=== PATIENT | female | born 1960 | race Caucasian/White ===

== ENCOUNTER → 2017-10-03 13:52 | Outpatient (CLI) | payer OTHER, SELFPAY ==
[2017-10-03 15:10] LABS: Alanine Aminotransferase 16 U/L (12-78); Albumin Level 3.7 gm/dL (3.4-5.0); Alkaline Phosphatase 149 U/L (46-116); Aspartate Amino Transferase 11 U/L (15-37); Bilirubin,Direct 0.1 mg/dL (0.0-0.2); Chol/HDL Ratio 4.1 (1-3.5); Cholesterol 194 mg/dL (140-200); HDL Cholesterol 47 mg/dL (29-89); LDL Cholesterol 121 mg/dL (0-130); Total Protein,Serum 7.1 gm/dL (6.4-8.2); Triglycerides 130 mg/dL (30-200); VLDL Cholesterol 26 mg/dL (0-40)
[2017-10-03 15:24] LABS: Bilirubin,Total 0.5 mg/dL (0.2-1.0)
== END ==
PROVIDERS: PCP Internal Medicine Cardiovascular Disease; Visit Provider Internal Medicine Cardiovascular Disease
DX: I25.10 Atherosclerotic heart disease of native coronary artery without angina pectoris (principal); I10 Essential (primary) hypertension; E78.5 Hyperlipidemia, unspecified; R06.00 Dyspnea, unspecified; E66.9 Obesity, unspecified; G47.10 Hypersomnia, unspecified; Z72.0 Tobacco use; I21.3 ST elevation (STEMI) myocardial infarction of unspecified site; R94.31 Abnormal electrocardiogram [ECG] [EKG]
CPT/HCPCS: 36415; 80061; 80076

== ENCOUNTER 2017-10-05 13:45 | Outpatient (RCR) | payer OTHER, SELFPAY | END 2017-10-05 23:59 | LOC: PT 13:45 | PROVIDERS: Visit Provider Internal Medicine | DX: Z95.5 Presence of coronary angioplasty implant and graft (principal) ==

== ENCOUNTER → 2018-03-13 11:06 | Outpatient (CLI) | payer OTHER, SELFPAY ==
[2018-03-13 12:06] LABS: Alanine Aminotransferase 19 U/L (12-78); Albumin Level 3.4 gm/dL (3.4-5.0); Alkaline Phosphatase 124 U/L (46-116); Aspartate Amino Transferase 13 U/L (15-37); Bilirubin,Direct 0.1 mg/dL (0.0-0.2); Bilirubin,Indirect 0.1 mg/dL (0.0-0.9); Bilirubin,Total 0.2 mg/dL (0.2-1.0); Cholesterol 221 mg/dL (140-200); HDL Cholesterol 44 mg/dL (29-89); LDL Cholesterol 155 mg/dL (0-130); Total Protein,Serum 6.6 gm/dL (6.4-8.2); Triglycerides 112 mg/dL (30-200); VLDL Cholesterol 22 mg/dL (0-40)
== END ==
PROVIDERS: PCP Internal Medicine Cardiovascular Disease; Visit Provider Internal Medicine Cardiovascular Disease
DX: E78.4 Other hyperlipidemia; I25.10 Atherosclerotic heart disease of native coronary artery without angina pectoris
CPT/HCPCS: 36415; 80061; 80076

== ENCOUNTER → 2019-03-14 10:55 | Outpatient (CLI) | payer OTHER, SELFPAY ==
[2019-03-14 15:01] LABS: Alanine Aminotransferase 23 U/L (12-78); Albumin Level 3.5 gm/dL (3.4-5.0); Alkaline Phosphatase 120 U/L (46-116); Aspartate Amino Transferase 16 U/L (15-37); Bilirubin,Direct 0.1 mg/dL (0.0-0.2); Bilirubin,Indirect 0.2 mg/dL (0.0-0.9); Bilirubin,Total 0.3 mg/dL (0.2-1.0); Chol/HDL Ratio 4.9 (1-3.5); Cholesterol 197 mg/dL (140-200); HDL Cholesterol 40 mg/dL (29-89); LDL Cholesterol 129 mg/dL (0-130); Total Protein,Serum 6.8 gm/dL (6.4-8.2); Triglycerides 140 mg/dL (30-200); VLDL Cholesterol 28 mg/dL (0-40)
== END ==
PROVIDERS: Visit Provider Internal Medicine Cardiovascular Disease
DX: I25.10 Atherosclerotic heart disease of native coronary artery without angina pectoris (principal); E78.5 Hyperlipidemia, unspecified; I10 Essential (primary) hypertension; K21.9 Gastro-esophageal reflux disease without esophagitis; R06.00 Dyspnea, unspecified; R94.31 Abnormal electrocardiogram [ECG] [EKG]; Z72.0 Tobacco use; E78.49 Other hyperlipidemia
CPT/HCPCS: 36415; 80061; 80076; 83880

== ENCOUNTER → 2019-04-09 06:14 | Outpatient (CLI) | payer OTHER, SELFPAY ==
--- NOTE | 2019-04-09 06:22 | CA_ITS ---
PROCEDURE: 2-D M-mode and color Doppler study INDICATIONS FOR THE TEST: Chest pain COPD Heart Murmur Tobacco Smoking+ Palpitations Fatigue Syncope Edema Hypertension+Diabetes Mellitus Rheumatic Fever SOB+AGUIRRE Obesity Hyperlipidemia+ Family History HD Additional History HEADACHES, STENTS, GERD PATIENT INFORMATION HEIGHT:64 WEIGHT:222 GENDER: Female B/P:113/69 2-D/M-MODE INTERPRETATION: 2-D MEASUREMENTS OBSERVED VALUES IN CMS Right Ventricular Dimension (RVDd) 1.7 Interventricular Septum (Thickness)(IVsd) 1.1 Left Ventricular Internal Dimensions(LVIDd) 4.4 Left Ventricular Posterior Wall (Thickness)(LVPWd) 0.7 Aortic Root 3.0 Aortic Cusp Separation 1.9 Left Atrial Dimensions (LAD) 4.3 2D 1. Left atrium is mildly enlarged, left ventricle is normal size, there is mild concentric left ventricular hypertrophy present, visually estimated ejection fraction 55% with no regional wall motion abnormality. 2. The right atrium and right ventricle are normal size and contractility. 3. The aortic valve is minimally thickened and fibrosed. 4. The mitral valve leaflets are minimally thickened, there is mild degenerative changes present in both anterior and posterior mitral leaflet. 5. The tricuspid valve is grossly normal. 6. The pulmonic valve is poorly present. 7. No significant pericardial effusion noted. DOPPLER INTERROGATION: Doppler interrogation of the aortic, mitral and tricuspid valve reveals presence of mitral regurgitation, which is difficult to quantify, if clinically indicated transesophageal echocardiogram is recommended. There is mild tricuspid regurgitation noted, tricuspid regurgitation jet velocity is inadequate for acquisition of the right ventricular systolic pressure, grade 1 diastolic dysfunction seen with tissue Doppler evidence of raised left atrial pressure. CONCLUSION: 1. Mildly enlarged left atrium, normal left ventricular size, mild concentric left ventricular hypertrophy, visually estimated ejection fraction 55% with no regional wall motion abnormality, grade 1 diastolic dysfunction seen with tissue Doppler evidence of raised left atrial pressure. 2. Mitral regurgitation, which is difficult to quantify, if clinically indicated transesophageal echocardiogram is recommended. 3. Mild tricuspid regurgitation 4. No significant pericardial effusion noted.
--- NOTE | 2019-04-09 06:23 | NM_ITS ---
CARDIOLITE SPECT MYOCARDIAL PERFUSION LEXISCAN, REST AND STRESS: History: Coronary artery disease previous IA, hyperlipidemia tobacco use family history chest pain shortness of breath and fatigue Procedure: Patient received a 0.4 mg of intravenous Lexiscan, resting heart rate was 69 bpm resting blood pressure 116/73, with Lexiscan maximum heart rate achieved was 86 bpm which is less than 85% of the maximum predicted heart rate and a blood pressure was 110/74. With Lexiscan patient, shortness of breath and nausea. . Electrocardiogram: Resting echocardiogram showed sinus rhythm with Lexiscan less than 1.[address] segment depression noted from the baseline EKG. The EKG portion of the Lexiscan Myoview is nondiagnostic Cardiac stress and resting SPECT images: BX stress and resting SPECT images were obtained using technetium 99 Myoview on32. 4 mCi stress and 10.1 mCi at rest. Gated SPECT further analysis of segmental wall motion and calculation of the ejection fraction also done. Cardiac stress and the suspect images show a fixed defect involving the wall with mild reduced contractility is likely secondary to prior nontransmural myocardial scarring in the inferior wall, in addition there is reversible ischemia involving the anterolateral wall. Computer derived ejection fraction is 61% with mild inferior wall hypokinesis, right ventricle is normal size and contractility. Conclusion: 1. The EKG portion of the Lexiscan Myoview is nondiagnostic. 2. Scintigraphic evidence of nontransmural myocardial scarring involving the inferior wall, in addition there is reversible ischemia involving the anterolateral wall. Computer derived ejection fraction is 61% segmental wall motion abnormality described above, right ventricle is normal size and contractility. 3. Abnormal Lexiscan Myoview study.
--- NOTE | 2019-04-09 07:14 | HMH.ITSHM ---
Current Home Medications as stated by this patient Ruthy Huntley or safety representative. []PLAVIX ASA LOSARTAN LEXAPRO [employer]STOR
== END ==
PROVIDERS: PCP Nurse Practitioner Family; Visit Provider Internal Medicine
DX: E78.49 Other hyperlipidemia (principal); I10 Essential (primary) hypertension; I25.10 Atherosclerotic heart disease of native coronary artery without angina pectoris; R06.00 Dyspnea, unspecified; Z71.6 Tobacco abuse counseling
CPT/HCPCS: 78452; 93017; 93306; A9502; J2785

== ENCOUNTER → 2019-04-11 13:01 | Outpatient (CLI) | payer OTHER, SELFPAY | PROVIDERS: PCP Nurse Practitioner Family; Visit Provider Internal Medicine Cardiovascular Disease | DX: R06.83 Snoring (principal); R40.0 Somnolence; R53.83 Other fatigue | CPT/HCPCS: 95806 ==

== ENCOUNTER → 2019-06-06 10:31 | Outpatient (CLI) | payer OTHER, SELFPAY ==
[2019-06-06 13:37] LABS: Alanine Aminotransferase 24 U/L (12-78); Albumin Level 3.5 gm/dL (3.4-5.0); Alkaline Phosphatase 121 U/L (46-116); Aspartate Amino Transferase 16 U/L (15-37); Bilirubin,Direct 0.1 mg/dL (0.0-0.2); Bilirubin,Indirect 0.2 mg/dL (0.0-0.9); Bilirubin,Total 0.3 mg/dL (0.2-1.0); Chol/HDL Ratio 3.6 (1-3.5); Cholesterol 171 mg/dL (140-200); HDL Cholesterol 47 mg/dL (29-89); LDL Cholesterol 106 mg/dL (0-130); Total Protein,Serum 6.6 gm/dL (6.4-8.2); Triglycerides 91 mg/dL (30-200); VLDL Cholesterol 18 mg/dL (0-40)
== END ==
PROVIDERS: Visit Provider Internal Medicine Cardiovascular Disease
DX: I25.10 Atherosclerotic heart disease of native coronary artery without angina pectoris (principal); I10 Essential (primary) hypertension; T82.855A Stenosis of coronary artery stent, initial encounter; E78.49 Other hyperlipidemia
CPT/HCPCS: 36415; 80061; 80076; 83880

== ENCOUNTER → 2019-06-20 12:45 | Outpatient (CLI) | payer OTHER, SELFPAY ==
--- NOTE | 2019-06-20 14:03 | CT_ITS ---
PROCEDURE: CT LUNG SCREENING CLINICAL INDICATION: H/O NICOTINE DEPENDENCE Sixty pack-year smoking history, asymptomatic for lung cancer COMPARISON: No exams were available for comparison TECHNIQUE: The exam was performed on a GE Light Speed [address] scanner using 2.90 mGy CTDI. A low dose helical CT CHEST was performed on a multi-detector scanner. All CT scans at the facility use one or more dose reduction, viz: automated exposure control, ma/kV adjustment per patient size (including targeted exams where dose is matched to indication, i.e. head), or iterative reconstruction technique. The LDCT was performed in a facility that meets the criteria for the screening program. Data regarding this exam was submitted to ACR which is an approved registry. The order for this exam indicates that it came as a result of a lung cancer screening counseling shard decision-making visit that included all the elements required of such a visit including smoking cessation. The radiologist interpreting this exam meets the CMS criteria for the LDCT lung cancer screening program. The exam is reported using the Lung-RADS classification scale and reported to the ACR registry. NOTE: This study was performed for the specific purposes of lung cancer screening and is not an alternative to diagnostic chest CT. RADIATION DOSE: CTDI vol(CT dose Index-volume) = 2.90mG DLP (Dose Length Product) = 102.38 mGcm FINDINGS: Centrilobular emphysema/COPD Old granulomatous disease. Atelectatic or fibrotic changes are present in the lingula OTHER FINDINGS: Coronary artery calcification IMPRESSION: Lung rads category 2 benign findings COPD/emphysema with old granulomatous disease. Coronary artery disease. Recommend 12 month LDCT screening exam Dictated by: Kevin Ortiz MD 06/21/2019 09:09 Electronically signed by Kevin Ortiz MD in [place] 06/29/2019 10:49
== END ==
PROVIDERS: PCP Nurse Practitioner Family; Visit Provider Nurse Practitioner Family
DX: Z12.2 Encounter for screening for malignant neoplasm of respiratory organs (principal); Z87.891 Personal history of nicotine dependence; R06.00 Dyspnea, unspecified
CPT/HCPCS: 94060; 94640; 94726; 94729

== ENCOUNTER → 2019-06-25 10:40 | Outpatient (CLI) | payer OTHER, SELFPAY ==
[2019-06-25 13:23] LABS: Anion Gap 10.8 mEq/L (5-15); Blood Urea Nitrogen 10 mg/dL (7-18); Calcium 8.8 mg/dL (8.5-10.1); Carbon Dioxide 30 mmol/L (21.0-32.0); Chloride 102 mmol/L (98-107); Creatinine,Serum 0.76 mg/dL (0.55-1.02); Estimated Glomerular Filt Rate 79 ml/min (>60); Ferritin 39 ng/mL (8-388); GFR (African American) 95 ML/MIN (>60); Glucose 83 mg/dL (74-106); Magnesium 1.9 mg/dL (1.4-2.2); Potassium 4.8 mmoL/L (3.5-5.1); Sodium 138 mmol/L (136-145)
== END ==
PROVIDERS: Visit Provider Nurse Practitioner Family
DX: G25.81 Restless legs syndrome (principal); R25.2 Cramp and spasm; E83.10 Disorder of iron metabolism, unspecified
CPT/HCPCS: 36415; 80048; 82728; 83735

== ENCOUNTER 2019-09-01 14:59 | Inpatient (IN) ==
--- NOTE | 2019-09-01 15:01 | Emergency Department Note ---
ED Disposition Clinical Impression: Acute exacerbation of chronic obstructive airways disease Sepsis Qualifiers: Sepsis type: sepsis due to unspecified organism Sepsis acute organ dysfunction status: without acute organ dysfunction Qualified Code(s): A41.9 - Sepsis, unspecified organism Community acquired pneumonia Qualifiers: Laterality: right Lung location: unspecified part of lung Qualified Code(s): J18.9 - Pneumonia, unspecified organism Disposition: Admitted As Inpatient Condition on Discharge: Undetermined Referrals: Provider,Referral, MD [Primary Care Provider] - - Critical Care Critical Care Time: Yes Attestation: On , the high probability of a clinically significant, sudden or life threatening deterioration of the following system(s) required my full and direct attention, intervention and personal management. The time I documented below is in addition to time spent performing reported procedures but includes the following listed in this critical care notation. Total Critical Care Time: 35 Vital system(s) involved:: Respiratory Failure My critical care processes included: Assessment & monitoring of V/S, Initial and Re-exams, Data Review/Interpretation, Coordinating Care, Medication Orders and management, Documentation Medical Decision Making - Medical Records Medical records reviewed: Yes: I reviewed the patient's medical records. - Rainer Inquiry Pt receiving controlled substance: No Vital Signs: 09/01/19 14:59 09/01/19 16:12 Temperature 100.6 F H 98.2 F Temperature Source Oral Oral Pulse Rate [Right Brachial] 90 84 Respiratory Rate 21 Blood Pressure [Right Arm] 108/77 L 103/58 L Blood Pressure Mean [Right Arm] 87 73 Blood Pressure Source [Right Arm] Automatic Cuff Blood Pressure Position [Right Arm] Left Lateral 02 Sat by Pulse Oximetry 80 L 95 Oxygen Delivery Method Room Air Nasal Cannula Oxygen Flow Rate (LPM) 2 - Lab Data Lab Results 09/01/19 03:10: Specimen Source Right radial, ABG pH 7.44, ABG pCO2 39.3, ABG pO2 57.8 L, ABG HCO3 25.9, ABG Total CO2 27.1 H, ABG O2 Saturation 91, ABG Base Excess 1.7, Kevin Test Acceptable 09/01/19 15:10: WBC 14.3 H, RBC 5.25, Hgb 15.2, Hct 46.8, MCV 89.2, MCH 29.0, MCHC 32.5, RDW 13.8, Plt Count 371, MPV 8.1, Neut % (Auto) 86.9 H, Lymph % (Auto) 8.7 L, [place] % (Auto) 3.8, Eos % (Auto) 0.2, Baso % (Auto) 0.4, Neut # (Auto) 12.5 H, Lymph # (Auto) 1.3, [place] # (Auto) 0.6, Eos # (Auto) 0.0, Baso # (Auto) 0.1, Total Counted 100, Neutrophils % (Manual) 79 H, Lymphocytes % (Manual) 17, Monocytes % (Manual) 4, Platelet Estimate Normal, RBC Morphology Normal 09/01/19 15:10: Lactate 2.0 09/01/19 15:10: B-Natriuretic Peptide 391 H 09/01/19 15:10: D-Dimer 2940 H* 09/01/19 15:10: Influenza Type A Ag Negative, Influenza Type B Ag Negative Result diagrams: 09/01/19 15:10 Orders (Tests/Meds): ED MEDICATIONS Generic Name Dose Route Start Last Admin Trade Name Freq PRN Reason Stop Dose Admin Sodium Chloride 1,000 mls @ 999 mls/hr 09/01/19 15:30 09/01/19 15:59 Sod Chlor 0.9% 1000ml Bag IV 09/01/19 16:30 999 mls/hr .Q1H1M STEFANIA Administration Vancomycin HCl 2,000 mg/ 250 mls @ 125 mls/hr 09/01/19 15:45 Sodium Chloride IV 09/01/19 17:44 ONCE ONE Discontinued Medications Generic Name Dose Route Start Last Admin Trade Name Freq PRN Reason Stop Dose Admin Acetaminophen 1,000 mg 09/01/19 15:17 09/01/19 15:59 Tylenol 500mg Tablet PO 09/01/19 15:18 1,000 mg ONCE ONE Administration Albuterol/Ipratropium 3 ml 09/01/19 15:00 09/01/19 15:30 Duoneb 3ml Neb IH 09/01/19 15:01 3 ml ONCE ONE Administration Piperacillin Sod/Tazobactam 100 mls @ 200 mls/hr 09/01/19 15:19 09/01/19 15:53 Sod 4.5 gm/ Sodium Chloride IV 09/01/19 15:48 200 mls/hr ONCE ONE Administration Protocol Methylprednisolone Sodium Succinate 125 mg 09/01/19 15:00 09/01/19 15:30 Solu-Medrol 125mg/2ml Vial IV 09/01/19 15:01 125 mg ONCE ONE Administration Miscellaneous 1 each 09/01/19 15:30 Vancomycin Consult Request * 10/01/19 15:29 CONSULT PHARMACY STEFANIA ORDERS Category Date Time Status XR chest 2V Stat Exams 09/01/19 15:00 Taken BMP [Basic Metabolic Panel] Stat Lab 09/01/19 15:10 Received Troponin I Q3H Lab 09/01/19 18:15 Ordered Troponin I Q3H Lab 09/01/19 21:15 Ordered Troponin I Stat Lab 09/01/19 15:10 Received Blood Culture Stat Micro 09/01/19 15:30 Ordered Arterial Blood Gas Stat RT 09/01/19 15:31 Ordered ECG Request by /Yumi Stat Y 09/01/19 15:00 Ordered - Radiology Data #1 Image(s): Chest Image Reviewed: Yes I reviewed the patient's radiology image Pneumonia right Medical Decision Narrative: Patient arrives with an oxygen saturation of 80%. She is given a DuoNeb, is now saturating well on 2 L. She does not use oxygen normally at home. She has a large right-sided pneumonia. She is given vancomycin and Zosyn empirically given her failure with doxycycline. Flu swabs are negative. She does have a temperature and I suspect sepsis at this time. She is given a liter of fluids. Lactic acid is 2. Discussed this case with Dr. Corbett who will admit for further management. D-dimer slightly elevated, likely secondary to her pneumonia, but I did order a CTA chest. Resp/SOB HPI - General Chief Complaint: Shortness of Breath/Dyspnea Stated Complaint: shortness of breath Time Seen by Provider: 09/01/19 15:01 Source of Information: Patient Limitations: No Limitations - History of Present Illness This is a 58-year-old female with a past medical history significant for hypertension, hyperlipidemia, coronary artery disease, COPD, not oxygen dependent, who presents to the emergency department for evaluation of shortness of breath and generalized malaise for the last 4 days. She did receive a flu shot about 1 week ago, but began to feel badly about 2 days after that. She was seen by her primary care doctor 3 days ago, stated that she was developing pn eumonia, placed on doxycycline and given a steroid shot in the office. She is continued to decline over the weekend and presents here for further evaluation. She has been using her medications at home without improvement of symptoms. She has a heaviness on her chest that is worse with coughing. No radiation of pain. No history of DVT or PE. She has been taking her doxycycline without difficu lty. No vomiting or diarrhea. Any exertion makes her dyspnea worse. She is a smoker. - Related Data Home Medications Medication Instructions Recorded Confirmed aspirin 81 mg tablet,delayed 81 mg PO DAILY 10/04/17 09/01/19 release buspirone 7.5 mg tablet 7.5 mg PO BID 03/14/19 09/01/19 albuterol sulfate 90 mcg/actuation 1 inh INHALATION Q4-6H PRN 06/25/19 09/01/19 breath activated powder inhaler aripiprazole 2 mg tablet 2 mg PO DAILY 06/25/19 09/01/19 fluoxetine 40 mg capsule 40 mg PO DAILY cap 06/25/19 09/01/19 Clopidogrel Bisulfate [Plavix 75mg 75 mg PO DAILY 09/01/19 09/01/19 Tab] Doxycycline Hyclate [Doxycycline 100 mg PO Q12 09/01/19 09/01/19 100mg Capsule] Isosorbide Mononitrate [Imdur 30mg 30 mg PO DAILY 09/01/19 09/01/19 ER tablet] Losartan Potassium [Cozaar 50mg 50 mg PO DAILY 09/01/19 09/01/19 Tablets] Metoprolol Succinate 25 mg PO DAILY 09/01/19 09/01/19 Omeprazole [Omeprazole 40mg 40 mg PO DAILY 09/01/19 09/01/19 Capsule] Pramipexole Di-HCl [Pramipexole 0.125 mg PO DAILY 09/01/19 09/01/19 Dihydrochloride] Rosuvastatin Calcium 10 mg PO DAILY 09/01/19 09/01/19 hydroCHLOROthiazide 12.5 mg PO DAILY 09/01/19 09/01/19 [Hydrochlorothiazide 12.5mg Tab] Previous Rx's Medication Instructions Recorded nitroglycerin 0.4 mg sublingual 0.4 mg SUBLINGUAL Q5M PRN #25 tab 06/06/19 tablet ferrous sulfate ER 142 mg (45 mg 142 mg PO DAILY #30 tab 07/01/19 iron) tablet,extended release Allergies Allergy/AdvReac Type Severity Reaction Status Date / Time diphenhydramine AdvReac Mild Verified 09/01/19 15:06 [From Benadryl] [facility] History - Hepatitis A Screen Attestation statement:: This patient has been screened for Hepatitis A risk factors. I have reviewed the patient's past medical history: Yes Medical History: Reports:: Anxiety, Coronary Artery Disease, Gastroesophageal Reflux Disease(GERD), Hyperlipidemia, Hypertension Laterality Cases: Other Surgeries: Yes: No Previous Surgery, Appendectomy, Cardiac Catheterization , Colonoscopy, Coronary Stent, Hysterectomy-Total, Other - Social History Smoking Status: Current every day smoker # Packs/Day (cigarettes): 1 #Yrs smoked (if former smoker): 40 Alcohol Intake: never Alcohol Intake Frequency:: holidays/special occasions only Substance Use Type: denies use Occupational Status: employed ([employer]) Housing: house Household Members: none - Psychiatric History Pschychiatric History:: Reports:: Anxiety Family Hx:: Coronary Artery Disease ROS Obtained: Yes All systems reviewed & no additional complaints Physical Exam - General General appearance: alert, in distress - Eye Eye exam: Present: normal appearance, PERRL, EOMI. Absent: scleral icterus - ENT ENT exam: Present: mucous membranes dry - Neck Neck exam: Present: normal inspection, trachea midline. Absent: lymphadenopathy - Chest Chest inspection: Present: normal inspection, symmetric chest wall rise. Absent: tenderness - Respiratory Respiratory exam: Present: wheezes. Absent: respiratory distress - Cardiovascular Cardiovascular exam: Present: regular rate, normal rhythm. Absent: JVD - Abdominal Exam Abdominal exam: Present: soft, normal bowel sounds. Absent: distention, tenderness, guarding - Neurological Exam Neurological exam: Present: alert, oriented X3 - Psychiatric Psychiatric exam: Present: normal affect, normal mood - Skin Skin exam: Present: warm, dry, intact, normal color
[2019-09-01 15:20] LABS: ABG Base Excess 1.7 mmol/L (-2.4-2.3); ABG HCO3 25.9 mmhg (22.0-26.0); ABG Oxygen Saturation 91 % (90-100); ABG PCO2 39.3 mmhg (35.0-45.0); ABG PH 7.44 mmol/L (7.35-7.45); ABG PO2 57.8 mmhg (80-100); ABG TCO2 27.1 mmhg (23-27)
[2019-09-01 15:23] LABS: Allen's Test ACCEPTABLE
[2019-09-01 15:36] LABS: Basophils # 0.1 K/mm3 (0-0.2); Basophils % 0.4 % (0.1-2.0); Eosinophils % 0.2 % (0.1-12.0); Hematocrit 46.8 % (37.0-47.0); Hemoglobin 15.2 g/dL (12.2-16.2); Lymphocytes # 1.3 K/mm3 (0.7-4.5); Lymphocytes % 8.7 % (10-50); Mean Corpuscular HGB Conc 32.5 g/dL (31.8-35.4); Mean Corpuscular Volume 89.2 fl (81-99); Mean Platelet Volume 8.1 fl (7.4-10.4); Monocytes # 0.6 K/mm3 (0.1-1.0); Monocytes % 3.8 % (1.7-9.3); Neutrophils # 12.5 K/mm3 (1.8-7.8); Neutrophils % 86.9 % (37.0-80.0); Platelet Count 371 K/mm3 (142-424); Red Blood Count 5.25 M/mm3 (4.20-5.40); Red Cell Distribution Width 13.8 % (11.5-17.5); White Blood Count 14.3 K/mm3 (4.8-10.8)
[2019-09-01 16:11] LABS: Lymphocytes % 17 % (10-50); Monocytes % 4 % (2-9); Neutrophils % 79 % (42-76); RBC Morphology Normal; Total Cells Counted 100
[2019-09-01 16:30] LABS: Anion Gap 15.1 mEq/L (5-15); Calcium 8.5 mg/dL (8.5-10.1)
--- NOTE | 2019-09-01 18:56 | Cardiology Report ---
APPROVED REPORT EXAM: Comprehensive 2D, Doppler, and color-flow Echocardiogram Operations Forester: Kim Bob RT(R) Ht: 5 ft 3 in Wt: 225lbs BSA: 2.03 BP: 124/75 mmHg Indications: sepsis, pneumonia, cp, COPD, smoker, hx of [place] (2017), CAD, SOB, obesity, family history of HD. 2D Dimensions Aortic Root 2.80 cm F: 2.7 - 3.3 Left Atrium 4.10 cm F: 2.7 - 3.8 LVOT 1.69 cm (M/F) 1.5-2.5 M-Mode Dimensions RVDd 2.33 cm (0.9-2.6)LVDd 5.11 cm (3.5-5.7) LVDs 3.89 cm (3.5-5.7)IVSd 0.95 cm (0.6-1.1) PWd 0.84 cm (0.6-1.1)EF (Teich) 47.30% FS 23.90% EDV (Teich) 124.40 mL ESV (Teich) 65.50 mL LV Diastology E/A Ratio 0.87 Mitral Valve MV A Velocity 102.00 (40-130 cm/s) Left Ventricle Left atrium is mildly enlarged, left ventricle is normal size, mild concentric left ventricular hypertrophy, visually estimated ejection fraction 40 to 45%, there is marked hypokinesis involving the inferior, inferior basal, posterior basal and posterolateral wall. Grade 1 diastolic dysfunction seen without tissue Doppler evidence of raise left atrial pressure. Right Ventricle Right atrium and right ventricular normal size and contractility. Aortic Valve Aortic valve is thickened and calcified leaflet continue to display good mobility, there is no aortic stenosis or aortic insufficiency. Mitral Valve Mitral valve is grossly normal, there is mild mitral regurgitation. Tricuspid Valve Tricuspid valve is grossly normal, there is mild tricuspid regurgitation. Pulmonic Valve Pulmonic valve is poorly visualized. Great Vessels Aortic root is normal size. Pericardium No significant pericardial effusion noted. Conclusion 1. Mildly enlarged left atrium, normal left ventricular size, mild concentric left ventricular hypertrophy, visually estimated ejection fraction 40 to 45% with multiple segmental wall motion abnormality described above, grade 1 diastolic dysfunction seen without tissue Doppler evidence of raise left atrial pressure. 2. Mild mitral and tricuspid regurgitation. 3. No significant pericardial effusion noted. Electronically signed by : Hollis Orr, 09/01/2019 18:56:29
--- NOTE | 2019-09-01 19:56 | History & Physical Report ---
*Admission Date: 09/01/19 *Chief complaint: sob *History of present illness: this wf presented to the ed -is is a 58-year-old female with a past medical history significant for hypertension, hyperlipidemia, coronary artery disease, COPD, not oxygen dependent, who presents to the emergency department for evalu ation of shortness of breath and generalized malaise for the last 4 days. She did receive a flu shot about 1 week ago, but began to feel badly about 2 days after that. She was seen by her primary care doctor 3 days ago, stated that she was developing pneumonia, placed on doxycycline and given a steroid shot in the office. She is continued to decline over the weekend and presents here for further evaluation. She has been using her medications at home without improvement of symptoms. She has a heaviness on her chest that is worse with coughing. No radiation of pain. No history of DVT or PE. She has been taking her doxycycline without difficulty. No vomiting or diarrhea. Any exertion makes her dyspnea worse. She is a smoker. Patient arrives with an oxygen saturation of 80%. She is given a DuoNeb, is now saturating well on 2 L. She does not use oxygen normally at home. She has a large right-sided pneumonia. She is given vancomycin and Zosyn empirically given her failure with doxycycline. Flu swabs are negative. She does have a temperature and I suspect sepsis at this time. She is given a liter of fluids. Lactic acid is 2. Discussed this case with Dr. Corbett who will admit for further management. D-dimer slightly elevated, likely secondary to her pneumonia, but I did order a CTA chest.G at 1619 shows some elevation in leads II, 3, aVF with Q waves, indicating older OK. There are no reciprocal changes or acute STEMI. I have confirmed this with Dr. Cisneros by sharing the EKG image. In addition her troponin and D-dimer is elevated, so likely when she began having malaise, weakness, shortness of breath 4 days ago, she likely had an OK and now also has a pneumonia and sepsis. He recommended Lovenox, but no acute intervention at this time. He did ask for an echo which has been ordered. Dr. Cisneros also recommended being cautious with fluid resuscitation and no additional steroids. I have relayed all this to Dr. Corbett as well. pt was admitted for eval and treatment [facility] History I have reviewed the patient's past medical history: Yes Medical History: Reports:: Anxiety, Coronary Artery Disease, Gastroesophageal Reflux Disease(GERD), Hyperlipidemia, Hypertension Denies:: Home Oxygen *Have you ever received a pneumonia vaccine?: No *Have you received a flu vaccine this season?: Yes Laterality Cases: Bilateral: Carpal Tunnel Release Other Surgeries: Yes: No Previous Surgery, Appendectomy, Cardiac Catheterization, Colonoscopy, Coronary Stent, Hysterectomy-Total, Other - *Social History Smoking Status: Current every day smoker Tobacco Type: cigarettes # Packs/Day (cigarettes): 1 #Yrs smoked (if former smoker): 40 Alcohol Intake: never Alcohol Intake Frequency:: holidays/special occasions only Substance Use Type: denies use *Occupational Status:: employed Housing: house Household Members: none *Travel in the last 8 weeks: None - Psychiatric History Pschychiatric History:: Reports:: Anxiety Family Hx:: Coronary Artery Disease Review of Systems - Review of Systems Review of systems:: pertinent systems reviewed and negative unless documented below - Constitutional Denies headache(s) - Eyes Denies change in vision - ENT Denies sore throat - *Cardiovascular Reports chest pain at rest, Reports chest pain with activity, Reports shortness of breath - *Respiratory Reports cough, Reports shortness of breath - *Gastrointestinal Denies coffee ground vomit - *Genitourinary Denies blood in urine - *Musculoskeletal Denies joint pain - Integumentary/Breasts Denies rash - *Neurologic Denies seizure-like activity - Psychiatric Reports anxiety Meds Home Medications Medication Instructions Recorded Confirmed Type aspirin 81 mg tablet,delayed 81 mg PO DAILY 10/04/17 09/01/19 History release buspirone 7.5 mg tablet 7.5 mg PO BID 03/14/19 09/01/19 History nitroglycerin 0.4 mg sublingual 0.4 mg SUBLINGUAL Q5M PRN #25 tab 06/06/19 09/01/19 Rx tablet albuterol sulfate 90 mcg/actuation 1 inh INHALATION Q4HP PRN 06/25/19 09/01/19 History breath activated powder inhaler aripiprazole 2 mg tablet 2 mg PO DAILY 06/25/19 09/01/19 History fluoxetine 40 mg capsule 40 mg PO DAILY cap 06/25/19 09/01/19 History ferrous sulfate ER 142 mg (45 mg 142 mg PO DAILY #30 tab 07/01/19 09/01/19 Rx iron) tablet,extended release Clopidogrel Bisulfate [Plavix 75mg 75 mg PO DAILY 09/01/19 09/01/19 History Tab] Doxycycline Hyclate [Doxycycline 100 mg PO Q12 09/01/19 09/01/19 History 100mg Capsule] Losartan Potassium [Cozaar 50mg 25 mg PO DAILY 09/01/19 09/01/19 History Tablets] Metoprolol Succinate 25 mg PO DAILY 09/01/19 09/01/19 History Omeprazole [Omeprazole 40mg 40 mg PO DAILY 09/01/19 09/01/19 History Capsule] Rosuvastatin Calcium 10 mg PO HS 09/01/19 09/01/19 History hydroCHLOROthiazide 12.5 mg PO DAILY 09/01/19 09/01/19 History [Hydrochlorothiazide 12.5mg Tab] Allergies Allergy/AdvReac Type Severity Reaction Status Date / Time diphenhydramine AdvReac Mild Confusion Verified 09/01/19 18:42 [From Benadl] Exam Vital signs and Labs for Last 24 Hours: Temp Pulse Resp BP Pulse Ox 98.1 F 90 18 119/61 97 09/01/19 18:24 09/01/19 18:24 09/01/19 18:24 09/01/19 18:24 09/01/19 18:09 Laboratory Results - last 24 hr 09/01/19 03:10: Specimen Source Right radial, ABG pH 7.44, ABG pCO2 39.3, ABG pO2 57.8 L, ABG HCO3 25.9, ABG Total CO2 27.1 H, ABG O2 Saturation 91, ABG Base Excess 1.7, Kevin Test Acceptable 09/01/19 15:10: WBC 14.3 H, RBC 5.25, Hgb 15.2, Hct 46.8, MCV 89.2, MCH 29.0, MCHC 32.5, RDW 13.8, Plt Count 371, MPV 8.1, Neut % (Auto) 86.9 H, Lymph % (Auto) 8.7 L, [place] % (Auto) 3.8, Eos % (Auto) 0.2, Baso % (Auto) 0.4, Neut # (Auto) 12.5 H, Lymph # (Auto) 1.3, [place] # (Auto) 0.6, Eos # (Auto) 0.0, Baso # (Auto) 0.1, Total Counted 100, Neutrophils % (Manual) 79 H, Lymphocytes % (Manual) 17, Monocytes % (Manual) 4, Platelet Estimate Normal, RBC Morphology Normal 09/01/19 15:10: Sodium 135 L, Potassium 3.1 L, Chloride 95 L, Carbon Dioxide 28, Anion Gap 15.1 H, BUN 13, Creatinine 0.79, Estimated Creat Clear 128, Estimated GFR 75, Est GFR ( Amer) 91, Glucose 149 H, Calcium 8.5, Troponin I 24.73 H 09/01/19 15:10: Lactate 2.0 09/01/19 15:10: B-Natriuretic Peptide 391 H 09/01/19 15:10: D-Dimer 2940 H* 09/01/19 15:10: Influenza Type A Ag Negative, Influenza Type B Ag Negative 09/01/19 18:16: Troponin I 25.25 H I & O for Last 24 hours: Intake & Output 08/30/19 08/31/19 09/01/19 09/02/19 11:59 11:59 11:59 11:59 Intake Total 1000 / 1000 Balance 1000 / 1000 Weight 226 lb 1 oz - Constitutional no acute distress, obese - *Routine HEENT Exam Head: Present: normocephalic Eye: Present: EOMI, PERRL ENT: Present: mucous membranes dry - *Routine Neck Exam Present: supple. Absent: JVD - *Routine Respiratory Exam Present: decreased breath sounds - *Routine Cardiovascular Exam Present: RRR, murmur, S4 - *Routine Abdominal Exam Present: soft - *Routine Extremities Exam Present: edema. Absent: calf tenderness - *Routine Skin Exam Present: intact - *Routine Neurological Exam Present: alert, oriented X3, CN II-XII intact - Routine Psychiatric Exam Present: normal affect Assessment and Plan (1) Obesity (BMI 30-39.9) Current visit: Yes Status: Acute Category: Medical Code(s): E66.9 - Obesity, unspecified (2) Acute exacerbation of chronic obstructive airways disease Current visit: Yes Status: Acute Category: Medical Code(s): J44.1 - Chronic obstructive pulmonary disease with (acute) exacerbation (3) Community acquired pneumonia Current visit: Yes Status: Acute Qualifiers: Laterality: right Lung location: unspecified part of lung Qualified Code(s): J18.9 - Pneumonia, unspecified organism Category: Medical Code(s): J18.9 - Pneumonia, unspecified organism (4) CAD (coronary artery disease) Current visit: No Status: Chronic Qualifiers: Coronary Disease-Associated Artery/Lesion type: [place] artery [place] vs. transplanted heart: [place] heart Associated angina: without angina Qualified Code(s): I25.10 - Atherosclerotic heart disease of [place] coronary artery without angina pectoris Category: Medical Code(s): I25.10 - Atherosclerotic heart disease of [place] coronary artery without angina pectoris (5) GERD (gastroesophageal reflux disease) Current visit: No Status: Chronic Qualifiers: Esophagitis presence: without esophagitis Qualified Code(s): K21.9 - Gastro-esophageal reflux disease without esophagitis Category: Medical Code(s): K21.9 - Gastro-esophageal reflux disease without esophagitis (6) HTN (hypertension) Current visit: No Status: Chronic Qualifiers: Hypertension type: essential hypertension Qualified Code(s): I10 - Essential (primary) hypertension Category: Medical Code(s): I10 - Essential (primary) hypertension (7) Tobacco abuse Current visit: No Status: Chronic Category: Medical Code(s): Z72.0 - Tobacco use (8) Elevated d-dimer Current visit: Yes Status: Acute Category: Medical Code(s): R79.89 - Other specified abnormal findings of blood chemistry (9) Elevated troponin Current visit: Yes Status: Acute Category: Medical Code(s): R79.89 - Other specified abnormal findings of blood chemistry
--- NOTE | 2019-09-02 06:36 | Consult Report ---
History of Present Illness Consult date: 09/02/19 Requesting physician: Miko Corbett Consult reason: chest pain Chief complaint: chest pain Additional Medical History:: 1. CAD A. STEMI, 08/2017, [place]ORIA to posterolateral LV branch B. STEMI, 08/2019 C. Echo, 2016 and 08/2019, 1. Mildly enlarged left atrium, normal left ventricular size, mild concentric left ventricular hypertrophy, visually estimated ejection fraction 40 to 45% with multiple segmental wall motion abnormalities including inferior, inferior basal, posterior basal and posterolateral wall, grade 1 diastolic dysfunction seen without tissue Doppler evidence of raise left atrial pressure. 2. Mild mitral and tricuspid regurgitation. 3. No significant pericardial effusion noted. 2. Long-term tobacco use, continued 3. Elevated d-dimer A. CTA pending, 08/2019 4. Hypertension 5. Hyperlipidemia 6. GERD History of present illness: 58-year-old white female with known coronary artery disease and previous coron anne artery stenting in 2016 presented to the hospital for several days history of chest pain and shortness of breath. Patient received a flu shot the week prior to with development of chest discomfort and shortness of breath approximately 2 to 3 days later. Symptoms persisted through and prompted ER visit when they continued. Patient noted to have elevated troponins and abnormal EKG. She recently had cardiac catheterization in June of this year showing in-stent stenosis of the posterior lateral LV branch best manage medically. She denies missing any of her medications although most recent addition of isosorbide caused a headache so she quit taking that. She does continue to smoke about 4 cigarettes/day. Patient's echocardiogram this visit shows continued ischemic cardiomyopathy with areas of wall motion abnormalities unchanged since 2017. Patient's discomfort has nearly resolved and she is feeling and breathing much better. She has been diagnosed with pneumonia and is being treated for that as well at this time. D-dimer is elevated with CTA of the chest results pending. [facility] History Medical History: Reports:: Anxiety, Coronary Artery Disease, Gastroesophageal Reflux Disease(GERD), Hyperlipidemia, Hypertension Denies:: Home Oxygen *Have you ever received a pneumonia vaccine?: No *Have you received a flu vaccine this season?: Yes Laterality Cases: Bilateral: Carpal Tunnel Release Other Surgeries: Yes: No Previous Surgery, Appendectomy, Cardiac Catheterization, Colonoscopy, Coronary Stent, Hysterectomy-Total, Other - *Social History Smoking Status: Current every day smoker Tobacco Type: cigarettes # Packs/Day (cigarettes): 1 #Yrs smoked (if former smoker): 40 Alcohol Intake: never Alcohol Intake Frequency:: holidays/special occasions only Substance Use Type: denies use *Occupational Status:: employed Housing: house Household Members: none *Travel in the last 8 weeks: None - Psychiatric History Pschychiatric History:: Reports:: Anxiety Family Hx:: Coronary Artery Disease Meds Home Medications Medication Instructions Recorded Confirmed Type aspirin 81 mg tablet,delayed 81 mg PO DAILY 10/04/17 09/01/19 History release buspirone 7.5 mg tablet 7.5 mg PO BID 03/14/19 09/01/19 History nitroglycerin 0.4 mg sublingual 0.4 mg SUBLINGUAL Q5M PRN #25 tab 06/06/19 09/01/19 Rx tablet albuterol sulfate 90 mcg/actuation 1 inh INHALATION Q4HP PRN 06/25/19 09/01/19 History breath activated powder inhaler aripiprazole 2 mg tablet 2 mg PO DAILY 06/25/19 09/01/19 History fluoxetine 40 mg capsule 40 mg PO DAILY cap 06/25/19 09/01/19 History ferrous sulfate ER 142 mg (45 mg 142 mg PO DAILY #30 tab 07/01/19 09/01/19 Rx iron) tablet,extended release Clopidogrel Bisulfate [Plavix 75mg 75 mg PO DAILY 09/01/19 09/01/19 History Tab] Doxycycline Hyclate [Doxycycline 100 mg PO Q12 09/01/19 09/01/19 History 100mg Capsule] Losartan Potassium [Cozaar 50mg 25 mg PO DAILY 09/01/19 09/01/19 History Tablets] Metoprolol Succinate 25 mg PO DAILY 09/01/19 09/01/19 History Omeprazole [Omeprazole 40mg 40 mg PO DAILY 09/01/19 09/01/19 History Capsule] Rosuvastatin Calcium 10 mg PO HS 09/01/19 09/01/19 History hydroCHLOROthiazide 12.5 mg PO DAILY 09/01/19 09/01/19 History [Hydrochlorothiazide 12.5mg Tab] Allergies Allergy/AdvReac Type Severity Reaction Status Date / Time diphenhydramine AdvReac Mild Confusion Verified 09/01/19 18:42 [From Nara] Review of Systems - Review of Systems Review of systems:: pertinent systems reviewed and negative unless documented below - *Cardiovascular Reports chest pain, Reports shortness of breath - *Respiratory Reports shortness of breath - *Gastrointestinal Denies nausea, Denies vomiting - *Genitourinary Denies blood in urine - *Musculoskeletal Denies joint pain, Denies back pain - *Neurologic Denies headache(s), Denies seizure-like activity Exam Vital signs and Labs for Last 24 Hours: Temp Pulse Resp BP Pulse Ox 98.4 F 85 18 138/59 L 91 L 09/02/19 04:00 09/02/19 04:00 09/02/19 04:00 09/02/19 04:00 09/02/19 04:00 Laboratory Results - last 24 hr 09/01/19 03:10: Specimen Source Right radial, ABG pH 7.44, ABG pCO2 39.3, ABG pO2 57.8 L, ABG HCO3 25.9, ABG Total CO2 27.1 H, ABG O2 Saturation 91, ABG Base Excess 1.7, Kevin Test Acceptable 09/01/19 15:10: WBC 14.3 H, RBC 5.25, Hgb 15.2, Hct 46.8, MCV 89.2, MCH 29.0, MCHC 32.5, RDW 13.8, Plt Count 371, MPV 8.1, Neut % (Auto) 86.9 H, Lymph % (Auto) 8.7 L, [place] % (Auto) 3.8, Eos % (Auto) 0.2, Baso % (Auto) 0.4, Neut # (Auto) 12.5 H, Lymph # (Auto) 1.3, [place] # (Auto) 0.6, Eos # (Auto) 0.0, Baso # (Auto) 0.1, Total Counted 100, Neutrophils % (Manual) 79 H, Lymphocytes % (Manual) 17, Monocytes % (Manual) 4, Platelet Estimate Normal, RBC Morphology Normal 09/01/19 15:10: Sodium 135 L, Potassium 3.1 L, Chloride 95 L, Carbon Dioxide 28, Anion Gap 15.1 H, BUN 13, Creatinine 0.79, Estimated Creat Clear 128, Estimated GFR 75, Est GFR ( Amer) 91, Glucose 149 H, Calcium 8.5, Troponin I 24.73 H 09/01/19 15:10: Lactate 2.0 09/01/19 15:10: B-Natriuretic Peptide 391 H 09/01/19 15:10: D-Dimer 2940 H* 09/01/19 15:10: Influenza Type A Ag Negative, Influenza Type B Ag Negative 09/01/19 18:16: Troponin I 25.25 H I & O for Last 24 hours: Intake & Output 08/30/19 08/31/19 09/01/19 09/02/19 11:59 11:59 11:59 11:59 Intake Total 1250 / 1250 Balance 1250 / 1250 Weight 226 lb 1 oz - *Routine HEENT Exam Head: Present: normocephalic Eye: Present: EOMI, PERRL ENT: Present: mucous membranes moist - *Routine Neck Exam Present: supple. Absent: JVD, carotid bruit - *Routine Respiratory Exam Present: decreased breath sounds, rales. Absent: accessory muscle use, rhonchi, wheezes - *Routine Cardiovascular Exam Present: RRR. Absent: murmur, gallop, rubs - *Routine Abdominal Exam Present: soft. Absent: tenderness, distended, guarding - *Routine Extremities Exam Absent: edema, calf tenderness - *Routine Neurological Exam Present: alert, oriented X3, moving all extremities Assessment and Plan (1) Obesity (BMI 30-39.9) Current visit: Yes Status: Acute Category: Medical Code(s): E66.9 - Obesity, unspecified (2) Acute exacerbation of chronic obstructive airways disease Current visit: Yes Status: Acute Category: Medical Code(s): J44.1 - Chronic obstructive pulmonary disease with (acute) exacerbation (3) Community acquired pneumonia Current visit: Yes Status: Acute Qualifiers: Laterality: right Lung location: unspecified part of lung Qualified Code(s): J18.9 - Pneumonia, unspecified organism Category: Medical Code(s): J18.9 - Pneumonia, unspecified organism (4) CAD (coronary artery disease) Current visit: No Status: Chronic Qualifiers: Coronary Disease-Associated Artery/Lesion type: [place] artery [place] vs. transplanted heart: [place] heart Associated angina: without angina Qualified Code(s): I25.10 - Atherosclerotic heart disease of [place] coronary artery without angina pectoris Category: Medical Code(s): I25.10 - Atherosclerotic heart disease of [place] coronary artery without angina pectoris (5) GERD (gastroesophageal reflux disease) Current visit: No Status: Chronic Qualifiers: Esophagitis presence: without esophagitis Qualified Code(s): K21.9 - Gastro-esophageal reflux disease without esophagitis Category: Medical Code(s): K21.9 - Gastro-esophageal reflux disease without esophagitis (6) HTN (hypertension) Current visit: No Status: Chronic Qualifiers: Hypertension type: essential hypertension Qualified Code(s): I10 - Essential (primary) hypertension Category: Medical Code(s): I10 - Essential (primary) hypertension (7) Tobacco abuse Current visit: No Status: Chronic Category: Medical Code(s): Z72.0 - Tobacco use (8) Elevated d-dimer Current visit: Yes Status: Acute Category: Medical Code(s): R79.89 - Other specified abnormal findings of blood chemistry (9) Elevated troponin Current visit: Yes Status: Acute Category: Medical Code(s): R79.89 - Other specified abnormal findings of blood chemistry (10) Myocardial infarction Current visit: Yes Status: Acute Category: Medical Code(s): I21.9 - Acute myocardial infarction, unspecified - Assessment and plan all Dx Assessment and Plan for all problems:: 1. Myocardial infarction of late presentation (greater than 48 hours). Recommendation to continue medical therapy at this time with no plans to perform cardiac catheterization at this time. Continue aspirin and Plavix along with metoprolol, losartan, Crestor and isosorbide. Repeat troponins to follow trend and consider discharge home when troponins trending down if patient remains stable. 2. Ischemic cardiomyopathy, on metoprolol and losartan therapy. 3. Tobacco use, cessation recommended 4. Pneumonia, continue antibiotics per PCP 5. Elevated d-dimer, CTA results pending
[2019-09-02 07:53] LABS: Anion Gap 11.6 mEq/L (5-15)
--- NOTE | 2019-09-02 08:55 | Progress Note ---
Internal Medicine - PN: Subj *Date: 09/02/19 *Time: 08:52 Interval history: 58-year-old female patient sitting up in bed. She reports she is feeling better today with less shortness of air. Oxygen on at 2 L per nasal cannula Exam Vital signs and Labs for Last 24 Hours: Temp Pulse Resp BP Pulse Ox 98.1 F 88 17 115/72 91 L 09/02/19 08:00 09/02/19 08:00 09/02/19 08:00 09/02/19 08:00 09/02/19 08:00 Laboratory Results - last 24 hr 09/01/19 03:10: Specimen Source Right radial, ABG pH 7.44, ABG pCO2 39.3, ABG pO2 57.8 L, ABG HCO3 25.9, ABG Total CO2 27.1 H, ABG O2 Saturation 91, ABG Base Excess 1.7, Kevin Test Acceptable 09/01/19 15:10: WBC 14.3 H, RBC 5.25, Hgb 15.2, Hct 46.8, MCV 89.2, MCH 29.0, MCHC 32.5, RDW 13.8, Plt Count 371, MPV 8.1, Neut % (Auto) 86.9 H, Lymph % (Auto) 8.7 L, [place] % (Auto) 3.8, Eos % (Auto) 0.2, Baso % (Auto) 0.4, Neut # (Auto) 12.5 H, Lymph # (Auto) 1.3, [place] # (Auto) 0.6, Eos # (Auto) 0.0, Baso # (Auto) 0.1, Total Counted 100, Neutrophils % (Manual) 79 H, Lymphocytes % (Manual) 17, Monocytes % (Manual) 4, Platelet Estimate Normal, RBC Morphology Normal 09/01/19 15:10: Sodium 135 L, Potassium 3.1 L, Chloride 95 L, Carbon Dioxide 28, Anion Gap 15.1 H, BUN 13, Creatinine 0.79, Estimated Creat Clear 128, Estimated GFR 75, Est GFR ( Amer) 91, Glucose 149 H, Calcium 8.5, Troponin I 24.73 H 09/01/19 15:10: Lactate 2.0 09/01/19 15:10: B-Natriuretic Peptide 391 H 09/01/19 15:10: D-Dimer 2940 H* 09/01/19 15:10: Influenza Type A Ag Negative, Influenza Type B Ag Negative 09/01/19 18:16: Troponin I 25.25 H 09/02/19 07:05: Sodium 136, Potassium 3.6, Chloride 99, Carbon Dioxide 29, Anion Gap 11.6, BUN 10, Creatinine 0.75, Estimated Creat Clear 136, Estimated GFR 80, Est GFR ( Amer) 97, Glucose 179 H D, Calcium 8.0 L, Troponin I 22.18 H I & O for Last 24 hours: Intake & Output 08/30/19 08/31/19 09/01/19 09/02/19 23:59 23:59 23:59 23:59 Intake Total 1000 / 1250 490 / 490 Balance 1000 / 1250 490 / 490 Weight 226 lb 1 oz 226 lb 1 oz - Constitutional no acute distress - *Routine HEENT Exam Head: Present: normocephalic, atraumatic. Absent: tenderness of temporal artery Eye: Present: EOMI, PERRL, normal accommodation. Absent: periorbital tenderness ENT: Present: mucous membranes moist. Absent: septal deviation - *Routine Neck Exam Present: full ROM, trachea midline. Absent: JVD, tracheal deviation - *Routine Respiratory Exam Present: decreased breath sounds, rales. Absent: accessory muscle use - *Routine Cardiovascular Exam Present: RRR, murmur - *Routine Abdominal Exam Present: soft, normoactive bowel sounds. Absent: tenderness, firm - *Routine Extremities Exam Present: edema, full ROM. Absent: calf tenderness - Routine Back/Spine/Pelvis Exam Back/Spine: Present: full ROM. Absent: CVA tenderness - *Routine Skin Exam Present: intact. Absent: cyanosis, jaundice - *Routine Neurological Exam Present: alert, oriented X3, CN II-XII intact. Absent: altered mental status - Routine Psychiatric Exam Present: normal affect, normal thought process. Absent: suicidal ideation, homicidal ideation Assessment and Plan (1) Obesity (BMI 30-39.9) Current visit: Yes Status: Acute Category: Medical Code(s): E66.9 - O besity, unspecified (2) Acute exacerbation of chronic obstructive airways disease Current visit: Yes Status: Acute Category: Medical Code(s): J44.1 - Chronic obstructive pulmonary disease with (acute) exacerbation (3) Community acquired pneumonia Current visit: Yes Status: Acute Qualifiers: Laterality: right Lung location: unspecified part of lung Qualified Code(s): J18.9 - Pneumonia, unspecified organism Category: Medical Code(s): J18.9 - Pneumonia, unspecified organism (4) CAD (coronary artery disease) Current visit: No Status: Chronic Qualifiers: Coronary Disease-Associated Artery/Lesion type: [place] artery [place] vs. transplanted heart: [place] heart Associated angina: without angina Qualified Code(s): I25.10 - Atherosclerotic heart disease of [place] coronary artery without angina pectoris Category: Medical Code(s): I25.10 - Atherosclerotic heart disease of [place] coronary artery without angina pectoris (5) GERD (gastroesophageal reflux disease) Current visit: No Status: Chronic Qualifiers: Esophagitis presence: without esophagitis Qualified Code(s): K21.9 - Gastro-esophageal reflux disease without esophagitis Category: Medical Code(s): K21.9 - Gastro-esophageal reflux disease without esophagitis (6) HTN (hypertension) Current visit: No Status: Chronic Qualifiers: Hypertension type: essential hypertension Qualified Code(s): I10 - Essential (primary) hypertension Category: Medical Code(s): I10 - Essential (primary) hypertension (7) Tobacco abuse Current visit: No Status: Chronic Category: Medical Code(s): Z72.0 - Tobacco use (8) Elevated d-dimer Current visit: Yes Status: Acute Category: Medical Code(s): R79.89 - Other specified abnormal findings of blood chemistry (9) Elevated troponin Current visit: Yes Status: Acute Category: Medical Code(s): R79.89 - Other specified abnormal findings of blood chemistry (10) Myocardial infarction Current visit: Yes Status: Acute Category: Medical Code(s): I21.9 - Acute myocardial infarction, unspecified - Assessment and plan all Dx Assessment and Plan for all problems:: Rounded with Dr. Corbett, all orders per Dr. Corbett Cardiology is seen and recommends: 1. Myocardial infarction of late presentation (greater than 48 hours). Recommendation to continue medical therapy at this time with no plans to perform cardiac catheterization at this time. Continue aspirin and Plavix along with metoprolol, losartan, Crestor and isosorbide. Repeat troponins to follow trend and consider discharge home when troponins trending down if patient remains stable. 2. Ischemic cardiomyopathy, on metoprolol and losartan therapy. 3. Tobacco use, cessation recommended 4. Pneumonia, continue antibiotics per PCP 5. Elevated d-dimer, CTA results pending 09/[address]: IMPRESSION: 1. No evidence of pulmonary embolus. 2. Extensive consolidation in the right lower lobe consistent with pneumonia with also consolidation in the right upper lobe and interstitial thickening in the right upper lobe. There is associated right hilar adenopathy and subcarinal. Suggest follow-up to confirm resolution. Dictated by: Dr. Ortiz,
--- NOTE | 2019-09-02 10:42 | Pharmacy Consult Notes ---
- Pharmacy Consult Date: 09/02/19 Time: 10:42 Referring provider: DR. IQBAL Reason for Consult:: VANCOMYCIN DOSING Allergies and ADEs:: Allergies Allergy/AdvReac Type Severity Reaction Status Date / Time diphenhydramine AdvReac Mild Confusion Verified 09/01/19 18:42 [From [facility] Home Medications:: Home Medications Medication Instructions Recorded Confirmed Type aspirin 81 mg tablet,delayed 81 mg PO DAILY 10/04/17 09/01/19 History release buspirone 7.5 mg tablet 7.5 mg PO BID 03/14/19 09/01/19 History nitroglycerin 0.4 mg sublingual 0.4 mg SUBLINGUAL Q5M PRN #25 tab 06/06/19 09/01/19 Rx tablet albuterol sulfate 90 mcg/actuation 1 inh INHALATION Q4HP PRN 06/25/19 09/01/19 History breath activated powder inhaler aripiprazole 2 mg tablet 2 mg PO DAILY 06/25/19 09/01/19 History fluoxetine 40 mg capsule 40 mg PO DAILY cap 06/25/19 09/01/19 History ferrous sulfate ER 142 mg (45 mg 142 mg PO DAILY #30 tab 07/01/19 09/01/19 Rx iron) tablet,extended release Clopidogrel Bisulfate [Plavix 75mg 75 mg PO DAILY 09/01/19 09/01/19 History Tab] Doxycycline Hyclate [Doxycycline 100 mg PO Q12 09/01/19 09/01/19 History 100mg Capsule] Losartan Potassium [Cozaar 50mg 25 mg PO DAILY 09/01/19 09/01/19 History Tablets] Metoprolol Succinate 25 mg PO DAILY 09/01/19 09/01/19 History Omeprazole [Omeprazole 40mg 40 mg PO DAILY 09/01/19 09/01/19 History Capsule] Rosuvastatin Calcium 10 mg PO HS 09/01/19 09/01/19 History hydroCHLOROthiazide 12.5 mg PO DAILY 09/01/19 09/01/19 History [Hydrochlorothiazide 12.5mg Tab] Height: 1.63 m Weight: 102.54 kg Laboratory Results:: Laboratory Results - last 24 hr 09/01/19 03:10: Specimen Source Right radial, ABG pH 7.44, ABG pCO2 39.3, ABG pO2 57.8 L, ABG HCO3 25.9, ABG Total CO2 27.1 H, ABG O2 Saturation 91, ABG Base Excess 1.7, Kevin Test Acceptable 09/01/19 15:10: WBC 14.3 H, RBC 5.25, Hgb 15.2, Hct 46.8, MCV 89.2, MCH 29.0, MCHC 32.5, RDW 13.8, Plt Count 371, MPV 8.1, Neut % (Auto) 86.9 H, Lymph % (Auto) 8.7 L, [place] % (Auto) 3.8, Eos % (Auto) 0.2, Baso % (Auto) 0.4, Neut # (Auto) 12.5 H, Lymph # (Auto) 1.3, [place] # (Auto) 0.6, Eos # (Auto) 0.0, Baso # (Auto) 0.1, Total Counted 100, Neutrophils % (Manual) 79 H, Lymphocytes % (Manual) 17, Monocytes % (Manual) 4, Platelet Estimate Normal, RBC Morphology Normal 09/01/19 15:10: Sodium 135 L, Potassium 3.1 L, Chloride 95 L, Carbon Dioxide 28, Anion Gap 15.1 H, BUN 13, Creatinine 0.79, Estimated Creat Clear 128, Estimated GFR 75, Est GFR ( Amer) 91, Glucose 149 H, Calcium 8.5, Troponin I 24.73 H 09/01/19 15:10: Lactate 2.0 09/01/19 15:10: B-Natriuretic Peptide 391 H 09/01/19 15:10: D-Dimer 2940 H* 09/01/19 15:10: Influenza Type A Ag Negative, Influenza Type B Ag Negative 09/01/19 18:16: Troponin I 25.25 H 09/02/19 07:05: Sodium 136, Potassium 3.6, Chloride 99, Carbon Dioxide 29, Anion Gap 11.6, BUN 10, Creatinine 0.75, Estimated Creat Clear 136, Estimated GFR 80, Est GFR ( Amer) 97, Glucose 179 H D, Calcium 8.0 L, Troponin I 22.18 H Medical History: Reports:: Anxiety, Coronary Artery Disease, Gastroesophageal Reflux Disease(GERD), Hyperlipidemia, Hypertension Denies:: Home Oxygen Assessment and Plan (1) Obesity (BMI 30-39.9) Current visit: Yes Status: Acute Category: Medical Code(s): E66.9 - Obesity, unspecified (2) Acute exacerbation of chronic obstructive airways disease Current visit: Yes Status: Acute Category: Medical Code(s): J44.1 - Chronic obstructive pulmonary disease with (acute) exacerbation (3) Community acquired pneumonia Current visit: Yes Status: Acute Qualifiers: Laterality: right Lung location: unspecified part of lung Qualified Code(s): J18.9 - Pneumonia, unspecified organism Category: Medical Code(s): J18.9 - Pneumonia, unspecified organism (4) CAD (coronary artery disease) Current visit: No Status: Chronic Qualifiers: Coronary Disease-Associated Artery/Lesion type: [place] artery [place] vs. transplanted heart: [place] heart Associated angina: without angina Qualified Code(s): I25.10 - Atherosclerotic heart disease of [place] coronary artery without angina pectoris Category: Medical Code(s): I25.10 - Atherosclerotic heart disease of [place] coronary artery without angina pectoris (5) GERD (gastroesophageal reflux disease) Current visit: No Status: Chronic Qualifiers: Esophagitis presence: without esophagitis Qualified Code(s): K21.9 - Gastro-esophageal reflux disease without esophagitis Category: Medical Code(s): K21.9 - Gastro-esophageal reflux disease without esophagitis (6) HTN (hypertension) Current visit: No Status: Chronic Qualifiers: Hypertension type: essential hypertension Qualified Code(s): I10 - Essential (primary) hypertension Category: Medical Code(s): I10 - Essential (primary) hypertension (7) Tobacco abuse Current visit: No Status: Chronic Category: Medical Code(s): Z72.0 - Tobacco use (8) Elevated d-dimer Current visit: Yes Status: Acute Category: Medical Code(s): R79.89 - Other specified abnormal findings of blood chemistry (9) Elevated troponin Current visit: Yes Status: Acute Category: Medical Code(s): R79.89 - Other specified abnormal findings of blood chemistry (10) Myocardial infarction Current visit: Yes Status: Acute Category: Medical Code(s): I21.9 - Acute myocardial infarction, unspecified - Assessment and plan all Dx Assessment and Plan for all problems:: RECOMMEND PATIENT CONTINUE WITH VANCOMYCIN 2 GM Q18H AT THIS TIME.
--- NOTE | 2019-09-03 09:21 | Progress Note ---
Subjective Date: 09/03/19 Time: 09:00 Principal diagnosis: elevated troponin Interval history: This is a 58-year-old white female who was admitted to the hospital with chest pain and shortness of breath. The patient was found to have an elevated troponin, however, her myocardial infarction was a late presentation, greater than 48 hours. Medical management has been recommended. This morning she denies any chest pain or pressure. She states her shortness of breath has significantly improved. She denies any edema. She denies any fever, chills, nausea, vomiting, diarrhea, PND or orthopnea. She states that she is feeling much better today. Exam Vital signs and Labs for Last 24 Hours: Temp Pulse Resp BP Pulse Ox 98.6 F 82 17 63/46 L 89 L 09/03/19 08:00 09/03/19 08:00 09/03/19 08:00 09/03/19 08:00 09/03/19 08:00 I & O for Last 24 hours: Intake & Output 08/31/19 09/01/19 09/02/19 09/03/19 23:59 23:59 23:59 23:59 Intake Total 1000 / 1250 1210 / 1210 240 / 240 Output Total 700 / 700 Balance 1000 / 1250 1210 / 1210 -460 / -460 Weight 226 lb 1 oz 226 lb 1 oz 224 lb 1 oz Narrative: Her telemetry strip is sinus rhythm with a rate of 81 bpm. - Constitutional no acute distress, obese - *Routine HEENT Exam Head: Present: normocephalic, atraumatic Eye: Present: EOMI, PERRL ENT: Present: mucous membranes moist - *Routine Neck Exam Present: supple, full ROM, normal carotid upstroke. Absent: JVD, carotid bruit, lymphadenopathy - *Routine Respiratory Exam Present: rhonchi (Right lower lobe), wheezes (Expiratory wheezing throughout) - *Routine Cardiovascular Exam Present: RRR, Normal S1, Normal S2. Absent: murmur, gallop - *Routine Abdominal Exam Present: soft, normoactive bowel sounds. Absent: tenderness, distended - *Routine Extremities Exam Present: full ROM, pulses intact, normal capillary refill. Absent: cyanosis, clubbing, edema - *Routine Skin Exam Present: intact, warm. Absent: erythema, rash - *Routine Neurological Exam Present: alert, oriented X3, CN II-XII intact. Absent: sensory deficit, motor d eficit - Detailed Eye Exam Eyelids: Left normal inspection Progress Note: A&P (1) Myocardial infarction Status: Acute Current Visit: Yes (2) Elevated troponin Status: Acute Current Visit: Yes (3) Community acquired pneumonia Status: Acute Current Visit: Yes (4) Obesity (BMI 30-39.9) Status: Acute Current Visit: Yes (5) Acute exacerbation of chronic obstructive airways disease Status: Acute Current Visit: Yes (6) CAD (coronary artery disease) Status: Chronic Current Visit: No (7) GERD (gastroesophageal reflux disease) Status: Chronic Current Visit: No (8) HTN (hypertension) Status: Chronic Current Visit: No (9) Tobacco abuse Status: Chronic Current Visit: No (10) Elevated d-dimer Status: Acute Current Visit: Yes Assessment and Plan for All Diagnoses:: Plan: 1. The patient was admitted to the hospital with chest pain and shortness of breath. She had a late presentation of her myocardial infarction, greater than 48 hours, so medical management was recommended. The patient will continue aspirin, Plavix, metoprolol, losartan, Crestor and isosorbide. 2. We will repeat a troponin today to make sure her troponins are trending down prior to discharge. 3. The patient does have ischemic cardiomyopathy, she is on metoprolol and losartan. Continue these medicines upon discharge. 4. Coronary artery disease is present. No plans for invasive cardiac testing at this time. 5. Her blood pressure is low today. We will decrease her losartan to 25 mg p.o. daily. 6. Tobacco cessation is highly advised and counseled. 7. The patient does have pneumonia. She is getting antibiotics per her primary care provider. Will defer. 8. No further recommendations at this time from a cardiac standpoint. She is stable for discharge home from a cardiac standpoint whenever cleared for discharge by her primary care provider. She will need to follow-up in the cardiology clinic in 1 to 2 weeks. Thank you for the opportunity to help participate in the care of this patient.
--- NOTE | 2019-09-03 11:50 | Pharmacy Consult Notes ---
[facility] Pharmacy VTE Monitoring - Patient Demographics Admission date: 09/01/19 Report Date: 09/03/19 Time: 11:50 Allergies/Adverse Reactions: Patient Allergies diphenhydramine [From Benadryl] Adverse Reaction (Mild, Verified 09/01/19 18:42) Confusion Height: 1.63 m Weight: 101.633 kg Patient Problems: Current Active Problems Sepsis (Acute) Community acquired pneumonia (Acute) Acute exacerbation of chronic obstructive airways disease (Acute) Obesity (BMI 30-39.9) (Acute) Elevated d-dimer (Acute) Elevated troponin (Acute) Myocardial infarction (Acute) - VTE Risk Labs: VTE Related Lab Results Hgb 15.2 g/dL (12.2-16.2) 09/01/19 15:10 Hct 46.8 % (37.0-47.0) 09/01/19 15:10 Plt Count 371 K/mm3 (142-424) 09/01/19 15:10 BUN 10 mg/dL (7-18) 09/02/19 07:05 Creatinine 0.75 mg/dL (0.55-1.02) 09/02/19 07:05 Estimated Creat Clear 136 mL/min (50-200) 09/02/19 07:05 VTE Score: 3 VTE Risk Level: Low Risk - Prophylaxis VTE Prophylaxis Ordered?: Yes Types of VTE Prophylaxis: TEDS Knee High Location of Applied Device: Bilateral Lower Extremeties - VTE Diagnosis Confirmed Treatment or plan recommended: Continue Current Treatment
--- NOTE | 2019-09-03 14:05 | Progress Note ---
Internal Medicine - PN: Subj *Date: 09/04/19 *Time: 07:40 Interval history: doing better but stil weak p no intervention per card - blood culture still pending Exam Vital signs and Labs for Last 24 Hours: Temp Pulse Resp BP Pulse Ox 98.6 F 86 17 82/51 L 89 L 09/03/19 08:00 09/03/19 12:00 09/03/19 08:00 09/03/19 11:59 09/03/19 08:00 Laboratory Results - last 24 hr 09/03/19 09:55: Troponin I 15.53 H I & O for Last 24 hours: Intake & Output 09/01/19 09/02/19 09/03/19 09/04/19 11:59 11:59 11:59 11:59 Intake Total 1490 / 1490 1080 / 1080 Output Total 700 / 700 Balance 1490 / 1490 380 / 380 Weight 226 lb 1 oz 224 lb 1 oz - Constitutional no acute distress - *Routine HEENT Exam Head: Present: normocephalic Eye: Present: EOMI, PERRL ENT: Present: mucous membranes dry - *Routine Neck Exam Present: supple - *Routine Respiratory Exam Present: CTA bilaterally - *Routine Cardiovascular Exam Present: RRR, murmur. Absent: rubs - *Routine Abdominal Exam Present: soft - *Routine Extremities Exam Absent: calf tenderness - *Routine Skin Exam Present: intact - *Routine Neurological Exam Present: alert, CN II-XII intact - Routine Psychiatric Exam Present: normal affect Assessment and Plan (1) Myocardial infarction Current visit: Yes Status: Acute Category: Medical Code(s): I21.9 - Acute myocardial infarction, unspecified (2) Elevated troponin Current visit: Yes Status: Acute Category: Medical Code(s): R79.89 - Other specified abnormal findings of blood chemistry (3) Community acquired pneumonia Current visit: Yes Status: Acute Qualifiers: Laterality: right Lung location: unspecified part of lung Qualified Code(s): J18.9 - Pneumonia, unspecified organism Category: Medical Code(s): J18.9 - Pneumonia, unspecified organism (4) Obesity (BMI 30-39.9) Current visit: Yes Status: Acute Category: Medical Code(s): E66.9 - Obesity, unspecified (5) Acute exacerbation of chronic obstructive airways disease Current visit: Yes Status: Acute Category: Medical Code(s): J44.1 - Chronic obstructive pulmonary disease with (acute) exacerbation (6) CAD (coronary artery disease) Current visit: No Status: Chronic Qualifiers: Coronary Disease-Associated Artery/Lesion type: [place] artery [place] vs. transplanted heart: [place] heart Associated angina: without angina Qualified Code(s): I25.10 - Atherosclerotic heart disease of [place] coronary artery without angina pectoris Category: Medical Code(s): I25.10 - Atherosclerotic heart disease of [place] coronary artery without angina pectoris (7) GERD (gastroesophageal reflux disease) Current visit: No Status: Chronic Qualifiers: Esophagitis presence: without esophagitis Qualified Code(s): K21.9 - Gastro-esophageal reflux disease without esophagitis Category: Medical Code(s): K21.9 - Gastro-esophageal reflux disease without esophagitis (8) HTN (hypertension) Current visit: No Status: Chronic Qualifiers: Hypertension type: essential hypertension Qualified Code(s): I10 - Essential (primary) hypertension Category: Medical Code(s): I10 - Essential (primary) hypertension (9) Tobacco abuse Current visit: No Status: Chronic Category: Medical Code(s): Z72.0 - Tobacco use (10) Elevated d-dimer Current visit: Yes Status: Acute Category: Medical Code(s): R79.89 - Other specified abnormal findings of blood chemistry
[2019-09-03 20:45] LABS: Anion Gap 10.1 mEq/L (5-15); Calcium 7.7 mg/dL (8.5-10.1)
--- NOTE | 2019-09-04 09:13 | Discharge Summary ---
General - General Admission date:: 09/01/19 Discharge date: 09/04/19 HPI HPI: this wf presented to the ed -is is a 58-year-old female with a past medical history significant for hypertension, hyperlipidemia, coronary artery disease, COPD, not oxygen dependent, who presents to the emergency department for evaluation of shortness of breath and generalized malaise for the last 4 days. She did receive a flu shot about 1 week ago, but began to feel badly about 2 days after that. She was seen by her primary care doctor 3 days ago, stated that she was developing pneumonia, placed on doxycycline and given a steroid shot in the office. She is continued to decline over the weekend and presents here for further evaluation. She has been using her medications at home without improvement of symptoms. She has a heaviness on her chest that is worse with coughing. No radiation of pain. No history of DVT or PE. She has been taking her doxycycline without difficulty. No vomiting or diarrhea. Any exertion makes her dyspnea worse. She is a smoker. Patient arrives with an oxygen saturation of 80%. She is given a DuoNeb, is now saturating well on 2 L. She does not use oxygen normally at home. She has a large right-sided pneumonia. She is given vancomycin and Zosyn empirically given her failure with doxycycline. Flu swabs are negative. She does have a temperature and I suspect sepsis at this time. She is given a liter of fluids. Lactic acid is 2. Discussed this case with Dr. Corbett who will admit for further management. D-dimer slightly elevated, likely secondary to her pneumonia, but I did order a CTA chest.G at 1619 shows some elevation in leads II, 3, aVF with Q waves, indicating older [place]. There are no reciprocal changes or acute STEMI. I have confirmed this with Dr. Cisneros by sharing the EKG image. In addition her troponin and D-dimer is elevated, so likely when she began having malaise, weakness, shortness of breath 4 days ago, she likely had an [place] and now also has a pneumonia and sepsis. He recommended Lovenox, but no acute intervention at this time. He did ask for an echo which has been ordered. Dr. Cisneros also recommended being cautious with fluid resuscitation and no additional steroids. I have relayed all this to Dr. Corbett as well. pt was admitted for eval and treatment Hospital Course Hospital Course: 58-year-old female patient sitting up in bed resting quietly, respirations easy even. She denies any chest pain or shortness of breath during the night. Discussed discharge today she is agreeable to this follow-up appointments will be Sunday 09/09 this wf presented to the ed -is is a 58-year-old female with a past medical history significant for hypertension, hyperlipidemia, coronary artery disease, COPD, not oxygen dependent, who presents to the emergency department for evaluation of shortness of breath and generalized malaise for the last 4 days. She did receive a flu shot about 1 week ago, but began to feel badly about 2 days after that. She was seen by her primary care doctor 3 days ago, stated that she was developing pneumonia, placed on doxycycline and given a steroid shot in the office. She is continued to decline over the weekend and presents here for further evaluation. She has been using her medications at home without improvement of symptoms. She has a heaviness on her chest that is worse with coughing. No radiation of pain. No history of DVT or PE. She has been taking her doxycycline without difficulty. No vomiting or diarrhea. Any exertion makes her dyspnea worse. She is a smoker. Patient arrives with an oxygen saturation of 80%. She is given a DuoNeb, is now saturating well on 2 L. She does not use oxygen normally at home. She has a large right-sided pneumonia. She is given vancomycin and Zosyn empirically given her failure with doxycycline. Flu swabs are negative. She does have a temperature and I suspect sepsis at this time. She is given a liter of fluids. Lactic acid is 2. Discussed this case with Dr. Corbett who will admit for further management. D-dimer slightly elevated, likely secondary to her pneumonia, but I did order a CTA chest.G at 1619 shows some elevation in leads II, 3, aVF with Q waves, indicating older [place]. There are no reciprocal changes or acute STEMI. I have confirmed this with Dr. Cisneros by sharing the EKG image. In addition her troponin and D-dimer is elevated, so likely when she began having malaise, weakness, shortness of breath 4 days ago, she likely had an [place] and now also has a pneumonia and sepsis. He recommended Lovenox, but no acute intervention at this time. He did ask for an echo which has been ordered. Dr. Cisneros also recommended being cautious with fluid resuscitation and no additional steroids. I have relayed all this to Dr. Corbett as well. pt was admitted for eval and treatment (Per Dr. Corbett). Cards seen and rec: Plan: 1. The patient was admitted to the hospital with chest pain and shortness of breath. She had a late presentation of her myocardial infarction, greater than 48 hours, so medical management was recommended. The patient will continue aspirin, Plavix, metoprolol, losartan, Crestor and isosorbide. 2. We will repeat a troponin today to make sure her troponins are trending down prior to discharge. 3. The patient does have ischemic cardiomyopathy, she is on metoprolol and losartan. Continue these medicines upon discharge. 4. Coronary artery disease is present. No plans for invasive cardiac testing at this time. 5. Her blood pressure is low today. We will decrease her losartan to 25 mg p.o. daily. 6. Tobacco cessation is highly advised and counseled. 7. The patient does have pneumonia. She is getting antibiotics per her primary care provider. Will defer. 8. No further recommendations at this time from a cardiac standpoint. She is stable for discharge home from a cardiac standpoint whenever cleared for discharge by her primary care provider. She will need to follow-up in the cardiology clinic in 1 to 2 weeks. 09/01 CXR: IMPRESSION: Right upper and right lower lobe pneumonia Dictated by: Dr. Ortiz, 09/01 CAT: IMPRESSION: 1. No evidence of pulmonary embolus. 2. Extensive consolidation in the right lower lobe consistent with pneumonia with also consolidation in the right upper lobe and interstitial thickening in the right upper lobe. There is associated right hilar adenopathy and subcarinal. Suggest follow-up to confirm resolution. Dictated by: Dr. Ortiz, During her stay she hss received Zosyn and vancomycin IV. She will be discharged home on Augmentin with follow-up appointments 09/09 in cardiology and PCP Objective Vital signs: Temp Pulse Resp BP Pulse Ox 98.1 F 79 18 98/72 L 92 L 09/04/19 04:00 09/04/19 04:00 09/04/19 04:00 09/04/19 04:00 09/04/19 04:00 no acute distress - *Routine HEENT Exam Head: Present: normocephalic, atraumatic. Absent: tenderness of temporal artery, facial swelling Eye: Present: EOMI, PERRL, normal accommodation. Absent: periorbital tenderness ENT: Present: mucous membranes moist. Absent: sinus tenderness - *Routine Neck Exam Present: full ROM. Absent: JVD - *Routine Respiratory Exam Present: CTA bilaterally. Absent: accessory muscle use - *Routine Cardiovascular Exam Present: RRR, murmur - *Routine Abdominal Exam Present: soft, normoactive bowel sounds. Absent: tenderness, firm - *Routine Extremities Exam Present: full ROM. Absent: calf tenderness, Jennie's sign - Routine Back/Spine/Pelvis Exam Back/Spine: Present: full ROM. Absent: CVA tenderness - *Routine Skin Exam Present: intact, warm. Absent: erythema, jaundice - *Routine Neurological Exam Present: alert, oriented X3, CN II-XII intact. Absent: altered mental status, nystagmus - Routine Psychiatric Exam Present: normal affect, normal thought process. Absent: suicidal ideation, homicidal ideation Results Labs on day of discharge: Labs from last 24 hours 09/03/19 09/03/19 09/03/19 20:25 20:25 09:55 Sodium 138 Potassium 3.1 L Chloride 98 Carbon Dioxide 33 H Anion Gap 10.1 BUN 16 D Creatinine 1.01 D Estimated Creat Clear 100 Estimated GFR 57 L Est GFR ( Amer) 69 D Glucose 128 H Calcium 7.7 L Troponin I 15.53 H Vancomycin Trough 10.0 Preliminary micro results at discharge 09/01/19 15:10 Blood Culture - Preliminary Blood NO GROWTH AFTER 48 HOURS 09/01/19 15:10 Blood Culture - Preliminary Blood NO GROWTH AFTER 48 HOURS - Additional Comments Rounded with Dr. Corbett, all orders per Dr. Cobrett 1. We will discharge home today 2. Azithromycin, Augmentin per instruction 3. Cardiology appointment Sunday 09/09 and then PCP after DS: Diagnosis - Discharge Diagnosis (1) Myocardial infarction Status: Acute (2) Elevated troponin Status: Acute (3) Community acquired pneumonia Status: Acute (4) Obesity (BMI 30-39.9) Status: Acute (5) Acute exacerbation of chronic obstructive airways disease Status: Acute (6) CAD (coronary artery disease) Status: Chronic (7) GERD (gastroesophageal reflux disease) Status: Chronic (8) HTN (hypertension) Status: Chronic (9) Tobacco abuse Status: Chronic (10) Elevated d-dimer Status: Acute Discharge Plan - Patient Discharge Instructions ACTIVITY: Continue current activity DIET: continue same diet Patient Instructions: Pneumonia-Adult - Follow up Plan Follow up with: Yonas Cisneros MD [Staff Physician] - 09/09/19 Miko Corbett MD [Staff Physician] - 09/09/19 (After Card appt.) Disposition: Home, Self-Halfway Medications: Home Medications Medication Instructions Recorded Confirmed Type aspirin 81 mg tablet,delayed 81 mg PO DAILY 10/04/17 09/01/19 History release buspirone 7.5 mg tablet 7.5 mg PO BIDP PRN 03/14/19 09/02/19 History nitroglycerin 0.4 mg sublingual 0.4 mg SUBLINGUAL Q5M PRN #25 tab 06/06/19 09/01/19 Rx tablet albuterol sulfate 90 mcg/actuation 1 inh INHALATION Q4HP PRN 06/25/19 09/01/19 History breath activated powder inhaler fluoxetine 40 mg capsule 40 mg PO DAILY cap 06/25/19 09/01/19 History ferrous sulfate ER 142 mg (45 mg 142 mg PO DAILY #30 tab 07/01/19 09/01/19 Rx iron) tablet,extended release Clopidogrel Bisulfate [Plavix 75mg 75 mg PO DAILY 09/01/19 09/01/19 History Tab] Doxycycline Hyclate [Doxycycline 100 mg PO Q12 09/01/19 09/01/19 History 100mg Capsule] Losartan Potassium [Cozaar 50mg 25 mg PO DAILY 09/01/19 09/01/19 History Tablets] Metoprolol Succinate 25 mg PO DAILY 09/01/19 09/01/19 History Omeprazole [Omeprazole 40mg 40 mg PO DAILY 09/01/19 09/01/19 History Capsule] Rosuvastatin Calcium 10 mg PO HS 09/01/19 09/01/19 History hydroCHLOROthiazide 12.5 mg PO DAILY 09/01/19 09/01/19 History [Hydrochlorothiazide 12.5mg Tab] ARIPiprazole [Aripiprazole] 5 mg PO HS 09/02/19 09/02/19 History Isosorbide Mononitrate [Imdur 30mg 30 mg PO DAILY 09/02/19 09/02/19 History ER tablet] Ropinirole HCl 1 mg PO HS 09/02/19 09/02/19 History Amoxicillin/Potassium Clav 1 tab PO Q12H 10 Days #10 tab 09/04/19 Rx [Augmentin 875-125 Tablet] Potassium Chloride [Pot Chlor 10 20 meq PO DAILY 3 Days #6 tab 09/04/19 Rx mEq Tab] Prescriptions/Medication Reconciliation: New Amoxicillin/Potassium Clav [Augmentin 875-125 Tablet] 1 tab PO Q12H 10 Days #10 tab Potassium Chloride [Pot Chlor 10 mEq Tab] 20 meq PO DAILY 3 Days #6 tab Continued nitroglycerin 0.4 mg sublingual tablet 0.4 mg SUBLINGUAL Q5M PRN #25 tab PRN Reason: chest pain fluoxetine 40 mg capsule 40 mg PO DAILY cap albuterol sulfate 90 mcg/actuation breath activated powder inhaler 1 inh INHALATION Q4HP PRN PRN Reason: copd ferrous sulfate ER 142 mg (45 mg iron) tablet,extended release 142 mg PO DAILY #30 tab aspirin 81 mg tablet,delayed release 81 mg PO DAILY buspirone 7.5 mg tablet 7.5 mg PO BIDP PRN PRN Reason: Anxiety Losartan Potassium [Cozaar 50mg Tablets] 25 mg PO DAILY hydroCHLOROthiazide [Hydrochlorothiazide 12.5mg Tab] 12.5 mg PO DAILY Clopidogrel Bisulfate [Plavix 75mg Tab] 75 mg PO DAILY Rosuvastatin Calcium 10 mg PO HS Omeprazole [Omeprazole 40mg Capsule] 40 mg PO DAILY Metoprolol Succinate 25 mg PO DAILY ARIPiprazole [Aripiprazole] 5 mg PO HS Ropinirole HCl 1 mg PO HS Doxycycline Hyclate [Doxycycline 100mg Capsule] 100 mg PO Q12 Isosorbide Mononitrate [Imdur 30mg ER tablet] 30 mg PO DAILY - Problem Reconciliation Problems Reviewed?: Yes
--- NOTE | 2019-09-04 10:16 | Progress Note ---
Subjective Date: 09/04/19 Time: 10:15 Principal diagnosis: elevated troponin Interval history: This is a 58-year-old white female who was admitted to the hospital with chest pain and shortness of breath. Her troponin was elevated but she had a late presentation of her myocardial infarction, which was greater than 48 hours. Medical management was recommended. Her troponins are currently trending down. She denies any chest pain or pressure. Her shortness of breath has essentially resolved. She denies any edema. She denies any fever, chills, nausea, vomiting, diarrhea, PND or orthopnea. She is ready to go home today. Exam Vital signs and Labs for Last 24 Hours: Temp Pulse Resp BP Pulse Ox 98.8 F 78 18 95/53 L 93 L 09/04/19 08:00 09/04/19 08:00 09/04/19 08:00 09/04/19 08:00 09/04/19 08:00 Laboratory Results - last 24 hr 09/03/19 09:55: Troponin I 15.53 H 09/03/19 20:25: Vancomycin Trough 10.0 09/03/19 20:25: Sodium 138, Potassium 3.1 L, Chloride 98, Carbon Dioxide 33 H, Anion Gap 10.1, BUN 16 D, Creatinine 1.01 D, Estimated Creat Clear 100, Estimated GFR 57 L, Est GFR ( Amer) 69 D, Glucose 128 H, Calcium 7.7 L I & O for Last 24 hours: Intake & Output 09/01/19 09/02/19 09/03/19 09/04/19 23:59 23:59 23:59 23:59 Intake Total 1000 / 1250 1210 / 1210 720 / 720 480 / 480 Output Total 1050 / 1950 1999 / 1999 Balance 1000 / 1250 1210 / 1210 -330 / -1230 -1520 / -1520 Weight 226 lb 1 oz 226 lb 1 oz 224 lb 1 oz 225 lb 8 oz Microbiology Reports for the Last 24 Hours: Microbiology 09/01/19 15:10 Blood Blood Culture - Preliminary NO GROWTH AFTER 48 HOURS 09/01/19 15:10 Blood Blood Culture - Preliminary NO GROWTH AFTER 48 HOURS - *Routine HEENT Exam Head: Present: normocephalic, atraumatic Eye: Present: EOMI, PERRL ENT: Present: mucous membranes moist - *Routine Neck Exam Present: supple, full ROM, normal carotid upstroke. Absent: JVD, carotid bruit, lymphadenopathy - *Routine Respiratory Exam Present: CTA bilaterally - *Routine Cardiovascular Exam Present: RRR, Normal S1, Normal S2. Absent: murmur - *Routine Abdominal Exam Present: soft, normoactive bowel sounds. Absent: tenderness, distended - *Routine Extremities Exam Present: full ROM, pulses intact. Absent: cyanosis, clubbing, edema - *Routine Skin Exam Present: intact, warm. Absent: erythema, rash - *Routine Neurological Exam Present: alert, oriented X3, CN II-XII intact. Absent: sensory deficit, motor deficit - Detailed Eye Exam Eyelids: Left normal inspection Progress Note: A&P (1) Myocardial infarction Status: Acute Current Visit: Yes (2) Elevated troponin Status: Acute Current Visit: Yes (3) Community acquired pneumonia Status: Acute Current Visit: Yes (4) Obesity (BMI 30-39.9) Status: Acute Current Visit: Yes (5) Acute exacerbation of chronic obstructive airways disease Status: Acute Current Visit: Yes (6) CAD (coronary artery disease) Status: Chronic Current Visit: No (7) GERD (gastroesophageal reflux disease) Status: Chronic Current Visit: No (8) HTN (hypertension) Status: Chronic Current Visit: No (9) Tobacco abuse Status: Chronic Current Visit: No (10) Elevated d-dimer Status: Acute Current Visit: Yes Assessment and Plan for All Diagnoses:: Plan: 1. Patient was made to the hospital with chest pain and shortness of breath. She had a late presentation of an [place] occurring greater than 48 hours prior to admission. Medical management recommended. Patient is to continue Plavix, aspirin, metoprolol, losartan, Crestor and isosorbide. Her troponins are trending down at this point and she denies any chest pain or pressure. She is stable for discharge from a cardiac standpoint. 2. May consider an ischemic evaluation on an outpatient basis. 3. She does have ischemic cardiomyopathy. She is on metoprolol and losartan. 4. Coronary artery disease is present. No plans for invasive testing at this time. 5. Her blood pressure is much improved today since decreasing her losartan. 6. Her LDL goal is less than 55. 7. Tobacco cessation is highly advised and counseled 8. The patient did have a pneumonia on admission. This is being deferred to her primary care provider. 9. The patient is to follow-up in 1 to 2 weeks on an outpatient basis. Thank you for the opportunity to help participate in the care of this patient.
--- NOTE | 2019-09-04 11:47 | Pharmacy Consult Notes ---
- Pharmacy Consult Date: 09/04/19 Time: 11:45 Referring provider: DR. IQBAL Reason for Consult:: VANCOMYCIN TROUGH LEVEL Allergies and ADEs:: Allergies Allergy/AdvReac Type Severity Reaction Status Date / Time diphenhydramine AdvReac Mild Confusion Verified 09/01/19 18:42 [facility] Home Medications:: Home Medications Medication Instructions Recorded Confirmed Type aspirin 81 mg tablet,delayed 81 mg PO DAILY 10/04/17 09/01/19 History release buspirone 7.5 mg tablet 7.5 mg PO BIDP PRN 03/14/19 09/02/19 History nitroglycerin 0.4 mg sublingual 0.4 mg SUBLINGUAL Q5M PRN #25 tab 06/06/19 09/01/19 Rx tablet albuterol sulfate 90 mcg/actuation 1 inh INHALATION Q4HP PRN 06/25/19 09/01/19 History breath activated powder inhaler fluoxetine 40 mg capsule 40 mg PO DAILY cap 06/25/19 09/01/19 History ferrous sulfate ER 142 mg (45 mg 142 mg PO DAILY #30 tab 07/01/19 09/01/19 Rx iron) tablet,extended release Clopidogrel Bisulfate [Plavix 75mg 75 mg PO DAILY 09/01/19 09/01/19 History Tab] Losartan Potassium [Cozaar 50mg 25 mg PO DAILY 09/01/19 09/01/19 History Tablets] Metoprolol Succinate 25 mg PO DAILY 09/01/19 09/01/19 History Omeprazole [Omeprazole 40mg 40 mg PO DAILY 09/01/19 09/01/19 History Capsule] Rosuvastatin Calcium 10 mg PO HS 09/01/19 09/01/19 History hydroCHLOROthiazide 12.5 mg PO DAILY 09/01/19 09/01/19 History [Hydrochlorothiazide 12.5mg Tab] ARIPiprazole [Aripiprazole] 5 mg PO HS 09/02/19 09/02/19 History Isosorbide Mononitrate [Imdur 30mg 30 mg PO DAILY 09/02/19 09/02/19 History ER tablet] Ropinirole HCl 1 mg PO HS 09/02/19 09/02/19 History Amoxicillin/Potassium Clav 1 tab PO Q12H 10 Days #10 tab 09/04/19 Rx [Augmentin 875-125 Tablet] Azithromycin [Z-Joe 250mg Tab*] 250 mg PO UD DOSE PK #6 tab 09/04/19 Rx Potassium Chloride [Pot Chlor 10 20 meq PO DAILY 3 Days #6 tab 09/04/19 Rx mEq Tab] Height: 1.63 m Weight: 102.285 kg Laboratory Results:: Laboratory Results - last 24 hr 09/03/19 20:25: Vancomycin Trough 10.0 09/03/19 20:25: Sodium 138, Potassium 3.1 L, Chloride 98, Carbon Dioxide 33 H, Anion Gap 10.1, BUN 16 D, Creatinine 1.01 D, Estimated Creat Clear 100, Estimated GFR 57 L, Est GFR ( Amer) 69 D, Glucose 128 H, Calcium 7.7 L Medical History: Reports:: Anxiety, Coronary Artery Disease, Gastroesophageal Reflux Disease(GERD), Hyperlipidemia, Hypertension Denies:: Home Oxygen Assessment and Plan (1) Myocardial infarction Current visit: Yes Status: Acute Category: Medical Code(s): I21.9 - Acute myocardial infarction, unspecified (2) Elevated troponin Current visit: Yes Status: Acute Category: Medical Code(s): R79.89 - Other specified abnormal findings of blood chemistry (3) Community acquired pneumonia Current visit: Yes Status: Acute Qualifiers: Laterality: right Lung location: unspecified part of lung Qualified Code(s): J18.9 - Pneumonia, unspecified organism Category: Medical Code(s): J18.9 - Pneumonia, unspecified organism (4) Obesity (BMI 30-39.9) Current visit: Yes Status: Acute Category: Medical Code(s): E66.9 - Obesity, unspecified (5) Acute exacerbation of chronic obstructive airways disease Current visit: Yes Status: Acute Category: Medical Code(s): J44.1 - Chronic obstructive pulmonary disease with (acute) exacerbation (6) CAD (coronary artery disease) Current visit: No Status: Chronic Qualifiers: Coronary Disease-Associated Artery/Lesion type: [place] artery [place] vs. transplanted heart: [place] heart Associated angina: without angina Qualified Code(s): I25.10 - Atherosclerotic heart disease of [place] coronary artery without angina pectoris Category: Medical Code(s): I25.10 - Atherosclerotic heart disease of [place] coronary artery without angina pectoris (7) GERD (gastroesophageal reflux disease) Current visit: No Status: Chronic Qualifiers: Esophagitis presence: without esophagitis Qualified Code(s): K21.9 - Gastro-esophageal reflux disease without esophagitis Category: Medical Code(s): K21.9 - Gastro-esophageal reflux disease without esophagitis (8) HTN (hypertension) Current visit: No Status: Chronic Qualifiers: Hypertension type: essential hypertension Qualified Code(s): I10 - [place] l (primary) hypertension Category: Medical Code(s): I10 - Essential (primary) hypertension (9) Tobacco abuse Current visit: No Status: Chronic Category: Medical Code(s): Z72.0 - Tobacco use (10) Elevated d-dimer Current visit: Yes Status: Acute Category: Medical Code(s): R79.89 - Other specified abnormal findings of blood chemistry - Assessment and plan all Dx Assessment and Plan for all problems:: BASED ON PATIENT FACTORS AND VANCOMYCIN TROUGH LEVEL LAST NIGHT, RECOMMEND CONTINUING VANCOMYCIN 2 GM IV Q18H. PATIENT IS BEING DISCHARGED HOME TODAY.
--- OUTSIDE RECORDS SUMMARY | 2019-09-05 10:55 | External Medical Summary | Continuity of Care Document ---
:1960 Author Organization [facility] Address [address] [place] [address] Phone Care Team Providers Name Role Phone Dominga Attending Provider Navjot Primary Care Provider Navjot Attending Provider Rhett Attending Provider Provider Primary Care Provider Unavailable Ara Corbett Attending Provider Allergies, Adverse Reactions, Alerts Allergen Type Severity Reaction Last Verified Status Updated diphenhydramine Adverse Mild Confusion Yes Acti ve Reaction Medications Medication Status Dose Units Route Sig Qty Days Start End Instruct ions Date Date Buspirone Hcl Active 7.5 MG Oral Twice a March day 2018 11:29am Aspirin Active 81 MG Oral Daily October 04, 2017 8:34am Fluoxetine Hcl Active 40 MG Oral Daily June 25, 2019 9:24am Albuterol Active 1 INH Inhalatio Every 4 June Sulfate n hours , as 2019 needed 9:24am Aripiprazole Active 2 MG Oral Daily June 25, 2019 9:25am Nitroglycerin Active 0.4 MG Sublingua Q5M June 11:09am Ferrous Sulfate Active 142 MG Oral Daily 30 July O TC; Start 2018 with 1 tab PO 1:10pm daily and if no GI upset or constipation, increase to 2 tab daily Doxycycline Active 100 MG Oral Every August Hyclate 2018 hours 3:06pm (0900/2 100) Hydrochlorothia Active 12.5 MG Oral Daily August zi2018 3:08pm Losartan Active 25 MG Oral Daily August Potassium 2018 3:08pm Metoprolol Active 25 MG Oral Daily August Succinate 2018 3:08pm Omeprazole Active 40 MG Oral Daily August take one 2018 tablet by 3:08pm mouth once daily Clopidogrel Active 75 MG Oral Daily August take one Bisulfate 2018 tablet by 3:08pm mouth once daily. Rosuvastatin Active 10 MG Oral At August Calcium bedtime 2018 nightly 3:08pm Problems Active Problems Medical Problem Onset Date Status Somnolence, daytime August, Active Acute exacerbation of chronic Active obstructive airways disease Other forms of angina pectoris Active Tobacco abuse counseling Active Restless sleeper Active Abnormal echocardiogram Active Fatigue Active CAD (coronary artery disease) Active Dyspnea Active Hyperlipidemia Active Mitral valve regurgitation Active Community acquired pneumonia Active Myocardial infarction Active Abnormal stress test Active Snoring Active Stenosis of coronary stent Active Elevated troponin Active Tobacco abuse Active Elevated d-dimer Active Typical angina Active Abnormal ECG Active Sepsis Active GERD (gastroesophageal reflux Active disease) HTN (hypertension) Active Obesity (BMI 30-39.9) Active Procedures Procedure Date Performed Status CT lung screening June 20, 2019 completed RT Complete PFT Body Box Besso June 20, 2019 complete d XR chest 2V September 01, 2019 completed ECG initial Besson September 01, [address] angio chest September 01, 2019 completed Blood Culture September 01, 2019 active Relevant Diagnostic Tests and/or Laboratory Data Laboratory Results Test Date/Time Result Interpretation Reference Result Perfo rming Range Comment Site White Blood August 14.3 K/mm3 4.8-10.8 [facility], [facility] 36 E Count 2018 [place] [address] 3:10pm Red Blood Count August 5.25 M/mm3 4.20-5.40 [facility], [facility] [place] [facility] 36 E 2018 [place] [address] 3:10pm Hemoglobin August 15.2 g/dL 12.2-16.2 [facility], [address] [place] [address] 36 E 2018 [place] [address] 3:10pm Hematocrit John 46.8 % 37.0-47.0 [facility], [address] [place] [address] 36 [address] 2018 [place] [address] 3:10pm Mean Corpuscular John 89.2 fl 81-99 [facility], [address] [place] [address] 36 E Volume 2018 [place] 39605 3:10pm Mean Corpuscular John 29.0 pg 27.0-31.2 [facility], [address] [place] [address] 36 E Hemoglobin 2018 [place] [address] 3:10pm Mean Corpuscular John 32.5 g/dL 31.8-35.4 [facility], [address] [place] [address] 36 E Hemoglobin 2018 [place] [address] Concent 3:10pm Red Cell August 13.8 % 11.5-17.5 [facility], [address] [place] [address] E Distribution 2018 Marimar H[place] [address]263 Width 3:10pm Platelet Count August 371 K/mm3 142-424 [facility], [address] [place] [address] 36 E 2018 [place] [address] 3:10pm Mean Platelet August 8.1 fl 7.4-10.4 [facility], [address] [place] [address] E Volume 2018 [place] 85271 3:10pm Neutrophils (%) August 86.9 % 37.0-80.0 [facility], [address] [place] [address] E (Auto) 2018 [place] [address] 3:10pm Lymphocytes (%) August 8.7 % 10-50 [facility], [address] [place] [address] E (Auto) 2018 [place] [address] 3:10pm Monocytes (%) August 3.8 % 1.7-9.3 [facility], [address] [place] [address] E (Auto) 2018 [place] [address] 3:10pm Eosinophils (%) John 0.2 % 0.1-12.0 [facility], [address] [place] [address] E (Auto) 2018 [place] [address] 3:10pm Basophils (%) John 0.4 % 0.1-2.0 [facility], [address] [place] [address] E (Auto) 2018 [place] [address] 3:10pm Neutrophils # John 12.5 K/mm3 1.8-7.8 [facility], [address] [place] [address] E (Auto) 2018 [place] [address] 3:10pm Lymphocytes # John 1.3 K/mm3 0.7-4.5 [facility], [address] [place] [address] E (Auto) 2018 [place] 94003 3:10pm Monocytes # John 0.6 K/mm3 0.1-1.0 [facility], [address] [place] [address] E (Auto) 2018 [place] [address] 3:10pm Eosinophils # John 0.0 K/mm3 0.0-0.4 [facility], [address] [place] [address] E (Auto) 2018 [place] [address] 3:10pm Basophils # John 0.1 K/mm3 0-0.2 [facility], [address] [place] [address] E (Auto) 2018 [place] [address] 3:10pm Differential John 100 [facility], [address] [place] [address] 36 E Total Cells 2018 Taz H[place] [address] Counted 3:10pm Neutrophils % John 79 % 42-76 [facility], [address] [place] [address] E (Manual) 2018 [place] [address] 3:10pm Lymphocytes % John 17 % 10-50 [facility], [address] [place] [address] E (Manual) 2018 [place] [address] 3:10pm Monocytes % John 4 % 2-9 [facility], [address] [place] [address] E (Manual) 2018 [place] [address] 3:10pm Platelet John Normal [facility], [address] [place] [address] 36 E Estimate 2018 [place] [address] 3:10pm Red Blood Cell John Normal [facility], [address] [place] [address] E Morphology 2018 [place] [address] 3:10pm D-Dimer August 2940 ng/mL 0-400 RESULTS [facility], [address] [place] [address] 36 E 2018 CALLED TO Tuan H[place]ES [address] 3:10pm DCOLEMIRE @BY Anahi Perez at 1612 Troponin I John 22.18 ng/ml 0.00-0.06 [facility], [address] [place] [address] 36 E 2018 CRITICAL [place] 22206 7:05am RESULT Results called to:KENNEDY by Ariane Boylecassandra 0754 on 09/02/19>0. 5 is consistent with Myocardial Ischemiaor infarction. Sodium Level June 138 mmol/L 136-145 [facility], [address] [place] [address] 36 E 2018 [place] [address] 10:41am Sodium Level August 136 mmol/L 136-145 [facility], [address] [place] [address] 36 E 2018 [place] [address] 7:05am Potassium Level June 4.8 mmoL/L 3.5-5.1 [facility], [address] [place] [address] 36 E 2018 [place] [address] 10:41am Potassium Level August 3.6 mmoL/L 3.5-5.1 [facility], [address] [place] [address] 36 E 2018 [place] [address] 7:05am Chloride Level June 102 mmol/L 98-107 [facility], [address] [place] [address] 36 E 2018 [place] [address] 10:41am Chloride Level August 99 mmol/L 98-107 [facility], [address] [place] [address] 36 E 2018 [place] [address] 7:05am Carbon Dioxide June 30 mmol/L 21.0-32.0 [facility], [address] [place] [address] 36 E Level 2018 [place] [address]24[address] 10:41am Carbon Dioxide August 29 mmol/L 21.0-32.0 [facility], [address] [place] [address] 36 E Level 2018 [place] [address] 7:05am Anion Gap June 10.8 mEq/L 02-12 [facility], [address] [place] [address] 36 E 2018 [place] [address] 10:41am Anion Gap August 11.6 mEq/L 02-12 [facility], [address] [place] [address] 36 E 2018 [place] [address] 7:05am Blood Urea June 10 mg/dL 04-17 [facility], [address] [place] [address] 36 E Nitrogen 2018 [place] 13853 10:41am Blood Urea August 10 mg/dL 7-18 [facility], [address] [place] [address] 36 E Nitrogen 2018 [place] [address] 7:05am Creatinine June 0.76 mg/dL 0.55-1.02 [facility], [address] [place] [address] 36 E 2018 [place] [address] 10:41am Creatinine August 0.75 mg/dL 0.55-1.02 [facility], [address] [place] [address] 36 E 2018 [place] [address] 7:05am Estimated John 136 mL/min 0-300 [facility], [address] [place] [address] 36 E Creatinine 2018 [place] [address] Clearance 7:05am Estimated GFR June 95 ML/MIN >59 [facility], [address] [place] [address] 36 E ( 2018 [place] [address] [place]) 10:41am Estimated GFR August 97 ML/MIN >59 [facility], [address] [place] [address] 36 E ( 2018 [place] [address] [place]) 7:05am Estimat June 79 ml/min >59 [facility], [address] [place] [address] 36 E Glomerular 2018 Janeyhangallie H[place] [address] Filtration Rate 10:41am Estimat August 80 ml/min >59 [facility], [address] [place] [address] 36 E Glomerular 2018 [place] [address] Filtration Rate 7:05am Glucose Level June 83 mg/dL 74-106 [facility], [address] [place] [address] 36 E 2018 [place] [address] 10:41am Glucose Level August 179 mg/dL 74-106 Delta: 149 [facility], [address] [place] [address] 36 E 2018 on [place] [address] 7:05am 09/01/19- 10 Lactate August 2.0 mmol/L 0.4-2.0 [facility], [address] [place] [address] 36 E 2018 [place] [address] 3:10pm Calcium Level June 8.8 mg/dL 8.5-10.1 [facility], [address] [place] [address] 36 E 2018 [place] [address] 10:41am Calcium Level August 8.0 mg/dL 8.5-10.1 [facility], [address] [place] [address] 36 E 2018 [place] [address] 7:05am Magnesium Level June 1.9 mg/dL 1.4-2.2 [facility], [address] [place] [address] 36 E 2018 [place] [address] 10:41am Ferritin June 39 ng/mL 8-388 [facility], [address] [place] [address] 36 E 2018 [place] [address] 10:41am Total Bilirubin June 0.3 mg/dL 0.2-1.0 [facility], [address] [place] [address] 36 E 2018 [place] [address] 10:34am Direct Bilirubin June 0.1 mg/dL 0.0-0.2 [facility], [address] [place] [address] 36 E 2018 [place] [address] 10:34am Indirect Jazmine 0.2 mg/dL 0.0-0.9 [facility], [address] [place] [address] 36 E Bilirubin 2018 [place] [address] 10:34am Aspartate Amino June 16 U/L 15-37 [facility], [address] [place] [address] 36 E Transf 2018 [place] 55472 (AST/SGOT) 10:34am Alanine June 24 U/L 12-78 [facility], [address] [place] [address] 36 E Aminotransferase 2018 Janey H[place] 01735 (ALT/SGPT) 10:34am B-Type June 21 pg/mL 0-100 [facility], [address] [place] [address] 36 E Natriuretic 2018 [place] [address] Peptide 10:34am B-Type August 391 pg/mL 0-100 [facility], [address] [place] [address] 36 E Natriuretic 2018 [place] 16423 Peptide 3:10pm Total Protein June 6.6 gm/dL 6.4-8.2 [facility], [address] [place] [address] 36 E 2018 [place] [address]457 10:34am Albumin June 3.5 gm/dL 3.4-5.0 [facility], [address] [place] [address] 36 E 2018 [place] 22781 10:34am Triglycerides June 91 mg/dL 30-200 [facility], [address] [place] [address] E Level 2018 [place] 81[address] 10:34am Cholesterol June 171 mg/dL 140-200 [facility], [address] [place] [address] E Level 2018 [place] [address]66 10:34am LDL Cholesterol June 106 mg/dL 0-130 [facility], [address] [place] [address] E 2018 [place] [address] 10:34am VLDL Cholesterol June 18 mg/dL 0-40 [facility], [address] [place] [address] E 2018 [place] [address] 10:34am HDL Cholesterol June 47 mg/dL 29-89 [facility], [address] [place] [address] E 2018 [place] [address]124 10:34am Cholesterol/HDL June 3.6 1-3.5 [facility], [address] [place] [address] E Ratio 2018 [place] Rowe31 10:34am Alkaline June 121 U/L 46-116 [facility], [address] [place] [address] E Phosphatase 2018 [place] Rowe31 10:34am Influenza Type A John Negative Negative [facility], [address] [place] [address] E Antigen 2018 [place] 25073 3:10pm Influenza Type B John Negative Negative [facility], [address] [place] [address] E Antigen 2018 [place] 36861 3:10pm Arterial Blood John 7.44 mmol/L 7.35-7.45 [facility], [address] [place] [address] E pH 2018 [place] 39635 3:10am Arterial Blood John 39.3 mmhg 35.0-45.0 [facility], [address] [place] [address] E Partial Pressure 2018 Janey H[place] 67563 CO2 3:10am Arterial Blood John 57.8 mmhg 80-100 [facility], [address] [place] [address] E Partial Pressure 2018 Janey H[place] 62035 O2 3:10am Arterial Blood John 25.9 mmhg 22.0-26.0 [facility], [address] [place] [address] E HCO3 2018 [place] [address] 3:10am Arterial Blood John 27.1 mmhg 23-27 [facility], [address] [place] [address] E Total CO2 2018 [place] [address]4573 3:10am Arterial Blood August 1.7 mmol/L -2.4-2.3 [facility], [address] [place] [address] Base Excess 2018 [place] [address] 3:10am Arterial Blood August 91 % 90-100 [facility], [address] [place] [address] Oxygen [address] [place] [address] Saturation 3:10am Kevin Test August Acceptable Respirat ory Therapy, [address] [place] [address] 2018 [place] [address] 3:10am Blood Gas August Right Respirator y Therapy, [address] [place] [address] Specimen Source 2018 [place] [address] 3:10am Diagnostic Imaging Reports Report Dictated Date/Time Dictated By Status Radiology Report June 20, 2019 Kevin Ortiz MD completed 2:43pm [place] [address] [facility] [address] [address] [address] Scan Report Sig priya Patient: Ruthy Huntley MR#: [id number] : 1960 Acct:[id number] Age/Sex: 58 / F ADM Date: 9 Loc: RT Attending Dr: Josee Morfin Ordering Physician: Josee Morfin Date of Service: 06/20/19 Procedure(s): CT lung screening Accession Number(s): [id number] cc: Josee Morfin ; Kevin Ortiz MD~ PROCEDURE: CT LUNG SCREENING CLINICAL INDICATION: H/O NICOTINE DEPE NDENCE Sixty pack-year smoking history, asympt omatic for lung cancer COMPARISON: No exams were available fo r comparison TECHNIQUE: The exam was performed on a [employer] Speed [address] scanner using 2.90 mGy CTDI. A low dose helical CT CHEST was performed on a multi-detector scanner. All CT scans at the facility use one or more dose reduction, viz: au tomated exposure control, ma/kV adjustment per patient size (incl uding targeted exams where dose is matched to indication, i.e. hea d), or iterative reconstruction technique. The LDCT was performed in a facility th at meets the criteria for the screening program. Data regarding this exam was submitted to ACR which is an approved registry. The order for this exam indicates that it came as a result of a lung cancer screening counseling angel sage ion-making visit that included all the elements required of such a vis it including smoking cessation. The radiologist interpreting this exam meets the CMS criteria for the LDCT lung cancer screening program. The exam is reported using the Lung-RAD S classification scale and reported to the ACR registry. NOTE: This study was performed for the specific purposes of lung cancer screening and is not an alternat melinda to diagnostic chest CT. RADIATION DOSE: CTDI vol(CT dose Index -volume) = 2.90mG DLP (Dose Length Product) = 102.38 mGcm FINDINGS: Centrilobular emphysema/COPD Old granulomatous disease. 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 Coronary artery disease. Recommend 12 month LDCT screening exam Dictated by: Kevin Ortiz MD 06/21/2019 09:09 Electronically signed by Kevin Ortiz in [place] 06/29/2019 10:49 Radiology Report September 01, 2019 Kevin Ortiz MD completed 3:39pm [facility] [address] [facility] [address] [address] XRay R eport Sig priya Patient: Ruthy Huntley MR#: [id number] : 1960 Acct:[id number] Age/Sex: 58 / F ADM Date: 9 Loc: 2ND 208-[address]: Miko Corbett MD Ordering Physician: Roddy Serrano MD Date of Service: 09/01/19 Procedure(s): XR chest 2V Accession Number(s): [id number] cc: Kevin Ortiz MD; Provider,Referral MD~ PROCEDURE: XR CHEST 2V CLINICAL HISTORY: sob Shortness of breath and cough, weakness , smoker COMPARISON: CXR1 CHEST-PORTABLE from 08/30/2017 FINDINGS: The cardiomediastinal silhouette and pu lmonary vascularity are within normal limits. Right upper and right lower lobe pneumo juliana is noted. There are prominent interstitial markings as well . No pleural effusion. The left lung is clear. No acute bony anom alies. Surgical clips are present in the right axilla No acute bony abnormalities. IMPRESSION: Right upper and right lower lobe pneumo juliana Dictated by: Kevin Ortiz MD 09/01/2019 16:53 Electronically signed by Kevin Ortiz in [place] 09/01/2019 16:53 Radiology Report September 01, 2019 Kevin Ortiz MD completed 5:52pm [facility] [address] [place] [address] [address] [address] Scan Report Sig priya Patient: Ruthy Huntley MR#: [id number] : 1960 Acct:[id number] Age/Sex: 58 / F ADM Date: 9 Loc: Attending Dr: Miko Corbett MD Ordering Physician: Roddy Serrano MD Date of Service: 09/01/19 Procedure(s): CT angio chest Accession Number(s): [id number] cc: Kevin Ortiz MD; Provider,Referral MD~ PROCEDURE: CT ANGIO CHEST CLINCIAL INDICATION: SOA, ELEVATED DIM ER Shortness of air, elevated D-dimer COMPARISON: CT LUNG SCREENING from TECHNIQUE: IV Contrast: 70ML OPTIRAY 350 Axial images obtained with sagittal and coronal reformats. All CT scans at the facility use one or more d ose reduction, viz: automated exposure control, ma/kV adjustment per patient size (including targeted exams where dose is matched to indication, i.e. head), or iterative reconstruction technique. FINDINGS: No evidence of pulmonary embolus. No e vidence of aortic aneurysm or dissection. No mediastinal or hilar ma ss. There is dense consolidation within the right lower lo be consistent with pneumonia. There adenopathy in the right hilar reg ion with nodes measuring up to 3 by 1.7 cm. Mildly prominent nodes ar e present in the subcarinal region as well. Faint infiltrate is al so present in the right upper lobe. There is thickening of the inter stitium in the right upper lobe with appearance of pulmonary fibro tic change. This could be inflammatory or infectious in nature an d follow-up is suggested. IMPRESSION: 1. No evidence of pulmonary embolus. 2. Extensive consolidation in the right lower lobe consistent with pneumonia with also consolidation in th e right upper lobe and interstitial thickening in the right up per lobe. There is associated right hilar adenopathy and subcarinal. Suggest follow-up to confirm resolution. Dictated by: Kevin Ortiz MD 09/02/2019 06:46 Electronically signed by Kevin Ortiz in [place] 09/02/2019 06:46 Advance Directives Advance Directive Response Recorded Date/Time Living Will No September 01, 2019 7 :05pm Chief Complaint and Reason for Visit Chief Complaint LAB WORK f/u f/u current smoker Obstructive sleep apnea LAB WORK Sepsis, Pneumonia Reason for Visit Acute exacerbation of chroni c obstructive airways disease Community acquired pneumonia Elevated d-dimer Elevated troponin Myocardial infarction Obesity (BMI 30-39.9) Sepsis Encounters Encounter Location(s) Arrival/Admit Date Discharge/Depart Date Provider(s) Registered [facility] Physician June 06, Hollis jaime [facility]Laboratory 2018 10:31am MD Departed [facility] Physician June 06, June 06, 2019 Hollis cabrera Physician/[facility]Cardiology 2018 10:42am 11:13am MD [facility] Visit Departed [facility] Physician June 20, June 20, 2019 Hollis Orr Physician/[facility] 2018 11:16am 11:55am MD [facility] Visit Registered [facility] Physician June 20, Josee pablo Clinical Group-Respirator 2019 12:45pm y Therapy Departed [facility] Physician June 25, June 25, 2019 Marko Delaney Physician/[facility]Neurology 2019 8:48am 10:16am , CHILD PROTECTION SPECIALIST [facility] Visit [facility] Registered [facility] Physician June 25, Sara Calzada [facility]-Laboratory 2019 10:40am , CHILD PROTECTION SPECIALIST Admitted [facility] Physician September 01, 2019 Miko Bullock Inpatient Group-Second 6:25pm MD [place] Floor Registered [facility] Physician September 02, 2019 Miko Bullock Inpatient Group- 10:21am MD [place] Recent Diagnosis Onset Date Acute exacerbation of chronic obstructive airways dise ase Community acquired pneumonia Elevated d-dimer Elevated troponin Myocardial infarction Obesity (BMI 30-39.9) Sepsis Assessments Diagnosis Onset Date Resolution Status Acute exacerbation of acute chronic obstructive airways disease Community acquired acute pneumonia Elevated d-dimer acute Elevated troponin acute Myocardial infarction acute Obesity (BMI 30-39.9) acute Sepsis acute Functional Status Observation Response Date Recorded Oral Care Ability Independent September 01, 2019 7 :05pm Bathing Ability Independent September 01, 2019 7 :05pm Eating (Feeding) Ability Independent September 01 019 7:05pm Toileting Ability Independent September 01, 2019 7 :05pm Ambulation Ability Independent September 01, 2019 7 :05pm Functional status ambulatory June 06, 2019 1:10pm Functional status ambulatory June 25, 2019 10:10am Functional status ambulatory June 23, 2019 9:07am Goals Ambulatory Goals Education of disease process/ health beh aviors. Barriers:Knowledge deficit/ disease proc ess/health behaviors. Immunizations Immunization Event Date Not Given Dose Rolling Up Machine Operator Lot Vac cine Reason Number Number Informatio n Statement (VIS) Deta il Quadrivalent August Rabies, January 06, intramuscular 2009 injection Rabies, January 10, intramuscular 2009 injection Rabies, January 17, intramuscular 2009 injection Rabies, January 31, intramuscular 2009 injection Mental Status Observation Response Date Recorded Comprehension Ability No Impairment September 02, 2019 6:40am Able to Read Yes September 01, 2019 7 :05pm Able to Write Yes September 01, 2019 7 :05pm Ability to Follow Directions Excellent August 7:05pm Eye Contact Maintains Eye Contact September 01, 2019 7:05pm Oral Expression Ability No Impairment September 01 7:05pm Medical Equipment Implanted Devices Device Date Implanted YAMILE Number cardiac stent August 01, 2017 cardiac stent August 01, 2017 cardiac stent August 01, 2017 cardiac stent August 01, 2017 Insurance Providers Guarantor Ruthy Huntley Address [address] [place] [address] Contact Info. Home Phone: Payer Policy Id Coverage Id Subscriber's Subscriber Id Effective E xpiration Name Date Date [employer] [id number] 2017 Self Pay Self N/A Plan of Treatment Anticipate increased compliance with treatment of suspected RLS and with warming air to improve tolerance. Pt denies intolerance to nasal mask or pressure setting. Continue autopap 03/16. Consider reducing if pressure needs remain low or c/o difficulty tolerating pressure Overnight oximetry once tolerating CPAP longer to ensure nocturnal hypoxemia resolved Pt instructed to call Kina and report cold air despite using heated humidifier. Follow up in 1 month (only available Sunday afternoons or Sunday mornings) -Educated re: what TREVA is, risks of untreated TREVA, personal TREVA risk factors, TREVA treatment options was provided -Goals for treatment and usage of device were reviewed and reinforced today. Patient is able to verbalize understanding of the importance of wearing the device a minimum of 4 hours every night. -Aware sleep apnea typically improved when sleeping elevated or avoiding supine positioning while sleeping -Patient was advised to notify the office immediately with any new or worsening symptoms. -Risk associated with driving and unresolved drowsiness as a result of untreated sleep apnea were reviewed. Patient agrees to not drive if drowsy -Lifestyle modifications including but not limited to diet, daily exercise, weight reduction were discussed and encouraged Reviewed CBC, CMP in March 2019. Noncontributory. -Obtain ferritin, magnesium and BMP -Start OTC slow FE 2 tabs daily if ferritin < 75 -Start pramipexole 0.25mg tablet taking half a tablet (0.125mg) 2 hours before bedtime for one week. If no side effects and remains symptomatic, increase to one tablet (0.25mg) 2 hours before bedtime. -Avoid things that may worsen symptoms such as otc sleep aids, antihistamines, caffeine -Indications and possible side effects of medication was discussed including but not limited to risk for impulsive behaviors, sleep attacks, drowsiness. Denies hx of ETOH abuse or addiction to drugs, sex of gambling -Advised against driving after taking pramipexole or if drowsiness, sleepiness, fatigue present due to risk of injury to self or others as a result of sleep apnea and/or medication Future Tests Future scheduled test information is unavailable Pending Tests Pending diagnostic test information is unavailable Future Visits Future appointment information is unavailable Referrals to Other Providers Reason for Referral Start Provider Provider Contact Provider Address Referral Date Information Admission to [facility] September [address] [place] [address] Future Procedures Future procedure information is unavailable Future Medications Future medication information is unavailable Patient Instructions High Triglycerides Heart Valve Replacement Heart-Healthy Diet Fat-Restricted Diet Effectiveness of Diets for Weight Loss High Triglycerides Coronary Artery Disease Heart Valve Replacement Essential Hypertension Heart-Healthy Diet Fat-Restricted Diet Effectiveness of Diets for Weight Loss DI for Chest Pain How to Quit Tobacco Products Restless Legs Syndrome DI for Obstructive Sleep Apnea -- Adult Pneumonia-Adult Social History Observation Status Date of Observation Not September 01, 2019 Assigned Sex Female Vital Signs Vital Reading Result Reference Range Collection Date/ Time Height 162.56 cm June 06 10:50am Weight 101.15 kg June 06 10:50am Heart Rate 82 /min 60-90 [address] 6[address], 2 019 10:50am Oxygen saturation by 95 % 95-100 June 062018 Pulse oximetry 10:50am BP Systolic 135 mm[Hg] 110-140 June 06, 2 019 10:50am BP Diastolic 76 mm[Hg] 60-90 June 06, 2 019 10:50am BMI (Body Mass Index) 38.2 kg/m2 June 06, 2019 10:50am Height 162.56 cm June 20, 2019 11:32am Weight 102.96 kg June 20, 2019 11:32am Heart Rate 70 /min June 20, 2019 11:32am Oxygen saturation by 93 % 95-100 June 022018 Pulse oximetry 11:32am BP Systolic 127 mm[Hg] 110-140 June 20, 2019 11:32am BP Diastolic 84 mm[Hg] 60-90 June 20, 2019 11:32am BMI (Body Mass Index) 38.9 kg/m2 June 20, 2019 11:32am Height 162.56 cm June 25, 2019 8:57am Weight 101.60 kg June 25, 2019 8:57am Body Temperature 98.6 [degF] 97.6-99.6 June 25, 2019 8:57am Heart Rate 70 /min June 25, 2019 8:57am Respiratory rate 16 /min 09-23June 25, 2019 8:57am Oxygen saturation by 94 % 95-100 June 022018 Pulse oximetry 8:57am BP Systolic 107 mm[Hg] 110-140 June 25, 2019 8:57am BP Diastolic 74 mm[Hg] 60-90 June 25, 2019 8:57am BMI (Body Mass Index) 38.4 kg/m2 June 25, 2019 8:57am Height 162.56 cm September 02 5:55am Weight 102.54 kg September 02 5:55am Body Temperature 98.1 [degF] 97.6-99.6 September 02, 019 8:00am Heart Rate 88 /min September 02 8:00am Respiratory rate 17 /min 09-23September 02, 019 8:00am Oxygen saturation by 91 % 95-100 August Pulse oximetry 8:00am BP Systolic 115 mm[Hg] 110-140 September 02 8:00am BP Diastolic 72 mm[Hg] 60-September 02 8:00am BMI (Body Mass Index) 38.7 kg/m2 September 022018 5:55am Inhaled oxygen 32 % September 02 concentration 1:05am
--- NOTE | 2019-09-05 16:44 | Electrocardiograph Report ---
APPROVED REPORT Exam: Resting ECG HR:85 bpm ECG Measurements Heart Rate 85 AXES WI 152 P 66 QRSd 104 QRS -48 QT 438 T22 QTc 521 <Conclusion> Age and gender specific ECG analysis Normal sinus rhythm Low voltage QRS Left anterior fascicular block Inferior infarct, possibly acute Anterolateral infarct, age undetermined Prolonged QT ACUTE TN Consider right ventricular involvement in acute inferior infarct Abnormal ECG Electronically signed by : Silas Diez, 09/05/2019 16:43:47
== END 2019-09-04 14:16 | disposition home or self-care (01) | DRG 280 ==
LOC: ER 14:59 → 2ND 16:16
PROVIDERS: ADMIT Emergency Medicine; ATTEND Emergency Medicine
CPT/HCPCS: 36415; 71020; 71046; 71275; 80048; 80202; 82803; 83605; 83880; 84484; 85007; 85025; 85378; 87040; 87275; 87276; 93005; 93306; 94761; 96365; 96367; 96372; 96375; 99285; J2405; J2543; J3370; Q9967

== ENCOUNTER → 2019-09-09 12:32 | Outpatient (CLI) | payer OTHER, SELFPAY ==
--- NOTE | 2019-09-09 12:35 | XR_ITS ---
PROCEDURE: XR CHEST 2V CLINICAL HISTORY: chest pain COMPARISON: CXR1 CHEST-PORTABLE from 08/30/2017 CT ANGIO CHEST from 09/01/2019 XR CHEST 2V from 09/01/2019 FINDINGS: The cardiomediastinal silhouette and pulmonary vascularity are within normal limits. There has been interval improvement in the right-sided pneumonia with some minimal interstitial changes noted on the right. Left lung is clear. There are surgical clips in the right axillary region. No acute bony abnormalities. IMPRESSION: Improving right-sided pneumonia with some minimal residual interstitial changes Dictated by: Kevin Ortiz MD 09/09/2019 17:31 Electronically signed by Kevin Ortiz MD in [place] 09/09/2019 17:31
== END ==
PROVIDERS: PCP Nurse Practitioner Family; Visit Provider Physician Assistant
DX: E78.49 Other hyperlipidemia (principal); I10 Essential (primary) hypertension; I20.8 Other forms of angina pectoris; I34.0 Nonrheumatic mitral (valve) insufficiency; K21.9 Gastro-esophageal reflux disease without esophagitis; R06.09 Other forms of dyspnea; R53.83 Other fatigue; R79.89 Other specified abnormal findings of blood chemistry; R94.31 Abnormal electrocardiogram [ECG] [EKG]; Z72.0 Tobacco use
CPT/HCPCS: 71046

== ENCOUNTER → 2019-09-17 12:43 | Outpatient (CLI) | payer OTHER, SELFPAY ==
--- NOTE | 2019-09-17 12:43 | CA_ITS ---
APPROVED REPORT EXAM: Limited 2D Echocardiogram Seasonal Driver: Annmarie Vega CRT Ht: 5 ft 3 in Wt: 225lbs BSA: 2.03 BP: 124/75 mmHg Indications: COPD, Smoker, HTN, SOB, obesity, hyperlipidemia, family history of HD, CAD, MS 2017 stent, MS 09/01/2019, recheck EF today M-Mode Dimensions RVDd 2.06 cm (0.9-2.6) LVDd 4.46 cm (3.5-5.7) LVDs 3.38 cm (3.5-5.7) IVSd 0.97 cm (0.6-1.1) PWd 0.93 cm (0.6-1.1) EF (Teich) 48.30% FS 24.20% EDV (Teich) 90.50 mL ESV (Teich) 46.80 mL Left Ventricle Left atrium is mildly enlarged, left ventricle is normal size, mild concentric left ventricular hypertrophy, visually estimated ejection fraction 40%, there is marked hypokinesis involving the inferior basal inferolateral and posterolateral wall. Right Ventricle Right atrium and right ventricular normal size and contractility. Aortic Valve Aortic valve is minimally thickened and fibrosed. There is no aortic stenosis. Mitral Valve Mitral valve is grossly normal. Tricuspid Valve Tricuspid valve is grossly normal. Pulmonic Valve Pulmonic valve is poorly visualized. Great Vessels Aortic root is normal size. Pericardium No significant pericardial effusion noted. Conclusion 1. Mildly enlarged left atrium, normal left ventricular size, mild concentric left ventricular hypertrophy, visually estimated ejection fraction 40% with multiple segmental wall motion abnormality described above. 2. No significant pericardial effusion noted. Electronically signed by : Hollis Orr, 09/19/2019 13:18:51
== END ==
PROVIDERS: PCP Emergency Medicine; Visit Provider Internal Medicine
DX: I20.8 Other forms of angina pectoris (principal); E78.49 Other hyperlipidemia; I25.10 Atherosclerotic heart disease of native coronary artery without angina pectoris; I42.9 Cardiomyopathy, unspecified
CPT/HCPCS: 93308

== ENCOUNTER → 2019-09-29 10:20 | Outpatient (CLI) | payer OTHER, SELFPAY ==
[2019-09-29 11:47] LABS: Alanine Aminotransferase 18 U/L (12-78); Albumin Level 3.5 gm/dL (3.4-5.0); Alkaline Phosphatase 128 U/L (46-116); Aspartate Amino Transferase 12 U/L (15-37); Bilirubin,Direct 0.1 mg/dL (0.0-0.2); Bilirubin,Indirect 0.2 mg/dL (0.0-0.9); Bilirubin,Total 0.3 mg/dL (0.2-1.0); Chol/HDL Ratio 3.2 (1-3.5); Cholesterol 203 mg/dL (140-200); HDL Cholesterol 63 mg/dL (29-89); LDL Cholesterol 111 mg/dL (0-130); Total Protein,Serum 7.2 gm/dL (6.4-8.2); Triglycerides 145 mg/dL (30-200); VLDL Cholesterol 29 mg/dL (0-40)
== END ==
PROVIDERS: Visit Provider Urology
DX: R07.89 Other chest pain (principal); R06.09 Other forms of dyspnea; I11.9 Hypertensive heart disease without heart failure; R94.31 Abnormal electrocardiogram [ECG] [EKG]; E78.49 Other hyperlipidemia; I25.10 Atherosclerotic heart disease of native coronary artery without angina pectoris; I34.0 Nonrheumatic mitral (valve) insufficiency; K21.9 Gastro-esophageal reflux disease without esophagitis; R53.83 Other fatigue; Z72.0 Tobacco use
CPT/HCPCS: 36415; 80061; 80076

== ENCOUNTER 2022-07-24 19:31 | Emergency (ER) | payer OTHER, SELFPAY ==
--- NOTE | 2022-07-24 19:36 | HMH.EDGENADL ---
Discharge Plan Disposition Patient Disposition: Home, Self-Care Condition: Fair Prescriptions Prescriptions: New amoxicillin-pot clavulanate 875-125 mg tablet 1 tab PO Q12H Qty: 20 0RF No Action buspirone 7.5 mg tablet 7.5 mg PO BIDP PRN (Reason: Anxiety) aspirin [Adult Low Dose Aspirin] 81 mg tablet,delayed release (DR/EC) 81 mg PO DAILY Qty: 90 3RF clopidogrel 75 mg tablet 75 mg PO DAILY Qty: 90 3RF Rx Instructions: take one tablet by mouth once daily. hydrochlorothiazide 12.5 mg tablet 12.5 mg PO DAILY Qty: 90 3RF losartan 50 mg tablet 25 mg PO DAILY Qty: 90 3RF omeprazole 40 mg capsule,delayed release(DR/EC) 40 mg PO DAILY Qty: 90 3RF Rx Instructions: take one tablet by mouth once daily ranolazine [Ranexa] 500 mg tablet extended release 12 hr 500 mg PO BID Qty: 180 3RF rosuvastatin [Crestor] 20 mg tablet 20 mg PO QHS Qty: 90 3RF nitroglycerin 0.4 mg tablet, sublingual 0.4 mg SUBLINGUAL Q5-15M PRN (Reason: chest pain) Qty: 25 2RF Rx Instructions: do not exceed 3 doses per episode albuterol sulfate 90 mcg/actuation aerosol powdr breath activated 1 inh INHALATION Q4HP PRN (Reason: copd) umeclidinium-vilanterol 62.5-25 mcg/actuation blister with device INHALATION Qty: 0 Slow Fe 142 mg (45 mg iron) tablet extended release 142 mg PO DAILY Qty: 30 0RF Rx Instructions: OTC; Start with 1 tab PO daily and if no GI upset or constipation, increase to 2 tab daily escitalopram oxalate [Lexapro] 10 mg tablet 10 mg PO DAILY Qty: 90 0RF metoprolol succinate 25 mg tablet extended release 24 hr 25 mg PO DAILY Qty: 90 3RF Chantix Continuing Month Box 1 mg tablet 1 mg PO BID Qty: 56 2RF Referrals Follow up/Referrals: Josee Morfin [Primary Care Provider] - See instructions Activity Restrictions/Add. Instructions Additional Instructions/Restrictions: You have been evaluated for cat bites to the middle finger on the right hand. Please take antibiotics as prescribed. Use triple antibiotic ointment. Please monitor your symptoms closely. This wound is at very high risk of worsening infection. Please follow-up with your primary care doctor for wound check in 1 to 2 days. Return to the emergency department at once for any new or worsening symptoms, redness, drainage, difficulty moving your finger, fevers, chills, nausea, vomiting Clinical Impressions Clinical Impression: Cat bite of finger Stand Alone Forms Stand Alone Forms: Work/School Release Instructions Patient Instructions: DI for Cat Bite Discharge ED Provider: Johana Stout Adult HPI General Chief complaint: Wound/Laceration Stated complaint: WC 07/24@11 bit by cat Time Seen by Provider: 07/24/22 19:34 History of Present Illness HPI narrative: 61-year-old female presenting to the emergency department with cat bite to her right hand. Incident happened while she was at work today, around 11 AM. She works at an [employer]. A pet cat bit her on the right middle finger. She sustained a break in the skin on the dorsal aspect, mid and distal portion of the finger. Pain was initially sharp, stabbing. Now it is dull and throbbing. She soaked it in Epsom salts. Over the last few hours it is gotten more swollen and painful. She is up-to-date on tetanus. Cat was up-to-date on its routine shots, including rabies. No allergies to medications. She denies recent antibiotic use. Related Data Home Medications Medication Instructions Recorded Confirmed buspirone 7.5 mg tablet 7.5 mg PO BIDP PRN Anxiety 03/14/19 01/07/20 albuterol sulfate 90 mcg/actuation 1 inh inhalation Q4HP PRN copd 06/25/19 01/07/20 breath activated powder inhaler umeclidinium 62.5 mcg-vilanterol inhalation #0 ea 09/09/19 01/07/20 25 mcg/actuation powdr for inhalation Previous Rx's Medication Instructions Recorded ferrous sulfate 142 mg (45 mg 142 mg PO
[2022-07-24 19:40] VITALS: BP 110/75; PULSE 94; RESP 18; TEMP 37.1; O2SAT 90; BMI 39.8
[2022-07-24 20:43] VITALS: BP 118/66; PULSE 82; RESP 18; TEMP 36.7; O2SAT 90
== END 2022-07-24 20:45 | disposition home or self-care (01) ==
LOC: ER 19:44
PROVIDERS: Emergency Provider Emergency Medicine; PCP Nurse Practitioner Family
DX: S61.252A Open bite of right middle finger without damage to nail, initial encounter (principal); R94.31 Abnormal electrocardiogram [ECG] [EKG]; R94.39 Abnormal result of other cardiovascular function study; R07.89 Other chest pain; I10 Essential (primary) hypertension; I25.119 Atherosclerotic heart disease of native coronary artery with unspecified angina pectoris; I25.2 Old myocardial infarction; I34.0 Nonrheumatic mitral (valve) insufficiency; K21.9 Gastro-esophageal reflux disease without esophagitis; E78.5 Hyperlipidemia, unspecified; J44.9 Chronic obstructive pulmonary disease, unspecified; F41.9 Anxiety disorder, unspecified; F17.210 Nicotine dependence, cigarettes, uncomplicated; Z79.01 Long term (current) use of anticoagulants; Z79.51 Long term (current) use of inhaled steroids; Z79.82 Long term (current) use of aspirin; Z79.899 Other long term (current) drug therapy; Z88.8 Allergy status to other drugs, medicaments and biological substances; Z95.5 Presence of coronary angioplasty implant and graft; W55.01XA Bitten by cat, initial encounter; Y99.0 Civilian activity done for income or pay
CPT/HCPCS: 99283

== ENCOUNTER → 2022-08-02 15:54 | Outpatient (CLI) | payer OTHER, SELFPAY ==
--- NOTE | 2022-08-02 16:02 | XR_ITS ---
FINAL REPORT CLINICAL HISTORY: . Cat bite to right middle finger. Possible cellulitis. FINDINGS: RIGHT FINGER 3 views of the right 3rd digit were obtained. There is no acute fracture or dislocation. The joint spaces are intact. There is no bony erosion. There is soft tissue swelling of the 3rd digit. IMPRESSION: Soft tissue swelling with no acute bony abnormality. Reviewed, Interpreted and Dictated by Bandar Donaldson III, MD Transcribed by Kathryn Welsh Authenticated and [facility]
== END ==
PROVIDERS: PCP Nurse Practitioner Family; Visit Provider Nurse Practitioner Family
DX: L03.011 Cellulitis of right finger (principal)
CPT/HCPCS: 73140

== ENCOUNTER → 2022-08-17 13:59 | Outpatient (CLI) | payer OTHER, SELFPAY ==
[2022-08-17 14:36] LABS: Basophils # 0.1 K/mm3 (0-0.2); Basophils % 0.7 % (0.1-2.0); Eosinophils # 0.1 K/mm3 (0.0-0.4); Eosinophils % 1.1 % (0.1-12.0); Hematocrit 43.5 % (37.0-47.0); Lymphocytes # 2.6 K/mm3 (0.7-4.5); Lymphocytes % 29.8 % (10-50); Mean Corpuscular HGB Conc 29.8 g/dL (31.8-35.4); Mean Corpuscular Hemoglobin 25.9 pg (27.0-31.2); Mean Corpuscular Volume 86.9 fl (81-99); Mean Platelet Volume 7.1 fl (7.4-10.4); Monocytes # 0.5 K/mm3 (0.1-1.0); Monocytes % 5.9 % (1.7-9.3); Neutrophils # 5.4 K/mm3 (1.8-7.8); Neutrophils % 62.6 % (37.0-80.0); Platelet Count 251 K/mm3 (142-424); Red Blood Count 5.01 M/mm3 (4.20-5.40); Red Cell Distribution Width 15.6 % (11.5-17.5); White Blood Count 8.7 K/mm3 (4.8-10.8)
[2022-08-17 15:39] LABS: Erythrocyte Sedimentation Rate 28 mm/hr (0-30)
== END ==
PROVIDERS: PCP Nurse Practitioner Family; Visit Provider Plastic Surgery Surgery of the Hand
DX: M06.041 Rheumatoid arthritis without rheumatoid factor, right hand (principal)
CPT/HCPCS: 36415; 85025; 85651

== ENCOUNTER → 2022-08-31 13:59 | Outpatient (CLI) | payer OTHER, SELFPAY ==
--- NOTE | 2022-08-31 14:04 | MR_ITS ---
PROCEDURE INFORMATION: Exam: MR Right Upper Extremity Other Than Joint Without Contrast; Fingers Exam date and time: 08/31/2022 2:39 PM Age: 61 years old Clinical indication: Pain; Additional info: Pain in right fingers (m79.644)cat bite from jul 24. Reddness and swelling in 3rd digit. Pain shoots up arm. TECHNIQUE: Imaging protocol: Magnetic resonance imaging of the Right upper extremity without contrast. Exam focused on the fingers. COMPARISON: CR XR FINGER RT MIN 2V 08/02/2022 4:05 PM FINDINGS: Bones and cartilage: There is no evidence of osteomyelitis. No fracture or dislocation is present. Mild bone marrow edema is present involving the long finger middle and distal phalanges, but this edema does not significantly alter the marrow fat signal on T1-weighted imaging, having a low likelihood of osteomyelitis and being more typical for reactive osteitis. There are degenerative cysts or small intraosseous geodes involving the metacarpal heads. Degenerative subchondral cysts or intraosseous geodes are favored over inflammatory erosions due to the location adjacent to the collateral ligament attachments, which is a common site for low-grade traction-type injuries subsequently associated with subchondral cystic change. Joint spaces: Unremarkable. No joint effusion. Collateral ligaments of digits: Unremarkable. No evidence of tear. Flexor compartment tendons: Mild tenosynovitis involves the thumb through little finger flexor tendons without asymmetric involvement of the long finger to suggest septic tenosynovitis. Extensor compartment tendons: Unremarkable. No evidence of tear. Muscles: Minimal edema involves the hand musculature without atrophy. Soft tissues: There is a moderate amount of edema involving the soft tissues of the long finger. There is no focal fluid collection or soft tissue gas to suggest an abscess. No foreign body. IMPRESSION: 1. Moderate edema involving the long finger consistent with cellulitis. 2. Probable reactive osteitis of the long finger middle and distal phalanges. Short term interval radiographs to assess for change in bone density may be helpful to exclude early osteomyelitis. 3. No abscess or convincing osteomyelitis.
== END ==
PROVIDERS: PCP Plastic Surgery Surgery of the Hand; Visit Provider Plastic Surgery Surgery of the Hand
DX: M79.644 Pain in right finger(s) (principal)
CPT/HCPCS: 73218

== ENCOUNTER → 2022-12-19 11:40 | Outpatient (CLI) | payer MEDICAID, SELFPAY ==
--- NOTE | 2022-12-19 11:41 | NM_ITS ---
APPROVED REPORT Exam: Nuclear Stress Test Indication: CAD, 2 STENTS, H/O LA, HTN, HYPERLIPIDEMIA, TOB USE, FM HX, C.P., SOB Patient Location: Outpatient Stress Tech: [facility] Tech:Snow Fernando, SUDEEP RT (R)(N)(M) Ht: 5 ft 4 in Wt: 250 lbs Bra Size: DD HR: 71 bpm BP: 122/81 mmHg BSA: 2.15 m2 TID: 1.39 BMI: 42.9 History: CAD, 2 STENTS, H/O LA, HTN, HYPERLIPIDEMIA, TOB USE, FM HX, C.P., SOB Procedure: Patient received 0.4 mg of intravenous Lexiscan, resting heart rate 71 bpm, resting blood pressure 122/81 mmHg, with Lexiscan maximum heart rate achieved was 87 bpm which is Less than 85 % of the maximum predicted heart rate and blood pressure was 131/80 mmHg. With Lexiscan, patient denied any complaint of chest pain. Electrocardiogram Resting electrocardiogram shows sinus rhythm, with Lexiscan there is less than 1.[address] segment depression noted from the baseline EKG. The EKG portion of the Lexiscan is nondiagnostic. Cardiac Stress and Resting SPECT Images: Cardiac Stress and Resting SPECT images were obtained using technetium 99m Myoview 31.2 mCi stress and 10.11 mCi at rest. Gated SPECT analysis of segmental wall motion and calculation of the ejection fraction also done. Prone images were also obtained. Cardiac stress and rest respectively show partially reversible defect involving the inferolateral and lateral wall consistent with mixed ischemia and scar, there is transient ischemic dilatation of the left ventricle seen. Computer derived ejection fraction is 49% with moderate inferolateral and lateral wall hypokinesis. Right ventricle is normal size and contractility. Conclusion: 1. The EKG portion of the Lexiscan is nondiagnostic. 2. Scintigraphic evidence of mixed ischemia and scar involving the inferolateral lateral wall, computer derived ejection fraction is 49% with segmental wall motion abnormality described above, there is transient ischemic dilatation of the left ventricle seen, raising the concerns for presence of multivessel coronary disease, right ventricle is normal size and contractility. 3. Abnormal Lexiscan Myoview study. Electronically signed by : Hollis Orr MD 12/19/2022 17:14:13
--- NOTE | 2022-12-19 13:22 | CA_ITS ---
APPROVED REPORT EXAM: Comprehensive 2D, Doppler, and color-flow Echocardiogram Production Corrugator: Kim Bob RT(R) Ht: 5 ft 4 in Wt: 250lbs BSA: 2.15 BP: 130/65 mmHg Indications: CP, smoker, fatigue, HTN, SOB, hyperlipidemia, CAD, GERD 2D Dimensions Aortic Root 2.05 cm F: 2.7 - 3.3 LVEF (Lynn's) 65.00 % F: 54 - 74 LV Volume 108.60 mL F: 46 - 106 LV Volume Index 50.51 mL/m2 F: 29 - 61 LA Volume 25.50 mL LA Volume Index 11.86 mL/m2 (M/F) 16-34 M-Mode Dimensions RVDd 3.14 cm (0.9-2.6) LA Diam 4.35 cm (1.9-4.0) LVDd 5.47 cm (3.5-5.7) Ao Diam 3.07 cm (2.0-3.7) LVDs 4.20 cm (3.5-5.7) IVSd 1.10 cm (0.6-1.1) PWd 1.10 cm (0.6-1.1) EF (Teich) 46.00% FS 23.20% EDV (Teich) 145.60 mL ESV (Teich) 78.60 mL LV Diastology E Decel Time 107.00 (160-240 msec) E/A Ratio 0.72 MED E' 7.20 (< 7 cm/sec) E'/MED E' Ratio 10.72 (>14) LAT E' 9.60 (<10 cm/sec) E/LAT E' Ratio 8.04 (>14) Mitral Valve MV A Velocity 107.00 (40-130 cm/s) E/A Ratio 0.72 MV Decel. Time 107.00 (160-240 ms) Left Ventricle Left atrium is mildly enlarged, left ventricle is normal size mild concentric left ventricular hypertrophy, estimated ejection fraction 55% with no regional wall motion abnormality, grade 1 diastolic dysfunction seen without tissue Doppler evidence of raise left atrial pressure. Right Ventricle Right atrium right ventricular mildly enlarged with normal contractility. Aortic Valve Aortic valve is minimally thickened and calcified without aortic stenosis aortic insufficiency. Mitral Valve Mitral valve leaflets are minimally thickened, there is no mitral stenosis, there is mild mitral regurgitation. Tricuspid Valve Tricuspid valve grossly normal, there is mild tricuspid regurgitation, tricuspid regurgitation jet velocity is inadequate for calculation of the right ventricular systolic pressure. Pulmonic Valve Pulmonic valve is poorly visualized. Great Vessels Aortic root is normal size. Inferior vena cava normal size with normal inspiratory collapse. Pericardium No significant pericardial effusion noted. Conclusion 1. Mild biatrial enlargement, normal left ventricular size, mild concentric left ventricular hypertrophy, estimated ejection fraction 55% with no regional wall motion abnormality, grade 1 diastolic dysfunction seen without tissue Doppler evidence of late left atrial pressure. 2. Mildly enlarged right ventricle with normal contractility. 3. Mild mitral and tricuspid regurgitation. 4. No significant pericardial effusion noted. 5. Inferior vena cava normal size with normal inspiratory collapse. Electronically signed by : Hollis Orr MD 12/19/2022 19:21:59
--- NOTE | 2022-12-19 13:35 | CA_ITS ---
APPROVED REPORT Exam: Pharmacologic Technologist: Annie Rajan, Ht: 5 ft 3 in Wt: 256 lbs BSA: 2.15 m2 HR: 71 bpm BP: 122/81 mmHg Medical History Medications: Omeprazole,,,,, Aspirin,,,,, Metoprolol,,,,, Lexapro,,,,, Losartan,,,,, Buspirone,,,,, Crestor,,,,, Albuterol,,,,, ProMETHAZINE,,,,, CloPIdogrel,,,,, Diclofenac,,,,, Nitroglycerin,,,,, Stress Test Details Test: LEXISCAN Reason for pharmacologic stress test: physical limitation. HR Resting HR: 71 bpm Max Heart Rate (APMHR): 161.291106 bpm Max HR Achieved: 87 bpm Target HR (85% APMHR): 136.048924 bpm % of APMHR: 54.04 Recovery HR: 82 bpm BP Resting BP: 122/81 mmHg Max BP: 134/75 mmHg Recovery BP: 125.0/78.0 mmHg ECG Resting ECG: NSR, PVC's, RBBB, low voltage QRS, old inferior & anterolateral MIs. Clinical Exercise duration: 04:00 min Highest Stage Achieved: Stress ECG Conclusion Symptoms: SOA, head discomfort, malaise. Very mild chest descomdort. Arrhythmias/Ectopy: Rare PVC. ST-T Changes: No significant changes. Conclusion: Non-diagnostic Lexiscan stress. Myoview images reported separately. Test Summary REST . . . . . . . Resting REST 10:45 . . . . 122/ 81 . . Stage 1 01:00 . . . . . . . Stage 2 01:00 . . . . 132/ 82 . . Stage 3 01:00 . . . . 131/ 80 . . Stage 4 01:00 . . . . 129/ 79 . Stop exercise at 04:00 RECOVERY 01:00 . . . . 134/ 75 . . RECOVERY 02:00 . . . . 134/ 75 . . RECOVERY 03:00 . . . . 125/ 78 . . RECOVERY 03:30 . . . . 125/ 78 . . Electronically signed by : Hollis Orr MD 12/19/2022 17:03:10
== END ==
PROVIDERS: PCP Nurse Practitioner Family; Visit Provider Nurse Practitioner
DX: R06.09 Other forms of dyspnea (principal); R07.89 Other chest pain; I25.10 Atherosclerotic heart disease of native coronary artery without angina pectoris; I10 Essential (primary) hypertension; E78.2 Mixed hyperlipidemia; K21.9 Gastro-esophageal reflux disease without esophagitis; R94.31 Abnormal electrocardiogram [ECG] [EKG]; T82.855D Stenosis of coronary artery stent, subsequent encounter; Z72.0 Tobacco use
CPT/HCPCS: 78452; 93017; 93306; A9502; J2785

== ENCOUNTER 2022-12-27 08:56 | Day surgery (SDC) | payer MEDICAID, SELFPAY ==
[2022-12-27] VITALS (13 sets, daily range): BP systolic 90–105; BP diastolic 53–64; PULSE 63–79; RESP 12–20; TEMP 36.1–36.6; O2SAT 88–100; BMI 45.3
--- NOTE | 2022-12-27 07:06 | IR_ITS ---
APPROVED REPORT Patient Location: Outpatient Die Developer: SUDEEP Matute RT (R) PROCEDURES Left heart catheterization Left ventriculogram Selective coronary angiogram Intravascular ultrasound to the proximal LAD Drug-eluting stent deployment to the proximal LAD INDICATION Known coronary artery disease, Abnormal Myoview, MLA of 3.0 mm??? with a plaque burden of 82.2% in the proximal LAD Informed consent was obtained prior to the procedure. COMPLICATIONS None Estimated Blood Loss: Less than 10 mls TECHNIQUE One percent lidocaine used to anesthetize the right anterior aspect of the wrist. The right radial artery was accessed via the Seldinger technique. A 6 Georgian sheath was placed in the right radial artery. 150 mg magnesium sulfate, 800 mcg of nitroglycerin, 1mg Lidocaine and 5000 U Heparin were given through the arterial sheath. The papa catheter was also used to perform left heart catheterization, left ventriculogram and selective coronary angiogram. At the end the diagnostic angiogram I broke scrub and went out to dictate the procedure. Upon reviewing the angiogram and angiographic ambiguous and possibly severe stenosis was identified in 1 view in 1 frame. Because of patient's classic angina with anterior wall hypokinesis and reduced ejection fraction it was decided to proceed with intravascular ultrasound. I then rescrubbed and reentered the room and placed a JL 3 guide catheter into the left main artery. Therapeutic heparin had already been administered giving a therapeutic ACT. A Choice PT extra-support wire was placed distally in the LAD and intravascular ultrasound probe was advanced which demonstrated severe to critical disease in the proximal LAD with an MLA of 3.0 mm??? representing a plaque burden of 82.2%. Because of this a 3.5 x 30 mm resolute Francesco stent was deployed at 20 alicia reducing the severe to critical disease to 0%. MAHAD-3 flow was present before and after the procedure at the end the procedure the apparatus was removed the sheath was removed good hemostasis was achieved using TR banding patient was transferred to the postop putting in stable condition ANGIOGRAPHIC RESULTS The left main artery Normal The left anterior descending artery Has proximal 40 to 50% stenosis by angiography with 1 view creating a suspected 60 to 70% stenosis which represented a severe stenosis based on plaque burden and MLA. The midportion then has mild luminal irregularities with the distal eccentric 30% stenosis The circumflex artery Nondominant and has a proximal 20 to 30% stenosis The right coronary artery Is a large dominant vessel and has a stent in the proximal to mid segment. The stent has 40% concentric in-stent restenosis with distal 30% stenoses The VASQUEZ ventriculogram reveals Dilated ventricle with reduced ejection fraction and anterior wall hypokinesis. Estimate ejection fraction is 35% The left ventricular end-diastolic pressure 25 mmHg IMPRESSION Severe proximal LAD disease as described above with successful stenting reducing the severe to critical disease to 0% with 1 drug-eluting stent Persistent moderate stenosis in the proximal circumflex artery and mid dominant right coronary artery Left ventricular dilatation with reduced ejection fraction regional wall motion abnormality Elevated LVEDP PLAN 1. Dual antiplatelet therapy 2. Risk factor modification 3. LDL less than 55 to be achieved with high intensity statin 4. Avoidance of tobacco products 5. Cardiac rehabilitation 6. Recommend echocardiogram to better evaluate ejection fraction. It appears patient has significant LV dysfunction based on LV gram which is discordant with the 49% as reporte
[2022-12-27 09:37] LABS: Basophils # 0.1 K/mm3 (0-0.2); Basophils % 0.7 % (0.1-2.0); Eosinophils # 0.1 K/mm3 (0.0-0.4); Eosinophils % 0.9 % (0.1-12.0); Hematocrit 44.7 % (37.0-47.0); Hemoglobin 13.1 g/dL (12.2-16.2); Lymphocytes % 20.4 % (10-50); Mean Corpuscular HGB Conc 29.2 g/dL (31.8-35.4); Mean Corpuscular Hemoglobin 23.6 pg (27.0-31.2); Mean Corpuscular Volume 80.8 fl (81-99); Mean Platelet Volume 6.9 fl (7.4-10.4); Monocytes # 0.6 K/mm3 (0.1-1.0); Monocytes % 6.4 % (1.7-9.3); Neutrophils # 7.2 K/mm3 (1.8-7.8); Neutrophils % 71.5 % (37.0-80.0); Platelet Count 347 K/mm3 (142-424); Red Blood Count 5.53 M/mm3 (4.20-5.40); Red Cell Distribution Width 16.7 % (11.5-17.5)
[2022-12-27 09:46] LABS: Anion Gap 7.8 mEq/L (5-15); Blood Urea Nitrogen 15 mg/dl (7-17); Calcium 8.5 mg/dl (8.4-10.2); Carbon Dioxide 36 mmol/L (22.0-30.0); Chloride 96 mmol/L (98-107); Creatinine Clearance Estimated 62 mL/min (50-200); Estimated Glomerular Filt Rate 73 ml/min (>60); GFR (African American) 89 ML/MIN (>60); Glucose 143 mg/dl (74-100); Potassium 3.8 mmoL/L (3.5-5.1); Sodium 136 mmol/L (136-145)
== END 2022-12-27 14:58 | disposition home or self-care (01) ==
PROVIDERS: PCP Nurse Practitioner Family; Visit Provider Internal Medicine
DX: I25.118 Atherosclerotic heart disease of native coronary artery with other forms of angina pectoris (principal); E78.2 Mixed hyperlipidemia; I10 Essential (primary) hypertension; K21.9 Gastro-esophageal reflux disease without esophagitis; R06.09 Other forms of dyspnea; R94.31 Abnormal electrocardiogram [ECG] [EKG]; Z79.899 Other long term (current) drug therapy; Z79.01 Long term (current) use of anticoagulants; I25.83 Coronary atherosclerosis due to lipid rich plaque; T82.855A Stenosis of coronary artery stent, initial encounter
CPT/HCPCS: 80048; 85025; 92928; 92978; 93458; 99152; 99153; C1725; C1769; C1874; C9600; J1644; Q9967

== ENCOUNTER → 2023-01-17 12:54 | Outpatient (CLI) | payer MEDICAID, SELFPAY | PROVIDERS: PCP Nurse Practitioner Family; Visit Provider Physician Assistant | DX: I25.10 Atherosclerotic heart disease of native coronary artery without angina pectoris (principal); I10 Essential (primary) hypertension; E78.2 Mixed hyperlipidemia; I51.9 Heart disease, unspecified; K21.9 Gastro-esophageal reflux disease without esophagitis; R94.31 Abnormal electrocardiogram [ECG] [EKG] | CPT/HCPCS: 93308 ==

== ENCOUNTER → 2023-01-23 12:19 | Outpatient (CLI) | payer MEDICAID, SELFPAY ==
[2023-01-23 13:47] LABS: Alanine Aminotransferase 15 U/L (12-78); Albumin Level 3.9 g/dl (3.5-5.0); Alkaline Phosphatase 111 U/L (38-126); Aspartate Amino Transferase 22 U/L (14-36); Bilirubin,Indirect 0.4 mg/dL (0.0-0.9); Bilirubin,Total 0.4 mg/dl (0.2-1.3); Bilirubin,Unconjugated 0.4 mg/dL (0.0-1.1); Chol/HDL Ratio 6.2 (1-3.5); Cholesterol 229 mg/dl (140-200); HDL Cholesterol 37 mg/dl (40-60); Total Protein,Serum 6.5 g/dl (6.3-8.2); Triglycerides 186 mg/dl (30-150); VLDL Cholesterol 37 mg/dL (0-40)
[2023-01-23 13:57] LABS: Direct LDL Cholesterol 151.55 mg/dL (100-129)
== END ==
PROVIDERS: PCP Nurse Practitioner Family; Visit Provider Nurse Practitioner
DX: R06.09 Other forms of dyspnea (principal); I20.8 Other forms of angina pectoris; I11.9 Hypertensive heart disease without heart failure; E78.2 Mixed hyperlipidemia; K21.9 Gastro-esophageal reflux disease without esophagitis; T82.855D Stenosis of coronary artery stent, subsequent encounter; R94.31 Abnormal electrocardiogram [ECG] [EKG]; Z72.0 Tobacco use
CPT/HCPCS: 36415; 80061; 80076

== ENCOUNTER → 2023-03-05 14:07 | Outpatient (CLI) | payer MEDICAID, SELFPAY ==
[2023-03-05 15:40] LABS: Chloride 96 mmol/L (98-107); Sodium 140 mmol/L (136-145)
[2023-03-05 15:43] LABS: Blood Urea Nitrogen 9 mg/dl (7-17); Carbon Dioxide 37 mmol/L (22.0-30.0); Estimated Glomerular Filt Rate 73 ml/min (>60); GFR (African American) 89 ML/MIN (>60); Glucose 109 mg/dl (74-100)
== END ==
PROVIDERS: PCP Nurse Practitioner Family; Visit Provider Nurse Practitioner Family
DX: R06.09 Other forms of dyspnea (principal); I20.8 Other forms of angina pectoris; I10 Essential (primary) hypertension; E78.2 Mixed hyperlipidemia; K21.9 Gastro-esophageal reflux disease without esophagitis; R94.31 Abnormal electrocardiogram [ECG] [EKG]; T82.855D Stenosis of coronary artery stent, subsequent encounter; Z72.0 Tobacco use
CPT/HCPCS: 36415; 80048

== ENCOUNTER → 2023-03-13 12:48 | Outpatient (CLI) | payer MEDICAID, SELFPAY ==
[2023-03-13 13:35] VITALS: PULSE 87; PULSE 90
--- NOTE | 2023-03-13 14:49 | CT_ITS ---
FINAL REPORT TECHNIQUE: Axial CT images of the chest were obtained without contrast. Low-dose protocol was utilized. This study was performed with techniques to keep radiation doses as low as reasonably achievable (ALARA). Individualized dose reduction techniques using automated exposure control or adjustment of mA and/or kV according to the patient's size were employed. CLINICAL HISTORY: lung cancer screening, smokes 6 cigarettes per day for 30+ years, hx of COPD COMPARISON: 06/20/2019 FINDINGS: CT CHEST WITHOUT, LOW DOSE SCREENING CT Di Vol: 2.90 mGy DLP: 110.90 mGy*cm There is no axillary, mediastinal, or hilar adenopathy. The heart size is normal. There is no pleural or pericardial effusion. The lung windows show two to 3 mm lateral left lower lobe nodules seen on the images 54 and 55. There is mild emphysema. Mild scarring is noted. There is a calcified granuloma in the right middle lobe. Limited images of the upper abdomen demonstrate no acute finding. IMPRESSION: Two left lower lobe nodules. LR Category 2: 12 month follow-up low-dose chest CT is recommended. Reviewed, Interpreted and Dictated by Bandar Donaldson III, MD Transcribed by Deloris Mae Authenticated and [facility]
== END ==
PROVIDERS: PCP Nurse Practitioner Family; Visit Provider Internal Medicine Pulmonary Disease
DX: Z87.891 Personal history of nicotine dependence (principal); Z12.2 Encounter for screening for malignant neoplasm of respiratory organs; R06.02 Shortness of breath
CPT/HCPCS: 71271; 94060; 94618; 94640; 94727; 94729

== ENCOUNTER → 2023-03-21 16:08 | Outpatient (CLI) | payer MEDICAID, SELFPAY ==
[2023-03-21 17:08] LABS: Anion Gap 16.1 mEq/L (5-15); Blood Urea Nitrogen 19 mg/dl (7-17); Calcium 9.4 mg/dl (8.4-10.2); Carbon Dioxide 33 mmol/L (22.0-30.0); Chloride 96 mmol/L (98-107); Estimated Glomerular Filt Rate 57 ml/min (>60); GFR (African American) 68 ML/MIN (>60); Glucose 113 mg/dl (74-100); Potassium 4.1 mmoL/L (3.5-5.1); Sodium 141 mmol/L (136-145)
== END ==
PROVIDERS: PCP Nurse Practitioner Family; Visit Provider Nurse Practitioner Family
DX: R06.09 Other forms of dyspnea (principal); R94.30 Abnormal result of cardiovascular function study, unspecified
CPT/HCPCS: 36415; 80048

== ENCOUNTER 2023-04-18 11:27 | Day surgery (SDC) | payer MEDICAID, SELFPAY ==
[2023-04-18] VITALS (9 sets, daily range): BP systolic 87–121; BP diastolic 56–76; PULSE 59–67; RESP 15–16; O2SAT 90–99; BMI 51.9
--- NOTE | 2023-04-18 07:09 | IR_ITS ---
APPROVED REPORT Patient Location: Outpatient PROCEDURES Left heart catheterization Left ventriculogram Selective coronary angiogram INDICATION High risk abnormal Myoview, Known coronary artery disease, Worsening angina pectoris Informed consent was obtained prior to the procedure. COMPLICATIONS None Estimated Blood Loss: Less than 10 mls TECHNIQUE One percent lidocaine used to anesthetize the right anterior aspect of the wrist. The right radial artery was accessed via the Seldinger technique. A 6 Gabonese sheath was placed in the right radial artery. 150 mg magnesium sulfate, 800 mcg of nitroglycerin, 1mg Lidocaine and 5000 U Heparin were given through the arterial sheath. The papa catheter was also used to perform left heart catheterization, left ventriculogram and selective coronary angiogram. At the end of the procedure the sheath was removed good hemostasis was achieved using Traclet band, patient was transferred to the postop holding area in stable condition. ANGIOGRAPHIC RESULTS The left main artery Normal The left anterior descending artery Has a stent in the ostial proximal segment which is widely patent free of in-stent restenosis with excellent distal transitioning. The remaining LAD is widely patent The circumflex artery Is nondominant has mild proximal 20 to 30% stenosis The right coronary artery Is large and dominant and has stents in the proximal through mid segment. The midportion has 40% concentric in-stent restenosis with the distal portion has 30 to 40% concentric in-stent restenosis The VASQUEZ ventriculogram reveals Dilated ventricle ejection fraction 30 to 35% The left ventricular end-diastolic pressure 25 mmHg IMPRESSION Coronary disease as described above which is appropriately and adequately revascularized Dilated ventricle with severely reduced ejection fraction Elevated LVEDP PLAN 1. Medical management for coronary disease 2. Standard therapy for systolic heart failure 3. Increase diuresis 4. Consider AICD if a candidate Electronically signed by : Yonas Cisneros MD 04/18/2023 12:46:55
[2023-04-18 11:49] LABS: Basophils # 0.1 K/mm3 (0-0.2); Basophils % 0.5 % (0.1-2.0); Eosinophils # 0.2 K/mm3 (0.0-0.4); Eosinophils % 1.4 % (0.1-12.0); Hematocrit 43.3 % (37.0-47.0); Hemoglobin 13.2 g/dL (12.2-16.2); Lymphocytes # 2.1 K/mm3 (0.7-4.5); Lymphocytes % 19.8 % (10-50); Mean Corpuscular HGB Conc 30.5 g/dL (31.8-35.4); Mean Corpuscular Hemoglobin 22.8 pg (27.0-31.2); Mean Corpuscular Volume 74.6 fl (81-99); Mean Platelet Volume 7.5 fl (7.4-10.4); Monocytes # 0.5 K/mm3 (0.1-1.0); Monocytes % 4.4 % (1.7-9.3); Neutrophils # 7.9 K/mm3 (1.8-7.8); Neutrophils % 73.9 % (37.0-80.0); Platelet Count 362 K/mm3 (142-424); Red Cell Distribution Width 19.9 % (11.5-17.5); White Blood Count 10.7 K/mm3 (4.8-10.8)
[2023-04-18 11:54] LABS: Chloride 95 mmol/L (98-107); Potassium 4.4 mmoL/L (3.5-5.1); Sodium 136 mmol/L (136-145)
[2023-04-18 11:57] LABS: Anion Gap 10.4 mEq/L (5-15); Blood Urea Nitrogen 10 mg/dl (7-17); Carbon Dioxide 35 mmol/L (22.0-30.0); Creatinine Clearance Estimated 55 mL/min (50-200); Estimated Glomerular Filt Rate 64 ml/min (>60); GFR (African American) 77 ML/MIN (>60)
[2023-04-18 11:58] LABS: Calcium 9.2 mg/dl (8.4-10.2); Glucose 120 mg/dl (74-100)
== END 2023-04-18 15:22 | disposition home or self-care (01) ==
PROVIDERS: PCP Nurse Practitioner Family; Visit Provider Internal Medicine
DX: I25.118 Atherosclerotic heart disease of native coronary artery with other forms of angina pectoris (principal); E78.5 Hyperlipidemia, unspecified; I10 Essential (primary) hypertension; K21.9 Gastro-esophageal reflux disease without esophagitis; R94.30 Abnormal result of cardiovascular function study, unspecified; R94.31 Abnormal electrocardiogram [ECG] [EKG]; Z79.4 Long term (current) use of insulin; F17.210 Nicotine dependence, cigarettes, uncomplicated; Z79.01 Long term (current) use of anticoagulants; E11.9 Type 2 diabetes mellitus without complications; T82.855A Stenosis of coronary artery stent, initial encounter
CPT/HCPCS: 80048; 85025; 93458; 99152; C1725; C1769; J1644; Q9967

== ENCOUNTER → 2023-05-11 10:45 | Outpatient (CLI) | payer MEDICAID, SELFPAY ==
[2023-05-11 11:35] LABS: Anion Gap 13.8 mEq/L (5-15); Blood Urea Nitrogen 17 mg/dl (7-17); Calcium 9.4 mg/dl (8.4-10.2); Carbon Dioxide 27 mmol/L (22.0-30.0); Chloride 102 mmol/L (98-107); Estimated Glomerular Filt Rate 64 ml/min (>60); GFR (African American) 77 ML/MIN (>60); Glucose 91 mg/dl (74-100); Potassium 4.8 mmoL/L (3.5-5.1); Sodium 138 mmol/L (136-145)
--- NOTE | 2023-11-16 02:19 | PC.NURSE ---
medical records sent to [facility].
== END ==
PROVIDERS: PCP Nurse Practitioner Family; Visit Provider Nurse Practitioner Family
DX: R06.00 Dyspnea, unspecified (principal); I20.8 Other forms of angina pectoris; I50.20 Unspecified systolic (congestive) heart failure
CPT/HCPCS: 36415; 80048

== ENCOUNTER → 2023-05-17 08:48 | Outpatient (CLI) | payer MEDICAID, SELFPAY ==
--- NOTE | 2023-05-17 08:55 | CA_ITS ---
APPROVED REPORT EXAM: Limited 2D Echocardiogram Coke Drawer: Annmarie Vega CRT Ht: 5 ft 3 in Wt: 238lbs BSA: 2.08 BP: 110/66 mmHg Indications: Chest Pain, Shortness of Breath, Fatigue, CAD, Hyperlipidemia, Hypertension/HDD, EF ON 12/19/22 ECHO 55%, EF ON CATH 04/18/23 30-35% 2D Dimensions LVOT 1.99 cm (M/F) 1.5-2.5 M-Mode Dimensions RVDd 2.48 cm (0.9-2.6) LA Diam 3.31 cm (1.9-4.0) LVDd 4.38 cm (3.5-5.7) Ao Diam 4.16 cm (2.0-3.7) LVDs 3.54 cm (3.5-5.7) IVSd 1.96 cm (0.6-1.1) PWd 1.19 cm (0.6-1.1) EF (Teich) 39.70% FS 19.20% EDV (Teich) 86.80 mL ESV (Teich) 52.30 mL Other Information Study Quality: Technically Difficult Conclusion This is a limited study to evaluate for LV function. Limited windows were obtained. This was a technically difficult studies in the setting of poor acoustic windows. The LV endocardial wall borders are difficult to visualize. Grossly, the LV appears normal in size and function. There is increased LV wall thickness. Wall motion is difficult to characterize, but overall there are no significant wall motion abnormalities. LVEF is 50-55%. The RV is not well visualized, but grossly appears normal in size and function. Compared to prior study from 12/2022, there are no significant changes to the LVEF. Electronically signed by : Olive Ortiz, 05/18/2023 19:08:08
== END ==
PROVIDERS: PCP Nurse Practitioner Family; Visit Provider Nurse Practitioner Family
DX: R06.02 Shortness of breath (principal); I20.8 Other forms of angina pectoris; I50.20 Unspecified systolic (congestive) heart failure
CPT/HCPCS: 93308

== ENCOUNTER 2023-11-16 05:26 | Inpatient (IN) | payer MEDICAID, SELFPAY ==
[2023-11-16] VITALS (25 sets, daily range): BP systolic 90–133; BP diastolic 49–82; PULSE 70–110; RESP 18–22; TEMP 36.4–37.4; O2SAT 90–96; BMI 46.2
--- OUTSIDE RECORDS SUMMARY | 2023-11-16 05:28 | XMS_ITS ---
Author Name Unknown Address [address] [place] [id number] Phone Organization [facility] Address [address] [place] [address] Phone Care Team Providers Care Personnel Training Officer Name Role Phone Bandar Cohen MD Unavailable [ ] Conditions or Problems No information available. Medications Medication Instructions Start Date Stop Date Generic Name NDC Provider LASIX 80 MG TABS by mouth once a day furosemide [id number] Jena Minor SPIRONOLACTONE 50 MG TABS by mouth once a day spironolactone 11062061870 Jena Minor Medications Administered No information available. Allergies, Adverse Reactions, Alerts No information available. Results Date Name Value Unit Range Flag Description Office Visit: Office Visit:r m 6 MEDS REVIEW Done Documenta tion of current medications (procedure) ORALTOBACUSE Never Tobacco smoking status SMOK STATUS Current every da y smoker Tobacco smoking status Plan of Care No information available. Procedures No information available. Vital Signs Date Name Value Unit Description BMI (Body Mass Index) 40.95 kg/m2 Bod y Mass Index (Ratio) Body Temperature 97.4 [degF] temperat ure E&M BP Diastolic 60 mm[Hg] blood pressu re, diastolic BP Systolic 95 mm[Hg] blood pressur e, systolic Heart Rate 77 /min pulse rate Height 64 [in_us] height E&M Respiratory Rate 16 /min respirat ory rate E&M Weight Measured 238.6 [lb_av] weight E& M Immunizations No information available. Advance Directives No information available.
--- OUTSIDE RECORDS SUMMARY | 2023-11-16 05:28 | XMS_ITS | Clinical Summary ---
Author Name Unknown Address [address] [place] [address] Phone Organization [facility] Address [address] [place] [address] Phone Care Team Providers Care Gun Repair Clerk Name Role Phone Vicki VALDEZ, Bandar Cabral [phone] [ ] Conditions or Problems Problem Name Problem Code Onset Date Status Entry Date Provider Comment Standard Description Annotate Dental abscess 379161873 (SNOMED CT) Active Bandar Cohen MD Dental abscess Nicotine dependence 89773284 (SNOMED CT) Active Jena Minor Nicotine dependence Other obesity due to excess calories 899955738 (SNOMED CT) Active Jena Minor Simple obesity Infective (teno)synovit is, right hand/finger (document bacterial agent) M65.141 (ICD-10-CM) Active Blanca L Other infective (teno)synovit is, right hand Cellulitis, hand, right 53002046 (SNOMED CT) Active Blanca L Cellulitis of hand Cellulitis, long finger, right 88215246 (SNOMED CT) Active Blanca L Cellulitis of finger Open bite of right middle finger without damage to nail, initial encounter(s) S61.252A (ICD-10-CM) Active Blanca L Open bite of right middle finger without damage to nail, initial encounter Cat bite, initial encounter(s) W55.01xA (ICD-10-CM) Active Blanca L Bitten by cat, initial encounter Medications Medication Instructions Start Date Stop Date Generic Name NDC Provider LASIX 80 MG TABS by mouth once a day furosemide [id number] Jena Jean SPIRONOLACTONE 50 MG TABS by mouth once a day spironolactone 36270445352 Jena Jean AMOXICILLIN-POT CLAVULANATE 875-125 MG TABS Take 1 tablet by mouth twice a day 12/12 amoxicillin-pot clavulanate 13242362354 Bandar Cohen MD ERTAPENEM SODIUM 1 GM SOLR 1 gm IV Q 2 4hrs/OPAT 10/09 ertapenem 41815705604 Gerda Hernandez RN Cubicin 500 mg recon soln 500mg IV Q 2 4hrs/OPAT 10/09 daptomycin Gerda Hernandez RN DOXYCYCLINE MONOHYDRATE 100 MG TABS twice a day take one capsule oral twice daily for 10 days 10/09 doxycycline monohydrate 34727910564 Bandar Cohen MD DOXYCYCLINE MONOHYDRATE 100 MG CAPS Take 1 capsule by mouth twice a day 10/23 doxycycline monohydrate 83869979107 Bandar Cohen MD DOXYCYCLINE MONOHYDRATE 100 MG TABS twice a day take one capsule oral twice daily for 10 days 10/09 doxycycline monohydrate 26921678289 Jarret Waldrop OMEPRAZOLE 40 MG CPDR take one cap oral daily prn for GERD omeprazole 81377641430 Jarret Waldrop ProAir HFA 90 mcg/actuation HFA aerosol inhaler every four hours as needed inhale 1-2 puffs (90-180 mcg) by inhalation route every 4 hours as needed albuterol sulfate 86041979352 Jarret Waldrop CETIRIZINE HCL 10 MG TABS take 1 tablet by oral route once daily as needed for allergies cetirizine 58987286691 Jarret Waldrop FLUCONAZOLE 150 MG TABS once a day 1 tab oral daily for 3 days fluconazole 88059118249 Jarret Waldrop BUSPIRONE HCL 7.5 MG TABS take one tablet by mouth twice daily buspirone 03267631119 Jarret Waldrop ESCITALOPRAM OXALATE 20 MG TABS 1 tab oral daily escitalopram oxalate 42810824476 Jarret Waldrop LOSARTAN POTASSIUM-HCTZ 50-12.5 MG TABS once a day take one half tablet by mouth every day losartan-hydroch lorothiazide 76361920174 Jarret Waldrop MUPIROCIN 2 % OINT apply a thin layer to the affected area(s) by topical route 2 times per day mupirocin 54944844107 Jarret Waldrop DICLOFENAC SODIUM 1 % GEL four times a day as needed apply 2 grams to the affected area(s) by topical route 4 times per day as need for arthritis pain diclofenac sodium 12915355833 Jarret Waldrop ANORO ELLIPTA 62.5-25 MCG/ACT AEPB inhale 1 puff by inhalation route once daily at the same time each day umeclidinium-mj anterol 51184831644 Jarret Waldrop CLOPIDOGREL BISULFATE 75 MG TABS 1 tab oral daily clopidogrel 31459246490 Jarret Waldrop ROSUVASTATIN CALCIUM 40 MG TABS one tablet oral daily rosuvastatin 17602692888 Jarret Waldrop METOPROLOL SUCCINATE ER 25 MG [id number] take 1 tab by oral route once daily metoprolol succinate 55915704734 Jarret Waldrop Cubicin 500 mg recon soln 500mg IV Q 2 4hrs/OPAT 10/09 daptomycin 24170409020 Maggie Morataya RN ERTAPENEM SODIUM 1 GM SOLR 1 gm IV Q 2 4hrs/OPAT 10/09 ertapenem 94460522321 Maggie Morataya RN DICLOFENAC SODIUM 1 % GEL four times a day as needed 10/30 diclofenac sodium 94509490949 Lucrecia Sohan DOXYCYCLINE MONOHYDRATE 100 MG TABS twice a day 10/30 doxycycline monohydrate 62767181129 Lucrecia Sohan FLUCONAZOLE 150 MG TABS once a day 11/27 fluconazole 39273348670 Lucrecia Sohan LOSARTAN POTASSIUM-HCTZ 50-12.5 MG TABS once a day 10/30 losartan-hydroch lorothiazide 77124924532 Lucrecia Sohan ProAir HFA 90 mcg/actuation HFA aerosol inhaler every four hours as needed 10/30 albuterol sulfate 91596313941 Lucrecia Sohan PROMETHAZINE HCL 12.5 MG TABS every eight hours as needed promethazine 80053826843 Lucrecia Sohan ranolazine 500 mg extend release granules,packet twice a day ranolazine Lucrecia Sohan TRIAMCINOLONE ACETONIDE 0.1 % CREA twice a day triamcinolone acetonide 52529550418 Lucrecia Sohan ANORO ELLIPTA 62.5-25 MCG/ACT AEPB 10/30 umeclidinium-mj anterol 31221024407 Jarret Waldrop BUSPIRONE HCL 7.5 MG TABS 10/30 buspirone 87891254226 Ajrret Waldrop CETIRIZINE HCL 10 MG TABS 10/30 cetirizine 63531549223 Jarret Waldrop CLOPIDOGREL BISULFATE 75 MG TABS 10/30 clopidogrel 66480038769 Jarret Waldrop ESCITALOPRAM OXALATE 20 MG TABS 10/30 escitalopram oxalate 80627023604 Jarret Waldrop HYZAAR 50-12.5 MG TABS losartan-hydroch lorothiazide 28358980214 Jarret Waldrop METOPROLOL SUCCINATE ER 25 MG [id number] 10/30 metoprolol succinate 72704997409 Jarret Waldrop MUPIROCIN 2 % OINT 10/30 mupirocin 54739234345 Jarret Waldrop OMEPRAZOLE 40 MG CPDR 10/30 omeprazole 40614761136 Jarret Waldrop ROSUVASTATIN CALCIUM 40 MG TABS 06/12 rosuvastatin 38428496335 Jraret Waldrop Medications Administered No information available. Allergies, Adverse Reactions, Alerts Allergy Name Reaction Description Start Date Severity Statu s Provider BRADLEY ALLERGY extreme drowziness Moderate Act melinda Jarret Waldrop Results Date Name Value Unit Range Flag Description Lab Report: CBC WITH AUTO DI FFERENTIAL IMMATUREGRAN 0.01 10*3/MM3 0.00-0.05 Immature granulocytes [#/volume] in Blood BASO# 0.06 10*3/mm3 0.00-0.20 Basophils [#/vol ume] in Blood EOS ABSLT 0.48 10*3/uL 0.00-0.40 H Eosinophi ls [#/volume] in Blood MONOSCT AUTO 0.49 10*3/uL 0.10-0.90 Monocy ramona [#/volume] in Blood by Automated count LYMPHCT AUTO 1.90 10*3/mm3 0.70-3.10 Lymph ocytes [#/volume] in Blood by Automated count ABS NEUTROPH 6.23 10*3/uL 1.70-7.00 Neutro phils [#/volume] in Blood IMM GRANU % 0.1 % 0.0-0.5 Immature granulocytes/100 leukocytes in Blood % EOS AUTO 5.2 % 0.3-6.2 Eosinophil s/100 leukocytes in Blood by Automated count MONOCYTE % 5.3 % 5.0-12.0 Monocytes /100 leukocytes in Blood by Automated count LYMPHOCY BF 20.7 % 19.6-45.3 lymphoc ytes as percent of body fluid leukocytes NEUTROP BF 68.0 % 42.7-76.0 Neutroph ils/100 leukocytes in Body fluid Lab Report: CBC (NO DIFF) PLATELETS 319 10*3/mm3 140-450 Platelets [#/volume] in Blood by Automated count [id number]-GE-[id number] 9.7 fL 6.0-12.0 GE use onl y - for [employer] import when terms are not otherwise specified RDW_ 16.6 12.3-15.4 H RDW, no uni ts MCHC 31.3 G/DL 31.5-35.7 L MCHC [Mass/ volume] by Automated count MCH 25.6 pg 26.6-33.0 L MCH [Entiti c mass] by Automated count MCV 81.9 fL 79.0-97.0 MCV [Entiti c volume] by Automated count HCT 46.7 % 34.0-46.6 H Hematocrit [Volume Fraction] of Blood by Automated count HGB 14.6 g/dL 12.0-15.9 Hemoglobin [Mass/volume] in Blood RBC 5.70 10*6/mm3 3.77-5.28 H Erythrocyt es [#/volume] in Blood by Automated count WBC 9.32 10*3/mm3 3.40-10.8 0 Leukocytes [#/volume] in Blood by Automated count Lab Report: CK CPK 57 U/L 20-180 Creatine bouchra se [Enzymatic activity/volume] in Serum or Plasma Lab Report: COMPREHENSIVE ME TABOLIC PANEL ANIONGAP 8.0 mmol/L 5.0-15.0 anion gap, serum BUN/CREAT 7.0 7.0-25.0 Urea nitrogen/Creatinine [Mass Ratio] in Serum or Plasma BILI TOTAL 0.3 mg/dL 0.0-1.2 Bilirubin. total [Mass/volume] in Serum or Plasma ALK PHOS 145 U/L 39-117 H Alkaline shon sphatase [Enzymatic activity/volume] in Blood SGOT (AST) 19 U/L 1-32 Aspartate aminotransferase [Enzymatic activity/volume] in Serum or Plasma SGPT (ALT) 16 U/L 1-33 Alanine aminotransferase [Enzymatic activity/volume] in Serum or Plasma ALBUMIN 3.9 g/dL 3.5-5.2 Albumin [Mass/volume] in Serum or Plasma PROTEIN, TOT 7.8 g/dL 6.0-8.5 Protein [Mass/volume] in Serum or Plasma CALCIUM 9.6 mg/dL 8.6-10.5 Calcium [Moles/volume] in Serum or Plasma CO2 33.0 mmol/L 22.0-29.0 H Carbon diox candido, total [Moles/volume] in Venous blood CHLORIDE 98 mmol/L 98-107 Chloride [Moles/volume] in Serum or Plasma POTASSIUM 4.9 mmol/L 3.5-5.2 Potassium [Moles/volume] in Serum or Plasma SODIUM 139 mmol/L 136-145 Sodium [Moles/volume] in Serum or Plasma CREATININE 0.86 mg/dL 0.57-1.00 Creatini ne [Mass/volume] in Serum or Plasma BUN 6 mg/dL 6-20 Urea nitrogen [Mass/volume] in Serum or Plasma GLUCOSE SER 123 mg/dL 65-99 H Glucose [Mass/volume] in Serum or Plasma Lab Report: SEDIMENTATION RA TE ESR 51 mm/h 0-30 H Erythrocyte sedimentation rate by Westergren method Lab Report: C-REACTIVE PROTE IN CRP 0.31 mg/dL 0.00-0.50 C reactive protein [Mass/volume] in Serum or Plasma Office Visit: Office Visit:r m 6 MEDS REVIEW Done Documenta tion of current medications (procedure) ORALTOBACUSE Never Tobacco smoking status SMOK STATUS Current every day smoker Tobacco smoking status Plan of Care Type Date Detail Pending order C- reactive prot ein Pending order Sedimentation Ra te (ESR) Pending order Continue IV anti biotics Pending order Weekly PICC Line Care Pending order Weekly Labs (Con tinue) Pending order CMP Pending order CBC w/o Differen tial Pending order CPK Pending order Sedimentation Ra te (ESR) Pending order Continue IV anti biotics Pending order Weekly PICC Line Care Pending order Weekly Labs (Con tinue) Pending order CMP Pending order CBC w/o Differen tial Pending order Sedimentation Ra te (ESR) Pending order CPK Pending order Continue IV anti biotics Pending order Weekly PICC Line Care Pending order Weekly Labs (Con tinue) Pending order Continue IV anti biotics Pending order CMP Pending order CBC w/o Differen tial Pending order C- reactive prot ein Pending order CPK Pending order Sedimentation Ra te (ESR) Pending order Continue IV anti biotics Pending order Weekly PICC Line Care Pending order Weekly Labs (Con tinue) Pending order CMP Pending order CBC w/o Differen tial Pending order CPK Pending order Sedimentation Ra te (ESR) Pending order Stat Weekly Labs Pending order Continue IV anti biotics Pending order Weekly PICC Line Care Pending order Weekly Labs (Con tinue) Pending order CPK Pending order CMP Pending order CBC w/o Differen tial Pending order X-Ray, Chest (PI CC Placement only) Pending order New IV antibioti c Pending order PIV/Butterfly Pending order PICC Line Insert ion Pending order CMP Pending order CBC w/o Differen tial Pending order CPK Pending order Sedimentation Ra te (ESR) Pending order Wound Culture an d Sensitivity w/Gram Stain Procedures Code Procedure Name Date Entry Date CPT-28306 C- reactive protein CPT-43781 Sedimentation Rate (ESR) 202 11/29/08 CPT-ca Continue IV antibiotics 2022 CPT-wpc Weekly PICC Line Care 10/03 CPT-cwl Weekly Labs (Continue) 10/03 CPT-30000 CMP CPT-36468 CBC w/o Differential [id number], [id number] CPK CPT-48194 Sedimentation Rate (ESR) 11/29/02 CPT-ca Continue IV antibiotics 2021 CPT-wpc Weekly PICC Line Care 11/27 CPT-cwl Weekly Labs (Continue) 09/26 CPT-30533 CMP CPT-59716 CBC w/o Differential CPT-51834 Sedimentation Rate (ESR) 202 11/12/26 [id number], [id number] CPK CPT-ca Continue IV antibiotics 2021 CPT-wpc Weekly PICC Line Care 11/19 CPT-cwl Weekly Labs (Continue) 09/18 CPT-ca Continue IV antibiotics 2021 CPT-92713 CMP CPT-34810 CBC w/o Differential CPT-49023 C- reactive protein [id number], [id number] CPK CPT-38976 Sedimentation Rate (ESR) 202 11/12/11 CPT-ca Continue IV antibiotics 2021 CPT-wpc Weekly PICC Line Care 11/06 CPT-cwl Weekly Labs (Continue) 09/05 CPT-04726 CMP CPT-04051 CBC w/o Differential [id number], [id number] CPK CPT-83711 Sedimentation Rate (ESR) 202 11/12/05 CPT- stat weekly Stat Weekly Labs CPT-ca Continue IV antibiotics 2021 CPT-wpc Weekly PICC Line Care 10/29 CPT-cwl Weekly Labs (Continue) 08/29 [id number], [id number] CPK CPT-70977 CMP CPT-01603 CBC w/o Differential CPT-52642 X-Ray, Chest (PICC Placement only) 10/28 CPT-juliana New IV antibiotic CPT-19595 PIV/Butterfly CPT-93880 PICC Line Insertion CPT-36878 CMP CPT-91656 CBC w/o Differential [id number], [id number] CPK CPT-48957 Sedimentation Rate (ESR) 202 11/11/24 CPT-91397 Wound Culture and Sensitivity w/Gram Stai n Vital Signs Date Name Value Unit Description [...] M Immunizations No information available. Advance Directives Directive Description Start Date HAS A LIVING WILL
--- OUTSIDE RECORDS SUMMARY | 2023-11-16 05:28 | XMS_ITS ---
Author Name Unknown Address [address] [place] [address] Phone Organization [facility] Address [address] [place] [address] Phone Care Team Providers Care Business Management Analyst Name Role Phone Vicki VALDEZ, Bandar Cabral [phone] [ ] Conditions or Problems Problem Name Problem Code Onset Date Status Entry Date Provider Comment Standard Description Annotate Dental abscess [id number] (SNOMED CT) Active Bandar Cohen MD Dental abscess Medications Medication Instructions Start Date Stop Date Generic Name NDC Provider AMOXICILLIN-POT CLAVULANATE 875-125 MG TABS Take 1 tablet by mouth twice a day 2 amoxicillin-po t clavulanate [id number] Bandar Cohen MD Medications Administered No information available. Allergies, Adverse Reactions, Alerts No information available. Results Date Name Value Unit Range Flag Description Office Visit: 6 ORALTOBACUSE Never Tobacco smoking status SMOK STATUS Current every da y smoker Tobacco smoking status MEDS REVIEW Done Documenta tion of current medications (procedure) Plan of Care No information available. Procedures No information available. Vital Signs Date Name Value Unit Description BMI (Body Mass Index) 44.25 kg/m2 Bod y Mass Index (Ratio) Body Temperature 97.4 [degF] temperat ure E&M BP Diastolic 72 mm[Hg] blood pressu re, diastolic BP Systolic 108 mm[Hg] blood pressur e, systolic Heart Rate 64 /min pulse rate Height 64 [in_us] height E&M Respiratory Rate 16 /min respirat ory rate E&M Weight Measured 257.8 [lb_av] weight E& M Immunizations No information available. Advance Directives No information available.
--- OUTSIDE RECORDS SUMMARY | 2023-11-16 05:29 | XMS_ITS ---
Care Plan - [facility] Created on: November 16, 2023 Ruthy Huntley : 1960 Sex: Female Author Name Unknown Address [address] [place] [address] [place] [address] Phone Organization [facility] Address [address] [place] [address] Phone Care Team Providers Care Electrode Cleaner Name Role Phone Josee Morfin APRN Primary Care Provider [phone] Camila VALDEZ, Alfonso Florian Unavailable [phone]
--- OUTSIDE RECORDS SUMMARY | 2023-11-16 05:29 | XMS_ITS ---
Author Name Unknown Address [address] [place] [address] [place] [address] Phone Organization [facility] Address [address] [place] [address] Phone Care Team Providers Care Security Support Analyst Name Role Phone Josee Morfin APRN Primary Care Provider [phone] Camila VALDEZ, Alfonso Florian Unavailable [phone] Problems Includes: Active, inactive, and resolved Problems All Visits Onset Date Resolved Date Provider Condition S tatus Joint Pain Right Middle Finger 08/16/2022 Alfonso Jensen MD Active Plan of Treatment Pending Tests Order Diagnosis Results Due Ordering P rovider Radiology - MRI MRI Finger 08/30/22 Alfonso Jensen MD Instructions to patient Intervention and counseling on cessation of tobacco use Last Documented On 3 2:52PM ; [facility] Lose weight Last Documented On 3 2:52PM ; [facility] Intervention and counseling on cessation of tobacco use Last Documented On 3 3:20PM ; [facility] Lose weight Last Documented On 3 2:23PM ; [facility] Intervention and counseling on cessation of tobacco use Last Documented On 2 2:26PM ; [facility] Lose weight Last Documented On 2 2:26PM ; [facility] Intervention and counseling on cessation of tobacco use Last Documented On 2 2:30PM ; [facility] Lose weight Last Documented On 2 2:32PM ; [facility] Intervention and counseling on cessation of tobacco use Last Documented On 2 2:10PM ; [facility] Lose weight Last Documented On 2 2:10PM ; [facility] Assessments Includes: Assessments for all patient encounters No Assessments Recorded Instructions Includes: Instructions for all patient encounters Instructions to patient Intervention and counseling on cessation of tobacco use Last Documented On 3 2:52PM ; [facility] Lose weight Last Documented On 3 2:52PM ; [facility] Intervention and counseling on cessation of tobacco use Last Documented On 3 3:20PM ; [facility] Lose weight Last Documented On 3 2:23PM ; [facility] Intervention and counseling on cessation of tobacco use Last Documented On 2 2:26PM ; [facility] Lose weight Last Documented On 2 2:26PM ; [facility] Intervention and counseling on cessation of tobacco use Last Documented On 2 2:30PM ; [facility] Lose weight Last Documented On 2 2:32PM ; [facility] Intervention and counseling on cessation of tobacco use Last Documented On 2 2:10PM ; [facility] Lose weight Last Documented On 2 2:10PM ; [facility] Medical Equipment - Implanted Devices Includes: Current and historical Devices No Medical Equipment Recorded Medications Includes: Current and historical Medications Current Medications (continue as prescribed) Mupirocin 2% External Ointment 07/29/2022 Provider: Josee Morfin APRN Diagnosis: Cetirizine HCl 10 MG Oral Tablet 06/02/2022 Provider : Josee Morfin APRN Diagnosis: Clopidogrel Bisulfate 75 MG Oral Tablet 05/16/2022 Randee moser: Josee Morfin APRN Diagnosis: Escitalopram Oxalate 20 MG Oral Tablet 05/16/2022 Pr ovider: Josee Morfin APRN Diagnosis: Losartan Potassium-HCTZ 50-12.5 MG Oral Tablet 022 Provider: Josee Morfin APRN Diagnosis: Metoprolol Succinate ER 25 M G Oral Tablet Extended Release 24 Hour 05/16/2022 Provider: Josee MALHOTRA RN Diagnosis: Omeprazole 40 MG Oral Capsule Delayed Release 05/16/20 22 Provider: Josee Morfin APRN Diagnosis: Rosuvastatin Calcium 40 MG Oral Tablet 05/16/2022 Pr ovider: Josee Morfin APRN Diagnosis: Anoro Ellipta 62.5-25 MCG/AC T Inhalation Aerosol Powder Breath Activated 05/16/2022 Provider: Josee naranjo APRN Diagnosis: busPIRone HCl 7.5 MG Oral Tablet 05/16/2022 Provider : Josee Morfin APRN Diagnosis: Past Medications on file Fluconazole 150 MG Oral Tablet 08/02/2022 - 08/16/2022 Provider: Josee Morfin APRN Diagnosis: Promethazine HCl 12.5 MG Ora l Tablet 08/02/2022 - 08/16/2022 Provider: Josee Chavarria Diagnosis: Diclofenac Sodium 1% External Gel 06/02/2022 - 022 Provider: Josee Morfin APRN Diagnosis: Medications Administered Includes: Administered Medications in patient's chart No Administered Medications Recorded Vital Signs Includes: Vital Signs from 11/16/2022 through 11/16/2023 Vital Name 11/27/2022 02:53P Height (in) 64 Weight (lb) 258.5 Body Mass Index 44.4 Body Surface Area 2.2 Note: [facility] Last Documented: On 11/27/2022 2:54PM ; [facility] Results Includes: Results from 11/16/2022 through 11/16/2023 No Results Recorded For Specified Dates History of Present Illness History of Present Illness not supported for this document type No History of Present Illness Recorded Social History Description Last Updated Caffeine use 08/16/2022 Procedures and Surgical History Includes: Procedures from 11/16/2022 through 11/16/2023 Procedures Code Diagnosis Performing Provider Service Location Service Date X-RAY EXAM OF FINGER(S) 2-3 VIEWS (RIGHT) 83989 Pnctr w/o fb of r mid finger w/o damage to nail, subs, Bitten by cat, subsequent encounter Alfonso Jensen MD [facility] 11/27/2022 Surgical History Last Updated History of heart surgery 08/16/2022 Medical History Includes: Medical History in patient's chart Description Last Updated History of arthritis 08/16/2022 Family History Includes: Family History in patient's chart Description Last Updated Family history of cancer 08/16/2022 Review of Systems Review of Systems not supported for this document type No Review of Systems Recorded Mental Status Description Anxiety Functional Status No Functional Status Recorded Physical Exam Physical Exam not supported for this document type No Physical Exam Recorded Immunizations Includes: Immunizations in patient's chart Vaccine Dose # Date Site Reaction(s) Status Source Influenza 1 08/16/2022 Complete (Refused - Patient objection) [facility] Allergies Includes: Active, inactive, and resolved Allergies Substance Type Reaction Onset Date Resolved Date Statu s Benadryl Allergy extreme drowsiness 08/16/2022 Active Encounters Includes: Encounters from 11/16/2022 through 11/16/2023 Encounter Provider Location Date Check-In Time Check-Out Time Diagnosis FOLLOW UP/EST Alfonso Jensen MD [facility] 11/27/19 23 2:50PM 3:04PM Insurance Includes: Active Insurance Policies Plan Name Member ID Group # Subscriber Relationship Effect melinda Dates 1 - TRAVELERS [id number] Ruthy Huntley Self 1 - Unknown Clinical Notes Includes: Signed Clinical Notes starting from 09/14/2022 * Progress note Date Encounter Last Documented by 11/27/2022 FOLLOW UP/EST Last documented on 11/27/2022; 4:43 PM, Alfonso Jensen MD; [facility] Active Problems & Conditions - Joint Pain Right Middle Finger Chief Complaint The Chief Complaint is: RLF pain. Referred Here Referred by self. History of Present Illness Ruthy Huntley is a 61 year old female. - Allergy list reviewed - Problem list reviewed - Medication list reviewed Patient is here today for follow up for her cat bite RLF. She is doing well today. She has been seeing infectious disease. Her injury occurred on 07/24/22. Current Medication - Anoro Ellipta 62.5-25 MCG/ACT Inhalation Aerosol Powder Breath Activated 30 days, 0 refills - busPIRone HCl 7.5 MG Oral Tablet 90 days, 0 refills - Cetirizine HCl 10 MG Oral Tablet 30 days, 0 refills - Clopidogrel Bisulfate 75 MG Oral Tablet 90 days, 0 refills - Escitalopram Oxalate 20 MG Oral Tablet 90 days, 0 refills - Losartan Potassium-HCTZ 50-12.5 MG Oral Tablet 90 days, 0 refills - Metoprolol Succinate ER 25 MG Oral Tablet Extended Release 24 Hour 90 days, 0 refills - Mupirocin 2% External Ointment 30 days, 0 refills - Omeprazole 40 MG Oral Capsule Delayed Release 90 days, 0 refills - Rosuvastatin Calcium 40 MG Oral Tablet 90 days, 0 refills Past Medical/Surgical History Reported: Immunization History: No recent immunization for flu. Recent immunization for pneumococcal pneumonia. Diagnoses: Heart disease. Sleep Apnea Heartburn / Acid Reflux History of Heart Attack / Stroke. Arthritis. Depression Surgical: - Heart surgery - Past Surgical History: [facility] - Hysterectomy Social History Yes, current smoker. Current diet: No recent change in diet. Caffeine use: Caffeine use. Tobacco use: Tobacco use. Alcohol: Not using alcohol. Drug Use: Not using drugs. Habits: Not exercising regularly. Allergies - Benadryl Reaction: extreme drowsiness Family History Cancer Heart disease Systemic hypertension Review Of Systems Systemic: Feeling tired. No recent weight loss. Recent weight gain. Head: No headache. Sinus pain. Eyes: No vision problems, no Cataracts, no Glasses/Contacts, and no Glaucoma. Otolaryngeal: No hearing loss and no tinnitus. Cardiovascular: Chest pain or discomfort and palpitations. No Hypertension. High Cholesterol. Pulmonary: No daytime asthma symptoms and no chronic cough. No wheezing. Gastrointestinal: No heartburn and no abdominal pain. No Indigestion, no Acid Reflux, no Peptic Ulcer, no GI Stomach Bleed, and no Ulcers. Endocrine: No hot flashes, no muscle weakness, no Diabetes, no Hypothyroid, and no Hyperthyroid. Hematologic: No easy bleeding. A tendency for easy bruising. No Anemia. Musculoskeletal: No Arthritis and no lower back pain. No soft tissue swelling. Pain localized to one or more joints. Neurological: No dizziness, no convulsions, and no numbness. Psychological: Anxiety. No emotional lability. Depression. No insomnia. Not crying for no reason. Skin: No dry skin. No Ulcers, no Scars, and no rash. Allergic and Immunologic: Complaint of seasonal allergic reaction. The patient is awake alert oriented in time place and person. Has normal mood and affect. Is neatly dressed. Has normal gait and station. Pupils are equal and react to light normally. Eyes move normally. Mucous membranes are moist. The patient has no trouble with speech. Normal sensation. Normal circulation. Full ROM of the fingers. No heat and no erythema. There is still some tenderness to palpation. The swelling has decreased. Reviewed 11/27/22 Physical Findings - Vitals taken 11/27/2022 02:53 pm [facility] Height 64 in 48 - 78 Weight 258 lbs 8 oz 98 - 183 Body Mass Index 44.4 kg/m2 Body Surface Area 2.2 m2 Standard Measurements: - Patient was overweight. Tests Xray 3 views of the RLF shows no sign of osteomyelitis Previous Tests Imaging: X-Ray: An X-ray was performed. Therapy - Intervention and counseling on cessation of tobacco use. Counseling/Education - Lose weight Plan Patient states the finger is feeling much better and swelling has decreased. She is doing well. We will have her return to work full duty from a hand standpoint. She states she is being treated for infections in her teeth and feels she is unable to work due to that. We will release her from a hand standpoint and see her back as needed. Practice Management Use of tobacco assessment performed. Care Team - Josee Morfin APRN Notes This dictation was done with voice recognition software and may contain errors or omissions. transcribed by Bib Reinoso
--- OUTSIDE RECORDS SUMMARY | 2023-11-16 05:29 | XMS_ITS | Clinical Summary ---
Author Name Unknown Address [address] [place] [address] [place] [address] Phone Organization [facility] Address [address] [place] [address] Phone Care Team Providers Care Magnetic Healer Name Role Phone Josee Morfin APRN Primary Care Provider [phone] Camila VALDEZ, Alfonso Florian Unavailable [phone] Reason for Visit and Chief Complaint The Chief Complaint is: RLF pain Problems Includes: Problems addressed during this encounter and other active Problems All Visits Onset Date Resolved Date Provider Condition S tatus Joint Pain Right Middle Finger 08/16/2022 Alfonso Jensen MD Active Plan of Treatment Patient is doing well. We will have her continue treatment with ID. We will continue work restrictions. We will see her back in 3 weeks for recheck. - Last Documented On 09/19/2022 3:43PM ; [facility] Pending Tests Order Diagnosis Results Due Ordering P roder Radiology - MRI MRI Finger 08/30/22 Alfonso Jensen MD Instructions to patient Intervention and counseling on cessation of tobacco use Last Documented On 2 2:26PM ; [facility] Lose weight Last Documented On 2 2:26PM ; [facility] Assessments Includes: Assessments from this encounter No Assessments Recorded Instructions Includes: Instructions from this encounter Instructions to patient Intervention and counseling on cessation of tobacco use Last Documented On 2 2:26PM ; [facility] Lose weight Last Documented On 2 2:26PM ; [facility] Medical Equipment - Implanted Devices Includes: Current Devices No Medical Equipment Recorded Medications Includes: Medications discussed during this encounter and other current Medications Current Medications (continue as prescribed) Mupirocin 2% External Ointment 07/29/2022 Provider: Josee Morfin APRN Diagnosis: Cetirizine HCl 10 MG Oral Tablet 06/02/2022 Provider : Josee Morfin APRN Diagnosis: Clopidogrel Bisulfate 75 MG Oral Tablet 05/16/2022 P robrisader: Josee Morfin APRN Diagnosis: Escitalopram Oxalate 20 MG Oral Tablet 05/16/2022 Pr ovider: Josee Morfin APRN Diagnosis: Losartan Potassium-HCTZ 50-12.5 MG Oral Tablet 022 Provider: Josee Morfin APRN Diagnosis: Metoprolol Succinate ER 25 M G Oral Tablet Extended Release 24 Hour 05/16/2022 Provider: Josee MALHOTRA RN Diagnosis: Omeprazole 40 MG Oral Capsule Delayed Release 05/16/20 Provider: Josee Morfin APRN Diagnosis: Rosuvastatin Calcium 40 MG Oral Tablet 05/16/2022 Pr ovider: Josee Morfin APRN Diagnosis: Anoro Ellipta 62.5-25 MCG/AC T Inhalation Aerosol Powder Breath Activated 05/16/2022 Provider: Josee naranjo APRN Diagnosis: busPIRone HCl 7.5 MG Oral Tablet 05/16/2022 Provider : Josee Morfin APRN Diagnosis: Medications Administered Includes: Administered Medications from this encounter No Administered Medications Recorded Vital Signs Includes: Vital Signs from this encounter Vital Name 09/18/2022 02:26P Blood Pressure Sitting (mmHg) 93/67 Pulse Rate-Sitting (bpm) 79 Height (in) 64 Weight (lb) 259 Body Mass Index 44.5 Body Surface Area (m2) 2.2 Note: dp Last Documented: On 09/18/2022 2:32PM ; [facility] Results Includes: Results discussed during this encounter No Results Recorded For Specified Dates History of Present Illness Includes: History of Present Illness from this encounter HPI Ruthy Huntley is a 61 year old female. - Allergy list reviewed - Problem list reviewed - Medication list reviewed Patient is here today for follow up for her cat bite RLF. She is doing well today. She has been seeing infectious disease. Her injury occurred on 07/24/22. Social History Description Last Updated Caffeine use 08/16/2022 Procedures and Surgical History Includes: Procedures from this encounter Procedures Code Diagnosis Performing Provider Service L ocation Service Date intervention and counseling on cessation of tobacco use 4000F Surgical History Last Updated History of heart surgery 08/16/2022 Medical History Includes: Medical History addressed during this encounter Description Last Updated History of arthritis 08/16/2022 Family History Includes: Family History addressed during this encounter Description Last Updated Family history of cancer 08/16/2022 Review of Systems Includes: Review of Systems from this encounter Systemic: Feeling tired. No recent weight loss. [...] The patient has no trouble with speech. There is mild erythema. No warmth. Not very tender to touch. She can make a decent fist. No tenderness over the flexor sheath. No redness. The digit is still swollen. Reviewed 09/04/22 Reviewed 09/04/22 Mental Status Includes: Mental Status from this encounter Description Anxiety Functional Status Includes: Functional Status from this encounter No Functional Status Recorded Physical Exam Includes: Physical Exam from this encounter Allergies Includes: Active Allergies Substance Type Reaction Onset Date Resolved Date Statu leighton Phelpsl Allergy extreme drowsiness 08/16/2022 Active Encounters Encounter Provider Location Date Check-In Time Check-Out Time Diagnosis FOLLOW UP/EST Alfonso Jensen MD [facility] 09/18/20 2:11PM 3:06PM Insurance Includes: Active Insurance Policies Plan Name Member ID Group # Subscriber Relationship Effect melinda Dates 1 - TRAVELERS [id number] Ruthy Huntley Self 1 - Unknown Clinical Notes Includes: Clinical Notes from this encounter * Progress note Date Encounter Last Documented by 09/18/2022 FOLLOW UP/EST Last documented on 09/19/2022; 3:43 PM, Alfonso Jensen MD; [facility] Active Problems & Conditions - Joint [...] The patient has no trouble with speech. There is mild erythema. No warmth. Not very tender to touch. She can make a decent fist. No tenderness over the flexor sheath. No redness. The digit is still swollen. Reviewed 09/04/22 Reviewed 09/04/22 Physical Findings - Vitals taken 09/18/2022 02:26 pm dp BP-Sitting 93/67 mmHg 100 - 120/56 - 80 Pulse Rate-Sitting 79 bpm 50 - 100 Height 64 in 48 - 78 Weight 259 lbs 98 - 183 Body Mass Index 44.5 kg/m2 Tests Xray 3 views of the RLF shows no sign of osteomyelitis and bone density looks to be okay Previous Tests Imaging: X-Ray: An X-ray was performed. Therapy - Intervention and counseling on cessation of tobacco use. - Follow-up visit in one month. Counseling/Education - Lose weight Plan Patient is doing well. We will have her continue treatment with ID. We will continue work restrictions. We will see her back in 3 weeks for recheck. Practice Management Use of tobacco assessment performed; No influenza immunization patient refused. Care Team - Josee Morfin APRN Notes This dictation was done with voice recognition software and may contain errors or omissions. transcribed by Bib Reinoso
--- OUTSIDE RECORDS SUMMARY | 2023-11-16 05:29 | XMS_ITS | Clinical Summary ---
Author Name Unknown Address [address] [place] [address] [place] [address] Phone Organization [facility] , [facility] Address [address] [place] [address] Phone Care Team Providers Care Knurling Machine Operator Name Role Phone Josee Morfin APRN Primary Care Provider [phone] Camila VALDEZ, Alfonso Florian Unavailable [phone] Reason for Visit and Chief Complaint The Chief Complaint is: RLF pain Problems Includes: Problems addressed during this encounter and other active Problems All Visits Onset Date Resolved Date Provider Condition S tatus Joint Pain Right Middle Finger 08/16/2022 Alfonso Jensen MD Active Plan of Treatment Patient states the finger is feeling much [...] standpoint and see her back as needed. - Last Documented On 11/27/2022 4:43PM ; [facility], [facility] Pending Tests Order Diagnosis Results Due Ordering Randee moser Radiology - MRI MRI Finger 08/30/22 Alfonso Jensen MD Instructions to patient Intervention and counseling on cessation of tobacco use Last Documented On 3 2:52PM ; [facility], [facility] Lose weight Last Documented On 3 2:52PM ; [facility], [facility] Assessments Includes: Assessments from this encounter No Assessments Recorded Instructions Includes: Instructions from this encounter Instructions to patient Intervention and counseling on cessation of tobacco use Last Documented On 3 2:52PM ; [facility] Lose weight Last Documented On 3 2:52PM ; [facility], [facility] Medical Equipment - Implanted Devices Includes: Current Devices No Medical Equipment Recorded Medications Includes: Medications discussed during this encounter and other current Medications Current Medications (continue as prescribed) Mupirocin 2% External Ointment 07/29/2022 Provider: Josee Morfin APRN Diagnosis: Cetirizine HCl 10 MG Oral Tablet 06/02/2022 Provider : Josee Morfin APRN Diagnosis: Clopidogrel Bisulfate 75 MG Oral Tablet 05/16/2022 P rovider: Josee Morfin APRN Diagnosis: Escitalopram Oxalate 20 [...] Vital Signs from this encounter Vital Name 11/27/2022 02:53P Height (in) 64 Weight (lb) 258.5 Body Mass Index 44.4 Body Surface Area 2.2 Note: [facility] Last Documented: On 11/27/2022 2:54PM ; [facility], [facility] Results Includes: Results discussed during this [...] encounter Procedures Code Diagnosis Performing Provider Service Location Service Date X-RAY EXAM OF FINGER(S) 2-3 VIEWS (RIGHT) 82760 Pnctr w/o fb of r mid finger w/o damage to nail, subs, Bitten by cat, subsequent encounter Alfonso Jensen MD [facility] 11/27/2022 Surgical History Last Updated History [...] palpation. The swelling has decreased. Reviewed 11/27/22 Mental Status Includes: Mental Status from this encounter Description Anxiety Functional Status Includes: Functional Status from this encounter No Functional Status Recorded Physical Exam Includes: Physical Exam from this encounter Allergies Includes: Active Allergies Substance Type Reaction Onset Date Resolved Date Katieu leighton Phelpsl Allergy extreme drowsiness 08/16/2022 Active Encounters Encounter Provider Location Date Check-In Time Check-Out Time Diagnosis FOLLOW UP/EST Alfonso Jensen MD [facility] 11/27/19 23 2:50PM 3:04PM Insurance Includes: Active Insurance Policies Plan Name Member ID Group # Subscriber Relationship Effect melinda Dates 1 - TRAVELERS [id number] Ruthy Huntley Self 1 - Unknown Clinical Notes Includes: Clinical Notes from this encounter * Progress note Date Encounter Last Documented by 11/27/2022 FOLLOW UP/EST Last documented on 11/27/2022; 4:43 PM, Alfonso Jensen MD; [facility], [facility] Active Problems & Conditions - Joint [...] Findings - Vitals taken 11/27/2022 02:53 pm [facility] Height 64 in 48 - 78 Weight [...]
--- OUTSIDE RECORDS SUMMARY | 2023-11-16 05:29 | XMS_ITS | Clinical Summary ---
Author Name Unknown Address [address] [place] [address] [place] [address] Phone Organization [facility] , [facility] Address [address] [place] [address] Phone Care Team Providers Care Quality Rep Name Role Phone Josee Morfin APRN Primary Care Provider [phone] Camila VALDEZ, Alfonso Florian Unavailable [phone] Reason for Visit and Chief Complaint The Chief Complaint is: RLF pain Problems Includes: Problems addressed during this encounter and other active Problems Current Visit Onset Date Resolved Date Provider Cristal jane Status Joint Pain Right Middle Finger 08/16/2022 Alfonso Jensen MD Active Plan of Treatment I explained to the patient that I would like to refer her to infectious disease to evaluate the most likely infected right long finger. I would like to also obtain an MRI of the right long finger to rule out osteomyelitis stat. We will also order CBC and sed rate labs for her to complete. We will see her back after the study. - Last Documented On 08/21/2022 3:50PM ; [facility], [facility] Pending Tests Order Diagnosis Results Due Ordering Randee moser Radiology - MRI MRI Finger 08/30/22 Alfonso Jensen MD Instructions to patient Intervention and counseling on cessation of tobacco use Last Documented On 2 2:10PM ; [facility], [facility] Lose weight Last Documented On 2 2:10PM ; [facility] Assessments Includes: Assessments from this encounter Findings Infected cat bite right long finger - Last Documented On 08/21/2022 3:50PM ; [facility] Instructions Includes: Instructions from this encounter Instructions to patient Intervention and counseling on cessation of tobacco use Last Documented On 2 2:10PM ; [facility] Lose weight Last Documented On 2 2:10PM ; [facility] Medical Equipment - Implanted Devices Includes: Current Devices No Medical Equipment Recorded Medications Includes: Medications discussed during this encounter and other current Medications Discontinued / Stopped on this date Josee Morfin APRN on 08/02/2022 Fluconazole 150 MG Oral Tablet Provider: Josee Morfin APRN Diagnosis: Promethazine HCl 12.5 MG Oral Tablet Prov ider: Josee Morfin APRN Diagnosis: Diclofenac Sodium 1% External Gel Provide r: Josee Morfin APRN Diagnosis: Current Medications (continue as prescribed) Mupirocin 2% [...] Vital Signs from this encounter Vital Name 08/16/2022 02:06P Blood Pressure Sitting (mmHg) 86/63 Pulse Rate-Sitting (bpm) 75 Height (in) 64 Weight (lb) 230 Body Mass Index (kg/m2) 39.5 Body Surface Area (m2) 2.1 Note: [facility] Last Documented: On 08/16/2022 2:09PM ; [facility] Results Includes: Results discussed during this encounter No Results Recorded For Specified Dates History of Present Illness Includes: History of Present Illness from this encounter HPI Ruthy Huntley is a 61 year old female. - Allergy list reviewed - Problem list reviewed - Medication list reviewed - Previous history of new onset pain Work Injury 07/24/22 cat bite - Patient pain level from 1-10: 3 - Yes, previous treatment. pcp - History of Home Exercise Patient is a 61-year-old female that is here today with complaints of pain of the right long finger. She states she has noticed pain since July 24, 2022. She sustained a cat bite on 07/24/2022 at work. She is placed on Augmentin with Dr. Josee Morfin. The wound was cleaned by Tuan GEORGES but was not opened. She states the finger is no better. Social History Description Last Updated Caffeine use [...] The patient has no trouble with speech. The fingers and palm. There is mild erythema. The fingers are swollen. She is unable to actively extend the DIP joint of the right long finger. The finger is tender to touch. There is no drainage. She does have some PIP motion but extensor tendon of the DIP joint is not functioning. She has 2 tooth martin on the dorsal aspect of the right long finger. Mental Status Includes: Mental Status from this encounter Description Anxiety Functional Status Includes: Functional Status from this encounter No Functional Status Recorded Physical Exam Includes: Physical Exam from this encounter Immunizations Includes: Immunizations addressed during this encounter Vaccine Dose # Date Site Reaction(s) Status Source Influenza 1 08/16/2022 Complete (Refused - Patient objection) [facility] Allergies Includes: Active Allergies Substance Type Reaction Onset Date Resolved Date Statu s Benadryl Allergy extreme drowsiness 08/16/2022 Active Encounters Encounter Provider Location Date Check-In Time Check-Out Time Diagnosis WC NEW PATIENT lAfonso Jensen MD [facility] 08/16/20 22 1:30PM 2:53PM Insurance Includes: Active Insurance Policies Plan Name Member ID Group # Subscriber Relationship Effect melinda Dates 1 - TRAVELERS [id number] Ruthy Huntley Self 1 - Unknown Clinical Notes Includes: Clinical Notes from this encounter No Clinical Notes Recorded
--- OUTSIDE RECORDS SUMMARY | 2023-11-16 05:29 | XMS_ITS | Clinical Summary ---
Author Name Unknown Address [address] [place] [address] [place] [address] Phone Organization [facility] , [facility] Address [address] [place] [address] Phone Care Team Providers Care Skilled Helper Name Role Phone Josee Morfin APRN Primary Care Provider [phone] Camila VALDEZ, Alfonso Florian Unavailable [phone] Reason for Visit and Chief Complaint The Chief Complaint is: RLF pain Problems Includes: Problems addressed during this encounter and other active Problems All Visits Onset Date Resolved Date Provider Condition S tatus Joint Pain Right Middle Finger 08/16/2022 Alfonso Jensen MD Active Plan of Treatment We will have the patient continue WR. We will see her back in 3 weeks for xray and recheck. - Last Documented On 10/31/2022 2:34PM ; [facility], [facility] Pending Tests Order Diagnosis Results Due Ordering Randee moser Radiology - MRI MRI Finger 08/30/22 Alfonso Jensen MD Instructions to patient Intervention and counseling on cessation of tobacco use Last Documented On 3 3:20PM ; [facility], [facility] Lose weight Last Documented On 3 2:23PM ; [facility], [facility] Assessments Includes: Assessments from this encounter No Assessments Recorded Instructions Includes: Instructions from this encounter Instructions to patient Intervention and counseling on cessation of tobacco use Last Documented On 3 3:20PM ; [facility], [facility] Lose weight Last Documented On 3 2:23PM ; [facility], [facility] Medical Equipment - Implanted Devices Includes: [...] Vital Signs from this encounter Vital Name 10/25/2022 02:44P Blood Pressure Sitting (mmHg) 90/64 Pulse Rate-Sitting (bpm) 84 Height (in) 64 Weight (lb) 256 Body Mass Index 43.9 Body Surface Area 2.2 Note: REP Last Documented: On 10/25/2022 2:45PM ; [facility], [facility] Results Includes: Results discussed during this encounter No Results Recorded For Specified Dates History of Present Illness Includes: History of Present Illness from this encounter CAREY Huntley is a 61 year old female. - Allergy list reviewed - Problem list reviewed - Medication list reviewed Patient is here today for follow up for her cat bite RLF. She is doing well today. She has been seeing infectious disease. Her injury occurred on 07/24/22. She states the finger feels cold all the time, and she does not feel much improvement. She has been placed on doxycycline now that her PICC line has been removed. She notices occasional drainage. Social History Description Last Updated Caffeine use [...] tenderness over the flexor sheath. No redness. There is a little wound that is not draining today dorsally just distal to the DIPJ. Reviewed 10/25/22 Mental Status Includes: Mental Status from this [...] Time Diagnosis FOLLOW UP/EST Alfonso Jensen MD [facility] 10/25/19 23 1:57PM 3:18PM Insurance Includes: Active Insurance Policies Plan Name Member ID Group # Subscriber Relationship Effect melinda Dates 1 - TRAVELERS [id number] Ruthy Huntley Self 1 - Unknown Clinical Notes Includes: Clinical Notes from this encounter * Progress note Date Encounter Last Documented by 10/25/2022 FOLLOW UP/EST Last documented on 10/31/2022; 2:34 PM, Alfonso Jensen MD; [facility], [facility] Active Problems & Conditions - Joint [...] infectious disease. Her injury occurred on 07/24/22. She states the finger feels cold all the time, and she does not feel much improvement. She has been placed on doxycycline now that her PICC line has been removed. She notices occasional drainage. Current Medication - Anoro Ellipta 62.5-25 MCG/ACT [...] tenderness over the flexor sheath. No redness. There is a little wound that is not draining today dorsally just distal to the DIPJ. Reviewed 10/25/22 Physical Findings - Vitals taken 10/25/2022 02:44 pm REP BP-Sitting 90/64 mmHg 100 - 120/56 - 80 Pulse Rate-Sitting 84 bpm 50 - 100 Height 64 in 48 - 78 Weight 256 lbs 98 - 183 Body Mass Index 43.9 kg/m2 Body Surface Area 2.2 m2 Standard Measurements: - Patient was overweight. Tests Xray 3 views of the RLF shows no sign of osteomyelitis and bone density looks to be okay Previous Tests Imaging: X-Ray: An X-ray was performed. Therapy - Intervention and counseling on cessation of tobacco use. Counseling/Education - Lose weight Plan We will have the patient continue WR. We will see her back in 3 weeks for xray and recheck. Practice Management Use of tobacco assessment performed. Care Team - Josee Morfin APRN Notes This dictation was done with voice recognition software and may contain errors or omissions. transcribed by Bib Reinoso
--- OUTSIDE RECORDS SUMMARY | 2023-11-16 05:29 | XMS_ITS | Clinical Summary ---
Author Name Unknown Address [address] [place] [address] [place] [address] Phone Organization [facility] , [facility] Address [address] [place] [address] Phone Care Team Providers Care Undercover Agent Name Role Phone Josee Morfin APRN Primary Care Provider [phone] Camila VALDEZ, Alfonso Florian Unavailable [phone] Reason for Visit and Chief Complaint The Chief Complaint is: RLF pain Problems Includes: Problems addressed during this encounter and other active Problems All Visits Onset Date Resolved Date Provider Condition S tatus Joint Pain Right Middle Finger 08/16/2022 Alfonso Jensen MD Active Plan of Treatment We will continue her seeing infectious disease and following the antibiotic regimen. We will continue her work restrictions and see her back in 2 weeks for recheck. - Last Documented On 09/08/2022 1:59PM ; [facility], [facility] Pending Tests Order Diagnosis Results Due Ordering P robrisader Radiology - MRI MRI Finger 08/30/22 Alfonso Jensen MD Instructions to patient Intervention and counseling on cessation of tobacco use Last Documented On 2 2:30PM ; [facility], [facility] Lose weight Last Documented On 2 2:32PM ; [facility], [facility] Assessments Includes: Assessments from this encounter No Assessments Recorded Instructions Includes: Instructions from this encounter Instructions to patient Intervention and counseling on cessation of tobacco use Last Documented On 2 2:30PM ; [facility], [facility] Lose weight Last Documented On 2 2:32PM ; [facility], [facility] Medical Equipment - Implanted Devices Includes: [...] Vital Signs from this encounter Vital Name 09/04/2022 02:31P Blood Pressure Sitting (mmHg) 91/70 Pulse Rate-Sitting (bpm) 85 Height (in) 64 Weight (lb) 259 Body Mass Index (kg/m2) 44.5 Body Surface Area (m2) 2.2 Note: REP Last Documented: On 09/04/2022 2:32PM ; [facility] Results Includes: Results discussed during this encounter No Results Recorded For Specified Dates History of Present Illness Includes: History of Present Illness from this encounter HPI Ruthy Huntley is a 61 year old female. - Allergy list reviewed - Problem list reviewed - Medication list reviewed Patient is here today for follow up for her cat bite RLF. She is doing well today and states her hand feels much better and is less painful. She has been seeing infectious disease. Her [...] trouble with speech. There is mild erythema. The fingers are less swollen. No sign of progressive errythema. No warmth. Not very tender to touch. She can make a decent fist. No tenderness over the flexor sheath. Reviewed 09/04/22 Reviewed 09/04/22 Mental Status Includes: [...] Date Check-In Time Check-Out Time Diagnosis WC FOLLOW UP/EST Alfonso Jensen MD [facility] 09/04/20 22 2:01PM 2:47PM Insurance Includes: Active Insurance Policies Plan Name Member ID Group # Subscriber Relationship Effect melinda Dates 1 - TRAVELERS [id number] Ruthy Huntley Self 1 - Unknown Clinical Notes Includes: Clinical Notes from this encounter No Clinical Notes Recorded
--- NOTE | 2023-11-16 05:30 | PC.NURSE ---
PT ARRIVED TO FLOOR AT THIS TIME
--- NOTE | 2023-11-16 05:59 | EXP.HP ---
History of Present Illness *Admission Date: 11/16/23 *Reason for visit:: CP *History of present illness: This is a 62-year-old female history of obesity, CHF, CAD with angina status post stent, COPD, hypertension and GERD, hyperlipidemia, former smoker who presented to ED [facility] complaining of chest pain patient states that this started at night while she was home watching TV. Patient took 2 baby aspirin, and 2 nitroglycerin. Decided to go to the ER after not relieved. On arrival first EKG was concerning about some ischemic changes. Patient was hypertensive. Troponin was negative, was placing on heparin drip and nitro drip. Of note, patient being follow-up by cardiology at [facility] as well. Cardiology was contacted for transfer. Patient admitted for further management and treatment [facility] Disclaimer: The information contained in this section may have been updated after the patient was seen, as this information can be updated by other users. Medical History (Updated 11/16/23 @ 11:18 by Juli Mcgowan APRN) Abnormal echocardiogram Abnormal stress test Angina pectoris Atypical angina Atypical chest pain CAD (coronary artery disease) CHF (congestive heart failure) COPD mixed type Dyspnea on exertion Elevated left ventricular end-diastolic pressure (LVEDP) Encounter for screening for malignant neoplasm of lung GERD (gastroesophageal reflux disease) HTN (hypertension) Hyperlipidemia Hypertension affecting , delivered, current hospitalization Hypotension LV dysfunction Mitral valve regurgitation Recent myocardial infarction RLS (restless legs syndrome) Sleep apnea Smoking greater than 30 pack years Tobacco abuse Tobacco abuse counseling Typical angina Surgical History History of carpal tunnel surgery History of heart artery stent History of hysterectomy Family History Other Emphysema of lung Social History (Updated 11/16/23 @ 05:57 by Su Sutton RN) Smoking Status: Former smoker smoking status stop date: 05/01/23 alcohol intake: never substance use type: denies use current occupational status: employed Travel in the last 8 weeks: None household members: none housing: house Review of Systems Review of Systems Review of systems:: pertinent systems reviewed and negative unless documented below Meds Home Medications and Allergies Home Medications Medication Instructions Recorded Confirmed Type buspirone 7.5 mg tablet 7.5 mg PO BIDP PRN Anxiety 03/14/19 11/16/23 History aspirin 81 mg tablet,delayed 81 mg PO DAILY Heart disease #90 01/07/20 11/16/23 Rx release (Adult Low Dose Aspirin) tabs clopidogrel 75 mg tablet 75 mg PO DAILY thinner #90 tabs 01/07/20 11/16/23 Rx omeprazole 40 mg capsule,delayed 40 mg PO DAILY GERD #90 caps 01/07/20 11/16/23 Rx release cetirizine 10 mg tablet 10 mg PO DAILY PRN allergies 11/24/22 11/16/23 History diclofenac sodium 1 % topical gel 2 g topical QID 11/24/22 11/16/23 History (Arthritis Pain (diclofenac)) escitalopram oxalate 10 mg tablet 20 mg PO DAILY 11/24/22 11/16/23 History (Lexapro) nitroglycerin 0.4 mg sublingual 0.4 mg sublingual Q5-15M PRN chest 01/04/23 11/16/23 Rx tablet pain #25 tabs ipratropium 0.5 mg-albuterol 3 mg 3 ml inhalation QID PRN shortness 01/24/23 11/16/23 Rx (2.5 mg base)/3 mL nebulization of breath or wheezing 90 days #270 soln mL evolocumab 140 mg/mL subcutaneous 140 mg SQ Q2W #2 mL 02/15/23 11/16/23 Rx pen injector (Lisseth Morgan) albuterol sulfate 90 mcg/actuation 2 inh inhalation Q6H PRN shortness 03/21/23 11/16/23 Rx aerosol inhaler of breath or wheezing 90 days #8.5 grams azelastine 137 mcg (0.1 %) nasal 2 spray intranasal HS 90 days #30 03/21/23 11/16/23 Rx spray aerosol mL fluticasone propionate 50 2 spray intranasal DAILY 90 days 03/21/23 11/16/23 Rx mcg/actuation nasal #16 grams spray,suspension (Flonase Allergy Relief) metformin 500 mg tablet 1,000 mg PO DAILY 04/11/23 11/16/23 History ranolazine 1,000 mg 1,000 mg PO BID #60 tabs 04/11/23 11/16/23 Rx tablet,extended release,12 hr sacubitril 24 mg-valsartan 26 mg 1 tab PO BID #30 tabs 04/18/23 11/16/23 Rx tablet (Entresto) empagliflozin 10 mg tablet 10 mg PO DAILY #30 tabs 05/02/23 11/16/23 Rx (Jardiance) amlodipine 2.5 mg tablet 2.5 mg PO DAILY 07/19/23 11/16/23 History ropinirole 1 mg tablet 2 mg PO HS #180 tabs 09/18/23 11/16/23 Rx semaglutide 2 mg/dose (8 mg/3 mL) 0.25 mg SQ WEEKLY 11/12/23 11/16/23 History subcutaneous pen injector (Ozempic) bumetanide 1 mg tablet 1 mg PO DAILY 11/16/23 11/16/23 History fluticasone fur. 100 mcg-umeclid 1 inh inhalation DAILY 11/16/23 11/16/23 History 62.5 mcg-vilant 25 mcg inhalat.powder (Trelegy Ellipta) metoprolol succinate 25 mg 12.5 mg PO DAILY 11/16/23 11/16/23 History tablet,extended release 24 hr spironolactone 100 mg tablet 25 mg PO DAILY 11/16/23 11/16/23 History (Aldactone) New Prescriptions to Start Prescriptions: Allergies Allergy/AdvReac Type Severity Reaction Status Date / Time morphine AdvReac Intermediate Vomiting Verified 11/16/23 15:26 diphenhydramine AdvReac Mild Confusion Verified 07/19/23 14:13 [From Benadryl] Exam Constitutional Constitutional: mild distress, morbidly obese and cooperative *Routine HEENT Exam Head: Present normocephalic and atraumatic Eye: Present EOMI, PERRL and normal accommodation ENT: Present mucous membranes moist *Routine Neck Exam Neck: Present supple, full ROM and trachea midline *Routine Respiratory Exam Respiratory: Present CTA bilaterally, normal respiratory effort and symmetric chest movement; Absent respiratory distress *Routine Cardiovascular Exam Cardiovascular: Present RRR, Normal S1 and Normal S2 *Routine Abdominal Exam Abdominal: Present soft, normoactive bowel sounds and obese; Absent organomegaly *Routine Rectal Exam Rectal:: deferred *Routine Genitalia Exam Genitalia:: deferred *Routine Extremities Exam Extremities: Present full ROM and pulses intact; Absent cyanosis, clubbing or edema *Routine Skin Exam Skin: Present intact, dry and warm *Routine Neurological Exam Neurological: Present alert, oriented X3, normal reflexes, moving all extremities and normal speech Routine Psychiatric Exam Psychiatric: Present cooperative, good insight and good judgment H&P: Result Imaging and Cardiology EKG: Status: image reviewed by me and Preliminary report Assessment and Plan *Assessment and plan (1) Crescendo angina: Status: Acute Category: Medical Code(s): I20.0 - Unstable angina (2) Abnormal ECG: Status: Chronic Category: Medical Code(s): R94.31 - Abnormal electrocardiogram [ECG] [EKG] (3) HTN (hypertension): Status: Chronic Qualifiers: Hypertension type: essential hypertension Qualified Code(s): I10 - Essential (primary) hypertension Category: Medical Code(s): I10 - Essential (primary) hypertension (4) Hyperlipidemia: Status: Chronic Qualifiers: Hyperlipidemia type: mixed hyperlipidemia Qualified Code(s): E78.2 - Mixed hyperlipidemia Category: Medical Code(s): E78.5 - Hyperlipidemia, unspecified (5) CAD (coronary artery disease): Status: Chronic Qualifiers: Associated angina: with other forms of angina Coronary Disease-Associated Artery/Lesion type: [place] artery [place] vs. transplanted heart: [place] heart Qualified Code(s): I25.118 - Atherosclerotic heart disease of [place] coronary artery with other forms of angina pectoris Category: Medical Code(s): I25.10 - Atherosclerotic heart disease of [place] coronary artery without angina pectoris (6) CHF (congestive heart failure): Status: Acute Qualifiers: Heart failure chronicity: acute on chronic Heart failure type: unspecified Qualified Code(s): I50.9 - Heart failure, unspecified Category: Medical Code(s): I50.9 - Heart failure, unspecified (7) Former smoker: Status: Chronic Category: Social Hx Code(s): Z87.891 - Personal history of nicotine dependence Plan 62-year-old female history of obesity, CHF, CAD with angina status post stent, COPD, hypertension and GERD, hyperlipidemia, former smoker who presented to ED [facility] complaining of chest pain. On arrival here patient chest pain-free, still have some pain on her left arm. Blood pressures are normalized. Nitroglycerin drip started. New set of lab ordered. EKG negative for ST changes. Cardiology consult. Plan as follows: -Unstable angina Abnormal EKG admit patient for continued cardiac telemetry. Cardiology consult. Keep n.p.o. for possible cardiac intervention. Last cath March. Conclusive for medical management not intervention pursued Continue heparin drip Stop nitro. Switch to sublingual as needed Monitor for chest pain and cardiac rhythm Vital signs per unit per Obtain labs -History of hypertension hyperlipidemia CAD and CHF: Condition reviewed. Nursing to reconcile home medication -Patient former smoker. Quit 5 months ago Heparin drip for DVT prophylax. Protonix for GI bleed protection Full code s/p cardiac cath, tolerated well, s/p stenting, started on integrillin and Heparin gtt.
--- NOTE | 2023-11-16 06:31 | ECG_ITS ---
APPROVED REPORT Exam: Resting ECG HR:77 bpm ECG Measurements Heart Rate 77 AXES ID 166 P 20 QRSd 121 QRS -30 QT 423 T -5 QTc 455 Conclusion SINUS RHYTHM ANTEROLATERAL MYOCARDIAL INFARCTION , OF INDETERMINATE AGE [40+ ms Q WAVE IN I/aVL/V3-V6] ABNORMAL ECG UNCONFIRMED REPORT Electronically signed by : Silas Diez MD 11/17/2023 08:19:48
[2023-11-16 07:35] LABS: Chloride 101 mmol/L (98-107)
[2023-11-16 07:36] LABS: Potassium 4.2 mmoL/L (3.5-5.1); Sodium 136 mmol/L (136-145)
[2023-11-16 07:38] LABS: Alanine Aminotransferase 22 U/L (12-78); Alkaline Phosphatase 104 U/L (38-126); Anion Gap 7.2 mEq/L (5-15); Aspartate Amino Transferase 30 U/L (14-36); Bilirubin,Total 0.2 mg/dl (0.2-1.3); Blood Urea Nitrogen 14 mg/dl (7-17); Carbon Dioxide 32 mmol/L (22.0-30.0); Creatinine Clearance Estimated 52 mL/min (50-200); Estimated Glomerular Filt Rate 57 ml/min (>60); GFR (African American) 68 ML/MIN (>60)
[2023-11-16 07:39] LABS: Albumin/Globulin Ratio 1.4 (1.1-1.8); Calcium 8.7 mg/dl (8.4-10.2); Globulin 2.9 g/dL (1.3-3.2); Glucose 119 mg/dl (74-100); Magnesium 2.1 mg/dl (1.6-2.3); Total Protein,Serum 6.9 g/dl (6.3-8.2)
[2023-11-16 07:42] LABS: Basophils % 0.3 % (0.1-2.0); Eosinophils # 0.1 K/mm3 (0.0-0.4); Eosinophils % 0.4 % (0.1-12.0); Hematocrit 31.4 % (37.0-47.0); Lymphocytes # 1.6 K/mm3 (0.7-4.5); Lymphocytes % 11.3 % (10-50); Mean Corpuscular HGB Conc 31.9 g/dL (31.8-35.4); Mean Corpuscular Volume 72.2 fl (81-99); Mean Platelet Volume 7.2 fl (7.4-10.4); Monocytes # 0.8 K/mm3 (0.1-1.0); Monocytes % 5.7 % (1.7-9.3); Neutrophils # 11.3 K/mm3 (1.8-7.8); Neutrophils % 82.3 % (37.0-80.0); Platelet Count 482 K/mm3 (142-424); Red Blood Count 4.34 M/mm3 (4.20-5.40); Red Cell Distribution Width 16.9 % (11.5-17.5); White Blood Count 13.8 K/mm3 (4.8-10.8)
[2023-11-16 07:43] LABS: PTT Heparin (inpatient only) 24.3 Seconds (23.6-34.0)
[2023-11-16 07:53] LABS: INR 0.97 (0.9-1.1); Prothrombin Time 10.5 seconds (10.1-12.5)
--- NOTE | 2023-11-16 07:53 | HMH.PHAINT1 ---
Pharmacy Intervention Comments: Verified patient medications using external fill history and discussion with patient at bedside.
[2023-11-16] MEDS: HEPARIN SODIUM 5,000 UNIT/ML VIAL 4000 UNIT IV (08:28)
[2023-11-16] MEDS: D5W IV (08:28)
[2023-11-16] MEDS: NITROGLYCERIN IV (08:28)
[2023-11-16] MEDS: HEPARIN 25,000 UNITS/D5W 500 ML 20 UNIT IV (08:28)
--- NOTE | 2023-11-16 08:54 | CA_ITS ---
APPROVED REPORT EXAM: Comprehensive 2D, Doppler, and color-flow Echocardiogram Invasive Manager: ARUN Mcfarland, RVS Ht: 5 ft 3 in Wt: 269lbs BSA: 2.19 BP: 119/61 mmHg Indications: Angina, Left arm pain radiatingto jaw, CAD previous stent, CHF, Abn EKG, HTN, HLD 2D Dimensions IVSd 1.53 cm LVEF (Visual) 61.60 % PWd 1.56 cm LA Volume 70.60 mL LVDd 4.55 cm LA Volume Index 32.233953 mL/m2 (M/F) 16-34 LVDs 3.05 cm EF AP2 45.8 % Left Atrium 3.83 cm GL Strain -18.2 % M-Mode Dimensions LA Diam 4.17 cm (1.9-4.0) EPSs 1.08 cm TAPSE 2.11 (<1.7) LV Diastology E Decel Time 150 (160-240 msec) E/A Ratio 0.82 MED A' 9.40 cm/s LAT A' 18.40 cm/s Aortic Valve LUOLOU Index 0.76 cm2/m2 AoV Peak Billy. 171.0 (50-130 cm/s) AO Peak GR. 11.70 mmHg AO Mean GR. 5.80 (<5 mmHg) AO VTI 36.6 (18-25 cm) LOULOU (VTI) 1.70 (2.5-4.5 cm2) Mitral Valve MV A Velocity 138.0 (40-130 cm/s) E/A Ratio 0.82 MV Mean Gr. 3.10 (<2mmHg) Left Ventricle The left ventricle is normal size. There is mild reduction in LV systolic function. There is increased LV wall thickness (IVSd 1.4 cm). There is moderate hypokinesis of the basal inferoseptal and anterolateral LV johnson. Diastolic function is indeterminate. LVEF is 40-45%. Right Ventricle The right ventricle is normal size. Right ventricle is mildly hypokinetic. Atria The left atrium size is normal. The right atrium size is normal. The interatrial septum is not well-visualized. Aortic Valve The aortic valve is mildly thickened. There is no aortic valvular stenosis. No aortic regurgitation is present. Mitral Valve The mitral valve leaflets are mildly thickened. No evidence of mitral valve stenosis. Trace mitral regurgitation. Tricuspid Valve The tricuspid valve leaflets are thin and pliable. Trace tricuspid regurgitation. There is insufficient TR jet to estimate RVSP. Pulmonic Valve The pulmonary valve is normal in structure. Trace pulmonic regurgitation. Great Vessels The aortic root is normal in size. The ascending aorta is normal in size. The IVC is not well-visualized. Pericardium There is no pericardial effusion. Other Information Study Quality: Fair Conclusion Mild reduction in LV systolic function (LVEF 40-45%). Moderate hypokinesis of the basal inferoseptal and anterolateral LV johnson. Marked increase in LV wall thickness (IVSd 1.4 cm). Normal RV size with mild reduction in RV function. No significant valvular stenosis or regurgitation. In the setting of mildly reduced LVEF and wall motion abnormalities further evaluation for ischemia is recommended. Also, in the setting of increased LV wall thickness, outpatient evaluation for infiltrative diseases (namely amyloidosis) is also recommended with cardiac MRI (amyloidosis protocol), lab testing, and PYP nuclear scan. Electronically signed by : Olive Ortiz MD 11/17/2023 21:51:06
--- NOTE | 2023-11-16 10:40 | IR_ITS ---
APPROVED REPORT Patient Location: Inpatient Blank Driller: SUDEEP Boss RT (R) PROCEDURES Left heart catheterization Left ventriculogram Selective coronary angiogram Drug-eluting stent deployment to the occluded mid dominant right coronary INDICATION Acute non-ST elevation myocardial infarction, Coronary artery disease Informed consent was obtained prior to the procedure. COMPLICATIONS None Estimated Blood Loss: Less than 10 mls TECHNIQUE One percent lidocaine used to anesthetize the right anterior aspect of the wrist. The right radial artery was accessed via the Seldinger technique. A 6 [place] sheath was placed in the right radial artery. 2.5 mg of Verapamil, 800 mcg of nitroglycerin, 1mg Lidocaine and 5000 U Heparin were given through the arterial sheath. The papa catheter was also used to perform left heart catheterization, left ventriculogram and selective coronary angiogram. At the end the diagnostic angiogram therapeutic heparin was administered giving a therapeutic ACT and the guide catheter was placed in the right coronary followed by Choice PT extra-support wire placed distally. A 3 mm x 20 mm balloon was deployed at 20 alicia to reduce the occlusion. Following this a 3.5 x 38 mm [place] frontier stent was deployed at 20 alicia reducing the 100% occlusion to 0%. MAHAD 0 flow was present at the beginning of the procedure with MAHAD-3 flow at the end the procedure. A moderate to large thrombus was identified distally which likely embolized from the acute occlusion. Although this was in the posterior lateral ventricular branch MAHAD-3 flow persisted. At this point it was decided to inject intracoronary Integrilin and then start patient on an Integrilin drip ANGIOGRAPHIC RESULTS The left main artery Normal The left anterior descending artery Is proximally normal followed by a stent which is widely patent with minimal in-stent restenosis and excellent proximal distal transitioning The circumflex artery Is nondominant gives rise to a moderate size ramus intermedius which is widely patent. The circumflex artery has a proximal 30 to 40% concentric stenosis The right coronary artery Is a dominant vessel and initially occluded at mid segment immediately distal to an RV marginal branch. Following revascularization the right coronary artery was widely patent with inline flow to a large posterior descending artery and posterior lateral ventricular branch. The moderate to large thrombus was identified in the first marginal branch off the posterior lateral ventricular branch The VASQUEZ ventriculogram reveals Dilated ventricle reduced ejection fraction estimated between 30 and 40% The left ventricular end-diastolic pressure 25 mmHg IMPRESSION Acute non-ST elevation myocardial infarction accompanied by a thrombosed right coronary artery of unknown duration accompanied by moderate to severe LV dysfunction Successful stenting of the right coronary 100% occlusion reduced to 0% with 1 drug-eluting stent followed by embolization of a moderate to large thrombus into the first marginal branch off the posterior lateral ventricular branch Left ventricular dysfunction estimated between 30 and 40% PLAN 1. Integrilin bolus will be administered into the coronary artery 2. Continue Integrilin drip for the next 18 hours 3. Recommend 24 hours of Lovenox 4. Continue dual antiplatelet therapy 5. Official echocardiogram to better determine ejection fraction. If ejection fraction is confirmed by echocardiography to be 35% or less I recommend LifeVest prior to discharge home 6. Avoidance of tobacco products 7. LDL less than 55 to be achieved by high intensity statin 8. Standard medical therapy for systolic heart failure Electronically signed by : Yonas Cisneros MD 11/16/2023 13:11:52
--- NOTE | 2023-11-16 11:10 | P.CONCA_ITS ---
History of Present Illness History of Present Illness Consult date: 11/16/23 Requesting physician: Kush Stephenson Consult reason: chest pain Chief complaint: Chest pain History of present illness: This is a 62-year-old white female with past medical history coronary artery disease status post stenting to LAD in November 2022 and medical management heart cath March 2023, diabetes mellitus and former tobacco use who presented to [facility] as a transfer from [facility] for unstable angina. Patient reports that she was at home last night watching TV when developed midsternal chest pressure radiating into left arm associated with shortness of breath. Patient reports she gave it 30 minutes with symptoms did not resolve so she took nitro and aspirin and drove herself to hospital. Troponin was negative at [facility] but given patient's symptoms and history she was started on a heparin drip and nitro drip and was transferred to [facility] for cardiology evaluation. Upon presentation to hospital patient is complaining of mild chest pressure but greatly improved from initial presentation. Labs are as follow: WBC 13.8, hemoglobin 10 sodium 136, potassium 4.2, creatinine 1, troponin 0.1. EKG is normal sinus rhythm at a rate of [address] changes present. Given patient's ongoing chest pain and elevation in troponin we will proceed with left heart catheterization today for further evaluation of coronary artery disease. [facility] Disclaimer: The information contained in this section may have been updated after the patient was seen, as this information can be updated by other users. Medical History (Updated 11/16/23 @ 11:18 by Juli Mcgowan APRN) Abnormal echocardiogram Abnormal stress test Angina pectoris Atypical angina Atypical chest pain CAD (coronary artery disease) CHF (congestive heart failure) COPD mixed type Dyspnea on exertion Elevated left ventricular end-diastolic pressure (LVEDP) Encounter for screening for malignant neoplasm of lung GERD (gastroesophageal reflux disease) HTN (hypertension) Hyperlipidemia Hypertension affecting , delivered, current hospitalization Hypotension LV dysfunction Mitral valve regurgitation Recent myocardial infarction RLS (restless legs syndrome) Sleep apnea Smoking greater than 30 pack years Tobacco abuse Tobacco abuse counseling Typical angina Surgical History History of carpal tunnel surgery History of heart artery stent History of hysterectomy Family History Other Emphysema of lung Social History (Updated 11/16/23 @ 05:57 by Su Sutton RN) Smoking Status: Former smoker smoking status stop date: 05/01/23 alcohol intake: never substance use type: denies use current occupational status: employed Travel in the last 8 weeks: None household members: none housing: house Review of Systems Review of Systems Review of systems:: pertinent systems reviewed and negative unless documented below Exam Data for Last 24 hours Vital signs and Labs for Last 24 Hours: Temp Pulse Resp BP Pulse Ox O2 Del Method O2 Flow Rate 97.5 F L 72 22 92/51 L 93 L Nasal Cannula 2 11/16/23 08:00 11/16/23 11:00 11/16/23 11:00 11/16/23 11:00 11/16/23 11:00 11/16/23 11:00 11/16/23 11:00 Laboratory Results - last 24 hr 11/16/23 06:27: WBC 13.8 H, RBC 4.34, Hgb 10.0 L, Hct 31.4 L, MCV 72.2 L, MCH 23.0 L, MCHC 31.9, RDW 16.9, Plt Count 482 H, MPV 7.2 L, Neut % (Auto) 82.3 H, Lymph % (Auto) 11.3, [place] % (Auto) 5.7, Eos % (Auto) 0.4, Baso % (Auto) 0.3, Neut # (Auto) 11.3 H, Lymph # (Auto) 1.6, [place] # (Auto) 0.8, Eos # (Auto) 0.1, Baso # (Auto) 0.0, PT 10.5, INR 0.97, APTT 24.3, Sodium 136, Potassium 4.2, Chloride 101, Carbon Dioxide 32 H, Anion Gap 7.2, BUN 14, Creatinine 1.00, Estimated Creat Clear 52, Estimated GFR 57 L, Est GFR ( Amer) 68, Glucose 119 H, Calcium 8.7, Magnesium 2.1, Total Bilirubin 0.2, AST 30, ALT 22, Alkaline Phosphatase 104, Troponin I 0.10 H, Total Protein 6.9, Albumin 4.0, Globulin 2.9, Albumin/Globulin Ratio 1.4 I & O for Last 24 hours: Intake & Output 11/13/23 11/14/23 11/15/23 02/16/24 23:59 23:59 23:59 23:59 Intake Total 0 / 0 Output Total 0 / 0 Balance 0 / 0 Weight 269 lb 4 oz Constitutional Constitutional: no acute distress *Routine Respiratory Exam Respiratory: Present CTA bilaterally and symmetric chest movement *Routine Cardiovascular Exam Cardiovascular: Present RRR, Normal S1 and Normal S2 *Routine Abdominal Exam Abdominal: Present soft and normoactive bowel sounds; Absent tenderness *Routine Extremities Exam Extremities: Present full ROM and normal capillary refill; Absent edema *Routine Skin Exam Skin: Present intact, dry and warm Detailed Neck Exam: Thyroids Thyroid: Absent bruit Meds Home Medications and Allergies Home Medications Medication Instructions Recorded Confirmed Type buspirone 7.5 mg tablet 7.5 mg PO BIDP PRN Anxiety 03/14/19 11/16/23 History aspirin 81 mg tablet,delayed 81 mg PO DAILY Heart disease #90 01/07/20 11/16/23 Rx release (Adult Low Dose Aspirin) tabs clopidogrel 75 mg tablet 75 mg PO DAILY thinner #90 tabs 01/07/20 11/16/23 Rx omeprazole 40 mg capsule,delayed 40 mg PO DAILY GERD #90 caps 01/07/20 11/16/23 Rx release cetirizine 10 mg tablet 10 mg PO DAILY PRN allergies 11/24/22 11/16/23 History diclofenac sodium 1 % topical gel 2 g topical QID 11/24/22 11/16/23 History (Arthritis Pain (diclofenac)) escitalopram oxalate 10 mg tablet 20 mg PO DAILY 11/24/22 11/16/23 History (Lexapro) nitroglycerin 0.4 mg sublingual 0.4 mg sublingual Q5-15M PRN chest 01/04/23 11/16/23 Rx tablet pain #25 tabs ipratropium 0.5 mg-albuterol 3 mg 3 ml inhalation QID PRN shortness 01/24/23 11/16/23 Rx (2.5 mg base)/3 mL nebulization of breath or wheezing 90 days #270 soln mL evolocumab 140 mg/mL subcutaneous 140 mg SQ Q2W #2 mL 02/15/23 11/16/23 Rx pen injector (Lisseth Morgan) albuterol sulfate 90 mcg/actuation 2 inh inhalation Q6H PRN shortness 03/21/23 11/16/23 Rx aerosol inhaler of breath or wheezing 90 days #8.5 grams azelastine 137 mcg (0.1 %) nasal 2 spray intranasal HS 90 days #30 03/21/23 11/16/23 Rx spray aerosol mL fluticasone propionate 50 2 spray intranasal DAILY 90 days 03/21/23 11/16/23 Rx mcg/actuation nasal #16 grams spray,suspension (Flonase Allergy Relief) metformin 500 mg tablet 1,000 mg PO DAILY 04/11/23 11/16/23 History ranolazine 1,000 mg 1,000 mg PO BID #60 tabs 04/11/23 11/16/23 Rx tablet,extended release,12 hr sacubitril 24 mg-valsartan 26 mg 1 tab PO BID #30 tabs 04/18/23 11/16/23 Rx tablet (Entresto) empagliflozin 10 mg tablet 10 mg PO DAILY #30 tabs 05/02/23 11/16/23 Rx (Jardiance) amlodipine 2.5 mg tablet 2.5 mg PO DAILY 07/19/23 11/16/23 History ropinirole 1 mg tablet 2 mg PO HS #180 tabs 09/18/23 11/16/23 Rx semaglutide 2 mg/dose (8 mg/3 mL) 0.25 mg SQ WEEKLY 11/12/23 11/16/23 History subcutaneous pen injector (Ozempic) bumetanide 1 mg tablet 1 mg PO DAILY 11/16/23 11/16/23 History fluticasone fur. 100 mcg-umeclid 1 inh inhalation DAILY 11/16/23 11/16/23 Hi story 62.5 mcg-vilant 25 mcg inhalat.powder (Trelegy Ellipta) metoprolol succinate 25 mg 12.5 mg PO DAILY 11/16/23 11/16/23 History tablet,extended release 24 hr spironolactone 100 mg tablet 25 mg PO DAILY 11/16/23 11/16/23 History (Aldactone) New Prescriptions to Start Prescriptions: Allergies Allergy/AdvReac Type Severity Reaction Status Date / Time diphenhydramine AdvReac Mild Confusion Verified 07/19/23 14:13 [From Benadryl] Assessment and Plan *Assessment and plan (1) CAD (coronary artery disease): Status: Chronic Qualifiers: Associated angina: with other forms of angina Coronary Disease- Associated Artery/Lesion type: [place] artery [place] vs. transplanted heart: [place] heart Qualified Code(s): I25.118 - Atherosclerotic heart disease of [place] coronary artery with other forms of angina pectoris Category: Medical Code(s): I25.10 - Atherosclerotic heart disease of [place] coronary artery without angina pectoris (2) NSTEMI (non-ST elevated myocardial infarction): Status: Acute Category: Medical Code(s): I21.4 - Non-ST elevation (NSTEMI) myocardial infarction (3) Hypertension affecting , delivered, current hospitalization: Status: Acute Category: Medical Code(s): O16.4 - Unspecified maternal hypertension, complicating childbirth (4) HTN (hypertension): Status: Chronic Qualifiers: Hypertension type: essential hypertension Qualified Code(s): I10 - Essential (primary) hypertension Category: Medical Code(s): I10 - Essential (primary) hypertension (5) Hyperlipidemia: Status: Chronic Qualifiers: Hyperlipidemia type: mixed hyperlipidemia Qualified Code(s): E78.2 - Mixed hyperlipidemia Category: Medical Code(s): E78.5 - Hyperlipidemia, unspecified Plan History of coronary artery disease NSTEMI -EKG shows nonspecific ST changes no acute STEMI noted -Initial troponin at [facility] is elevated at 0.1 -Continue nitro and heparin drip -Will proceed with left heart catheterization today for further evaluation of coronary artery disease. Discussed risk versus benefits with patient she is agreeable -Continue aspirin 81 mg daily, Plavix 75 mg daily, beta-steven and Repatha -Preliminary echo report shows a reduced ejection fraction of 45% with wall motion abnormalities noted, official read is pending Acute HFrEF -Preliminary echo report shows a reduced ejection fraction of 45 down from 55% November 2022 -Continue Entresto at higher dose 49/51 mg p.o. twice daily and beta-steven. Add Jardiance 10 mg daily and Aldactone 25 mg daily. Hypertension -Was elevated on presentation but is currently low - Entresto 49/51 mg p.o. twice daily mg p.o. twice daily and metoprolol succinate 12.5 mg p.o. daily Hyperlipidemia -LDL goal is less than 55 continue Repatha CV summary 11/16/2023: Proceed with left heart catheterization to further evaluate for coronary artery disease.
[2023-11-16] MEDS: PANTOPRAZOLE 40MG TABLET 40 MG PO (11:20)
--- NOTE | 2023-11-16 12:21 | PC.NURSE ---
1220pt in care of bottle label inspector staff at this time.
--- NOTE | 2023-11-16 12:22 | PC.NURSE ---
notified supervisor laboratory staff that pt has reported allergy to diphenhydramine, reports that med makes her sleep alot for days and days . 1212
[2023-11-16] MEDS: VERAPAMIL 2.5MG/ML 2ML VIAL 2.5 MG IV (12:32)
[2023-11-16 12:33] LABS: PTT Heparin (inpatient only) 31.1 Seconds (23.6-34.0)
[2023-11-16] MEDS: HEPARIN 1,000 UNITS/500ML NS (CATH LAB) 3000 UNIT IV (12:33)
[2023-11-16] MEDS: NITROGLYCERIN 800MCG/8ML SYR (CATH LAB) 800 MCG IA (12:33)
[2023-11-16] MEDS: LIDOCAINE 1% 10ML MDV 20 ML IJ (12:33)
[2023-11-16] MEDS: HEPARIN 1,000 UNITS/ML 10ML VIAL (CATH LAB) 10000 UNIT IV (12:33)
[2023-11-16] MEDS: MIDAZOLAM HCL 1MG/1ML 5ML VIAL 1 MG IV (12:33)
[2023-11-16] MEDS: 0.9 % SODIUM CHLORIDE 500 ML 25 ML IV (12:33)
[2023-11-16] MEDS: FENTANYL 100MCG/2ML VIAL 50 MCG IV (12:34)
[2023-11-16 12:53] LABS: Troponin I 1.23 ng/ml (0.00-0.034)
[2023-11-16] MEDS: EPTIFIBATIDE 75 MG/100 ML VIAL 19.5410000000000004 MG IV ×3 (13:17→20:09)
[2023-11-16] MEDS: EPTIFIBATIDE 75MG/100ML BOTTLE 22.6000000000000014 MG IV (13:18)
[2023-11-16] MEDS: CLOPIDOGREL 75MG TAB 75 MG PO (13:26)
[2023-11-16] MEDS: ASPIRIN EC 81MG TABLET 81 MG PO (13:27)
[2023-11-16] MEDS: ONDANSETRON 4MG/2ML VIAL 4 MG IV (13:40)
[2023-11-16] MEDS: IOPAMIDOL-370 (76%);100ML BOTTLE 130 ML IV (14:07)
[2023-11-16 14:08] LABS: CATHL Activated Clotting Time 277 SEC (74-125)
[2023-11-16] MEDS: METOPROLOL SUCCINATE XL 25MG TABLET 12.5 MG PO (15:16)
[2023-11-16] MEDS: EMPAGLIFLOZIN 10MG TABLET 10 MG PO (15:16)
[2023-11-16] MEDS: SPIRONOLACTONE 25MG TABLET 25 MG PO (15:17)
--- NOTE | 2023-11-16 15:34 | PC.NURSE ---
Addendum entered by Nickie Cardona RN 11/16/23 19:17: 1910 traclet removed, site cleansed with chlorhexadine swab and covered with t/t. no hematoma or bleeding noted. Addendum entered by Nickie Cardona RN 11/16/23 18:50: 1840 2 ml of air removed from band, band to be removed at 1900. Addendum entered by Nickie Cardona RN 11/16/23 18:14: 1813 2 ml of air removed from traclet, no hematoma or bleeding noted from site. Addendum entered by Nickie Cardona RN 11/16/23 17:55: 1750 2 ml of air removed from traclet, no bleeding or hematoma noted from site. Addendum entered by Nickie Cardona RN 11/16/23 17:34: 1710 2 ml of air removed from traclet. no bleeding noted from site 1735 2 ml of air removed from traclet, no bleeding noted from site, no hematoma noted. Original Note: 1510 2 ml of air removed from traclet. pt site noted to begin bleeding. 2 ml of air placed back in band. bleeding still noted. 3 ml of air again added to band. site stabilized and no further bleeding noted.
[2023-11-16] MEDS: ACETAMINOPHEN 325MG TAB 650 MG PO (19:43)
[2023-11-16] MEDS: ENOXAPARIN 30MG/0.3ML SYRINGE 70 MG SQ (20:08)
[2023-11-16] MEDS: SACUBITRIL/VALSARTAN 24-26MG TABLET 2 EACH PO (20:09)
[2023-11-17] VITALS (18 sets, daily range): BP systolic 59–121; BP diastolic 43–79; PULSE 79–99; RESP 16–22; TEMP 36.7–37; O2SAT 18–100; BMI 457503.5
[2023-11-17] MEDS: EPTIFIBATIDE 75 MG/100 ML VIAL 19.5410000000000004 MG IV (01:13)
[2023-11-17] MEDS: PANTOPRAZOLE 40MG TABLET 40 MG PO ×2 (08:21→23:41)
[2023-11-17] MEDS: ASPIRIN EC 81MG TABLET 81 MG PO (08:22)
[2023-11-17] MEDS: SPIRONOLACTONE 25MG TABLET 25 MG PO (08:22)
[2023-11-17] MEDS: EMPAGLIFLOZIN 10MG TABLET 10 MG PO (08:22)
[2023-11-17] MEDS: CLOPIDOGREL 75MG TAB 75 MG PO (08:27)
[2023-11-17] MEDS: DOCUSATE SODIUM 100 MG CAPSULE PO (08:33)
[2023-11-17] MEDS: ENOXAPARIN 120MG/0.8ML SYRINGE 120 MG SQ ×2 (08:38→20:21)
[2023-11-17] MEDS: METOPROLOL SUCCINATE XL 25MG TABLET 12.5 MG PO (09:56)
[2023-11-17] MEDS: SACUBITRIL/VALSARTAN 24-26MG TABLET 2 EACH PO ×2 (09:56→20:21)
[2023-11-17] MEDS: ACETAMINOPHEN 325MG TAB 650 MG PO ×2 (09:58→22:27)
[2023-11-17] MEDS: ONDANSETRON 4MG/2ML VIAL 4 MG IV (09:59)
--- NOTE | 2023-11-17 13:29 | CT_ITS ---
PROCEDURE INFORMATION: Exam: CT Head Without Contrast Exam date and time: 11/17/2023 1:49 PM Age: 62 years old Clinical indication: Other: Headache; Additional info: Headache & dizziness TECHNIQUE: Imaging protocol: Computed tomography of the head without contrast. Radiation optimization: All CT scans at this facility use at least one of these dose optimization techniques: automated exposure control; mA and/or kV adjustment per patient size (includes targeted exams where dose is matched to clinical indication); or iterative reconstruction. COMPARISON: No relevant prior studies available. FINDINGS: Brain: No evidence of acute parenchymal hemorrhage, extra-axial collection or local regional mass effect. Cerebral ventricles: The ventricles, sulci and cisterns are normal in size and configuration. No hydrocephalus or midline structure shift Pituitary gland and sella: Sellar/parasellar structures, orbits and craniocervical junction are unremarkable Paranasal sinuses: Visualized sinuses are unremarkable. No fluid levels. Mastoid air cells: Visualized mastoid air cells are well aerated. Bones/joints: No calvarial fracture Soft tissues: Unremarkable. IMPRESSION: 1. No acute intracranial abnormality. No calvarial fracture. 2. If focal neurological symptoms persist brain MRI can be obtained for better evaluation
[2023-11-17] MEDS: HYDROCODONE/APAP 5/325 MG TABLET 1 TAB PO (13:43)
--- NOTE | 2023-11-17 15:26 | PC.NURSE ---
pt has been resting in bed throughout majority of shift. pt has been going to bathroom x2 assistance with o2 extension. pt had period of dizziness first time walking to bathroom. pt provided with fan, cool wash cloth, and water. pt had no further c/o dizziness there after. pt had c/o of headache earlier in shift. reema notified and hydrocodone and head CT ordered. Ct showed no evidence of bleeding. pt's HR has been consistently in the 80s/90s throughout shift. pt has had slightly low BPs around 90/50s, but pt stated that is her baseline. no other c/o from pt noted.
--- NOTE | 2023-11-17 17:25 | P.PN_ITS ---
Subjective *Date: 11/17/23 *Time: 17:25 Interval history: Patient was seen and evaluated at the bedside. No reported acute events overnight, denies chest pain, shortness of breath, nausea, vomiting, abdominal pain. Exam Data for Last 24 hours Vital signs and Labs for Last 24 Hours: Temp Pulse Resp BP Pulse Ox O2 Del Method O2 Flow Rate 98.0 F 80 20 93/68 L 95 Nasal Cannula 2 11/17/23 15:50 11/17/23 16:00 11/17/23 15:50 11/17/23 15:50 11/17/23 15:50 11/17/23 17:00 11/17/23 17:00 I & O for Last 24 hours: Intake & Output 11/14/23 11/15/23 11/16/23 11/17/23 23:59 23:59 23:59 23:59 Intake Total 112 / 112 359 / 359 Output Total 0 / 0 0 / 0 Balance 112 / 112 359 / 359 Weight 122.13 kg 120.911 kg Constitutional Constitutional: no acute distress *Routine HEENT Exam Head: Present normocephalic Eye: Present EOMI and PERRL ENT: Present mucous membranes moist *Routine Neck Exam Neck: Present supple; Absent lymphadenopathy *Routine Respiratory Exam Respiratory: Present CTA bilaterally *Routine Cardiovascular Exam Cardiovascular: Present RRR *Routine Abdominal Exam Abdominal: Present soft and normoactive bowel sounds; Absent tenderness *Routine Extremities Exam Extremities: Absent cyanosis, clubbing or edema *Routine Skin Exam Skin: Present warm; Absent rash *Routine Neurological Exam Neurological: Present alert and oriented X3 Assessment and Plan *Assessment and plan (1) [place]cendo angina: Status: Acute Category: Medical Code(s): I20.0 - Unstable angina (2) Abnormal ECG: Status: Chronic Category: Medical Code(s): R94.31 - Abnormal electrocardiogram [ECG] [EKG] (3) HTN (hypertension): Status: Chronic Qualifiers: Hypertension type: essential hypertension Qualified Code(s): I10 - E ssential (primary) hypertension Category: Medical Code(s): I10 - Essential (primary) hypertension (4) Hyperlipidemia: Status: Chronic Qualifiers: Hyperlipidemia type: mixed hyperlipidemia Qualified Code(s): E78.2 - Mixed hyperlipidemia Category: Medical Code(s): E78.5 - Hyperlipidemia, unspecified (5) CAD (coronary artery disease): Status: Chronic Qualifiers: Coronary Disease-Associated Artery/Lesion type: [place] artery [place] vs. transplanted heart: [place] heart Associated angina: with other forms of angina Qualified Code(s): I25.118 - Atherosclerotic heart disease of [place] coronary artery with other forms of angina pectoris Category: Medical Code(s): I25.10 - Atherosclerotic heart disease of [place] coronary artery without angina pectoris (6) CHF (congestive heart failure): Status: Acute Qualifiers: Heart failure type: unspecified Heart failure chronicity: acute on chronic Qualified Code(s): I50.9 - Heart failure, unspecified Category: Medical Code(s): I50.9 - Heart failure, unspecified (7) Former smoker: Status: Chronic Category: Social Hx Code(s): Z87.891 - Personal history of nicotine dependence Plan 62-year-old female history of obesity, CHF, CAD with angina status post stent, COPD, hypertension and GERD, hyperlipidemia, former smoker who presented to ED [facility] complaining of chest pain. On arrival here patient chest pain-free, still have some pain on her left arm. Blood pressures are normalized. Nitroglycerin drip started. New set of lab ordered. EKG negative for ST changes. Cardiology consult. Plan as follows: -Unstable angina s/p cardiac cath, had stent placed, started on integrillin gtt, ASA, Plavix -History of hypertension hyperlipidemia CAD and CHF: Condition reviewed. Nursing to reconcile home medication Heparin drip for DVT prophylax. Protonix for GI bleed protection Full code s/p cardiac cath, tolerated well, s/p stenting, started on integrillin and H eparin gtt. likely dc tomorrow
--- NOTE | 2023-11-17 22:36 | ECG_ITS ---
APPROVED REPORT Exam: Resting ECG HR:86 bpm ECG Measurements Heart Rate 86 AXES FL 153 P 17 QRSd 114 QRS -38 QT 384 T -52 QTc 427 Conclusion SINUS RHYTHM WITH OCCASIONAL VENTRICULAR PREMATURE COMPLEXES LOW QRS VOLTAGE IN PRECORDIAL LEADS [QRS DEFLECTION < 1.0 mV IN CHEST LEADS] PROBABLE LATERAL MYOCARDIAL INFARCTION , PROBABLY OLD [35 ms Q WAVE IN I/aVL/V5/V6] ABNORMAL ECG UNCONFIRMED REPORT Electronically signed by : Silas Diez MD 11/29/2023 20:05:30
--- NOTE | 2023-11-17 22:42 | PC.NURSE ---
pt c/o indigestion with a burning type feeling in throat and believes it is from the chicken she ate. She usually takes Prilosec at home and has not had since admission; vital signs stable, hospitalist notified. EKG obtained to ensure not cardiac related.
[2023-11-17 23:53] LABS: Troponin I 4.71 ng/ml (0.00-0.034)
[2023-11-18] VITALS (42 sets, daily range): BP systolic 74–133; BP diastolic 39–73; PULSE 69–94; RESP 16–20; TEMP 36.6–37.2; O2SAT 83–100; BMI 45.5
--- NOTE | 2023-11-18 04:02 | PC.NURSE ---
Pt has rested well tonight with no complaints at this time. She is able to get OOB with standby assistance to use toilet and took bed bath last night with assistance of SRNA. Oxygen sats have been running in the low to mid 90s with 2L/NC but does drop and sustain high 80s when sleeping. BP has been running soft but stable, and no change to HR or rhythm on cafeteria monitor. Pt did c/o headache and indigestion previously in the shift and both were treated with medication per NOV; both have now resolved.
--- NOTE | 2023-11-18 05:26 | ECG_ITS ---
APPROVED REPORT Exam: Resting ECG HR:82 bpm ECG Measurements Heart Rate 82 AXES NH 178 P 52 QRSd 126 QRS -25 QT 399 T 81 QTc 438 Conclusion SINUS RHYTHM New ST elevation in Inf leads ACUTE CO UNCONFIRMED REPORT Electronically signed by : Silas Diez MD 11/29/2023 20:05:20
[2023-11-18] MEDS: HYDROMORPHONE 2MG/ML SYRINGE 1 MG IV (05:40)
--- NOTE | 2023-11-18 05:47 | EXP.EVENT.NO ---
Called by RN. Pt reports CP. Requested EKG. EKG sent to Dr. Cisneros. Pt is not diaphoretic. BP 108/60 and HR in 80. Pt given 1mg IV Dilaudid. Pain 10/10 and now 8/10 with Dilaudid. Pain continues to decrease.
[2023-11-18] MEDS: ONDANSETRON 4MG/2ML VIAL 4 MG IV (05:48)
--- NOTE | 2023-11-18 06:04 | PC.NURSE ---
pt c/o 10/10 midsternal chest pain that radiated to left arm and at that same time ST elevation was noted on security monitor. EKG obtained; hospitalist and cardiology notified. Diluadid ordered for pain and after given, pt rated pain 8/10 and appears much more comfortable. ST elevation on security monitor also improved as pt relaxed. Pt is now resting in bed.
--- NOTE | 2023-11-18 07:01 | XR_ITS ---
PROCEDURE INFORMATION: Exam: XR Chest Exam date and time: 11/18/2023 7:46 AM Age: 62 years old Clinical indication: Pain; Chest pressure; Additional info: Chest pain. Copd. Former smoker of 45 yrs TECHNIQUE: Imaging protocol: Radiologic exam of the chest. Views: 1 view. COMPARISON: CR CHEST SINGLE VIEW/PORTABLE 11/16/2023 2:06 AM FINDINGS: Lungs: Atelectasis in the left base. No consolidation. Pleural spaces: Unremarkable. No pleural effusion. No pneumothorax. Heart/Mediastinum: Unremarkable. No cardiomegaly. Bones/joints: Unremarkable. IMPRESSION: No acute findings.
[2023-11-18] MEDS: SODIUM CHLORIDE 0.9% 500ML BAG 500 ML IV (07:19)
--- NOTE | 2023-11-18 07:30 | PC.NURSE ---
BP dropped to 70s systolic/ 50s MAP shortly after Diluadid given; hospitalist notified. NS 500 mL bolus ordered.
[2023-11-18] MEDS: ASPIRIN EC 81MG TABLET 81 MG PO (09:13)
[2023-11-18] MEDS: DOCUSATE SODIUM 100 MG CAPSULE PO (09:13)
[2023-11-18] MEDS: CLOPIDOGREL 75MG TAB 75 MG PO (09:13)
[2023-11-18] MEDS: EMPAGLIFLOZIN 10MG TABLET 10 MG PO (09:13)
[2023-11-18] MEDS: ENOXAPARIN 120MG/0.8ML SYRINGE 120 MG SQ (09:14)
[2023-11-18 09:46] LABS: Chloride 102 mmol/L (98-107); Potassium 3.8 mmoL/L (3.5-5.1); Sodium 131 mmol/L (136-145)
[2023-11-18 09:48] LABS: Blood Urea Nitrogen 51 mg/dl (7-17); Creatinine Clearance Estimated 37 mL/min (50-200); Estimated Glomerular Filt Rate 38 ml/min (>60); GFR (African American) 46 ML/MIN (>60)
[2023-11-18 09:49] LABS: Anion Gap 5.8 mEq/L (5-15); Calcium 7.8 mg/dl (8.4-10.2); Carbon Dioxide 27 mmol/L (22.0-30.0); Glucose 139 mg/dl (74-100)
[2023-11-18 09:56] LABS: Basophils % 0.3 % (0.1-2.0); Eosinophils # 0.1 K/mm3 (0.0-0.4); Hematocrit 21.5 % (37.0-47.0); Lymphocytes # 1.6 K/mm3 (0.7-4.5); Lymphocytes % 16.6 % (10-50); Mean Corpuscular Hemoglobin 23.3 pg (27.0-31.2); Mean Corpuscular Volume 72.9 fl (81-99); Mean Platelet Volume 8.2 fl (7.4-10.4); Monocytes # 0.4 K/mm3 (0.1-1.0); Neutrophils # 7.7 K/mm3 (1.8-7.8); Neutrophils % 78.1 % (37.0-80.0); Platelet Count 392 K/mm3 (142-424); Red Blood Count 2.94 M/mm3 (4.20-5.40); Red Cell Distribution Width 17.5 % (11.5-17.5); White Blood Count 9.8 K/mm3 (4.8-10.8)
[2023-11-18 10:32] LABS: Hemoglobin 6.9 g/dL (12.2-16.2)
[2023-11-18 11:04] LABS: Hematocrit 21.4 % (37.0-47.0)
[2023-11-18 11:07] LABS: Hemoglobin 6.8 g/dL (12.2-16.2)
--- NOTE | 2023-11-18 11:09 | CT_ITS ---
PROCEDURE INFORMATION: Exam: CT Abdomen And Pelvis Without Contrast Exam date and time: 11/18/2023 11:32 AM Age: 62 years old Clinical indication: Abnormal findings; Abnormal lab test; Other: Drop in hemoglobin; Prior surgery; Surgery date: 6+ months; Surgery type: Hysterectomy; Additional info: Drop in hemoglobin, any visible abnormality TECHNIQUE: Imaging protocol: Computed tomography of the abdomen and pelvis without contrast. Radiation optimization: All CT scans at this facility use at least one of these dose optimization techniques: automated exposure control; mA and/or kV adjustment per patient size (includes targeted exams where dose is matched to clinical indication); or iterative reconstruction. COMPARISON: CT LUNG SCREENING 03/13/2023 3:21 PM FINDINGS: Lungs: Opacity in the lingula may represent atelectasis or pneumonia Heart: There is calcification of the aortic valve annulus. Coronary arteries: Coronary artery calcifications may indicate coronary artery disease. Liver: Normal. No mass. Gallbladder and bile ducts: The gallbladder is unremarkable Pancreas: Normal. No ductal dilation. Spleen: The spleen demonstrates punctate calcifications, consistent with remote granulomatous organism exposure. Adrenal glands: Left adrenal nodule measures -22 Hounsfield units consistent with adrenal adenoma. Right adrenal nodule measures -40 Hounsfield units consistent with adrenal adenoma Kidneys and ureters: There is no evidence of renal or ureteral calcifications. Stomach and bowel: Findings consistent with constipation. 5.6 x 2 cm collection of air adjacent to the proximal duodenum. Series 1001, image 33. It measures 2.2 x 2.5 cm on series 3, image 38 and adjacent images. This may represent a large duodenal ulcer. This is not the typical location for duodenal diverticulum. The collection of air was present in March 2023 but has increased in size. Recommend endoscopy for further evaluation. Findings consistent with constipation. Appendix: No evidence of appendicitis. Intraperitoneal space: Unremarkable. No free air. No significant fluid collection. Vasculature: Unremarkable. No abdominal aortic aneurysm. Lymph nodes: Unremarkable. No enlarged lymph nodes. Urinary bladder: The bladder is decompressed Reproductive: Unremarkable as visualized. Bones/joints: Unremarkable. No acute fracture. Soft tissues: Umbilical hernia contains fat IMPRESSION: 5.6 x 2 cm collection of air adjacent to the proximal duodenum. Series 1001, image 33. It measures 2.2 x 2.5 cm on series 3, image 38 and adjacent images. This may represent a large duodenal ulcer. This is not the typical location for duodenal diverticulum. The collection of air was present in March 2023 but has increased in size. Recommend endoscopy for further evaluation. Bilateral adrenal adenomas. No follow-up required
[2023-11-18] MEDS: PANTOPRAZOLE 40MG VIAL 40 MG IV ×2 (11:51→20:17)
[2023-11-18] MEDS: METOPROLOL SUCCINATE XL 25MG TABLET 12.5 MG PO (11:53)
[2023-11-18] MEDS: 0.9 % SODIUM CHLORIDE 250 ML 25 ML IV ×2 (14:10→20:24)
[2023-11-18] MEDS: CITALOPRAM 40MG TABLET 40 MG PO (15:35)
--- NOTE | 2023-11-18 16:25 | P.PN_ITS ---
Subjective *Date: 11/18/23 *Time: 16:25 Interval history: Patient was seen and evaluated at the bedside. she had chest pains last night, denied SOB. denies shortness of breath, nausea, vomiting, abdominal pain. Exam Data for Last 24 hours Vital signs and Labs for Last 24 Hours: Temp Pulse Resp BP Pulse Ox O2 Del Method O2 Flow Rate 98.4 F 86 20 107/69 L 96 Nasal Cannula 2 11/18/23 16:15 11/18/23 16:15 11/18/23 16:15 11/18/23 16:15 11/18/23 16:15 11/18/23 15:00 11/18/23 15:00 Laboratory Results - last 24 hr 11/17/23 23:00: Troponin I 4.71 H 11/18/23 08:46: WBC 9.8 D, RBC 2.94 L D, Hgb 6.9 L, Hct 21.5 L, MCV 72.9 L, MCH 23.3 L, MCHC 32.0, RDW 17.5, Plt Count 392, MPV 8.2, Neut % (Auto) 78.1, Lymph % (Auto) 16.6, Josephine % (Auto) 4.0, Eos % (Auto) 1.0, Baso % (Auto) 0.3, Neut # (Auto) 7.7, Lymph # (Auto) 1.6, Josephine # (Auto) 0.4, Eos # (Auto) 0.1, Baso # (Auto) 0.0, Sodium 131 L, Potassium 3.8, Chloride 102, Carbon Dioxide 27, Anion Gap 5.8, BUN 51 H D, Creatinine 1.40 H D, Estimated Creat Clear 37, Estimated GFR 38 L, Est GFR ( Amer) 46 L D, Glucose 139 H, Calcium 7.8 L 11/18/23 10:55: Hgb 6.8 L*, Hct 21.4 L, Blood Type Confirm B Negative 11/18/23 11:20: Blood Type B Negative, Antibody Screen Negative, Crossmatch (G) See Detail I & O for Last 24 hours: Intake & Output 11/15/23 11/16/23 11/17/23 11/18/23 23:59 23:59 23:59 23:59 Intake Total 112 / 112 359 / 359 792 / 792 Output Total 0 / 0 0 / 0 0 / 0 Balance 112 / 112 359 / 359 792 / 792 Weight 122.13 kg 120.911 kg 120.911 kg Constitutional Constitutional: no acute distress *Routine HEENT Exam Head: Present normocephalic Eye: Present EOMI and PERRL ENT: Present mucous membranes moist *Routine Neck Exam Neck: Present supple; Absent lymphadenopathy *Routine Respiratory Exam Respiratory: Present CTA bilaterally *Routine Cardiovascular Exam Cardiovascular: Present RRR *Routine Abdominal Exam Abdominal: Present soft and normoactive bowel sounds; Absent tenderness *Routine Extremities Exam Extremities: Absent cyanosis, clubbing or edema *Routine Skin Exam Skin: Present warm; Absent rash *Routine Neurological Exam Neurological: Present alert and oriented X3 Assessment and Plan *Assessment and plan (1) Crescendo angina: Status: Acute Category: Medical Code(s): I20.0 - Unstable angina (2) Abnormal ECG: Status: Chronic Category: Medical Code(s): R94.31 - Abnormal electrocardiogram [ECG] [EKG] (3) HTN (hypertension): Status: Chronic Qualifiers: Hypertension type: essential hypertension Qualified Code(s): I10 - Essential (primary) hypertension Category: Medical Code(s): I10 - Essential (primary) hypertension (4) Hyperlipidemia: Status: Chronic Qualifiers: Hyperlipidemia type: mixed hyperlipidemia Qualified Code(s): E78.2 - Mixed hyperlipidemia Category: Medical Code(s): E78.5 - Hyperlipidemia, unspecified (5) CAD (coronary artery disease): Status: Chronic Qualifiers: Coronary Disease-Associated Artery/Lesion type: [place] artery [place] vs. transplanted heart: [place] heart Associated angina: with other forms of angina Qualified Code(s): I25.118 - Atherosclerotic heart disease of [place] coronary artery with other forms of angina pectoris Category: Medical Code(s): I25.10 - Atherosclerotic heart disease of [place] coronary artery without angina pectoris (6) CHF (congestive heart failure): Status: Acute Qualifiers: Heart failure type: unspecified Heart failure chronicity: acute on chronic Qualified Code(s): I50.9 - Heart failure, unspecified Category: Medical Code(s): I50.9 - Heart failure, unspecified (7) Former smoker: Status: Chronic Category: Social Hx Code(s): Z87.891 - Personal history of nicotine dependence Plan 62-year-old female history of obesity, CHF, CAD with angina status post stent, COPD, hypertension and GERD, hyperlipidemia, former smoker who presented to ED [facility] complaining of chest pain. On arrival here patient chest pain-free, still have some pain on her left arm. Blood pressures are normalized. Nitroglycerin drip started. New set of lab ordered. EKG negative for ST changes. Cardiology consult. Plan as follows: -Unstable angina s/p cardiac cath, had stent placed, started on ASA, Plavix, finished integrillin gtt Anemia likely anemia of acute blood loss, suspect GI loss CT abd concerning for PUD started on IV PPI hold all AC, AP except plavix, cardiology on board consult GS, NPO after MN for possible EGD ordered 1PRBC, will give 1 more unit Event note. Patient's morning blood work did show a hemoglobin 6.9, significant drop from admission hemoglobin. Patient denies any daily stools, urine, denies coughing up blood hematemesis. CT abdomen pelvis was performed which did show suspected duodenal ulcer, general surgery consulted, H&H ordered, IV Protonix,NPO after MN, hold anticoagulants. Patient recently had stents placed by cardiology. Will order 1 more unit of blood PT hemoglobin greater than 8. Patient otherwise denied any active chest pain shortness of breath nausea vomiting. Discussed with cardiology, ok with holding ASA, requests to continue Plavix, discussed with patient and agrees with the plan -History of hypertension hyperlipidemia CAD and CHF: Condition reviewed. Nursing to reconcile home medication DVT prophylax on hold due to anemia. Protonix for GI bleed protection Full code s/p cardiac cath, tolerated well, s/p stenting, finished integrillin gtt and lovenox.
--- NOTE | 2023-11-18 17:19 | PC.NURSE ---
PT IS RESTING IN BED WITH FAMILY AT BEDSIDE. ALERT AND ORIENTED X4. PT'S BP IMPROVED AFTER 500 ML IVF BOLUS AND 1 UNIT OF PRBC'S. 1715 BP WAS 116/73. NO COMPLAINTS OF DIZZINESS OR CP THIS SHIFT. O2 SATURATION HAS MAINTAINED 90-95% ON 2 L NC. NSR ON TELEMETRY. AMBULATES TO THE BATHROOM WITH 1 ASSIST. NEW IV ACCESS NOTED TO LAC. LUNG SOUNDS DIMINISHED. ABDOMEN LARGE/SOFT/NON TENDER WITH ACTIVE BOWEL SOUNDS. WILL CONTINUE TO MONITOR.
[2023-11-18 17:48] LABS: Hematocrit 22.7 % (37.0-47.0)
[2023-11-18 17:55] LABS: Hemoglobin 7.6 g/dL (12.2-16.2)
[2023-11-18 17:58] LABS: INR 0.98 (0.9-1.1); Prothrombin Time 10.6 seconds (10.1-12.5)
[2023-11-18] MEDS: SODIUM CHLORIDE 0.9% 10ML VIAL 10 ML IV (20:17)
[2023-11-18] MEDS: POLYETHYLENE GLYCOL 3350 17 GM PACKET PO (20:17)
[2023-11-18] MEDS: ROPINIROLE 1MG TABLET 2 MG PO (20:17)
[2023-11-18] MEDS: ACETAMINOPHEN 325MG TAB 650 MG PO (22:09)
[2023-11-19] VITALS (17 sets, daily range): BP systolic 92–132; BP diastolic 30–87; PULSE 74–88; RESP 15–20; TEMP 36.4–37.1; O2SAT 90–98; BMI 45.5
[2023-11-19 01:09] LABS: Hematocrit 25.7 % (37.0-47.0); Hemoglobin 8.3 g/dL (12.2-16.2)
--- NOTE | 2023-11-19 05:12 | PC.NURSE ---
Patient has had a good night. Did get another unit of blood, so a total of 2 units, She tolerated that well. Did have a little nausea at the begining of shift/ That was received with getting up and walking around. She did have a headache that was medicated with Tylenol and patient has not complained of it since. Has been up to the bathroom to void multiple times this shift with no issues. Still has not had a BM to collect the stool sample. Has been NPO since midnight in preparation for general surgery. No other complaints stated by patient through the shift.
--- NOTE | 2023-11-19 06:52 | P.CONS_ITS ---
History of Present Illness *Admission Date: 11/16/23 *Reason for visit:: concern for large duodenal ulcer on CT abdomen *History of present illness: Patient is a 62-year-old female from [place], [place] with history of obesity (BMI 45) congestive heart failure, sleep apnea, coronary artery disease with multiple previous coronary stents, COPD, hypertension, GERD (on omeprazole), hyperlipidemia. Several days ago she had developed chest pain. She had taken 2 baby aspirin and 2 nitroglycerin. She went to the emergency department at [facility] due to lack of relief. Troponins were negative initially. She was placed on a heparin and nitroglycerin drip due to concerns for cardiac ischemia. Patient is normally followed by cardiology at [facility]. Cardiology was contacted at this facility and she was admitted to [facility] for management. Upon admission her hemoglobin was 10 (baseline Hgb 13). BUN and creatinine were 14 and 1.0. Cardiology was consulted. Plan was made to proceed with left heart catheterization. This was performed on 11/16/2023 which revealed occluded right coronary artery of unknown duration accompanied by moderate to severe left ventricular dysfunction. She underwent stenting of the right coronary artery with drug-eluting stent. This was followed by embolization of moderate to large thrombus into the first marginal branch off the posterior lateral ventricular branch. Left ventricular ejection fraction estimated approximately 30 to 40%. Patient was given Integrilin bolus and continued on Integrilin drip. Plan was to continue this along with dual antiplatelet therapy. 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 The following morning routine blood work revealed a hemoglobin of 6.9 (down from 10.0 on admission). She had a BUN of 51 and a creatinine of 1.4 (14 and 1.0 on admission). Patient was ordered transfusion. Cardiology requested continuing Plavix but holding aspirin. Patient was transfused 2 units packed red blood cells for hemoglobin of 6.8 with posttransfusion hemoglobin of of 8.3. She underwent CT scan of the abdomen and pelvis without any contrast which revealed a 5.6 x 2 cm collection of air adjacent to the proximal duodenum which may represent large duodenal ulcer. Surgical consultation was obtained for today. [facility] Disclaimer: The information contained in this section may have been updated after the patient was seen, as this information can be updated by other users. Medical History (Updated 11/19/23 @ 11:06 by Bandar Wilson MD) Abnormal echocardiogram Abnormal stress test Angina pectoris Atypical angina Atypical chest pain CAD (coronary artery disease) CHF (congestive heart failure) COPD mixed type Dyspnea on exertion Elevated left ventricular end-diastolic pressure (LVEDP) Encounter for screening for malignant neoplasm of lung GERD (gastroesophageal reflux disease) HTN (hypertension) Hyperlipidemia Hypertension affecting , delivered, current hospitalization Hypotension LV dysfunction Mitral valve regurgitation Recent myocardial infarction RLS (restless legs syndrome) Sleep apnea Smoking greater than 30 pack years Tobacco abuse Tobacco abuse counseling Typical angina Surgical History History of carpal tunnel surgery History of heart artery stent History of hysterectomy Family History Other Emphysema of lung Social History (Updated 11/16/23 @ 05:57 by Su Sutton RN) Smoking Status: Former smoker smoking status stop date: 05/01/23 alcohol intake: never substance use type: denies use current occupational status: employed Travel in the last 8 weeks: None household members: none housing: house Review of Systems Review of Systems Review of systems:: pertinent systems reviewed and negative unless documented below Meds Home Medications and Allergies Home Medications Medication Instructions Recorded Confirmed Type buspirone 7.5 mg tablet 7.5 mg PO BIDP PRN Anxiety 03/14/19 11/16/23 History aspirin 81 mg tablet,delayed 81 mg PO DAILY Heart disease #90 01/07/20 11/16/23 Rx release (Adult Low Dose Aspirin) tabs clopidogrel 75 mg tablet 75 mg PO DAILY thinner #90 tabs 01/07/20 11/16/23 Rx omeprazole 40 mg capsule,delayed 40 mg PO DAILY GERD #90 caps 01/07/20 11/16/23 Rx release cetirizine 10 mg tablet 10 mg PO DAILY PRN allergies 11/24/22 11/16/23 History diclofenac sodium 1 % topical gel 2 g topical QID 11/24/22 11/16/23 History (Arthritis Pain (diclofenac)) escitalopram oxalate 10 mg tablet 20 mg PO DAILY 11/24/22 11/16/23 History (Lexapro) nitroglycerin 0.4 mg sublingual 0.4 mg sublingual Q5-15M PRN chest 01/04/23 11/16/23 Rx tablet pain #25 tabs ipratropium 0.5 mg-albuterol 3 mg 3 ml inhalation QID PRN shortness 01/24/23 11/16/23 Rx (2.5 mg base)/3 mL nebulization of breath or wheezing 90 days #270 soln mL evolocumab 140 mg/mL subcutaneous 140 mg SQ Q2W #2 mL 02/15/23 11/16/23 Rx pen injector (Repatha SureClick) albuterol sulfate 90 mcg/actuation 2 inh inhalation Q6H PRN shortness 03/21/23 11/16/23 Rx aerosol inhaler of breath or wheezing 90 days #8.5 grams azelastine 137 mcg (0.1 %) nasal 2 spray intranasal HS 90 days #30 03/21/23 11/16/23 Rx spray aerosol mL fluticasone propionate 50 2 spray intranasal DAILY 90 days 03/21/23 11/16/23 Rx mcg/actuation nasal #16 grams spray,suspension (Flonase Allergy Relief) metformin 500 mg tablet 1,000 mg PO DAILY 04/11/23 11/16/23 History ranolazine 1,000 mg 1,000 mg PO BID #60 tabs 04/11/23 11/16/23 Rx tablet,extended release,12 hr sacubitril 24 mg-valsartan 26 mg 1 tab PO BID #30 tabs 04/18/23 11/16/23 Rx tablet (Entresto) empagliflozin 10 mg tablet 10 mg PO DAILY #30 tabs 05/02/23 11/16/23 Rx (Jardiance) amlodipine 2.5 mg tablet 2.5 mg PO DAILY 07/19/23 11/16/23 History ropinirole 1 mg tablet 2 mg PO HS #180 tabs 09/18/23 11/16/23 Rx semaglutide 2 mg/dose (8 mg/3 mL) 0.25 mg SQ WEEKLY 11/12/23 11/16/23 History subcutaneous pen injector (Ozempic) bumetanide 1 mg tablet 1 mg PO DAILY 11/16/23 11/16/23 History fluticasone fur. 100 mcg-umeclid 1 inh inhalation DAILY 11/16/23 11/16/23 History 62.5 mcg-vilant 25 mcg inhalat.powder (Trelegy Ellipta) metoprolol succinate 25 mg 12.5 mg PO DAILY 11/16/23 11/16/23 History tablet,extended release 24 hr spironolactone 100 mg tablet 25 mg PO DAILY 11/16/23 11/16/23 History (Aldactone) New Prescriptions to Start Prescriptions: Allergies Allergy/AdvReac Type Severity Reaction Status Date / Time morphine AdvReac Intermediate Vomiting Verified 11/16/23 15:26 diphenhydramine AdvReac Mild Confusion Verified 07/19/23 14:13 [From Benadryl] Exam (Inpt) Vital signs and Labs for Last 24 Hours: Temp Pulse Resp BP Pulse Ox O2 Del Method O2 Flow Rate 98.3 F 83 17 94/62 L 92 L Nasal Cannula 2 11/19/23 04:00 11/19/23 04:00 11/19/23 04:00 11/19/23 04:00 11/19/23 04:00 11/19/23 05:00 11/19/23 05:00 Laboratory Results - last 24 hr 11/18/23 08:46: WBC 9.8 D, RBC 2.94 L D, Hgb 6.9 L, Hct 21.5 L, MCV 72.9 L, MCH 23.3 L, MCHC 32.0, RDW 17.5, Plt Count 392, MPV 8.2, Neut % (Auto) 78.1, Lymph % (Auto) 16.6, Jay % (Auto) 4.0, Eos % (Auto) 1.0, Baso % (Auto) 0.3, Neut # (Auto) 7.7, Lymph # (Auto) 1.6, Jay # (Auto) 0.4, Eos # (Auto) 0.1, Baso # (Auto) 0.0, Sodium 131 L, Potassium 3.8, Chloride 102, Carbon Dioxide 27, Anion Gap 5.8, BUN 51 H D, Creatinine 1.40 H D, Estimated Creat Clear 37, Estimated GFR 38 L, Est GFR ( Amer) 46 L D, Glucose 139 H, Calcium 7.8 L 11/18/23 10:55: Hgb 6.8 L*, Hct 21.4 L, Blood Type Confirm B Negative 11/18/23 11:20: Blood Type B Negative, Antibody Screen Negative, Crossmatch (G) See Detail 11/18/23 17:23: Hgb 7.6 L D, Hct 22.7 L, PT 10.6, INR 0.98 11/19/23 01:00: Hgb 8.3 L, Hct 25.7 L I & O for Labs for Last 24 Hours: Intake & Output 11/16/23 11/17/23 11/18/23 11/19/23 11:59 11:59 11:59 11:59 Intake Total 0 / 0 231 / 231 240 / 240 1563 / 1563 Output Total 0 / 0 0 / 0 0 / 0 0 / 0 Balance 0 / 0 231 / 231 240 / 240 1563 / 1563 Weight 269 lb 4 oz 266 lb 9 oz 266 lb 9.01 oz 266 lb 9.01 oz Constitutional: no acute distress Head: Present normocephalic Cardiac: Present Reg Rate and Rhythm GI: Present soft Results Labs 11/19/23 06:17 11/19/23 06:17 Labs: Laboratory Results - last 24 hr 11/18/23 08:46: WBC 9.8 D, RBC 2.94 L D, Hgb 6.9 L, Hct 21.5 L, MCV 72.9 L, MCH 23.3 L, MCHC 32.0, RDW 17.5, Plt Count 392, MPV 8.2, Neut % (Auto) 78.1, Lymph % (Auto) 16.6, Jay % (Auto) 4.0, Eos % (Auto) 1.0, Baso % (Auto) 0.3, Neut # (A uto) 7.7, Lymph # (Auto) 1.6, Jay # (Auto) 0.4, Eos # (Auto) 0.1, Baso # (Auto) 0.0, Sodium 131 L, Potassium 3.8, Chloride 102, Carbon Dioxide 27, Anion Gap 5.8, BUN 51 H D, Creatinine 1.40 H D, Estimated Creat Clear 37, Estimated GFR 38 L, Est GFR ( Amer) 46 L D, Glucose 139 H, Calcium 7.8 L 11/18/23 10:55: Hgb 6.8 L*, Hct 21.4 L, Blood Type Confirm B Negative 11/18/23 11:20: Blood Type B Negative, Antibody Screen Negative, Crossmatch ([facility]) See Detail 11/18/23 17:23: Hgb 7.6 L D, Hct 22.7 L, PT 10.6, INR 0.98 11/19/23 01:00: Hgb 8.3 L, Hct 25.7 L Assessment and Plan *Assessment and plan (1) GI (gastrointestinal hemorrhage): Status: Acute Category: Medical Code(s): K92.2 - Gastrointestinal hemorrhage, unspecified Plan Patient has findings clinically consistent with gastrointestinal blood loss likely secondary to duodenal ulcer based on imaging. May plan to proceed with upper endoscopy for diagnostic and potentially therapeutic purposes. Of course given the large size of this ulcer and due to the fact that she is dependent on anticoagulation at this time due to recent stenting patient may very well require transfer to higher level tertiary facility for potential complex foregut surgery and/or interventional radiology for highly selective mesenteric a ngiography and embolization.
[2023-11-19 07:40] LABS: Basophils % 0.3 % (0.1-2.0); Eosinophils # 0.2 K/mm3 (0.0-0.4); Eosinophils % 2.1 % (0.1-12.0); Hematocrit 25.5 % (37.0-47.0); Hemoglobin 8.6 g/dL (12.2-16.2); Lymphocytes # 2.3 K/mm3 (0.7-4.5); Lymphocytes % 26.8 % (10-50); Mean Corpuscular HGB Conc 33.7 g/dL (31.8-35.4); Mean Corpuscular Volume 74.2 fl (81-99); Mean Platelet Volume 8.2 fl (7.4-10.4); Monocytes # 0.5 K/mm3 (0.1-1.0); Monocytes % 5.9 % (1.7-9.3); Neutrophils # 5.5 K/mm3 (1.8-7.8); Neutrophils % 64.9 % (37.0-80.0); Platelet Count 402 K/mm3 (142-424); Red Blood Count 3.44 M/mm3 (4.20-5.40); Red Cell Distribution Width 17.6 % (11.5-17.5); White Blood Count 8.5 K/mm3 (4.8-10.8)
[2023-11-19 07:56] LABS: Chloride 105 mmol/L (98-107); Sodium 135 mmol/L (136-145)
[2023-11-19 07:57] LABS: Potassium 4.2 mmoL/L (3.5-5.1)
[2023-11-19 07:59] LABS: Blood Urea Nitrogen 20 mg/dl (7-17); Creatinine Clearance Estimated 57 mL/min (50-200); Estimated Glomerular Filt Rate 64 ml/min (>60); GFR (African American) 77 ML/MIN (>60)
[2023-11-19 08:00] LABS: Anion Gap 4.2 mEq/L (5-15); Calcium 8.3 mg/dl (8.4-10.2); Carbon Dioxide 30 mmol/L (22.0-30.0); Glucose 127 mg/dl (74-100)
[2023-11-19] MEDS: SODIUM CHLORIDE 0.9% 10ML VIAL 10 ML IV (09:12)
[2023-11-19] MEDS: PANTOPRAZOLE 40MG VIAL 40 MG IV ×2 (09:12→21:58)
[2023-11-19] MEDS: DOCUSATE SODIUM 100 MG CAPSULE PO (09:13)
[2023-11-19] MEDS: EMPAGLIFLOZIN 10MG TABLET 10 MG PO (09:13)
[2023-11-19] MEDS: CITALOPRAM 40MG TABLET 40 MG PO (09:13)
[2023-11-19] MEDS: CLOPIDOGREL 75MG TAB 75 MG PO (09:28)
--- NOTE | 2023-11-19 09:50 | ECG_ITS ---
APPROVED REPORT Exam: Resting ECG HR:76 bpm ECG Measurements Heart Rate 76 AXES MD 169 P 10 QRSd 113 QRS -35 QT 399 T -3 QTc 429 Conclusion SINUS RHYTHM LEFT AXIS DEVIATION [QRS AXIS < -30] LOW QRS VOLTAGE IN PRECORDIAL LEADS [QRS DEFLECTION < 1.0 mV IN CHEST LEADS] MODERATE INTRAVENTRICULAR CONDUCTION DELAY [110+ ms QRS DURATION] ABNORMAL ECG UNCONFIRMED REPORT Electronically signed by : Silas Diez MD 11/20/2023 20:12:30
--- NOTE | 2023-11-19 12:18 | PC.NURSE ---
Pt off floor to surgery for scope.
--- NOTE | 2023-11-19 12:39 | [facility].SCOPE ---
Procedure: Date: 11/19/23 Patient Date of :: 1960 Procedure Performed:: Esophagogastroduodenoscopy Indications:: Patient is a 62-year-old female from [place], [place] with history of obesity (BMI 45) congestive heart failure, sleep apnea, coronary artery disease with multiple previous coronary stents, COPD, hypertension, GERD (on omeprazole), hyperlipidemia. Several days ago she had developed chest pain. She had taken 2 baby aspirin and 2 nitroglycerin. She went to the emergency department at [facility] due to lack of relief. Troponins were negative initially. She was placed on a heparin and nitroglycerin drip due to concerns for cardiac ischemia. Patient is normally followed by cardiology at [facility]. Cardiology was contacted at this facility and she was admitted to [facility] for management. Upon admission her hemoglobin was 10 (baseline Hgb 13). BUN and creatinine were 14 and 1.0. Cardiology was consulted. Plan was made to proceed with left heart catheterization. This was performed on 11/16/2023 which revealed occluded right coronary artery of unknown duration accompanied by moderate to severe left ventricular dysfunction. She underwent stenting of the right coronary artery with drug-eluting stent. This was followed by embolization of moderate to large thrombus into the first marginal branch off the posterior lateral ventricular branch. Left ventricular ejection fraction estimated approximately 30 to 40%. Patient was given Integrilin bolus and continued on Integrilin drip. Plan was to continue this along with dual antiplatelet therapy. 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 The following morning routine blood work revealed a hemoglobin of 6.9 (down from 10.0 on admission). She had a BUN of 51 and a creatinine of 1.4 (14 and 1.0 on admission). Patient was ordered transfusion. Cardiology requested continuing Plavix but holding aspirin. Patient was transfused 2 units packed red blood cells for hemoglobin of 6.8 with posttransfusion hemoglobin of of 8.3. She underwent CT scan of the abdomen and pelvis without any contrast which revealed a 5.6 x 2 cm collection of air adjacent to the proximal duodenum which may represent large duodenal ulcer. Surgical consultation was obtained for today. Plan was made to proceed with upper endoscopy for diagnostic and potentially therapeutic purposes. Patient denies symptoms of hematemesis, hematochezia, or melena. Performing Provider:: Bandar Wilson MD Referring Provider:: Kush Stephenson Sedation:: MAC sedation Procedure:: Patient history was obtained and appropriate physical examination was performed. Patient's medications and allergies were reviewed. Informed consent was obtained after explaining the benefits, alternatives, and risks of the procedure including, but not limited to, bleeding, perforation, missed lesions, and adverse reaction to anesthesia medications. Patient was transported to endoscopy procedure room. Patient was connected to monitoring devices. Throughout the procedure the patient's blood pressure, pulse, and oxygen saturations were monitored continuously. Patient identification and planned procedure were verified by the staff. Patient was positioned in lateral decubitus position. Olympus endoscope was inserted via the oropharynx. There is some minor cricopharyngeal spasm. Esophagus was cannulated and the endoscope was advanced. Gastroesophageal junction was encountered at approximately 38 cm. Stomach was cannulated and insufflated. Retroflexion was performed which revealed no evidence of any appreciable hiatal hernia. There was minor diffuse nonerosive gastropathy. Mild stenosis at the pylorus was noted. Endoscope was advanced through the pylorus. Within the duodenal bulb there was some prominent hypertrophic mucosa of uncertain etiology but no evidence of any active bleeding. Endoscope was advanced to the distal duodenum. There was no evidence of any definite ulcer. There was some hyperperistalsis of the duodenum and some prolapse. Repeated withdrawal of the endoscope into the gastric lumen and reinsertion to the distal duodenum with slow withdrawal and inspection of the second portion of the duodenum revealed no evidence of any definite ulcer. There was no evidence of any stigmata of recent bleeding. Ultimately after thorough inspection of the duodenum repeatedly stomach was desufflated and the endoscope was withdrawn. . Findings:: Gastroesophageal junction at 38 cm Mild diffuse nonerosive gastropathy No evidence of any definite duodenal ulcer No evidence of any recent or active upper GI bleeding proximal to the ligament of Treitz Recommendations:: Recommend continuation of proton pump inhibitors. Continue to monitor hemoglobin and hematocrit. I would recommend sending stool for Hemoccult. May be reasonable to proceed with upper GI with small bowel follow-through for radiographic investigation of GI tract proximal to the colon. Complications:: None immediately apparent Estimated blood obtained (mL): 0 Colonoscopy Component Colonoscopy Component Was a colonoscopy performed during today's procedure?: No
[2023-11-19] MEDS: ACETAMINOPHEN 325MG TAB 650 MG PO (13:05)
[2023-11-19 13:44] LABS: Hematocrit 25.5 % (37.0-47.0); Hemoglobin 8.3 g/dL (12.2-16.2)
--- NOTE | 2023-11-19 13:50 | P.PN_ITS ---
Subjective Subjective Date: 11/19/23 Time: 10:00 Principal diagnosis: NSTEMI Interval history: Patient had episode of chest pain over the weekend. EKG showed nonspecific ST changes inferior leads. Dr. Cisneros was called and managed the situation. Patient had complete resolution of symptoms with 1 mg Dilaudid. She was not a candidate for relook angiogram. Her hemoglobin dropped to 6 and she was found to have 5 cm air bubble near her duodenum, suggestive of ulceration. General surgery has been consulted. Patient received 2 unit blood transfusion. She denies GI upset and has mild epigastric right upper quadrant tenderness. She has not had a bowel movement since admission, denies abdominal distention. She feels very weak and fatigued. Exam Data for Last 24 hours Vital signs and Labs for Last 24 Hours: Temp Pulse Resp BP Pulse Ox O2 Del Method O2 Flow Rate 97.5 F L 76 19 119/69 98 Nasal Cannula 2 11/19/23 08:00 11/19/23 13:30 11/19/23 13:30 11/19/23 13:30 11/19/23 13:30 11/19/23 13:30 11/19/23 13:30 Laboratory Results - last 24 hr 11/18/23 11:20: Blood Type B Negative, Antibody Screen Negative, Crossmatch (AHG) See Detail 11/18/23 17:23: Hgb 7.6 L D, Hct 22.7 L, PT 10.6, INR 0.98 11/19/23 01:00: Hgb 8.3 L, Hct 25.7 L 11/19/23 06:17: WBC 8.5, RBC 3.44 L, Hgb 8.6 L, Hct 25.5 L, MCV 74.2 L, MCH 25.0 L, MCHC 33.7, RDW 17.6 H, Plt Count 402, MPV 8.2, Neut % (Auto) 64.9, Lymph % (Auto) 26.8, [place] % (Auto) 5.9, Eos % (Auto) 2.1, Baso % (Auto) 0.3, Neut # (Auto) 5.5, Lymph # (Auto) 2.3, [place] # (Auto) 0.5, Eos # (Auto) 0.2, Baso # (Auto) 0.0, Sodium 135 L, Potassium 4.2, Chloride 105, Carbon Dioxide 30, Anion Gap 4.2 L, BUN 20 H D, Creatinine 0.90 D, Estimated Creat Clear 57, Estimated GFR 64, Est GFR ( Amer) 77 D, Glucose 127 H, Calcium 8.3 L 11/19/23 13:08: Hgb 8.3 L, Hct 25.5 L I & O for Last 24 hours: Intake & Output 11/16/23 11/17/23 11/18/23 11/19/23 23:59 23:59 23:59 23:59 Intake Total 112 / 112 359 / 359 1563 / 1563 0 / 0 Output Total 0 / 0 0 / 0 0 / 0 0 / 0 Balance 112 / 112 359 / 359 1563 / 1563 0 / 0 Weight 269 lb 4 oz 266 lb 9 oz 266 lb 9.01 oz 266 lb 8.622 oz Constitutional Constitutional: no acute distress and cooperative *Routine HEENT Exam Eye: Present PERRL *Routine Respiratory Exam Respiratory: Present CTA bilaterally; Absent accessory muscle use, wheezes or crackles *Routine Cardiovascular Exam Cardiovascular: Present RRR, Normal S1 and Normal S2; Absent murmur, gallop or r ubs *Routine Abdominal Exam Abdominal: Present soft, tenderness (Mild right upper quadrant and epigastric tenderness) and obese; Absent distended, rebound, guarding or rigid *Routine Extremities Exam Extremities: Present pulses intact; Absent cyanosis or edema *Routine Skin Exam Skin: Present intact; Absent erythema or wounds *Routine Neurological Exam Neurological: Present alert and oriented X3 Routine Psychiatric Exam Psychiatric: Present cooperative Progress Note: A&P Assessment and plan (1) GI (gastrointestinal hemorrhage): Status: Acute (2) NSTEMI (non-ST elevated myocardial infarction): Status: Acute (3) CHF (congestive heart failure): Status: Acute Assessment and Plan Assessment and Plan for All Diagnoses:: MV-CAD s/p NSTEMI with RCA thrombectomy/stenting 11/16 - stenting 12/21, med management 04/22, transferred here Fri from [facility] with angial symptoms and elevated trop - LHC 11/16 - thrombosed RCA, successful thrombectomy and stenting, other arteris mild/non-obstructive. Had Integrillin drip x18h - Pt has ongoing constant CP with no modifying factors which is not angina in description. Suspect GI etiology - ASA on hold due to GI bleed - Cont Plavix - BP too low for BB - Resume Ran[place] - No indication for repeat LHC at this time Ischemic Cardiomyopathy - EF down from 55 12/21 to 40% this admission - Appears euvolemic at this time - BP too low for BB, ARNI, AA - 80s systolic. Cont Jardiance. Resume other meds later when BP allows. Acute Blood Loss Anemia - pt had LHC then Hgb dropped from 10 to 6 - no BM since admission, mild abdominal discomfort - CT Abdomen: IMPRESSION: 5.6 x 2 cm collection of air adjacent to the proximal duodenum. Series 1001, image 33. It measures 2.2 x 2.5 cm on series 3, image 38 and adjacent images. This may represent a large duodenal ulcer. This is not the typical location for diverticulum. The collection of air was present in March 2023 but has increased in size. Recommend endoscopy for further evaluation. - EGD today shows no ulceration, no recent bleeding - Check CT Chest with contrast BMI 45 - she would benefit from aggressive weight loss via diet and exercise - consider OP GLP-1
--- NOTE | 2023-11-19 14:12 | CT_ITS ---
PROCEDURE INFORMATION: Exam: CTA Chest With Contrast Exam date and time: 11/19/2023 2:33 PM Age: 62 years old Clinical indication: Pain; Chest pressure; Additional info: Chest pain post lhc, blood loss anemia TECHNIQUE: Imaging protocol: Computed tomographic angiography of the chest with contrast. Exam focused on the arteries. 3D rendering (Not supervised by radiologist): MIP and/or 3D reconstructed images were created by the technologist. Radiation optimization: All CT scans at this facility use at least one of these dose optimization techniques: automated exposure control; mA and/or kV adjustment per patient size (includes targeted exams where dose is matched to clinical indication); or iterative reconstruction. Contrast material: ISOVUE 370; Contrast volume: 100 ml; Contrast route: INTRAVENOUS (IV); COMPARISON: CT ANGIO CHEST 09/01/2019 5:48 PM FINDINGS: Pulmonary arteries: Pulmonary vasculature is adequately opacified without filling defects or other evidence of acute pulmonary embolism. Aorta: Unremarkable. No aortic aneurysm. No aortic dissection. Lungs: Mild upper lobe emphysematous changes, stable. No infiltrates. 1 cm calcified granuloma right lung base unchanged. Pleural spaces: Unremarkable. No pneumothorax. No pleural effusion. Heart: Heart is not enlarged. Evidence of prior coronary artery stenting. No significant coronary artery calcifications. No significant pericardial effusion. Mediastinal space: Chronic granulomatous calcifications within the mediastinum and right hilum unchanged. No significant lymphadenopathy. Lymph nodes: See Mediastinal space finding. Adrenal glands: Stable thickening involving the mediolateral limbs left adrenal gland consistent with benign etiology. Bones/joints: Moderate degenerative changes lower thoracic spine. No acute bony abnormalities. Soft tissues: Unremarkable. IMPRESSION: Negative CT angiogram of the chest. No evidence of acute pulmonary embolism. COMMENTS: The presence of pulmonary emphysema on CT is an independent risk factor for lung cancer. In the absence of a history or active diagnosis of lung cancer, it is recommended that this patient with emphysema be evaluated for enrollment in a low dose CT lung cancer screening program.
--- NOTE | 2023-11-19 14:22 | EXP.PN ---
Subjective *Date: 11/19/23 *Time: 14:22 Interval history: Patient was seen and evaluated at the bedside, complains of Left sided chest pains, denied associated SOB, nausea or vomiting. Denies nausea, vomiting, abdominal pain. Exam Data for Last 24 hours Vital signs and Labs for Last 24 Hours: Temp Pulse Resp BP Pulse Ox O2 Del Method O2 Flow Rate 97.5 F L 76 19 119/69 98 Nasal Cannula 2 11/19/23 08:00 11/19/23 13:30 11/19/23 13:30 11/19/23 13:30 11/19/23 13:30 11/19/23 13:30 11/19/23 13:30 Laboratory Results - last 24 hr 11/18/23 11:20: Blood Type B Negative, Antibody Screen Negative, Crossmatch (AHG) See Detail 11/18/23 17:23: Hgb 7.6 L D, Hct 22.7 L, PT 10.6, INR 0.98 11/19/23 01:00: Hgb 8.3 L, Hct 25.7 L 11/19/23 06:17: WBC 8.5, RBC 3.44 L, Hgb 8.6 L, Hct 25.5 L, MCV 74.2 L, MCH 25.0 L, MCHC 33.7, RDW 17.6 H, Plt Count 402, MPV 8.2, Neut % (Auto) 64.9, Lymph % (Auto) 26.8, [place] % (Auto) 5.9, Eos % (Auto) 2.1, Baso % (Auto) 0.3, Neut # (Auto) 5.5, Lymph # (Auto) 2.3, [place] # (Auto) 0.5, Eos # (Auto) 0.2, Baso # (Auto) 0.0, Sodium 135 L, Potassium 4.2, Chloride 105, Carbon Dioxide 30, Anion Gap 4.2 L, BUN 20 H D, Creatinine 0.90 D, Estimated Creat Clear 57, Estimated GFR 64, Est GFR ( Amer) 77 D, Glucose 127 H, Calcium 8.3 L 11/19/23 13:08: Hgb 8.3 L, Hct 25.5 L I & O for Last 24 hours: Intake & Output 11/16/23 11/17/23 11/18/2311/19/24 23:59 23:59 23:59 23:59 Intake Total 112 / 112 359 / 359 1563 / 1563 0 / 0 Output Total 0 / 0 0 / 0 0 / 0 0 / 0 Balance 112 / 112 359 / 359 1563 / 1563 0 / 0 Weight 122.13 kg 120.911 kg 120.911 kg 120.9 kg Constitutional Constitutional: no acute distress *Routine HEENT Exam Head: Present normocephalic Eye: Present EOMI and PERRL ENT: Present mucous membranes moist *Routine Neck Exam Neck: Present supple; Absent lymphadenopathy *Routine Respiratory Exam Respiratory: Present CTA bilaterally *Routine Cardiovascular Exam Cardiovascular: Present RRR *Routine Abdominal Exam Abdominal: Present soft and normoactive bowel sounds; Absent tenderness *Routine Extremities Exam Extremities: Absent cyanosis, clubbing or edema *Routine Skin Exam Skin: Present warm; Absent rash *Routine Neurological Exam Neurological: Present alert and oriented X3 Assessment and Plan *Assessment and plan (1) [place]cendo angina: Status: Acute Category: Medical Code(s): I20.0 - Unstable angina (2) Abnormal ECG: Status: Chronic Category: Medical Code(s): R94.31 - Abnormal electrocardiogram [ECG] [EKG] (3) HTN (hypertension): Status: Chronic Qualifiers: Hypertension type: essential hypertension Qualified Code(s): I10 - Essential (primary) hypertension Category: Medical Code(s): I10 - Essential (primary) hypertension (4) Hyperlipidemia: Status: Chronic Qualifiers: Hyperlipidemia type: mixed hyperlipidemia Qualified Code(s): E78.2 - Mixed hyperlipidemia Category: Medical Code(s): E78.5 - Hyperlipidemia, unspecified (5) CAD (coronary artery disease): Status: Chronic Qualifiers: Coronary Disease-Associated Artery/Lesion type: [place] artery [place] vs. transplanted heart: [place] heart Associated angina: with other forms of angina Qualified Code(s): I25.118 - Atherosclerotic heart disease of [place] coronary artery with other forms of angina pectoris Category: Medical Code(s): I25.10 - Atherosclerotic heart disease of [place] coronary artery without angina pectoris (6) CHF (congestive heart failure): Status: Acute Qualifiers: Heart failure type: unspecified Heart failure chronicity: acute on chronic Qualified Code(s): I50.9 - Heart failure, unspecified Category: Medical Code(s): I50.9 - Heart failure, unspecified (7) Former smoker: Status: Chronic Category: Social Hx Code(s): Z87.891 - Personal history of nicotine dependence Plan 62-year-old female history of obesity, CHF, CAD with angina status post stent, COPD, HTN and GERD, hyperlipidemia, former smoker who presented to ED [facility] complaining of chest pain. On arrival here patient chest pain-free, still have some pain on her left arm. Blood pressures are normalized. Nitroglycerin drip started. New set of lab ordered. EKG negative for ST changes. Cardiology consult. Plan as follows: -Unstable angina s/p cardiac cath, had stent placed, was started on ASA, Plavix, finished integrillin gtt Anemia likely anemia of acute blood loss, suspect GI loss CT abd concerning for PUD continue on IV PPI s/p EGD - no visible bleeding seen, no duodenal ulcer seen per report EGD findings Findings: Gastroesophageal junction at 38 cm Mild diffuse nonerosive gastropathy No evidence of any definite duodenal ulcer No evidence of any recent or active upper GI bleeding proximal to the ligament of [place] Recommendations:: Recommend continuation of proton pump inhibitors. Continue to monitor hemoglobin and hematocrit. I would recommend sending stool for Hemoccult. May be reasonable to proceed with upper GI with small bowel follow-through for radiographic investigation of GI tract proximal to the colon. Continue to hold all AC, AP except plavix, cardiology on board total 2 PRBC units received History of hypertension hyperlipidemia CAD and CHF: Condition reviewed. Nursing to reconcile home medication DVT prophylax on hold due to anemia. Protonix for GI bleed protection Full code s/p cardiac cath, tolerated well, s/p stenting, finished integrillin gtt and lovenox. await cardiology recs for today and continue to monitor Hb, DC 1-2days pending Hb stability
[2023-11-19] MEDS: IOPAMIDOL-370 (76%);100ML BOTTLE 100 ML IV (14:40)
[2023-11-19] MEDS: 0.9 % SODIUM CHLORIDE 50 ML VIAL 40 ML IV (14:40)
[2023-11-19] MEDS: SODIUM CHLORIDE 0.9% 10ML SYR (RAD ONLY) 10 ML IV (14:40)
--- NOTE | 2023-11-19 15:14 | PC.NURSE ---
PT WAS OFF FLOOR FOR CTA AT 1430 V/S
--- NOTE | 2023-11-19 18:56 | PC.NURSE ---
Pt A&O x4. Post EGD. No complaints stated. Pt is resting in bed. VSS at this time. Call light within reach.
[2023-11-19] MEDS: MORPHINE 2MG/ML SYRINGE 2 MG IV (20:21)
--- NOTE | 2023-11-19 20:26 | ECG_ITS ---
APPROVED REPORT Exam: Resting ECG HR:82 bpm ECG Measurements Heart Rate 82 AXES NC 173 P 61 QRSd 108 QRS -24 QT 364 T 81 QTc 402 Conclusion SINUS RHYTHM LOW QRS VOLTAGE IN PRECORDIAL LEADS [QRS DEFLECTION < 1.0 mV IN CHEST LEADS] RBBB ABNORMAL ECG UNCONFIRMED REPORT Electronically signed by : Silas Diez MD 11/20/2023 20:08:16
--- NOTE | 2023-11-19 20:33 | EXP.EVENT.NO ---
late entry for 11/18/23 0630-Pt's pain improved. Pt is resting comfortable. Pt c/o no pain.
[2023-11-19] MEDS: ONDANSETRON 4MG/2ML VIAL 4 MG IV (20:40)
[2023-11-19] MEDS: HYDROMORPHONE 2MG/ML SYRINGE 1 MG IV (20:52)
[2023-11-19 21:30] LABS: Hematocrit 25.7 % (37.0-47.0); Hemoglobin 8.4 g/dL (12.2-16.2)
[2023-11-19] MEDS: HYDROMORPHONE 2MG/ML SYRINGE 0.5 MG IV (21:58)
[2023-11-19] MEDS: ROPINIROLE 1MG TABLET 2 MG PO (21:59)
[2023-11-20] VITALS: BP 114/62; BP 141/89; PULSE 74; PULSE 80; PULSE 83; PULSE 84; RESP 22; TEMP 36.7; O2SAT 94; O2SAT 97
[2023-11-20] MEDS: ONDANSETRON 4MG/2ML VIAL 4 MG IV (03:59)
[2023-11-20] MEDS: ACETAMINOPHEN 325MG TAB 650 MG PO (03:59)
[2023-11-20 04:00] VITALS: BP 125/76; PULSE 80; PULSE 82; PULSE 86; PULSE 88; RESP 20; TEMP 36.4; O2SAT 96; O2SAT 98; BMI 46.0
[2023-11-20 07:17] LABS: Basophils % 0.2 % (0.1-2.0); Eosinophils # 0.1 K/mm3 (0.0-0.4); Eosinophils % 1.4 % (0.1-12.0); Hematocrit 26.8 % (37.0-47.0); Hemoglobin 8.6 g/dL (12.2-16.2); Lymphocytes % 9.5 % (10-50); Mean Corpuscular HGB Conc 32.2 g/dL (31.8-35.4); Mean Corpuscular Hemoglobin 24.4 pg (27.0-31.2); Mean Corpuscular Volume 75.7 fl (81-99); Mean Platelet Volume 7.7 fl (7.4-10.4); Monocytes # 0.4 K/mm3 (0.1-1.0); Monocytes % 3.4 % (1.7-9.3); Neutrophils % 85.5 % (37.0-80.0); Platelet Count 406 K/mm3 (142-424); Red Blood Count 3.54 M/mm3 (4.20-5.40); Red Cell Distribution Width 17.7 % (11.5-17.5); White Blood Count 10.6 K/mm3 (4.8-10.8)
[2023-11-20 07:18] LABS: Chloride 103 mmol/L (98-107); Potassium 4.4 mmoL/L (3.5-5.1); Sodium 135 mmol/L (136-145)
[2023-11-20 07:19] LABS: MANUAL DIFFERENTIAL MANUAL DIFFERENTIAL (MANUAL DIFF)
[2023-11-20 07:21] LABS: Anion Gap 2.4 mEq/L (5-15); Blood Urea Nitrogen 11 mg/dl (7-17); Calcium 8.4 mg/dl (8.4-10.2); Carbon Dioxide 34 mmol/L (22.0-30.0); Creatinine Clearance Estimated 65 mL/min (50-200); Estimated Glomerular Filt Rate 73 ml/min (>60); GFR (African American) 89 ML/MIN (>60); Glucose 130 mg/dl (74-100)
[2023-11-20 08:00] VITALS: BP 113/65; PULSE 79; PULSE 80; RESP 16; TEMP 36.5; O2SAT 100; O2SAT 97
--- NOTE | 2023-11-20 08:08 | P.DS_ITS ---
General Admission date:: 11/16/23 Discharge date: 11/20/23 HPI HPI HPI: Patient is a 62-year-old female from [place], [place] with history of obesity (BMI 45) congestive heart failure, sleep apnea, coronary artery disease with multiple previous coronary stents, COPD, hypertension, GERD (on omeprazole), hyperlipidemia. Several days ago she had developed chest pain. She had taken 2 baby aspirin and 2 nitroglycerin. She went to the emergency department at [facility] due to lack of relief. Troponins were negative initially. She was placed on a heparin and nitroglycerin drip due to concerns for cardiac ischemia. Patient is normally followed by cardiology at [facility]. Cardiology was contacted at this facility and she was admitted to [facility] for management. Upon admission her hemoglobin was 10 (baseline Hgb 13). BUN and creatinine were 14 and 1.0. Cardiology was consulted. Plan was made to proceed with left heart catheterization. This was performed on 11/16/2023 which revealed occluded right coronary artery of unknown duration accompanied by moderate to severe left ventricular dysfunction. She underwent stenting of the right coronary artery with drug-eluting stent. This was followed by embolization of moderate to large thrombus into the first marginal branch off the posterior lateral ventricular branch. Left ventricular ejection fraction estimated approximately 30 to 40%. Patient was given Integrilin bolus and continued on Integrilin drip. Plan was to continue this along with dual antiplatelet therapy. 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 The following morning routine blood work revealed a hemoglobin of 6.9 (down from 10.0 on admission). She had a BUN of 51 and a creatinine of 1.4 (14 and 1.0 on admission). Patient was ordered transfusion. Cardiology requested continuing Plavix but holding aspirin. Patient was transfused 2 units packed red blood cells for hemoglobin of 6.8 with posttransfusion hemoglobin of of 8.3. She underwent CT scan of the abdomen and pelvis without any contrast which revealed a 5.6 x 2 cm collection of air adjacent to the proximal duodenum which may represent large duodenal ulcer. Surgical consultation was obtained for today. Hospital Course Hospital Course Hospital Course: 62-year-old female history of obesity, CHF, CAD with angina status post stent, COPD, HTN and GERD, hyperlipidemia, former smoker who presented to ED [facility] complaining of chest pain. On arrival here patient chest pain- free, still have some pain on her left arm. Blood pressures are normalized. Nitroglycerin drip started. Concern for NSTEMI. Cardiology was consulted. Taken to [facility] on 11/16 with stenting of RCA. Patient had postprocedural chest pain but no changes in telemetry or EKG. Overall doing well and stable for discharge home with close follow-up as an outpatient. Problems addressed as follows: MV-CAD s/p NSTEMI with RCA thrombectomy/stenting 11/16 Ischemic cardiomyopathy -62-year-old female with history of CAD. Previous stenting 12/21, med management 04/22, transferred here Fri from [facility] with anginal symptoms and elevated troponin. Left heart cath performed on 11/16. Found to have a thrombosed RCA. Thrombectomy successfully performed with stenting. Other arteries with mild to nonobstructive disease. Was initiated on Integrilin drip for 18 hours. Developed anemia after initiating antiplatelet/anticoagulation treatment. Surgery was consulted, see below. Bleeding stopped and able to resume aspirin and Plavix. Given intermittent chest pain. Ranexa was resumed. Extensive counseling on likely etiology of her pain including arterial spasm and possible clot mobilization to small distal vessel. No indication for repeat left heart cath at this time. [facility] Of note, blood pressure too low for beta-steven at time of discharge. Echo obtained during admission showing EF reduced to 40%, down from 55% in November of last year. Patient appears euvolemic at this time. Unable to start beta- steven or Arni due to low blood pressures. Will continue Jardiance at this time and resume meds when appropriate as an outpatient. Acute Blood Loss Anemia on chronic iron deficiency anemia -After left heart cath, hemoglobin dropped from 10-6. Was transfused 2 units with good response. Hemoglobin remained above 8 for over 48 hours with no overt signs of bleeding. Patient was initiated on proton pump inhibitor twice daily. Will continue proton pump inhibitor orally twice daily at discharge. Surgery was consulted and EGD was performed. No ulceration but did have some minor irritation of her stomach. Suspect she had some bleeding that stopped after anticoagulation was stopped. No BM since admission. Counseled that she may have dark stools when she gets home and this is likely the blood mobilizing from her gut. Treated with single dose IV Venofer 200 mg prior to discharge. Would benefit from completing 4 more doses IV or initiating oral iron as her MCV is low at 75. BMI 45 - she would benefit from aggressive weight loss via diet and exercise. Recommend considering outpatient GLP-1 Findings as follows: Acute non-ST elevation myocardial infarction accompanied by a thrombosed right coronary artery of unknown duration accompanied by moderate to severe LV dysfunction Successful stenting of the right coronary 100% occlusion reduced to 0% with 1 drug-eluting stent followed by embolization of a moderate to large thrombus into the first marginal branch off the posterior lateral ventricular branch Left ventricular dysfunction estimated between 30 and 40% Spent 30 minutes in discharge counseling, documentation, chart review, and direct care with patient. Extensive discussion with cardiology on day of discharge. Exam Data for Last 24 hours Vital signs and Labs for Last 24 Hours: Temp Pulse Resp BP Pulse Ox O2 Del Method O2 Flow Rate 97.5 F L 82 20 125/76 98 Nasal Cannula 3 11/20/23 04:00 11/20/23 04:00 11/20/23 04:00 11/20/23 04:00 11/20/23 04:00 11/20/23 05:00 11/20/23 05:00 Laboratory Results - last 24 hr 11/18/23 11:20: Crossmatch (AHG) See Detail 11/19/23 06:17: Carbon Dioxide 30, Anion Gap 4.2 L, Glucose 127 H, Calcium 8.3 L 11/19/23 13:08: Hgb 8.3 L, Hct 25.5 L 11/19/23 21:20: Hgb 8.4 L, Hct 25.7 L 11/20/23 05:55: WBC 10.6, RBC 3.54 L, Hgb 8.6 L, Hct 26.8 L, MCV 75.7 L, MCH 24.4 L, MCHC 32.2, RDW 17.7 H, Plt Count 406, MPV 7.7, Neut % (Auto) 85.5 H, Lymph % (Auto) 9.5 L, [place] % (Auto) 3.4, Eos % (Auto) 1.4, Baso % (Auto) 0.2, Neut # (Auto) 9.0 H, Lymph # (Auto) 1.0, [place] # (Auto) 0.4, Eos # (Auto) 0.1, Baso # (Auto) 0.0, Sodium 135 L, Potassium 4.4, Chloride 103, Carbon Dioxide 34 H, Anion Gap 2.4 L, BUN 11 D, Creatinine 0.80, Estimated Creat Clear 65, Estimated GFR 73, Est GFR ( Amer) 89, Glucose 130 H, Calcium 8.4 I & O for Last 24 hours: Intake & Output 11/17/23 11/18/23 11/19/23 11/20/23 23:59 23:59 23:59 23:59 Intake Total 359 / 359 1563 / 1563 360 / 360 Output Total 0 / 0 0 / 0 0 / 0 250 / 250 Balance 359 / 359 1563 / 1563 360 / 360 -250 / -250 Weight 120.911 kg 120.911 kg 120.9 kg 122.215 kg Constitutional Constitutional: no acute distress, morbidly obese, chronically ill appearing and cooperative *Routine HEENT Exam Head: Present normocephalic and atraumatic Eye: Present EOMI and PERRL ENT: Present mucous membranes moist *Routine Neck Exam Neck: Present supple *Routine Respiratory Exam Respiratory: Present CTA bilaterally; Absent accessory muscle use, rhonchi, wheezes or crackles *Routine Cardiovascular Exam Cardiovascular: Present RRR, Normal S1 and Normal S2; Absent murmur, gallop or rubs *Routine Abdominal Exam Abdominal: Present soft and normoactive bowel sounds; Absent tenderness *Routine Rectal Exam Patient deferred: visual exam *Routine Exam Patient deferred: external exam *Routine Extremities Exam Extremities: Present pulses intact; Absent cyanosis or edema *Routine Skin Exam Skin: Present intact; Absent erythema or wounds *Routine Neurological Exam Neurological: Present alert, oriented X3 and moving all extremities; Absent altered mental status Routine Psychiatric Exam Psychiatric: Present normal affect and cooperative Results Data Completed and Pending Labs on day of discharge: Labs from last 24 hours 11/20/23 11/19/23 11/19/23 05:55 21:20 13:08 WBC 10.6 RBC 3.54 L Hgb 8.6 L 8.4 L 8.3 L Hct 26.8 L 25.7 L 25.5 L MCV 75.7 L MCH 24.4 L MCHC 32.2 RDW 17.7 H Plt Count 406 MPV 7.7 Neut % (Auto) 85.5 H Lymph % (Auto) 9.5 L [place] % (Auto) 3.4 Eos % (Auto) 1.4 Baso % (Auto) 0.2 Neut # (Auto) 9.0 H Lymph # (Auto) 1.0 [place] # (Auto) 0.4 Eos # (Auto) 0.1 Baso # (Auto) 0.0 Sodium 135 L Potassium 4.4 Chloride 103 Carbon Dioxide 34 H Anion Gap 2.4 L BUN 11 D Creatinine 0.80 Estimated Creat Clear 65 Estimated GFR 73 Est GFR ( Amer) 89 Glucose 130 H Calcium 8.4 Crossmatch (AHG) 11/19/23 11/18/23 06:17 11:20 WBC RBC Hgb Hct MCV MCH MCHC RDW Plt Count MPV Neut % (Auto) Lymph % (Auto) [place] % (Auto) Eos % (Auto) Baso % (Auto) Neut # (Auto) Lymph # (Auto) [place] # (Auto) Eos # (Auto) Baso # (Auto) Sodium Potassium Chloride Carbon Dioxide 30 Anion Gap 4.2 L BUN Creatinine Estimated Creat Clear Estimated GFR Est GFR ( Amer) Glucose 127 H Calcium 8.3 L Crossmatch (AHG) See Detail DS: Diagnosis Discharge Diagnosis (1) Crescendo angina: Status: Acute Code(s): I20.0 - Unstable angina (2) Abnormal ECG: Status: Chronic Code(s): R94.31 - Abnormal electrocardiogram [ECG] [EKG] (3) HTN (hypertension): Status: Chronic Code(s): I10 - Essential (primary) hypertension Qualifiers: Hypertension type: essential hypertension Qualified Code(s): I10 - Essential (primary) hypertension (4) Hyperlipidemia: Status: Chronic Code(s): E78.5 - Hyperlipidemia, unspecified Qualifiers: Hyperlipidemia type: mixed hyperlipidemia Qualified Code(s): E78.2 - Mixed hyperlipidemia (5) CAD (coronary artery disease): Status: Chronic Code(s): I25.10 - Atherosclerotic heart disease of [place] coronary artery without angina pectoris Qualifiers: Associated angina: with other forms of angina Coronary Disease- Associated Artery/Lesion type: [place] artery [place] vs. transplanted heart: [place] heart Qualified Code(s): I25.118 - Atherosclerotic heart disease of [place] coronary artery with other forms of angina pectoris (6) CHF (congestive heart failure): Status: Acute Code(s): I50.9 - Heart failure, unspecified Qualifiers: Heart failure chronicity: acute on chronic Heart failure type: unspecified Qualified Code(s): I50.9 - Heart failure, unspecified (7) Former smoker: Status: Chronic Code(s): Z87.891 - Personal history of nicotine dependence Meds Home Medications and Allergies Home Medications Medication Instructions Recorded Confirmed Type buspirone 7.5 mg tablet 7.5 mg PO BIDP PRN Anxiety 03/14/19 11/16/23 History aspirin 81 mg tablet,delayed 81 mg PO DAILY Heart disease #90 01/07/20 11/16/23 Rx release (Adult Low Dose Aspirin) tabs clopidogrel 75 mg tablet 75 mg PO DAILY thinner #90 tabs 01/07/20 11/16/23 Rx cetirizine 10 mg tablet 10 mg PO DAILY PRN allergies 11/24/22 11/16/23 History diclofenac sodium 1 % topical gel 2 g topical QID 11/24/22 11/16/23 History (Arthritis Pain (diclofenac)) escitalopram oxalate 10 mg tablet 20 mg PO DAILY 11/24/22 11/16/23 History (Lexapro) ipratropium 0.5 mg-albuterol 3 mg 3 ml inhalation QID PRN shortness 01/24/23 11/16/23 Rx (2.5 mg base)/3 mL nebulization of breath or wheezing 90 days #270 soln mL evolocumab 140 mg/mL subcutaneous 140 mg SQ Q2W #2 mL 02/15/23 11/16/23 Rx pen injector (Repatha Ashishick) albuterol sulfate 90 mcg/actuation 2 inh inhalation Q6H PRN shortness 03/21/23 11/16/23 Rx aerosol inhaler of breath or wheezing 90 days #8.5 grams azelastine 137 mcg (0.1 %) nasal 2 spray intranasal HS 90 days #30 03/21/23 11/16/23 Rx spray aerosol mL fluticasone propionate 50 2 spray intranasal DAILY 90 days 03/21/23 11/16/23 Rx mcg/actuation nasal #16 grams spray,suspension (Flonase Allergy Relief) metformin 500 mg tablet 1,000 mg PO DAILY 04/11/23 11/16/23 History ranolazine 1,000 mg 1,000 mg PO BID #60 tabs 04/11/23 11/16/23 Rx tablet,extended release,12 hr sacubitril 24 mg-valsartan 26 mg 1 tab PO BID #30 tabs 04/18/23 11/16/23 Rx tablet (Entresto) empagliflozin 10 mg tablet 10 mg PO DAILY #30 tabs 05/02/23 11/16/23 Rx (Jardiance) amlodipine 2.5 mg tablet 2.5 mg PO DAILY 07/19/23 11/16/23 History ropinirole 1 mg tablet 2 mg PO HS #180 tabs 09/18/23 11/16/23 Rx semaglutide 2 mg/dose (8 mg/3 mL) 0.25 mg SQ WEEKLY 11/12/23 11/16/23 History subcutaneous pen injector (Ozempic) bumetanide 1 mg tablet 1 mg PO DAILY 11/16/23 11/16/23 History fluticasone fur. 100 mcg-umeclid 1 inh inhalation DAILY 11/16/23 11/16/23 History 62.5 mcg-vilant 25 mcg inhalat.powder (Trelegy Ellipta) metoprolol succinate 25 mg 12.5 mg PO DAILY 11/16/23 11/16/23 History tablet,extended release 24 hr spironolactone 100 mg tablet 25 mg PO DAILY 11/16/23 11/16/23 History (Aldactone) hydrocodone 5 mg-acetaminophen 325 1 tab PO TID PRN pain (scale score 11/20/23 Rx mg tablet 7-10) #9 tabs hydrocodone 5 mg-acetaminophen 325 1 tab PO TID PRN pain (scale score 11/20/23 Rx mg tablet 7-10) 3 days #9 tabs nitroglycerin 0.4 mg sublingual 0.4 mg sublingual Q5-15M PRN chest 11/20/23 Rx tablet pain #25 tabs pantoprazole 40 mg tablet,delayed 40 mg PO BID 30 days #60 tabs 11/20/23 Rx release New Prescriptions to Start Prescriptions: gina-acetaminophen Sapna,Jay hydrocodone-acetaminophen Sapna,Jay nitroglycerin Sapna,Jay pantoprazole Sapna,Jay Allergies Allergy/AdvReac Type Severity Reaction Status Date / Time morphine AdvReac Intermediate Vomiting Verified 11/20/23 11:16 diphenhydramine AdvReac Mild Confusion Verified 11/20/23 11:16 [From Benadryl] Discharge Plan Disposition Patient Disposition: Home, Self-Care Condition: Fair Discharge Order Discharge Orders: Discharge Order (Routine); Ordered 11/20/23 Ordered By: Jay Alejo Follow up Plan Follow up with: Josee Morfin [Primary Care Provider] - 11/23/23 2:00 pm Yonas Cisneros MD [Staff Physician] - 11/22/23 9:15 am Prescriptions/Medication Reconciliation: New hydrocodone-acetaminophen 5-325 mg tablet 1 tab PO TID PRN (Reason: pain (scale score 7-10)) 3 Days Qty: 9 0RF pantoprazole 40 mg tablet,delayed release (DR/EC) 40 mg PO BID 30 Days Qty: 60 0RF hydrocodone-acetaminophen 5-325 mg tablet 1 tab PO TID PRN (Reason: pain (scale score 7-10)) Qty: 9 0RF Continued buspirone 7.5 mg tablet 7.5 mg PO BIDP PRN (Reason: Anxiety) aspirin [Adult Low Dose Aspirin] 81 mg tablet,delayed release (DR/EC) 81 mg PO DAILY Qty: 90 3RF clopidogrel 75 mg tablet 75 mg PO DAILY Qty: 90 3RF Rx Instructions: take one tablet by mouth once daily. metformin 500 mg tablet 1,000 mg PO DAILY amlodipine 2.5 mg tablet 2.5 mg PO DAILY Ozempic 2 mg/dose (8 mg/3 mL) pen injector 0.25 mg SQ WEEKLY cetirizine 10 mg tablet 10 mg PO DAILY PRN (Reason: allergies) diclofenac sodium [Arthritis Pain (diclofenac)] 1 % gel 2 g topical QID Rx Instructions: apply to single elbow, wrist or hand; for hand includes palm/fingers/back of hand escitalopram oxalate [Lexapro] 10 mg tablet 20 mg PO DAILY albuterol sulfate 90 mcg/actuation HFA aerosol inhaler 2 inh inhalation Q6H PRN (Reason: shortness of breath or wheezing) 90 Days Qty: 8.5 1RF fluticasone propionate [Flonase Allergy Relief] 50 mcg/actuation spray,suspension 2 spray intranasal DAILY 90 Days Qty: 16 2RF Rx Instructions: administer into each nostril azelastine 137 mcg (0.1 %) aerosol,spray 2 spray intranasal HS 90 Days Qty: 30 3RF Rx Instructions: administer into each nostril ranolazine 1,000 mg tablet extended release 12 hr 1,000 mg PO BID Qty: 60 5RF Jardiance 10 mg tablet 10 mg PO DAILY Qty: 30 5RF ipratropium-albuterol 0.5 mg-3 mg(2.5 mg base)/3 mL solution for nebulization 3 ml inhalation QID PRN (Reason: shortness of breath or wheezing) 90 Days Qty: 270 3RF Repatha SureClick 140 mg/mL pen injector 140 mg SQ Q2W Qty: 2 5RF ropinirole 1 mg tablet 2 mg PO HS Qty: 180 1RF Rx Instructions: administer 1-3 hours before bedtime Entresto 24-26 mg Tablet 1 tab PO BID Qty: 30 3RF spironolactone [Aldactone] 100 mg tablet 25 mg PO DAILY bumetanide 1 mg tablet 1 mg PO DAILY Rx Instructions: TAKE ONE TABLET BY MOUTH EVERY DAY metoprolol succinate 25 mg tablet extended release 24 hr 12.5 mg PO DAILY Rx Instructions: take 1/2 tablet by mouth daily Trelegy Ellipta 100-62.5-25 mcg blister with device 1 inh INHALATION DAILY Patient Comments: Inhale 1 puff every day by inhalation route. nitroglycerin 0.4 mg tablet, sublingual 0.4 mg SUBLINGUAL Q5-15M PRN (Reason: chest pain) Qty: 25 2RF Rx Instructions: do not exceed 3 doses per episode Discontinued omeprazole 40 mg capsule,delayed release(DR/EC) 40 mg PO DAILY Qty: 90 3RF Rx Instructions: take one tablet by mouth once daily Problem Reconciliation Problems Reviewed?: Yes Patient Discharge Instructions ACTIVITY: Continue current activity DIET: continue same diet Patient Instructions: DI for Heart Attack, Duodenal Ulcer, Heart-Healthy Diet, DI for Heart Failure, DI for Angina, DI for Cardiac Catheterization, DI for Surgical Site Infection Providers Primary Care Provider: Josee Morfin Admit Provider: Kush Stephenson Attending Provider: Kush Stephenson
[2023-11-20 09:03] LABS: Eosinophils % 1 % (0-3); Hypochromasia 1+; Lymphocytes % 10 % (10-50); Monocytes % 4 % (2-9); Neutrophils % 85 % (42-76); Total Cells Counted 100
[2023-11-20 09:06] LABS: Platelet Estimate Normal
--- NOTE | 2023-11-20 09:41 | HMH.PTEV ---
Physical Therapy Evaluation Rehab PT IP Evaluation Start: 11/19/23 18:42 Freq: ONCE Status: Active Protocol: Document 11/20/23 09:36 MARIELENA (Rec: 11/20/23 09:41 MARIELENA [id number]) Subjective/History History History Per H&P: This is a 62-year-old female history of obesity, CHF, CAD with angina status post stent, COPD, hypertension and GERD, hyperlipidemia, former smoker who presented to ED [facility] complaining of chest pain patient states that this started at night while she was home watching TV . Patient took 2 baby aspirin , and 2 nitroglycerin. Decided to go to the ER after not relieved. On arrival first EKG was concerning about some ischemic changes. Patient was hypertensive. Troponin was negative, was placing on heparin drip and nitro drip. Of note, patient being follow-up by cardiology at [facility] as well. Cardiology was contacted for transfer. Patient admitted for further management and treatment Subjective Subjective I'm steady on my feet PLOF per pt report: IND without AD for mobility and ADLs. Not driving. Lives alone with 1STE single level house. New diagnosis of cancer in past 12 No months? Rehab PT IP Eval Objective Appearance Patient Behavior Appropriate Patient Orientation Person,Place,Birthday, Situation Difficulty following instructions none Speech Pattern Clear Ambulation Patient Able to Ambulate Yes Ambulation Observation IP General Gait Pattern Observation Wide Based Gait Ambulation Distance (feet) 15 Ambulation Assistive Device None Ambulation Ability Supervision/Stand by,Contact Guard/Hand Hold Balance Ability to Arise Able, uses arms to help Sitting Balance Steady, safe Standing Balance Steady, wide stance Transfers Bed Transfer Ability Supervision/Stand by Sit to Stand Bed Transfer Ability Supervision/Stand by Rehab PT IP prob,goals,plan Problems Date of Evaluation: 11/20/23 Rehab Potential Rehab Potential Innapropriate for Skilled Therapy Discharge Plan PT Discharge Plan Pt safe to d/c home when deemed medically necessary d/t current level of mobility, home set-up, and nearby family support. Pt demo'd steady ambulation without AD. Pt not appropriate for skilled acute care PT at this time d/t level of mobility. Eval Complexity Eval Charge Codes 35800 - High Complexity PHYSICIAN CERTIFICATION: I certify the specified therapy services for Ruthy Finfrock are required, authorized, and reviewed every 30 days.
[2023-11-20] MEDS: CITALOPRAM 40MG TABLET 40 MG PO (09:50)
[2023-11-20] MEDS: SPIRONOLACTONE 25MG TABLET 25 MG PO (09:51)
[2023-11-20] MEDS: EMPAGLIFLOZIN 10MG TABLET 10 MG PO (09:51)
[2023-11-20] MEDS: METOPROLOL SUCCINATE XL 25MG TABLET 12.5 MG PO (09:51)
[2023-11-20] MEDS: CLOPIDOGREL 75MG TAB 75 MG PO (09:51)
[2023-11-20] MEDS: DOCUSATE SODIUM 100 MG CAPSULE PO (09:51)
[2023-11-20] MEDS: SODIUM CHLORIDE 0.9% 10ML VIAL 10 ML IV (09:52)
[2023-11-20] MEDS: PANTOPRAZOLE 40MG VIAL 40 MG IV (09:52)
[2023-11-20] MEDS: SACUBITRIL/VALSARTAN 24-26MG TABLET 2 EACH PO (09:52)
--- NOTE | 2023-11-20 09:53 | HMH.OTEV ---
OT Inpatient Evaluation Rehab OT IP Evaluation Start: 11/19/23 18:42 Freq: ONCE Status: Active Protocol: Document 11/20/23 09:42 [email or web address] (Rec: 11/20/23 09:53 CHELLE [id number]) Rehab OT IP Assessment Subjective History HPI: Patient is a 62-year-old female from [place], [place] with history of obesity (BMI 45) congestive heart failure, sleep apnea, coronary artery disease with multiple previous coronary stents, COPD, hypertension, GERD (on omeprazole), hyperlipidemia. Several days ago she had developed chest pain. She had taken 2 baby aspirin and 2 nitroglycerin. She went to the emergency department at [facility] due to lack of relief. Troponins were negative initially. She was placed on a heparin and nitroglycerin drip due to concerns for cardiac ischemia. Patient is normally followed by cardiology at [facility]. Cardiology was contacted at this facility and she was admitted to [facility] for management. Upon admission her hemoglobin was 10 ( baseline Hgb 13). BUN and creatinine were 14 and 1.0. Cardiology was consulted. Plan was made to proceed with left heart catheterization. This was performed on 2023 which revealed occluded right coronary artery of unknown duration accompanied by moderate to severe left ventricular dysfunction. She underwent stenting of the right coronary artery with drug-eluting stent. This was followed by embolization of moderate to large thrombus into the first marginal branch off the posterior lateral ventricular branch. Left ventricular ejection fraction estimated approximately 30 to 40%. Patient was given Integrilin bolus and continued on Integrilin drip. Plan was to continue this along with dual antiplatelet therapy. 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 The following morning routine blood work revealed a hemoglobin of 6.9 (down from 10.0 on admission). She had a BUN of 51 and a creatinine of 1.4 (14 and 1.0 on admission) . Patient was ordered transfusion. Cardiology requested continuing Plavix but holding aspirin. Patient was transfused 2 units packed red blood cells for hemoglobin of 6.8 with posttransfusion hemoglobin of of 8.3. She underwent CT scan of the abdomen and pelvis without any contrast which revealed a 5.6 x 2 cm collection of air adjacent to the proximal duodenum which may represent large duodenal ulcer. Surgical consultation was obtained for today. Patient lives at home alone. 1 JENNIFER. Independent with ADLs and fx'l mobility tasks. Subjective I can get up. Analysis Patient's ability to participate in bed mobility, transfers, ambulation and LB drsg. Patient completed all task with Independently. Objective Patient Orientation Person,Time,Name,Age,Birthday, Year Right Upper Extremity Gross ROM WFL Left Upper Extremity Gross ROM WFL Bed Mobility bed mobility - supine/sit Assist Level Independent Transfer Training Sit/Stand/Pivot Transfer Assist Level Independent Chair Transfer Ability Independent Chair Transfer Technique Sit to/from Ambulatory Chair Transfer Assistive Devices None Lower Body Dressing Ability Independent Rehab OT IP prob,goals,plan Problems Date of Evaluation: 11/20/23 Rehab Potential Rehab Potential Innapropriate for Skilled Therapy Discharge Plan OT Discharge Plan Patient appears to be at baseline with ADLs and fx'l mobility. Patient may return home with services after medical d/c. Eval Complexity Eval Charge Codes 49977 - Low Complexity PHYSICIAN CERTIFICATION: I certify the specified therapy services for Ruthy Huntley are required, authorized, and reviewed every 30 days.
--- NOTE | 2023-11-20 10:04 | PC.NURSE ---
Pt. set up password of [employer].
[2023-11-20] MEDS: RANOLAZINE 500MG ER TABLET 500 MG PO (11:02)
[2023-11-20 11:44] VITALS: BP 100/55; PULSE 81; TEMP 36.9; O2SAT 95
[2023-11-20] MEDS: IRON SUCROSE COMPLEX 200 MG in 0.9 % SODIUM CHLORIDE 100 ML 220 MG IV (12:37)
--- NOTE | 2023-11-20 13:28 | CA_ITS ---
APPROVED REPORT EXAM: Limited 2D, Doppler, and color-flow Echocardiogram Classification Clerk: Kim Bob RT(R) Ht: 5 ft 4 in Wt: 269lbs BSA: 2.22 BP: 119/69 mmHg Indications: angina, Abn EKG, CP, COPD, ex smoker, obesity, hyperlipidemia, HTN, CAD, GERD, recent stent, 40-45% EF on echo done 11/16/23. Ordered as a limited echo to reassess EF or wall motion changes due to angina post cath. 2D Dimensions EF AP4 45.90 % GL Strain -12.0 % M-Mode Dimensions RVDd 3.47 cm (0.9-2.6) LVDd 5.56 cm (3.5-5.7) LVDs 4.50 cm (3.5-5.7) IVSd 1.13 cm (0.6-1.1) PWd 0.96 cm (0.6-1.1) EF (Teich) 38.90% FS 19.10% EDV (Teich) 151.20 mL ESV (Teich) 92.40 mL LV Diastology E Decel Time 173 (160-240 msec) E/A Ratio 0.6 Mitral Valve MV E Max Billy. 69.0 (40-130 cm/s) MV A Velocity 108.0 (40-130 cm/s) E/A Ratio 0.64 MV PHT 51.0 ms Other Information Study Quality: Technically Difficult Conclusion This is a limited TTE to evaluate for LVEF and wall motion abnormalities. Technically difficult study due to poor acoustic windows. The left ventricle is normal in size. There is increased LV wall thickness. There is mild reduction in global LV systolic function. Wall motion is difficult to estimate due to technically difficult study, but overall there is moderate hypokinesis of the inferoseptal and anterolateral LV johnson. LVEF is 40-45%. When visually compared to prior study from 11/16/2023, there are overall no significant changes. Electronically signed by : Olive Ortiz MD 11/21/2023 12:10:10
--- NOTE | 2023-11-20 14:41 | EXP.CARD.PN ---
Subjective Subjective Date: 11/20/23 Time: 10:00 Principal diagnosis: NSTEMI Interval history: Patient reported she had another chest pain episode last night which occurred at rest and resolved spontaneously. She told me this was severe and she was scared. Later today indicated to hospitalist and her nurse that her symptoms are well-controlled and she feels comfortable for discharge home. Her labs are stable, no further evidence of bleeding. She denies any bowel movements. Exam Data for Last 24 hours Vital signs and Labs for Last 24 Hours: Temp Pulse Resp BP Pulse Ox O2 Del Method O2 Flow Rate 98.4 F 81 16 100/55 L 95 Room Air 3 11/20/23 11:44 11/20/23 11:44 11/20/23 08:00 11/20/23 11:44 11/20/23 11:44 11/20/23 11:44 11/20/23 10:18 Laboratory Results - last 24 hr 11/19/23 21:20: Hgb 8.4 L, Hct 25.7 L 11/20/23 05:55: WBC 10.6, RBC 3.54 L, Hgb 8.6 L, Hct 26.8 L, MCV 75.7 L, MCH 24.4 L, MCHC 32.2, RDW 17.7 H, Plt Count 406, MPV 7.7, Neut % (Auto) 85.5 H, Lymph % (Auto) 9.5 L, Will % (Auto) 3.4, Eos % (Auto) 1.4, Baso % (Auto) 0.2, Neut # (Auto) 9.0 H, Lymph # (Auto) 1.0, Will # (Auto) 0.4, Eos # (Auto) 0.1, Baso # (Auto) 0.0, Total Counted 100, Neutrophils % (Manual) 85 H, Lymphocytes % (Manual) 10, Monocytes % (Manual) 4, Eosinophils % (Manual) 1, Platelet Estimate Normal, Hypochromasia 1+, Sodium 135 L, Potassium 4.4, Chloride 103, Carbon Dioxide 34 H, Anion Gap 2.4 L, BUN 11 D, Creatinine 0.80, Estimated Creat Clear 65, Estimated GFR 73, Est GFR ( Amer) 89, Glucose 130 H, Calcium 8.4 I & O for Last 24 hours: Intake & Output 0211/18/23 11/19/23 11/20/23 23:59 23:59 23:59 23:59 Intake Total 359 / 359 1563 / 1563 360 / 360 Output Total 0 / 0 0 / 0 0 / 0 250 / 250 Balance 359 / 359 1563 / 1563 360 / 360 -250 / -250 Weight 266 lb 9 oz 266 lb 9.01 oz 266 lb 8.622 oz 269 lb 7 oz Constitutional Constitutional: no acute distress and cooperative *Routine HEENT Exam Eye: Present PERRL *Routine Respiratory Exam Respiratory: Present CTA bilaterally; Absent accessory muscle use, wheezes or crackles *Routine Cardiovascular Exam Cardiovascular: Present RRR, Normal S1 and Normal S2; Absent murmur, gallop or rubs *Routine Abdominal Exam Abdominal: Present soft; Absent tenderness *Routine Extremities Exam Extremities: Present pulses intact; Absent cyanosis or edema *Routine Skin Exam Skin: Present intact; Absent erythema or wounds *Routine Neurological Exam Neurological: Present alert and oriented X3 Routine Psychiatric Exam Psychiatric: Present cooperative Progress Note: A&P Assessment and plan (1) Crescendo angina: Status: Acute (2) Abnormal ECG: Status: Chronic (3) HTN (hypertension): Status: Chronic (4) Hyperlipidemia: Status: Chronic (5) CAD (coronary artery disease): Status: Chronic (6) CHF (congestive heart failure): Status: Acute (7) Former smoker: Status: Chronic Assessment and Plan Assessment and Plan for All Diagnoses:: MV-CAD s/p NSTEMI with RCA thrombectomy/stenting 11/16 - stenting 12/21, med management 04/22, transferred here Fri from [facility] with angial symptoms and elevated trop - LHC 11/16 - thrombosed RCA, successful thrombectomy and stenting, other arteries mild/non-obstructive. Had Integrillin drip x18h. Possible clot mobilization to small distal vessel. - ASA on hold due to GI bleed - Cont Plavix - BP too low for BB - Resume Ranexa, as needed nitrates - No indication for repeat LHC at this time Ischemic Cardiomyopathy - EF down from 55% 12/21 to 40% this admission - Appears euvolemic at this time - BP too low for BB, ARNI, AA - 80s systolic. Cont Jardiance. Resume other meds later when BP allows. Acute Blood Loss Anemia - pt had LHC then Hgb dropped from 10 to 6 - no BM since admission, mild abdominal discomfort - CT Abdomen: IMPRESSION: 5.6 x 2 cm collection of air adjacent to the proximal duodenum. Series 1001, image 33. It measures 2.2 x 2.5 cm on series 3, image 38 and adjacent images. This may represent a large duodenal ulcer. This is not the typical location for diverticulum. The collection of air was present in March 2023 but has increased in size. Recommend endoscopy for further evaluation. - EGD today shows no ulceration, no recent bleeding - Check CT Chest with contrast -11/20: Last for lab draws are stable. No abdominal pain, no blood in urine or stool. BMI 45 - she would benefit from aggressive weight loss via diet and exercise - consider OP GLP-1 Patient reports symptoms are improved, her labs are normal. Patient will need prompt outpatient follow-up in our office for chest pain management and uptitration of HF meds as well as monitoring for any further bleeding. Discussed case extensively with Dr. Ortiz, Dr. Cisneros, and Dr. Alejo.
--- NOTE | 2023-11-21 14:08 | CARE MANAGER ---
Called and spoke with patient regarding recent discharge. Patient stated that she was doing well and was aware of scheduled f/u appts. Patient also stated that she was not able to get her pantoprazole from pharmacy. I have talked to her pharmacy and have now completed a prior authorization, which has been denied. I have called to schedule a P2P and am currently waiting for call back.
== END 2023-11-20 14:24 | disposition home or self-care (01) | DRG 322 ==
PROVIDERS: Emergency Medicine; Internal Medicine; Nurse Practitioner Family; Surgery; Admitting Provider Internal Medicine; PCP Nurse Practitioner Family; Visit Provider Internal Medicine
PROC: 02H03DZ Insertion of Intraluminal Device into Coronary Artery, One Artery, Percutaneous Approach (ICD-10-PCS; principal; 2023-11-16 11:45)
PROC: 0DJ08ZZ Inspection of Upper Intestinal Tract, Via Natural or Artificial Opening Endoscopic (ICD-10-PCS; CPT 43235; principal; 2023-11-19 12:30)
DX: I21.4 Non-ST elevation (NSTEMI) myocardial infarction (principal); D62 Acute posthemorrhagic anemia; Z68.42 Body mass index [BMI] 45.0-49.9, adult; I25.118 Atherosclerotic heart disease of native coronary artery with other forms of angina pectoris; I25.82 Chronic total occlusion of coronary artery; E66.9 Obesity, unspecified; G47.30 Sleep apnea, unspecified; E78.5 Hyperlipidemia, unspecified; K21.9 Gastro-esophageal reflux disease without esophagitis; I25.5 Ischemic cardiomyopathy; I11.0 Hypertensive heart disease with heart failure; I50.9 Heart failure, unspecified; Z87.891 Personal history of nicotine dependence; D50.9 Iron deficiency anemia, unspecified
CPT/HCPCS: 93458; 36415; 70450; 71045; 71275; 74176; 80048; 80053; 83735; 84484; 85007; 85014; 85018; 85025; 85347; 85610; 85730; 86850; 92943; 93005; 93306; 93308; 97163; 97165; 99152; 99153; C1725; C1769; C1876; C9607; J1327; J1644; J1756; J2405; P9016; Q9967

== ENCOUNTER 2023-11-22 10:40 | Outpatient (CLI) | payer MEDICAID, SELFPAY ==
[2023-11-22 11:00] LABS: Basophils # 0.1 K/mm3 (0-0.2); Basophils % 0.5 % (0.1-2.0); Eosinophils # 0.2 K/mm3 (0.0-0.4); Hematocrit 29.9 % (37.0-47.0); Hemoglobin 8.9 g/dL (12.2-16.2); Lymphocytes # 2.1 K/mm3 (0.7-4.5); Lymphocytes % 19.5 % (10-50); Mean Corpuscular HGB Conc 29.9 g/dL (31.8-35.4); Mean Corpuscular Hemoglobin 23.4 pg (27.0-31.2); Mean Corpuscular Volume 78.5 fl (81-99); Mean Platelet Volume 7.9 fl (7.4-10.4); Monocytes # 0.6 K/mm3 (0.1-1.0); Monocytes % 5.2 % (1.7-9.3); Neutrophils # 7.9 K/mm3 (1.8-7.8); Neutrophils % 72.7 % (37.0-80.0); Platelet Count 511 K/mm3 (142-424); Red Blood Count 3.81 M/mm3 (4.20-5.40); Red Cell Distribution Width 18.7 % (11.5-17.5); White Blood Count 10.8 K/mm3 (4.8-10.8)
[2023-11-22 11:32] LABS: Anion Gap 10.4 mEq/L (5-15); Blood Urea Nitrogen 11 mg/dl (7-17); Calcium 8.8 mg/dl (8.4-10.2); Carbon Dioxide 31 mmol/L (22.0-30.0); Chloride 99 mmol/L (98-107); Estimated Glomerular Filt Rate 51 ml/min (>60); GFR (African American) 61 ML/MIN (>60); Glucose 107 mg/dl (74-100); Potassium 4.4 mmoL/L (3.5-5.1); Sodium 136 mmol/L (136-145)
== END 2023-11-22 23:59 ==
LOC: LAB 10:42
PROVIDERS: PCP Nurse Practitioner Family; Visit Provider Nurse Practitioner Family
DX: I21.4 Non-ST elevation (NSTEMI) myocardial infarction (principal); I25.10 Atherosclerotic heart disease of native coronary artery without angina pectoris; R06.09 Other forms of dyspnea; R94.31 Abnormal electrocardiogram [ECG] [EKG]
CPT/HCPCS: 36415; 80048; 85025

== ENCOUNTER 2023-11-26 14:08 | Observation (INO) | payer MEDICAID, SELFPAY ==
[2023-11-26] VITALS (20 sets, daily range): BP systolic 83–126; BP diastolic 42–73; PULSE 70–85; RESP 16–18; TEMP 36.3–36.9; O2SAT 92–100
--- NOTE | 2023-11-26 07:06 | IR_ITS ---
APPROVED REPORT Patient Location: Outpatient Match Up Worker: SUDEEP Olivarez RT (R) PROCEDURES Selective coronary angiogram Intravascular ultrasound to the dominant right coronary Drug-eluting stent deployment to a chronically occluded dominant right coronary INDICATION Recalcitrant angina pectoris, Coronary artery disease, Complex intervention requiring IVUS guidance Informed consent was obtained prior to the procedure. COMPLICATIONS None Estimated Blood Loss: Less than 10 ml TECHNIQUE One percent lidocaine was used to anesthetize the right groin. The right femoral artery was accessed via the Seldinger technique. A 4-Italian sheath was placed in the right femoral artery. The JL-4 and JR-4 catheter was also used to perform selective coronary angiography. At the end the diagnostic angiogram therapeutic heparin was administered giving a therapeutic ACT and the 4 Italian sheath was exchanged for a 6 Italian sheath. A JR4 guide catheter was placed in the right coronary artery and a Choice PT extra-support wire was used to push through the chronic occlusion with the assistance of a 2 mm x 12 mm balloon. The balloon was deployed proximally and in the midportion which failed to restore antegrade flow. 3.5 x 30 mm [place] frontier stent was placed proximal to the occlusion yet still overlapping the occlusion and deployed at 24 alicia. The balloon was advanced to length and deployed at 20 alicia this time restoring MAHAD-3 flow and giving antegrade flow distally. Intravascular ultrasound probe was advanced which demonstrated the stents were slightly undersized therefore a 4 mm x 20 mm balloon was deployed at 24 alicia up and down the right coronary artery. Excellent angiographic results were obtained. Once her chronic occlusion was reduced to 0% with MAHAD-3 flow in an antegrade manner the apparatus was removed the groin is reprepped closure change sheath was removed and hemostasis was achieved using Perclose device patient was transferred to the postop holding in stable condition ANGIOGRAPHIC RESULTS The left main artery Normal The left anterior descending artery Is widely patent with proximal mid vessel 10 to 20% luminal irregularities The circumflex artery Is nondominant has proximal 20 to 30% stenosis The right coronary artery Is large and dominant and proximally occluded. Following revascularization there was wide patency of the ostial proximal mid and distal right coronary artery with antegrade flow extending into a posterior descending artery. The posterior descending artery was jailed and had a 90% stenosis however MAHAD-3 antegrade flow was present. The posterior lateral ventricular branch was widely patent and the previous thrombus identified in the marginal branch from last cardiac catheterization was now resolved. The VASQUEZ ventriculogram reveals Not performed The left ventricular end-diastolic pressure Not measured IMPRESSION Recurrent occlusion of the right coronary artery Successful percutaneous revascularization of chronically occluded right coronary artery 100% occlusion reduced to 0% with 1 drug-eluting stent and postdilated with a 4 mm high-pressure balloon at 24 alicia up and down the right coronary PLAN 1. Switch Plavix to Effient 10 mg daily. This must be considered a Plavix failure therefore Effient is required 2. Recommend admitting patient overnight and rechecking H&H in the morning given patient's recent anemia 3. Cardiac rehabilitation 4. Echocardiogram in the morning 5. LDL less than 55 to be achieved high intensity statin Electronically signed by : Yonas Cisneros MD 11/26/2023 13:49:29
--- NOTE | 2023-11-26 08:08 | CT_ITS ---
FINAL REPORT TECHNIQUE: Axial imaging of the head was obtained without contrast. This study was performed with techniques to keep radiation doses as low as reasonably achievable, (ALARA). Individualized dose reduction techniques using automated exposure control or adjustment of mA and/or kV according to the patient''s size were employed. CLINICAL HISTORY: [facility] COMPARISON: 11/17/2023 FINDINGS: The ventricles are normal in size. There is no evidence of hemorrhage. No masses are identified. No extra-axial fluid is seen. The sinuses are normal. There is no acute osseous abnormality. IMPRESSION: No acute intracranial abnormality. Reviewed, Interpreted and Dictated by Teresa Mahan MD Transcribed by Zaina Dwyer Authenticated and [facility]
[2023-11-26 09:20] LABS: Basophils % 0.3 % (0.1-2.0); Eosinophils # 0.3 K/mm3 (0.0-0.4); Eosinophils % 2.7 % (0.1-12.0); Hemoglobin 8.9 g/dL (12.2-16.2); Lymphocytes # 1.7 K/mm3 (0.7-4.5); Lymphocytes % 15.4 % (10-50); Mean Corpuscular HGB Conc 30.8 g/dL (31.8-35.4); Mean Corpuscular Hemoglobin 24.8 pg (27.0-31.2); Mean Corpuscular Volume 80.4 fl (81-99); Mean Platelet Volume 7.8 fl (7.4-10.4); Monocytes # 0.6 K/mm3 (0.1-1.0); Monocytes % 5.2 % (1.7-9.3); Neutrophils # 8.3 K/mm3 (1.8-7.8); Neutrophils % 76.5 % (37.0-80.0); Red Cell Distribution Width 18.8 % (11.5-17.5); White Blood Count 10.9 K/mm3 (4.8-10.8)
[2023-11-26 09:31] LABS: Anion Gap 11.2 mEq/L (5-15); Blood Urea Nitrogen 19 mg/dl (7-17); Calcium 8.2 mg/dl (8.4-10.2); Carbon Dioxide 28 mmol/L (22.0-30.0); Chloride 103 mmol/L (98-107); Creatinine Clearance Estimated 45 mL/min (50-200); Estimated Glomerular Filt Rate 51 ml/min (>60); GFR (African American) 61 ML/MIN (>60); Glucose 117 mg/dl (74-100); Potassium 5.2 mmoL/L (3.5-5.1); Sodium 137 mmol/L (136-145)
[2023-11-26 09:33] LABS: Hematocrit 28.9 % (37.0-47.0)
[2023-11-26 09:34] LABS: Platelet Count 613 K/mm3 (142-424)
[2023-11-26] MEDS: LIDOCAINE 1% 10ML MDV 20 ML IJ (12:25)
[2023-11-26] MEDS: HEPARIN 1,000 UNITS/ML 10ML VIAL (CATH LAB) 10000 UNIT IV (12:25)
[2023-11-26] MEDS: HEPARIN 1,000 UNITS/500ML NS (CATH LAB) 3000 UNIT IV (12:25)
[2023-11-26] MEDS: 0.9 % SODIUM CHLORIDE 500 ML 25 ML IV (12:25)
[2023-11-26] MEDS: NITROGLYCERIN 800MCG/8ML SYR (CATH LAB) 800 MCG IA (12:25)
[2023-11-26] MEDS: VERAPAMIL 2.5MG/ML 2ML VIAL 2.5 MG IV (12:26)
[2023-11-26] MEDS: diphenhydrAMINE 50MG/ML VIAL 50 MG IV (12:26)
[2023-11-26] MEDS: FENTANYL 100MCG/2ML VIAL 50 MCG IV (13:02)
[2023-11-26] MEDS: MIDAZOLAM HCL 1MG/1ML 5ML VIAL 1 MG IV (13:02)
[2023-11-26] MEDS: PRASUGREL 10MG TAB 60 MG PO (13:59)
--- NOTE | 2023-11-26 14:12 | P.HP_ITS ---
History of Present Illness *Admission Date: 11/26/23 *Reason for visit:: post cath, anemia *History of present illness: 62-year-old female who underwent heart cath on 11/16 with stent to the RCA. Developed postprocedural anemia necessitating transfusion and admission. Hemoglobin remained stable and she was discharged home. Follow-up with cardiology on the , was complaining of persistent chest pain radiating down her arm worse than her previous pain leading to her initial heart cath. Unable to get cath approved last week but was brought in today for repeat left heart cath. Found to have in-stent thrombosis of the RCA. Treated with 2 additional stents. Concerned that patient is a nonresponder to Plavix. Given her anemia, cardiology requested admission for monitoring overnight. Patient initiated on Effient. Medicine consulted for admission. On arrival to the floor, patient is feeling better. Is laying supine due to radial and right femoral approach. Chest pain somewhat better. No nausea or vomiting. No shortness of breath. Overall feeling better. [facility] Disclaimer: The information contained in this section may have been updated after the patient was seen, as this information can be updated by other users. Medical History Abnormal echocardiogram Abnormal stress test Anemia Angina pectoris Atypical angina Atypical chest pain CAD (coronary artery disease) CHF (congestive heart failure) COPD mixed type Dyspnea on exertion Elevated left ventricular end-diastolic pressure (LVEDP) Encounter for screening for malignant neoplasm of lung GERD (gastroesophageal reflux disease) HTN (hypertension) Hyperlipidemia Hypertension affecting , delivered, current hospitalization Hypotension Left arm numbness LV dysfunction Mitral valve regurgitation Recent myocardial infarction RLS (restless legs syndrome) Sleep apnea Smoking greater than 30 pack years Tobacco abuse Tobacco abuse counseling Typical angina Surgical History History of carpal tunnel surgery History of heart artery stent History of hysterectomy Family History Emphysema of lung Social History Smoking Status: Former smoker smoking status stop date: 05/01/23 alcohol intake: never substance use type: denies use current occupational status: employed Travel in the last 8 weeks: None household members: none housing: house Review of Systems Review of Systems Review of systems (narrative): 14 point review of systems performed, pertinent positives and negatives as per HPI Meds Home Medications and Allergies Home Medications Medication Instructions Recorded Confirmed Type buspirone 7.5 mg tablet 7.5 mg PO BIDP PRN Anxiety 03/14/19 11/26/23 History aspirin 81 mg tablet,delayed 81 mg PO DAILY Heart disease #90 01/07/20 11/26/23 Rx release (Adult Low Dose Aspirin) tabs cetirizine 10 mg tablet 10 mg PO DAILY PRN allergies 11/24/22 11/26/23 History diclofenac sodium 1 % topical gel 2 g topical QID 11/24/22 11/26/23 History (Arthritis Pain (diclofenac)) escitalopram oxalate 10 mg tablet 20 mg PO DAILY 11/24/22 11/26/23 History (Lexapro) ipratropium 0.5 mg-albuterol 3 mg 3 ml inhalation QID PRN shortness 01/24/23 11/26/23 Rx (2.5 mg base)/3 mL nebulization of breath or wheezing 90 days #270 soln mL evolocumab 140 mg/mL subcutaneous 140 mg SQ Q2W #2 mL 02/15/23 11/26/23 Rx pen injector (Repatha SureClick) albuterol sulfate 90 mcg/actuation 2 inh inhalation Q6H PRN shortness 03/21/23 11/26/23 Rx aerosol inhaler of breath or wheezing 90 days #8.5 grams azelastine 137 mcg (0.1 %) nasal 2 spray intranasal HS 90 days #30 03/21/23 11/26/23 Rx spray aerosol mL fluticasone propionate 50 2 spray intranasal DAILY 90 days 03/21/23 11/26/23 Rx mcg/actuation nasal #16 grams spray,suspension (Flonase Allergy Relief) metformin 500 mg tablet 1,000 mg PO DAILY 04/11/23 11/26/23 History ranolazine 1,000 mg 1,000 mg PO BID #60 tabs 04/11/23 11/26/23 Rx tablet,extended release,12 hr sacubitril 24 mg-valsartan 26 mg 1 tab PO BID #30 tabs 04/18/23 11/26/23 Rx tablet (Entresto) ropinirole 1 mg tablet 2 mg PO HS #180 tabs 09/18/23 11/26/23 Rx semaglutide 2 mg/dose (8 mg/3 mL) 0.25 mg SQ WEEKLY 11/12/23 11/26/23 History subcutaneous pen injector (Ozempic) bumetanide 1 mg tablet 1 mg PO DAILY 11/16/23 11/26/23 History fluticasone fur. 100 mcg-umeclid 1 inh inhalation DAILY 11/16/23 11/26/23 History 62.5 mcg-vilant 25 mcg inhalat.powder (Trelegy Ellipta) metoprolol succinate 25 mg 12.5 mg PO DAILY 11/16/23 11/26/23 History tablet,extended release 24 hr spironolactone 100 mg tablet 25 mg PO DAILY 11/16/23 11/26/23 History (Aldactone) hydrocodone 5 mg-acetaminophen 325 1 tab PO TID PRN pain (scale score 11/20/23 11/26/23 Rx mg tablet 7-10) #9 tabs hydrocodone 5 mg-acetaminophen 325 1 tab PO TID PRN pain (scale score 11/20/23 11/26/23 Rx mg tablet 7-10) 3 days #9 tabs nitroglycerin 0.4 mg sublingual 0.4 mg sublingual Q5-15M PRN chest 11/20/23 11/26/23 Rx tablet pain #25 tabs pantoprazole 40 mg tablet,delayed 40 mg PO BID 30 days #60 tabs 11/20/23 11/26/23 Rx release fluconazole 150 mg tablet 150 mg PO DAILY 11/22/23 11/26/23 History isosorbide mononitrate 30 mg 30 mg PO DAILY #30 tabs 11/22/23 11/26/23 Rx tablet,extended release 24 hr prasugrel 10 mg tablet (Effient) 10 mg PO DAILY #30 tabs 11/26/23 Rx New Prescriptions to Start Prescriptions: prasugrel [Effient] Yonas Cisneros Allergies Allergy/AdvReac Type Severity Reaction Status Date / Time morphine AdvReac Intermediate Vomiting Verified 11/22/23 09:31 diphenhydramine AdvReac Mild Confusion Verified 11/22/23 09:31 [From Benadryl] Exam Data for Last 24 hours Vital signs and Labs for Last 24 Hours: Temp Pulse Resp BP Pulse Ox O2 Del Method O2 Flow Rate 98.4 F 71 16 122/70 100 Simple Mask 6 11/26/23 09:10 11/26/23 14:10 11/26/23 14:10 11/26/23 14:10 11/26/23 14:10 11/26/23 14:10 11/26/23 14:10 Laboratory Results - last 24 hr 11/26/23 09:11: WBC 10.9 H, RBC 3.60 L, Hgb 8.9 L, Hct 28.9 L, MCV 80.4 L, MCH 24.8 L, MCHC 30.8 L, RDW 18.8 H, Plt Count 613 H, MPV 7.8, Neut % (Auto) 76.5, Lymph % (Auto) 15.4, [place] % (Auto) 5.2, Eos % (Auto) 2.7, Baso % (Auto) 0.3, Neut # (Auto) 8.3 H, Lymph # (Auto) 1.7, [place] # (Auto) 0.6, Eos # (Auto) 0.3, Baso # (Auto) 0.0, Sodium 137, Potassium 5.2 H, Chloride 103, Carbon Dioxide 28, Anion Gap 11.2, BUN 19 H, Creatinine 1.10 H, Estimated Creat Clear 45, Estimated GFR 51 L, Est GFR ( Amer) 61, Glucose 117 H, Calcium 8.2 L I & O for Last 24 hours: Intake & Output 11/23/23 11/24/23 11/25/23 11/26/23 23:59 23:59 23:59 23:59 Weight 119.295 kg Constitutional Constitutional: no acute distress, morbidly obese, chronically ill appearing and cooperative *Routine HEENT Exam Head: Present normocephalic and atraumatic Eye: Present EOMI, PERRL and normal accommodation ENT: Present mucous membranes moist *Routine Neck Exam Neck: Present supple, full ROM and trachea midline *Routine Respiratory Exam Respiratory: Present CTA bilaterally, normal respiratory effort and symmetric chest movement; Absent respiratory distress, rhonchi, wheezes or crackles *Routine Cardiovascular Exam Cardiovascular: Present RRR, Normal S1 and Normal S2 *Routine Abdominal Exam Abdominal: Present soft, normoactive bowel sounds and obese; Absent organomegaly *Routine Rectal Exam Rectal:: deferred *Routine Genitalia Exam Genitalia:: deferred *Routine Extremities Exam Extremities: Present full ROM and pulses intact; Absent cyanosis, clubbing or edema Comments: Right radial insertion site with compression bracelet in place. Right femoral approach with clean dry dressing. No hematoma or bleeding *Routine Skin Exam Skin: Present intact, dry and warm *Routine Neurological Exam Neurological: Present alert, oriented X3, normal reflexes, moving all extremities and normal speech Routine Psychiatric Exam Psychiatric: Present cooperative, good insight and good judgment Assessment and Plan *Assessment and plan (1) CAD (coronary artery disease): Status: Chronic Qualifiers: Associated angina: with other forms of angina Coronary Disease- Associated Artery/Lesion type: [place] artery [place] vs. transplanted heart: [place] heart Qualified Code(s): I25.118 - Atherosclerotic heart disease of [place] coronary artery with other forms of angina pectoris Category: Medical Code(s): I25.10 - Atherosclerotic heart disease of [place] coronary artery without angina pectoris (2) Coronary stent thrombosis: Status: Acute Category: Medical Code(s): T82.867A - Thrombosis due to cardiac prosthetic devices, implants and grafts, initial encounter (3) HTN (hypertension): Status: Chronic Qualifiers: Hypertension type: essential hypertension Qualified Code(s): I10 - Essential (primary) hypertension Category: Medical Code(s): I10 - Essential (primary) hypertension (4) Hyperlipidemia: Status: Chronic Qualifiers: Hyperlipidemia type: mixed hyperlipidemia Qualified Code(s): E78.2 - Mixed hyperlipidemia Category: Medical Code(s): E78.5 - Hyperlipidemia, unspecified (5) GERD (gastroesophageal reflux disease): Status: Chronic Qualifiers: Esophagitis presence: without esophagitis Qualified Code(s): K21.9 - Gastro-esophageal reflux disease without esophagitis Category: Medical Code(s): K21.9 - Gastro-esophageal reflux disease without esophagitis (6) Anemia: Status: Acute Qualifiers: Anemia type: unspecified type Qualified Code(s): D64.9 - Anemia, unspecified Category: Medical Code(s): D64.9 - Anemia, unspecified (7) Hyperkalemia: Status: Acute Category: Medical Code(s): E87.5 - Hyperkalemia (8) SUSANA (acute kidney injury): Status: Acute Category: Medical Code(s): N17.9 - Acute kidney failure, unspecified (9) Thrombocytosis: Status: Acute Category: Medical Code(s): D75.839 - Thrombocytosis, unspecified Plan 62-year-old female history of obesity, CHF, CAD with angina status post stent, COPD, HTN and GERD, hyperlipidemia, former smoker who presented for repeat left heart cath due to persistent chest pain. Found to have in-stent thrombosis of the RCA stent placed last week on 11/16. Thrombectomy performed with stenting of RCA. Discussed case with cardiology, request admission given patient's anemia after last visit. Medicine agreed to admit to monitor overnight, do serial labs, monitor for response to Effient. Problems addressed as follows: Patient has failed Plavix therapy, initiated on Effient. Continue aspirin, isosorbide, metoprolol, ranolazine. MV-CAD s/p NSTEMI with RCA thrombectomy/stenting 11/16 In-stent thrombosis Ischemic cardiomyopathy Heart failure with reduced ejection fraction -62-year-old female with history of CAD. Previous stenting 12/21, med management 04/22, heart cath performed 11/16/2023 with stent to RCA. Persistent chest pain, in-stent thrombosis noted today on left heart cath -discontinue Plavix, initiate Effient aspirin, isosorbide, metoprolol, ranolazine. -Continue Entresto 24/26 mg twice daily -Cardiology consulted, appreciate their assistance in care. -Echo last visit of 30 to 40% Acute Blood Loss Anemia on chronic iron deficiency anemia -After left heart cath, hemoglobin dropped from 10-6. Was transfused 2 units with good response. -Hemoglobin above 8 at discharge. Hemoglobin 8.9, repeat hemoglobin this evening -Repeat CBC, CMP, magnesium ordered for the morning -Continue pantoprazole 40 mg twice daily -Cardiology recommends referring to hematology as an outpatient for further evaluation. Hyperlipidemia: Continue Repatha. Lipid panel pending COPD: Continue home when with Trelegy and Duonebs q6hp; stable on room air Depression: Continue BuSpar 7.5 mg twice daily as needed; continue Lexapro 20 mg daily Diabetes: Sliding scale insulin fingersticks ACHS. Will resume home regimen at discharge. Class III obesity: complicates all aspects of her care. 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
--- NOTE | 2023-11-26 14:31 | P.CONCA_ITS ---
History of Present Illness History of Present Illness Consult date: 11/26/23 Requesting physician: Jay Alejo Consult reason: chest pain Chief complaint: chest pain Additional Medical History:: 1. CAD A. STEMI, 08/2017, GLORIA to posterior lateral branch B. STEMI, 04/15/2019, 70% ostial in-stent restenotic lesion in the posterior lateral branch, medical therapy recommended. C. GLORIA to LAD, 12/27/2022 D. LHC, 04/18/2023, LAD stent widely patent, nondominant circumflex with 20 to 30% stenosis, large dominant RCA with 40% concentric in-stent restenosis. Medical therapy recommended. E. Non-STEMI, 11/16/23, thrombectomy and stent placement to RCA F. Non-STEMI, [facility], 11/26/2023 with repeat thrombectomy and stent placement to RCA. Switched from Plavix to Effient 2. Tobacco use A. Pulmonary emphysema, mild in the upper lobes on chest CTA, 11/19/2023. No evidence of PE. 3. Hypertension 4. Hyperlipidemia A. LDL 151, 01/23/2023 B. Repatha therapy 5. HFrEF A. Echo, 2018, EF 40% with multiple segmental wall motion abnormalities B. Echo, 12/2022, read by as EF normal C. Limited echo, 05/2023, EF 50-55% D. Echo, 11/16/2023, EF 40-45% with moderate hypokinesis of the basal inferoseptal and anterolateral LV johnson. Marked LV wall thickness (IVSD 1.4 cm), normal RV size with mildly reduced function. Valves okay. 6. Sleep apnea A. Supposed to be on CPAP therapy but device has been recalled 7. GERD 8. Anemia, chronic with hemoglobin around 8-9 with microcytic indices A. Recent EGD unremarkable, 2023 B. History of colonoscopy approximately unremarkable per patient History of present illness: 62-year-old white female admitted post cardiac catheterization today for observation and follow-up on her hemoglobin. Patient recently was admitted earlier this month for non-STEMI with subsequent thrombectomy and stent placement to right coronary artery. Patient was discharged home early last week with follow-up in our office 2 days later at which time she complained of recurrent chest pain so severe she would rather be than continue dealing with it. Repeat cardiac catheterization today revealed repeat occlusion of the right coronary artery with repeat thrombectomy and another stent placement. Patient is now considered a Plavix failure and was switched to Effient. [facility] Disclaimer: The information contained in this section may have been updated after the patient was seen, as this information can be updated by other users. Medical History (Updated 11/26/23 @ 14:55 by HERMINIO Hebert) Abnormal echocardiogram Abnormal stress test Anemia Angina pectoris Atypical angina Atypical chest pain CAD (coronary artery disease) CHF (congestive heart failure) COPD mixed type Dyspnea on exertion Elevated left ventricular end-diastolic pressure (LVEDP) Encounter for screening for malignant neoplasm of lung GERD (gastroesophageal reflux disease) HTN (hypertension) Hyperlipidemia Hypertension affecting , delivered, current hospitalization Hypotension Left arm numbness LV dysfunction Mitral valve regurgitation Recent myocardial infarction RLS (restless legs syndrome) Sleep apnea Smoking greater than 30 pack years Tobacco abuse Tobacco abuse counseling Typical angina Surgical History History of carpal tunnel surgery History of heart artery stent History of hysterectomy Family History Other Emphysema of lung Social History Smoking Status: Former smoker smoking status stop date: 05/01/23 alcohol intake: never substance use type: denies use current occupational status: employed Travel in the last 8 weeks: None household members: none housing: house Exam Data for Last 24 hours Vital signs and Labs for Last 24 Hours: Temp Pulse Resp BP Pulse Ox O2 Del Method O2 Flow Rate 98.4 F 71 16 122/70 100 Simple Mask 6 11/26/23 09:10 11/26/23 14:10 11/26/23 14:10 11/26/23 14:10 11/26/23 14:10 11/26/23 14:10 11/26/23 14:10 Laboratory Results - last 24 hr 11/26/23 09:11: WBC 10.9 H, RBC 3.60 L, Hgb 8.9 L, Hct 28.9 L, MCV 80.4 L, MCH 24.8 L, MCHC 30.8 L, RDW 18.8 H, Plt Count 613 H, MPV 7.8, Neut % (Auto) 76.5, Lymph % (Auto) 15.4, [place] % (Auto) 5.2, Eos % (Auto) 2.7, Baso % (Auto) 0.3, Neut # (Auto) 8.3 H, Lymph # (Auto) 1.7, [place] # (Auto) 0.6, Eos # (Auto) 0.3, Baso # (Auto) 0.0, Sodium 137, Potassium 5.2 H, Chloride 103, Carbon Dioxide 28, Anion Gap 11.2, BUN 19 H, Creatinine 1.10 H, Estimated Creat Clear 45, Estimated GFR 51 L, Est GFR ( Amer) 61, Glucose 117 H, Calcium 8.2 L I & O for Last 24 hours: Intake & Output 11/24/23 11/25/23 11/26/23 11/27/23 11:59 11:59 11:59 11:59 Weight 263 lb Meds Home Medications and Allergies Home Medications Medication Instructions Recorded Confirmed Type buspirone 7.5 mg tablet 7.5 mg PO BIDP PRN Anxiety 03/14/19 11/26/23 History aspirin 81 mg tablet,delayed 81 mg PO DAILY Heart disease #90 01/07/20 11/26/23 Rx release (Adult Low Dose Aspirin) tabs cetirizine 10 mg tablet 10 mg PO DAILY PRN allergies 11/24/22 11/26/23 History diclofenac sodium 1 % topical gel 2 g topical QID 11/24/22 11/26/23 History (Arthritis Pain (diclofenac)) escitalopram oxalate 10 mg tablet 20 mg PO DAILY 11/24/22 11/26/23 History (Lexapro) ipratropium 0.5 mg-albuterol 3 mg 3 ml inhalation QID PRN shortness 01/24/23 11/26/23 Rx (2.5 mg base)/3 mL nebulization of breath or wheezing 90 days #270 soln mL evolocumab 140 mg/mL subcutaneous 140 mg SQ Q2W #2 mL 02/15/23 11/26/23 Rx pen injector (Repatha SureClick) albuterol sulfate 90 mcg/actuation 2 inh inhalation Q6H PRN shortness 03/21/23 11/26/23 Rx aerosol inhaler of breath or wheezing 90 days #8.5 grams azelastine 137 mcg (0.1 %) nasal 2 spray intranasal HS 90 days #30 03/21/23 11/26/23 Rx spray aerosol mL fluticasone propionate 50 2 spray intranasal DAILY 90 days 03/21/23 11/26/23 Rx mcg/actuation nasal #16 grams spray,suspension (Flonase Allergy Relief) metformin 500 mg tablet 1,000 mg PO DAILY 04/11/23 11/26/23 History ranolazine 1,000 mg 1,000 mg PO BID #60 tabs 04/11/23 11/26/23 Rx tablet,extended release,12 hr sacubitril 24 mg-valsartan 26 mg 1 tab PO BID #30 tabs 04/18/23 11/26/23 Rx tablet (Entresto) ropinirole 1 mg tablet 2 mg PO HS #180 tabs 09/18/23 11/26/23 Rx semaglutide 2 mg/dose (8 mg/3 mL) 0.25 mg SQ WEEKLY 11/12/23 11/26/23 History subcutaneous pen injector (Ozempic) bumetanide 1 mg tablet 1 mg PO DAILY 11/16/23 11/26/23 History fluticasone fur. 100 mcg-umeclid 1 inh inhalation DAILY 11/16/23 11/26/23 History 62.5 mcg-vilant 25 mcg inhalat.powder (Trelegy Ellipta) metoprolol succinate 25 mg 12.5 mg PO DAILY 11/16/23 11/26/23 History tablet,extended release 24 hr spironolactone 100 mg tablet 25 mg PO DAILY 11/16/23 11/26/23 History (Aldactone) hydrocodone 5 mg-acetaminophen 325 1 tab PO TID PRN pain (scale score 11/20/23 11/26/23 Rx mg tablet 7-10) #9 tabs hydrocodone 5 mg-acetaminophen 325 1 tab PO TID PRN pain (scale score 11/20/23 11/26/23 Rx mg tablet 7-10) 3 days #9 tabs nitroglycerin 0.4 mg sublingual 0.4 mg sublingual Q5-15M PRN chest 11/20/23 11/26/23 Rx tablet pain #25 tabs pantoprazole 40 mg tablet,delayed 40 mg PO BID 30 days #60 tabs 11/20/23 11/26/23 Rx release fluconazole 150 mg tablet 150 mg PO DAILY 11/22/23 11/26/23 History isosorbide mononitrate 30 mg 30 mg PO DAILY #30 tabs 11/22/23 11/26/23 Rx tablet,extended release 24 hr prasugrel 10 mg tablet (Effient) 10 mg PO DAILY #30 tabs 11/26/23 Rx New Prescriptions to Start Prescriptions: prasugrel [Effient] BlayneYonas Allergies Allergy/AdvReac Type Severity Reaction Status Date / Time morphine AdvReac Intermediate Vomiting Verified 11/22/23 09:31 diphenhydramine AdvReac Mild Confusion Verified 11/22/23 09:31 [From Benadryl] Assessment and Plan *Assessment and plan (1) CAD (coronary artery disease): Status: Chronic Qualifiers: Associated angina: with other forms of angina Coronary Disease- Associated Artery/Lesion type: [place] artery [place] vs. transplanted heart: [place] heart Qualified Code(s): I25.118 - Atherosclerotic heart disease of [place] coronary artery with other forms of angina pectoris Category: Medical Code(s): I25.10 - Atherosclerotic heart disease of [place] coronary artery without angina pectoris (2) NSTEMI (non-ST elevated myocardial infarction): Status: Acute Category: Medical Code(s): I21.4 - Non-ST elevation (NSTEMI) myocardial infarction (3) HTN (hypertension): Status: Chronic Qualifiers: Hypertension type: essential hypertension Qualified Code(s): I10 - Essential (primary) hypertension Category: Medical Code(s): I10 - Essential (primary) hypertension (4) Hyperlipidemia: Status: Chronic Qualifiers: Hyperlipidemia type: mixed hyperlipidemia Qualified Code(s): E78.2 - Mixed hyperlipidemia Category: Medical Code(s): E78.5 - Hyperlipidemia, unspecified (5) GERD (gastroesophageal reflux disease): Status: Chronic Qualifiers: Esophagitis presence: without esophagitis Qualified Code(s): K21.9 - Gastro-esophageal reflux disease without esophagitis Category: Medical Code(s): K21.9 - Gastro-esophageal reflux disease without esophagitis (6) Anemia: Status: Acute Qualifiers: Anemia type: unspecified type Qualified Code(s): D64.9 - Anemia, unspecified Category: Medical Code(s): D64.9 - Anemia, unspecified (7) Hyperkalemia: Status: Acute Category: Medical Code(s): E87.5 - Hyperkalemia (8) SUSANA (acute kidney injury): Status: Acute Category: Medical Code(s): N17.9 - Acute kidney failure, unspecified (9) Thrombocytosis: Status: Acute Category: Medical Code(s): D75.839 - Thrombocytosis, unspecified Plan 1. Recent non-STEMI -[facility] today with repeat thrombectomy and stenting of the RCA -Failed Plavix therapy. Now on Effient -Continue aspirin -Continue isosorbide, metoprolol and ranolazine 2. Chronic anemia, stable at this time -Will refer to hematology as an outpatient for further evaluation 3. Hyperkalemia, mild at 5.2 -May need to discontinue Entresto 4. SUSANA -Gentle IVF overnight 5. Thrombocytosis, new -Possibly related to tobacco use 6. Hyperlipidemia -On Repatha -Check lipids 7. HFrEF -Continue GDMT with Entresto, metoprolol, diuretics -Intolerant of Jardiance due to thrush 8. Diabetes mellitus 9. COPD Monitor overnight. Gentle IV fluids with recheck of potassium, hemoglobin/hematocrit and platelets in a.m. along with BUN and creatinine.
--- NOTE | 2023-11-26 14:43 | PC.NURSE ---
arrived by gabrieler from [employer]
[2023-11-26 15:16] LABS: CATHL Activated Clotting Time 231 SEC (74-125)
[2023-11-26] MEDS: IOPAMIDOL-370 (76%);100ML BOTTLE 210 ML IV (15:18)
[2023-11-26 16:39] LABS: Chol/HDL Ratio 4.1 (1-3.5); Cholesterol 155 mg/dl (140-200); HDL Cholesterol 38 mg/dl (40-60); Triglycerides 199 mg/dl (30-150); VLDL Cholesterol 40 mg/dL (0-40)
[2023-11-26 16:50] LABS: Direct LDL Cholesterol 76.16 mg/dL (100-129)
[2023-11-26] MEDS: IPRATROPIUM/ALBUTEROL 3 ML NEB IH (18:53)
[2023-11-26 19:07] LABS: Hematocrit 27.7 % (37.0-47.0); Hemoglobin 8.3 g/dL (12.2-16.2)
[2023-11-26 20:33] LABS: POC Glucose,Bedside 158 (70-110)
[2023-11-26] MEDS: SACUBITRIL/VALSARTAN 24-26MG TABLET 1 EACH PO (20:37)
[2023-11-26] MEDS: RANOLAZINE 500MG ER TABLET 1000 MG PO (20:37)
[2023-11-26] MEDS: ROPINIROLE 1MG TABLET 2 MG PO (20:37)
[2023-11-26] MEDS: humaLOG 100 UNITS/ML 3ML VIAL (SSI) SQ (20:37)
[2023-11-26] MEDS: PANTOPRAZOLE 40MG TABLET 40 MG PO (20:39)
[2023-11-27] VITALS (39 sets, daily range): BP systolic 73–118; BP diastolic 42–66; PULSE 70–85; RESP 16–25; TEMP 36.5–37.1; O2SAT 2–97; BMI 47.9
--- NOTE | 2023-11-27 05:16 | PC.NURSE ---
Patient transferred from [facility] 200 over to ICU [address] Cisneros reported by Neisha Domingo RN to this documenting RN. Patient had severe hypotension which resulted in previous RN consulting workers compensation manager Director Of Digital Marketing. See MAR for new medications. See new orders placed per LUCIANA Andrews. Holding Norepinephrine at this time d/t patient's systolic >90 and MAP >65
[2023-11-27 05:51] LABS: Basophils % 0.2 % (0.1-2.0); Eosinophils # 0.2 K/mm3 (0.0-0.4); Hematocrit 25.1 % (37.0-47.0); Hemoglobin 7.7 g/dL (12.2-16.2); Lymphocytes # 1.5 K/mm3 (0.7-4.5); Lymphocytes % 14.9 % (10-50); Mean Corpuscular HGB Conc 30.8 g/dL (31.8-35.4); Mean Corpuscular Hemoglobin 24.8 pg (27.0-31.2); Mean Corpuscular Volume 80.7 fl (81-99); Mean Platelet Volume 7.6 fl (7.4-10.4); Monocytes # 0.5 K/mm3 (0.1-1.0); Neutrophils % 77.9 % (37.0-80.0); Platelet Count 515 K/mm3 (142-424); Red Blood Count 3.12 M/mm3 (4.20-5.40); Red Cell Distribution Width 18.7 % (11.5-17.5); White Blood Count 10.3 K/mm3 (4.8-10.8)
[2023-11-27 05:53] LABS: Anion Gap 5.5 mEq/L (5-15); Blood Urea Nitrogen 10 mg/dl (7-17); Carbon Dioxide 30 mmol/L (22.0-30.0); Chloride 102 mmol/L (98-107); Creatinine Clearance Estimated 47 mL/min (50-200); Potassium 4.5 mmoL/L (3.5-5.1); Sodium 133 mmol/L (136-145)
[2023-11-27 05:54] LABS: Calcium 8.2 mg/dl (8.4-10.2); Estimated Glomerular Filt Rate 57 ml/min (>60); GFR (African American) 68 ML/MIN (>60); Glucose 133 mg/dl (74-100)
[2023-11-27 05:55] LABS: POC Glucose,Bedside 132 (70-110)
[2023-11-27] MEDS: IPRATROPIUM/ALBUTEROL 3 ML NEB IH ×4 (06:20→23:02)
--- NOTE | 2023-11-27 07:53 | PC.NURSE ---
verified blood with chip tello at 0744. Page did not save as computer timed out.
--- NOTE | 2023-11-27 08:37 | HMH.PHAINT1 ---
Pharmacy Intervention Comments: Verified all home medications using external fill history and spoke with patient at bedside to confirm recent changes.
[2023-11-27] MEDS: METOPROLOL SUCCINATE XL 25MG TABLET 12.5 MG PO (08:38)
[2023-11-27] MEDS: SACUBITRIL/VALSARTAN 24-26MG TABLET 1 EACH PO (08:38)
[2023-11-27] MEDS: RANOLAZINE 500MG ER TABLET 1000 MG PO (08:39)
[2023-11-27] MEDS: PANTOPRAZOLE 40MG TABLET 40 MG PO ×2 (08:40→20:17)
[2023-11-27] MEDS: CITALOPRAM 20MG TABLET 20 MG PO (08:40)
[2023-11-27] MEDS: ASPIRIN EC 81MG TABLET 81 MG PO (08:42)
[2023-11-27] MEDS: 0.9 % SODIUM CHLORIDE 250 ML 25 ML IV (08:49)
--- NOTE | 2023-11-27 08:55 | CA_ITS ---
APPROVED REPORT EXAM: Comprehensive 2D, Doppler, and color-flow Echocardiogram Planer Feeder: Kim Bob RT(R) Ht: 5 ft 3 in Wt: 270lbs BSA: 2.20 BP: 95/35 mmHg Indications: COPD, HTN, hyperlipidemia, obesity, 40-45% EF 11/16/23, repeat thrombectomy 11/26/22 and RCA stenting. Ordered as limited to assess EF only. 2D Dimensions EF AP4 31.30 % GL Strain -11.3 % M-Mode Dimensions RVDd 3.31 cm (0.9-2.6) LVDd 4.61 cm (3.5-5.7) LVDs 3.67 cm (3.5-5.7) IVSd 0.94 cm (0.6-1.1) PWd 0.90 cm (0.6-1.1) EF (Teich) 41.70% FS 20.40% EDV (Teich) 97.80 mL ESV (Teich) 57.00 mL LV Diastology E Decel Time 206 (160-240 msec) E/A Ratio 0.8 MED E' 9.4 (>= 7 cm/sec) E'/MED E' Ratio 8.33 (<= 14) LAT E' 10.0 (>= 10 cm/sec) E/LAT E' Ratio 7.83 (<= 14) Mitral Valve MV E Max Billy. 78.0 (40-130 cm/s) MV A Velocity 100.0 (40-130 cm/s) E/A Ratio 0.79 MV Decel. Time 206 (160-240 ms) Other Information Study Quality: Technically Difficult Conclusion This is a limited TTE to evaluate for LVEF. Limited windows were obtained. Technically difficult study due to poor acoustic windows. The left ventricle is normal in size. There is increased LV wall thickness. There is mild to moderate global hypokinesis present. There is severe reduction in the septal and inferoseptal LV wall. LVEF is 40%. The right ventricle is mildly dilated with mild reduction in RV function. When visually to the prior recent TTE from 11/20/2023, the biventricular size and function are overall unchanged. For future evaluations of the LVEF and wall motion, administration of ultrasound enhancing agent is recommended. Electronically signed by : Olive Ortiz MD 11/27/2023 22:33:59
[2023-11-27] MEDS: FLUTICASONE/UMECLIDIN/VILANTER 100/62.5/25MCG INHALER 1 PUFF IH (10:57)
--- NOTE | 2023-11-27 10:57 | P.PN_ITS ---
Subjective Subjective Date: 11/27/23 Time: 10:57 Principal diagnosis: NSTEMI Interval history: 62-year-old white female in bed in no acute distress. Patient did have hypotension last night and was to ICU bed for anticipation of Levophed drip. However blood pressure did slightly improve/stabilize and Levophed was not started. Hemoglobin was noted to have dropped Down to 7.7 this morning and patient was started on blood transfusion. No vomiting, diarrhea or melena noted. She does note some mild chest discomfort intermittently overnight but much improved compared to discomfort prior to stenting. Exam Data for Last 24 hours Vital signs and Labs for Last 24 Hours: Temp Pulse Resp BP Pulse Ox O2 Del Method O2 Flow Rate 98.2 F 72 20 83/48 L 94 L Nasal Cannula 2 11/27/23 10:15 11/27/23 10:15 11/27/23 10:15 11/27/23 10:15 11/27/23 10:15 11/27/23 09:00 11/27/23 09:00 Laboratory Results - last 24 hr 11/26/23 09:11: Triglycerides 199 H, Cholesterol 155, LDL Cholesterol Direct 76.16 L, VLDL Cholesterol 40, HDL Cholesterol 38 L, Cholesterol/HDL Ratio 4.1 H 11/26/23 14:05: Activated Clotting Time 231 H* 11/26/23 18:55: Hgb 8.3 L, Hct 27.7 L 11/26/23 20:26: POC Glucose 158 H 11/27/23 05:35: WBC 10.3, RBC 3.12 L, Hgb 7.7 L, Hct 25.1 L, MCV 80.7 L, MCH 24.8 L, MCHC 30.8 L, RDW 18.7 H, Plt Count 515 H, MPV 7.6, Neut % (Auto) 77.9, Lymph % (Auto) 14.9, [place] % (Auto) 5.0, Eos % (Auto) 2.0, Baso % (Auto) 0.2, Neut # (Auto) 8.0 H, Lymph # (Auto) 1.5, [place] # (Auto) 0.5, Eos # (Auto) 0.2, Baso # (Auto) 0.0, Sodium 133 L, Potassium 4.5, Chloride 102, Carbon Dioxide 30, Anion Gap 5.5, BUN 10 D, Creatinine 1.00, Estimated Creat Clear 47, Estimated GFR 57 L, Est GFR ( Amer) 68, Glucose 133 H, Calcium 8.2 L, Blood Type B Negative, Antibody Screen Negative, Crossmatch (AHG) See Detail 11/27/23 05:37: POC Glucose 132 H I & O for Last 24 hours: Intake & Output 11/24/23 11/25/23 11/26/23 11/27/23 11:59 11:59 11:59 11:59 Intake Total 482 / 482 Output Total 0 / 0 Balance 48 482 Weight 263 lb 270 lb 6.4 oz Constitutional Constitutional: no acute distress *Routine Respiratory Exam Respiratory: Present CTA bilaterally *Routine Cardiovascular Exam Cardiovascular: Present RRR Progress Note: A&P Assessment and plan (1) CAD (coronary artery disease): Status: Chronic (2) Coronary stent thrombosis: Status: Acute (3) HTN (hypertension): Status: Chronic (4) Hyperlipidemia: Status: Chronic (5) GERD (gastroesophageal reflux disease): Status: Chronic (6) Anemia: Status: Acute (7) Hyperkalemia: Status: Acute (8) SUSANA (acute kidney injury): Status: Acute (9) Thrombocytosis: Status: Acute Assessment and Plan Assessment and Plan for All Diagnoses:: 1. Recent non-STEMI -[facility] with repeat thrombectomy and stenting of the RCA, 11/26/2023 -Failed Plavix therapy. Now on Effient -Continue aspirin -Hold isosorbide, metoprolol and ranolazine due to hypotension 2. Chronic anemia, dropped to 7.7 overnight -Blood transfusion in progress -Will refer to hematology as an outpatient for further evaluation 3. Hyperkalemia, resolved -May need to discontinue Entresto if BP continues to be low 4. SUSANA, resolved 5. Thrombocytosis, new -Possibly related to tobacco use -improving 6. Hyperlipidemia -On Repatha -LDL down from 151 to 76 7. HFrEF -Resume GDMT when BP allows -Intolerant of Jardiance due to thrush 8. Diabetes mellitus 9. COPD Continue blood transfusion to get hemoglobin greater than 9 in patient with recent DE and coronary artery stenting. Continue to hold antihypertensive medications for now Anticipate patient will need inpatient monitoring for another 48 hours
[2023-11-27] MEDS: PRASUGREL 10MG TAB 10 MG PO (11:14)
[2023-11-27 11:35] LABS: POC Glucose,Bedside 129 (70-110)
--- NOTE | 2023-11-27 13:52 | P.PN_ITS ---
Subjective *Date: 11/27/23 *Time: 16:27 Interval history: patient was seen and evaluated at the bedside. She has intermittent chest pains, she had cardiac cath yesterday, No reported acute events overnight, denies chest pain, shortness of breath, nausea, vomiting, abdominal pain. Exam Data for Last 24 hours Vital signs and Labs for Last 24 Hours: Temp Pulse Resp BP Pulse Ox O2 Del Method O2 Flow Rate 98.3 F 73 18 93/58 L 90 L Nasal Cannula 2 11/27/23 13:40 11/27/23 13:40 11/27/23 13:40 11/27/23 13:40 11/27/23 13:40 11/27/23 12:57 11/27/23 11:00 Laboratory Results - last 24 hr 11/26/23 09:11: Triglycerides 199 H, Cholesterol 155, LDL Cholesterol Direct 76.16 L, VLDL Cholesterol 40, HDL Cholesterol 38 L, Cholesterol/HDL Ratio 4.1 H 11/26/23 14:05: Activated Clotting Time 231 H* 11/26/23 18:55: Hgb 8.3 L, Hct 27.7 L 11/26/23 20:26: POC Glucose 158 H 11/27/23 05:35: WBC 10.3, RBC 3.12 L, Hgb 7.7 L, Hct 25.1 L, MCV 80.7 L, MCH 24.8 L, MCHC 30.8 L, RDW 18.7 H, Plt Count 515 H, MPV 7.6, Neut % (Auto) 77.9, Lymph % (Auto) 14.9, [place] % (Auto) 5.0, Eos % (Auto) 2.0, Baso % (Auto) 0.2, Neut # (Auto) 8.0 H, Lymph # (Auto) 1.5, [place] # (Auto) 0.5, Eos # (Auto) 0.2, Baso # (Auto) 0.0, Sodium 133 L, Potassium 4.5, Chloride 102, Carbon Dioxide 30, Anion Gap 5.5, BUN 10 D, Creatinine 1.00, Estimated Creat Clear 47, Estimated GFR 57 L, Est GFR ( Amer) 68, Glucose 133 H, Calcium 8.2 L, Blood Type B Negative, Antibody Screen Negative, Crossmatch (AHG) See Detail 11/27/23 05:37: POC Glucose 132 H 11/27/23 11:23: POC Glucose 129 H I & O for Last 24 hours: Intake & Output 11/24/23 11/25/23 11/26/23 11/27/23 23:59 23:59 23:59 23:59 Intake Total 120 / 120 742 / 742 Output Total 0 / 0 Balance 120 / 120 742 / 742 Weight 119.295 kg 122.651 kg Constitutional Constitutional: no acute distress *Routine HEENT Exam Head: Present normocephalic Eye: Present EOMI and PERRL ENT: Present mucous membranes moist *Routine Neck Exam Neck: Present supple; Absent lymphadenopathy *Routine Respiratory Exam Respiratory: Present CTA bilaterally *Routine Cardiovascular Exam Cardiovascular: Present RRR *Routine Abdominal Exam Abdominal: Present soft and normoactive bowel sounds; Absent tenderness *Routine Extremities Exam Extremities: Absent cyanosis, clubbing or edema *Routine Skin Exam Skin: Present warm; Absent rash *Routine Neurological Exam Neurological: Present alert and oriented X3 Assessment and Plan *Assessment and plan (1) CAD (coronary artery disease): Status: Chronic Qualifiers: Associated angina: with other forms of angina Coronary Disease- Associated Artery/Lesion type: [place] artery [place] vs. transplanted heart: [place] heart Qualified Code(s): I25.118 - Atherosclerotic heart disease of [place] coronary artery with other forms of angina pectoris Category: Medical Code(s): I25.10 - Atherosclerotic heart disease of [place] coronary artery without angina pectoris (2) NSTEMI (non-ST elevated myocardial infarction): Status: Acute Category: Medical Code(s): I21.4 - Non-ST elevation (NSTEMI) myocardial infarction (3) HTN (hypertension): Status: Chronic Qualifiers: Hypertension type: essential hypertension Qualified Code(s): I10 - Essential (primary) hypertension Category: Medical Code(s): I10 - Essential (primary) hypertension (4) Hyperlipidemia: Status: Chronic Qualifiers: Hyperlipidemia type: mixed hyperlipidemia Qualified Code(s): E78.2 - Mixed hyperlipidemia Category: Medical Code(s): E78.5 - Hyperlipidemia, unspecified (5) GERD (gastroesophageal reflux disease): Status: Chronic Qualifiers: Esophagitis presence: without esophagitis Qualified Code(s): K21.9 - Gastro-esophageal reflux disease without esophagitis Category: Medical Code(s): K21.9 - Gastro-esophageal reflux disease without esophagitis (6) Anemia: Status: Acute Qualifiers: Anemia type: unspecified type Qualified Code(s): D64.9 - Anemia, unspecified Category: Medical Code(s): D64.9 - Anemia, unspecified (7) Hyperkalemia: Status: Acute Category: Medical Code(s): E87.5 - Hyperkalemia (8) SUSANA (acute kidney injury): Status: Acute Category: Medical Code(s): N17.9 - Acute kidney failure, unspecified (9) Thrombocytosis: Status: Acute Category: Medical Code(s): D75.839 - Thrombocytosis, unspecified Plan MV-CAD s/p NSTEMI with RCA thrombectomy/stenting 11/16 In-stent thrombosis Ischemic cardiomyopathy Heart failure with reduced ejection fraction non-STEMI -s/p [facility] yesterday with repeat thrombectomy and stenting of the RCA -Failed Plavix therapy. - Now on Effient, Continue aspirin -Continue isosorbide, metoprolol and ranolazine SUSANA monitor BMP COPD: Continue home when with Trelegy and Duonebs q6hp; stable on room air Depression: Continue BuSpar 7.5 mg twice daily as needed; continue Lexapro 20 mg daily Diabetes: Sliding scale insulin fingersticks ACHS. Will resume home regimen at discharge. Class III obesity: complicates all aspects of her care. Recommend considering outpatient GLP-1 Anemia, likely multifactorial, - hematology as an outpatient for further evaluation Thrombocytosis, new -Possibly related to tobacco use - monitor Hyperlipidemia -On Repatha HFrEF -Continue GDMT with Entresto, metoprolol, diuretics -Intolerant of Jardiance due to thrush Diabetes mellitus COPD monitor inhouse, low BP, DC 1-2 days pending clinical improvement
[2023-11-27 15:23] LABS: Hematocrit 30.7 % (37.0-47.0)
[2023-11-27 15:55] LABS: Hemoglobin 10.1 g/dL (12.2-16.2)
[2023-11-27 16:49] LABS: POC Glucose,Bedside 125 (70-110)
--- NOTE | 2023-11-27 18:25 | PC.NURSE ---
Pt is alert and oriented x4. She remains on 2LNC. Attempts to wean O2 has been unsuccessful. She was 87% on RA. She received 2 units of PRBC's this shift and tolerated well. No complaints voiced. She is currently resting in bed with her eyes closed. Bed is locked and in the lowest position, call light is within reach.
[2023-11-27] MEDS: ROPINIROLE 1MG TABLET 2 MG PO (20:17)
[2023-11-28] VITALS: BP 118/62; PULSE 80; PULSE 81; RESP 20; TEMP 36.8; O2SAT 92
[2023-11-28 04:00] VITALS: BP 101/50; PULSE 78; PULSE 81; RESP 18; TEMP 36.6; O2SAT 95; BMI 47.5
[2023-11-28] MEDS: FLUTICASONE/UMECLIDIN/VILANTER 100/62.5/25MCG INHALER 1 PUFF IH (06:22)
[2023-11-28] MEDS: IPRATROPIUM/ALBUTEROL 3 ML NEB IH ×2 (06:22→11:11)
[2023-11-28 06:24] VITALS: PULSE 74; PULSE 76; O2SAT 93
[2023-11-28 06:24] LABS: POC Glucose,Bedside 135 (70-110)
[2023-11-28 06:24] LABS: POC Glucose,Bedside 113 (70-110)
[2023-11-28 06:51] LABS: Chloride 102 mmol/L (98-107); Potassium 4.4 mmoL/L (3.5-5.1); Sodium 135 mmol/L (136-145)
[2023-11-28 06:52] LABS: Basophils % 0.4 % (0.1-2.0); Eosinophils # 0.2 K/mm3 (0.0-0.4); Eosinophils % 2.8 % (0.1-12.0); Hematocrit 33.3 % (37.0-47.0); Hemoglobin 10.1 g/dL (12.2-16.2); Lymphocytes # 1.5 K/mm3 (0.7-4.5); Lymphocytes % 17.6 % (10-50); Mean Corpuscular HGB Conc 30.4 g/dL (31.8-35.4); Mean Corpuscular Volume 82.1 fl (81-99); Mean Platelet Volume 7.1 fl (7.4-10.4); Monocytes # 0.5 K/mm3 (0.1-1.0); Monocytes % 6.2 % (1.7-9.3); Neutrophils # 6.1 K/mm3 (1.8-7.8); Neutrophils % 73.2 % (37.0-80.0); Platelet Count 486 K/mm3 (142-424); Red Blood Count 4.06 M/mm3 (4.20-5.40); Red Cell Distribution Width 18.6 % (11.5-17.5); White Blood Count 8.3 K/mm3 (4.8-10.8)
[2023-11-28 06:54] LABS: Anion Gap 7.4 mEq/L (5-15); Blood Urea Nitrogen 9 mg/dl (7-17); Calcium 8.4 mg/dl (8.4-10.2); Carbon Dioxide 30 mmol/L (22.0-30.0); Creatinine Clearance Estimated 43 mL/min (50-200); Estimated Glomerular Filt Rate 51 ml/min (>60); GFR (African American) 61 ML/MIN (>60); Glucose 115 mg/dl (74-100)
[2023-11-28 08:00] VITALS: BP 101/57; PULSE 78; PULSE 80; RESP 18; TEMP 36.6; O2SAT 95
[2023-11-28] MEDS: PANTOPRAZOLE 40MG TABLET 40 MG PO (08:47)
[2023-11-28] MEDS: ASPIRIN EC 81MG TABLET 81 MG PO (08:47)
[2023-11-28] MEDS: CITALOPRAM 20MG TABLET 20 MG PO (08:49)
[2023-11-28] MEDS: PRASUGREL 10MG TAB 10 MG PO (08:52)
--- NOTE | 2023-11-28 09:09 | EXP.CARD.PN ---
Subjective Subjective Date: 11/28/23 Time: 09:10 Principal diagnosis: NSTEMI Interval history: 62-year-old white female in bed in no acute distress. Patient does have some slight chest pressure this morning rating it as a 5 out of 10 that is not made worse with deep breathing or pressure. This is the same type of pain she had on admission but not as severe. She does state that Ranexa helped prior to admission therefore we will restart it today to see if this will improve her pain. Limited echo yesterday showed mild to moderate global hypokinesis with severe septal and inferoseptal hypokinesis with EF 40%. Compared to study from 11/20/2023, no change. Exam Data for Last 24 hours Vital signs and Labs for Last 24 Hours: Temp Pulse Resp BP Pulse Ox O2 Del Method O2 Flow Rate 97.9 F 78 18 101/57 L 95 Room Air 2 11/28/23 08:00 11/28/23 08:00 11/28/23 08:00 11/28/23 08:00 11/28/23 08:00 11/28/23 08:00 11/28/23 05:00 Laboratory Results - last 24 hr 11/27/23 05:35: Blood Type B Negative, Antibody Screen Negative, Crossmatch (AHG) See Detail 11/27/23 11:23: POC Glucose 129 H 11/27/23 15:06: Hgb 10.1 L D, Hct 30.7 L 11/27/23 16:31: POC Glucose 125 H 11/27/23 20:05: POC Glucose 135 H 11/28/23 06:12: WBC 8.3, RBC 4.06 L D, Hgb 10.1 L, Hct 33.3 L, MCV 82.1, MCH 25.0 L, MCHC 30.4 L, RDW 18.6 H, Plt Count 486 H, MPV 7.1 L, Neut % (Auto) 73.2, Lymph % (Auto) 17.6, Branch % (Auto) 6.2, Eos % (Auto) 2.8, Baso % (Auto) 0.4, Neut # (Auto) 6.1, Lymph # (Auto) 1.5, [place] # (Auto) 0.5, Eos # (Auto) 0.2, Baso # (Auto) 0.0, Sodium 135 L, Potassium 4.4, Chloride 102, Carbon Dioxide 30, Anion Gap 7.4, BUN 9, Creatinine 1.10 H, Estimated Creat Clear 43, Estimated GFR 51 L, Est GFR ( Amer) 61, Glucose 115 H, Calcium 8.4 11/28/23 06:15: POC Glucose 113 H I & O for Last 24 hours: Intake & Output 11/25/23 11/26/23 11/27/23 11/28/23 11:59 11:59 11:59 11:59 Intake Total 482 / 482 620 / 620 Output Total 0 / 0 0 / 0 Balance 482 482 620 / 620 Weight 263 lb 270 lb 6.4 oz 268 lb Constitutional Constitutional: no acute distress *Routine Respiratory Exam Respiratory: Present CTA bilaterally *Routine Cardiovascular Exam Cardiovascular: Present RRR; Absent murmur, gallop or rubs Progress Note: A&P Assessment and plan (1) CAD (coronary artery disease): Status: Chronic (2) NSTEMI (non-ST elevated myocardial infarction): Status: Acute (3) HTN (hypertension): Status: Chronic (4) Hyperlipidemia: Status: Chronic (5) GERD (gastroesophageal reflux disease): Status: Chronic (6) Anemia: Status: Acute (7) Hyperkalemia: Status: Acute (8) SUSANA (acute kidney injury): Status: Acute (9) Thrombocytosis: Status: Acute Assessment and Plan Assessment and Plan for All Diagnoses:: 1. Recent non-STEMI -[facility] with repeat thrombectomy and stenting of the RCA, 11/26/2023 -Failed Plavix therapy. Now on Effient -Continue aspirin -Hold isosorbide, metoprolol and ranolazine due to hypotension 2. Chronic anemia, dropped to 7.7 -Transfused up to 10.1 -Will refer to hematology as an outpatient for further evaluation 3. Hyperkalemia, resolved -Potassium 4.4 4. SUSANA, resolved 5. Thrombocytosis, new -Possibly related to tobacco use -improving (down from 613 K to 486 K) 6. Hyperlipidemia -On Repatha -LDL down from 151 to 76 7. HFrEF, EF 40% -Resume GDMT when BP allows -Intolerant of Jardiance due to thrush -No clinical signs of CHF at this time 8. Diabetes mellitus -on ozempic at home 9. COPD -on trelegy at home Restart Ranexa for chest pain. Try adding metoprolol succinate XL 25 mg daily for HR control Blood pressure stable with systolic pressure around 100 mmHg off antihypertensives. Recommend patient ambulate today with restarting Ranexa with possible discharge home in the next 24 hours if chest pain resolves Patient has had both Ranexa and metoprolol today. She is ambulated in the hallway without recurrence of chest pain. Patient should be stable for discharge home. Home medication recommendations: Aspirin 81 mg daily Effient 10 mg daily (stop Plavix) Protonix 40 mg twice daily Ranexa 500 mg twice daily Metoprolol succinate 25 mg daily Hold Bumex, spironolactone, Entresto, isosorbide and amlodipine at this time. Consider restarting at follow-up. Follow-up in our office in 1 week
[2023-11-28] MEDS: RANOLAZINE 500MG ER TABLET 500 MG PO (10:58)
[2023-11-28 11:05] VITALS: BMI 47.5
[2023-11-28 11:11] VITALS: PULSE 82; PULSE 88
[2023-11-28 11:40] LABS: POC Glucose,Bedside 123 (70-110)
[2023-11-28 12:00] VITALS: BP 106/63; PULSE 80; PULSE 83; RESP 18; TEMP 36.6; O2SAT 98
[2023-11-28] MEDS: METOPROLOL SUCCINATE XL 25MG TABLET 25 MG PO (14:18)
--- NOTE | 2023-11-28 15:20 | P.DS_ITS ---
General Admission date:: 11/26/23 Discharge date: 11/28/23 HPI HPI HPI: 62-year-old female who underwent heart cath on 11/16 with stent to the RCA. Developed postprocedural anemia necessitating transfusion and admission. Hemoglobin remained stable and she was discharged home. Follow-up with cardiology on the , was complaining of persistent chest pain radiating down her arm worse than her previous pain leading to her initial heart cath. Unable to get cath approved last week but was brought in today for repeat left heart cath. Found to have in-stent thrombosis of the RCA. Treated with 2 additional stents. Concerned that patient is a nonresponder to Plavix. Given her anemia, cardiology requested admission for monitoring overnight. Patient initiated on Effient. Medicine consulted for admission. On arrival to the floor, patient is feeling better. Is laying supine due to radial and right femoral approach. Chest pain somewhat better. No nausea or vomiting. No shortness of breath. Overall feeling better. Hospital Course Hospital Course Hospital Course: Patient presented to hospital for chest pain, was evaluated by cardiology who did cath. MV-CAD s/p NSTEMI with RCA thrombectomy/stenting 11/16 - stable for dc per cardiology In-stent thrombosis Ischemic cardiomyopathy Heart failure with reduced ejection fraction non-STEMI -s/p [facility] yesterday with repeat thrombectomy and stenting of the RCA Home medication recommendations: Aspirin 81 mg daily Effient 10 mg daily (stop Plavix) Protonix 40 mg twice daily Ranexa 500 mg twice daily Metoprolol succinate 25 mg daily Hold Bumex, spironolactone, Entresto, isosorbide and amlodipine at this time. Consider restarting at follow-up. Follow-up in our office in 1 week stable for discharge Exam Data for Last 24 hours Vital signs and Labs for Last 24 Hours: Temp Pulse Resp BP Pulse Ox O2 Del Method O2 Flow Rate 97.8 F 83 18 106/63 L 98 Room Air 2 11/28/23 12:00 11/28/23 12:00 11/28/23 12:00 11/28/23 12:00 11/28/23 12:00 11/28/23 14:34 11/28/23 05:00 Laboratory Results - last 24 hr 11/27/23 15:06: Hgb 10.1 L D, Hct 30.7 L 11/27/23 16:31: POC Glucose 125 H 11/27/23 20:05: POC Glucose 135 H 11/28/23 06:12: WBC 8.3, RBC 4.06 L D, Hgb 10.1 L, Hct 33.3 L, MCV 82.1, MCH 25.0 L, MCHC 30.4 L, RDW 18.6 H, Plt Count 486 H, MPV 7.1 L, Neut % (Auto) 73.2, Lymph % (Auto) 17.6, [place] % (Auto) 6.2, Eos % (Auto) 2.8, Baso % (Auto) 0.4, Neut # (Auto) 6.1, Lymph # (Auto) 1.5, [place] # (Auto) 0.5, Eos # (Auto) 0.2, Baso # (Auto) 0.0, Sodium 135 L, Potassium 4.4, Chloride 102, Carbon Dioxide 30, Anion Gap 7.4, BUN 9, Creatinine 1.10 H, Estimated Creat Clear 43, Estimated GFR 51 L, Est GFR ( Amer) 61, Glucose 115 H, Calcium 8.4 11/28/23 06:15: POC Glucose 113 H 11/28/23 11:30: POC Glucose 123 H I & O for Last 24 hours: Intake & Output 11/25/23 11/26/23 11/27/23 11/28/23 23:59 23:59 23:59 23:59 Intake Total 120 / 120 982 / 982 780 / 780 Output Total 0 / 0 0 / 0 Balance 120 / 120 982 / 982 780 / 780 Weight 119.295 kg 122.651 kg 121.56 kg Constitutional Constitutional: no acute distress *Routine HEENT Exam Head: Present normocephalic Eye: Present EOMI and PERRL ENT: Present mucous membranes moist *Routine Neck Exam Neck: Present supple; Absent lymphadenopathy *Routine Respiratory Exam Respiratory: Present CTA bilaterally *Routine Cardiovascular Exam Cardiovascular: Present RRR *Routine Abdominal Exam Abdominal: Present soft and normoactive bowel sounds; Absent tenderness *Routine Extremities Exam Extremities: Absent cyanosis, clubbing or edema *Routine Skin Exam Skin: Present warm; Absent rash *Routine Neurological Exam Neurological: Present alert and oriented X3 Results Data Completed and Pending Labs on day of discharge: Labs from last 24 hours 02/11/28/23 11/28/23 11:30 06:15 06:12 WBC 8.3 RBC 4.06 L D Hgb 10.1 L Hct 33.3 L MCV 82.1 MCH 25.0 L MCHC 30.4 L RDW 18.6 H Plt Count 486 H MPV 7.1 L Neut % (Auto) 73.2 Lymph % (Auto) 17.6 [place] % (Auto) 6.2 Eos % (Auto) 2.8 Baso % (Auto) 0.4 Neut # (Auto) 6.1 Lymph # (Auto) 1.5 [place] # (Auto) 0.5 Eos # (Auto) 0.2 Baso # (Auto) 0.0 Sodium 135 L Potassium 4.4 Chloride 102 Carbon Dioxide 30 Anion Gap 7.4 BUN 9 Creatinine 1.10 H Estimated Creat Clear 43 Estimated GFR 51 L Est GFR ( Amer) 61 Glucose 115 H POC Glucose 123 H 113 H Calcium 8.4 11/27/23 11/27/23 11/27/23 20:05 16:31 15:06 WBC RBC Hgb 10.1 L D Hct 30.7 L MCV MCH MCHC RDW Plt Count MPV Neut % (Auto) Lymph % (Auto) [place] % (Auto) Eos % (Auto) Baso % (Auto) Neut # (Auto) Lymph # (Auto) [place] # (Auto) Eos # (Auto) Baso # (Auto) Sodium Potassium Chloride Carbon Dioxide Anion Gap BUN Creatinine Estimated Creat Clear Estimated GFR Est GFR ( Amer) Glucose POC Glucose 135 H 125 H Calcium DS: Diagnosis Discharge Diagnosis (1) CAD (coronary artery disease): Status: Chronic Code(s): I25.10 - Atherosclerotic heart disease of [place] coronary artery without angina pectoris Qualifiers: Associated angina: with other forms of angina Coronary Disease- Associated Artery/Lesion type: [place] artery [place] vs. transplanted heart: [place] heart Qualified Code(s): I25.118 - Atherosclerotic heart disease of [place] coronary artery with other forms of angina pectoris (2) NSTEMI (non-ST elevated myocardial infarction): Status: Resolved Code(s): I21.4 - Non-ST elevation (NSTEMI) myocardial infarction (3) HTN (hypertension): Status: Chronic Code(s): I10 - Essential (primary) hypertension Qualifiers: Hypertension type: essential hypertension Qualified Code(s): I10 - Essential (primary) hypertension (4) Hyperlipidemia: Status: Chronic Code(s): E78.5 - Hyperlipidemia, unspecified Qualifiers: Hyperlipidemia type: mixed hyperlipidemia Qualified Code(s): E78.2 - Mixed hyperlipidemia (5) GERD (gastroesophageal reflux disease): Status: Chronic Code(s): K21.9 - Gastro-esophageal reflux disease without esophagitis Qualifiers: Esophagitis presence: without esophagitis Qualified Code(s): K21.9 - Gastro-esophageal reflux disease without esophagitis (6) Anemia: Status: Acute Code(s): D64.9 - Anemia, unspecified Qualifiers: Anemia type: unspecified type Qualified Code(s): D64.9 - Anemia, unspecified (7) Hyperkalemia: Status: Resolved Code(s): E87.5 - Hyperkalemia (8) SUSANA (acute kidney injury): Status: Inactive Code(s): N17.9 - Acute kidney failure, unspecified (9) Thrombocytosis: Status: Acute Code(s): D75.839 - Thrombocytosis, unspecified Meds Home Medications and Allergies Home Medications Medication Instructions Recorded Confirmed Type buspirone 7.5 mg tablet 7.5 mg PO BIDP PRN Anxiety 03/14/19 11/30/23 History aspirin 81 mg tablet,delayed 81 mg PO DAILY Heart disease #90 01/07/20 11/30/23 Rx release (Adult Low Dose Aspirin) tabs cetirizine 10 mg tablet 10 mg PO DAILY PRN allergies 11/24/22 11/30/23 History escitalopram oxalate 10 mg tablet 20 mg PO DAILY 11/24/22 11/30/23 History (Lexapro) ipratropium 0.5 mg-albuterol 3 mg 3 ml inhalation QID PRN shortness 01/24/23 11/30/23 Rx (2.5 mg base)/3 mL nebulization of breath or wheezing 90 days #270 soln mL evolocumab 140 mg/mL subcutaneous 140 mg SQ Q2W #2 mL 02/15/23 11/30/23 Rx pen injector (Repatha SureClick) albuterol sulfate 90 mcg/actuation 2 inh inhalation Q6H PRN shortness 03/21/23 11/30/23 Rx aerosol inhaler of breath or wheezing 90 days #8.5 grams azelastine 137 mcg (0.1 %) nasal 2 spray intranasal HS 90 days #30 03/21/23 11/30/23 Rx spray aerosol mL fluticasone propionate 50 2 spray intranasal DAILY 90 days 03/21/23 11/30/23 Rx mcg/actuation nasal #16 grams spray,suspension (Flonase Allergy Relief) metformin 500 mg tablet 1,000 mg PO DAILY 04/11/23 11/30/23 History sacubitril 24 mg-valsartan 26 mg 1 tab PO BID #30 tabs 04/18/23 11/30/23 Rx tablet (Entresto) ropinirole 1 mg tablet 2 mg (2 x 1 mg) PO HS #180 tabs 09/18/23 11/30/23 Rx semaglutide 2 mg/dose (8 mg/3 mL) 0.25 mg SQ WEEKLY 11/12/23 11/30/23 History subcutaneous pen injector (Ozempic) bumetanide 1 mg tablet 1 mg PO DAILY 11/16/23 11/30/23 History fluticasone fur. 100 mcg-umeclid 1 inh inhalation DAILY 11/16/23 11/30/23 History 62.5 mcg-vilant 25 mcg inhalat.powder (Trelegy Ellipta) nitroglycerin 0.4 mg sublingual 0.4 mg sublingual Q5-15M PRN chest 11/20/23 11/30/23 Rx tablet pain #25 tabs pantoprazole 40 mg tablet,delayed 40 mg PO BID 30 days #60 tabs 11/20/23 11/30/23 Rx release isosorbide mononitrate 30 mg 30 mg PO DAILY #30 tabs 11/22/23 11/30/23 Rx tablet,extended release 24 hr prasugrel 10 mg tablet (Effient) 10 mg PO DAILY #30 tabs 11/26/23 11/30/23 Rx amlodipine 2.5 mg tablet 2.5 mg PO HS 11/27/23 11/30/23 History lorazepam 1 mg tablet 1 mg PO BIDP PRN Anxiety 11/27/23 11/30/23 History spironolactone 50 mg tablet 25 mg PO DAILY 11/27/23 11/30/23 History metoprolol succinate 25 mg 25 mg PO DAILY 30 days #30 tabs 11/28/23 11/30/23 Rx tablet,extended release 24 hr ranolazine 500 mg tablet,extended 500 mg PO BID 30 days #60 tabs 11/28/23 11/30/23 Rx release,12 hr escitalopram oxalate 20 mg tablet 20 mg PO DAILY 12/04/23 12/04/23 History New Prescriptions to Start Prescriptions: prasugrel [Effient] Yonas Cisneros ranolaKush Good Allergies Allergy/AdvReac Type Severity Reaction Status Date / Time morphine AdvReac Intermediate Vomiting Verified 12/04/23 15:08 diphenhydramine AdvReac Mild Confusion Verified 12/04/23 15:08 [From Benadryl] Discharge Plan Disposition Patient Disposition: Home, Self-Care Follow up Plan Follow up with: Josee Morfin [Primary Care Provider] - 12/03/23 11:30 am (please arrive 15 minutes early for paperwork) Yonas Cisneros MD [Staff Physician] - 12/04/23 2:45 pm Prescriptions/Medication Reconciliation: New prasugrel [Effient] 10 mg Tablet 10 mg PO DAILY Qty: 30 6RF ranolazine 500 mg tablet extended release 12 hr 500 mg PO BID 30 Days Qty: 60 0RF Continued buspirone 7.5 mg tablet 7.5 mg PO BIDP PRN (Reason: Anxiety) aspirin [Adult Low Dose Aspirin] 81 mg tablet,delayed release (DR/EC) 81 mg PO DAILY Qty: 90 3RF metformin 500 mg tablet 1,000 mg PO DAILY Ozempic 2 mg/dose (8 mg/3 mL) pen injector 0.25 mg SQ WEEKLY cetirizine 10 mg tablet 10 mg PO DAILY PRN (Reason: allergies) escitalopram oxalate [Lexapro] 10 mg tablet 20 mg PO DAILY albuterol sulfate 90 mcg/actuation HFA aerosol inhaler 2 inh inhalation Q6H PRN (Reason: shortness of breath or wheezing) 90 Days Qty: 8.5 1RF fluticasone propionate [Flonase Allergy Relief] 50 mcg/actuation spray,suspension 2 spray intranasal DAILY 90 Days Qty: 16 2RF Rx Instructions: administer into each nostril azelastine 137 mcg (0.1 %) aerosol,spray 2 spray intranasal HS 90 Days Qty: 30 3RF Rx Instructions: administer into each nostril ipratropium-albuterol 0.5 mg-3 mg(2.5 mg base)/3 mL solution for nebulization 3 ml inhalation QID PRN (Reason: shortness of breath or wheezing) 90 Days Qty : 270 3RF Repatha SureClick 140 mg/mL pen injector 140 mg SQ Q2W Qty: 2 5RF ropinirole 1 mg tablet 2 mg PO HS Qty: 180 1RF Rx Instructions: administer 1-3 hours before bedtime Trelegy Ellipta 100-62.5-25 mcg blister with device 1 inh INHALATION DAILY Patient Comments: Inhale 1 puff every day by inhalation route. nitroglycerin 0.4 mg tablet, sublingual 0.4 mg SUBLINGUAL Q5-15M PRN (Reason: chest pain) Qty: 25 2RF Rx Instructions: do not exceed 3 doses per episode pantoprazole 40 mg tablet,delayed release (DR/EC) 40 mg PO BID 30 Days Qty: 60 0RF lorazepam 1 mg tablet 1 mg PO BIDP PRN (Reason: Anxiety) Patient Comments: TAKE ONE TABLET BY MOUTH TWICE DAILY NEEDED FOR 14 DAYS FOR ANXIETY Changed metoprolol succinate 25 mg tablet extended release 24 hr 25 mg PO DAILY 30 Days Qty: 30 0RF Rx Instructions: take 1/2 tablet by mouth daily Held isosorbide mononitrate 30 mg tablet extended release 24 hr 30 mg PO DAILY Qty: 30 5RF Hold Instructions: Resume on 12/05/23. Entresto 24-26 mg Tablet 1 tab PO BID Qty: 30 3RF Hold Instructions: Resume on 12/05/23. bumetanide 1 mg tablet 1 mg PO DAILY Hold Instructions: Resume on 12/05/23. Rx Instructions: TAKE ONE TABLET BY MOUTH EVERY DAY amlodipine 2.5 mg tablet 2.5 mg PO HS Hold Instructions: Resume on 12/05/23. Patient Comments: TAKE ONE TABLET BY MOUTH AT BEDTIME spironolactone 50 mg tablet 25 mg PO DAILY Hold Instructions: Resume on 12/05/23. Patient Comments: TAKE ONE TABLET BY MOUTH EVERY DAY Discontinued clopidogrel 75 mg tablet 75 mg PO DAILY Qty: 90 3RF Rx Instructions: take one tablet by mouth once daily. ranolazine 1,000 mg tablet extended release 12 hr 1,000 mg PO BID Qty: 60 5RF No Action escitalopram oxalate 20 mg tablet 20 mg PO DAILY Problem Reconciliation Problems Reviewed?: Yes Patient Discharge Instructions ACTIVITY: Ambulate as tolerated DIET: continue same diet Patient Instructions: DI for Cardiac Catheterization, DI for Surgical Site Infection, DI for Moderate Sedation, DI for Post-Surgical Bleeding Providers Primary Care Provider: Josee Morfin Admit Provider: Jay Alejo Attending Provider: Jay Alejo
--- NOTE | 2023-11-29 13:14 | CARE MANAGER ---
Contacted patient related to hospital discharge. She states she is doing well. She is picking up her medications today. She is aware of her medication changes and follow up appointments. Denies any questions or concerns. LUCIANA Alarcon
== END 2023-11-28 17:00 | disposition home or self-care (01) ==
LOC: 2ND 14:08
PROVIDERS: Internal Medicine; Nurse Practitioner Family; Physician Assistant; Admitting Provider Internal Medicine Adolescent Medicine; PCP Nurse Practitioner Family; Visit Provider Internal Medicine Adolescent Medicine
DX: I21.4 Non-ST elevation (NSTEMI) myocardial infarction (principal); J44.9 Chronic obstructive pulmonary disease, unspecified; E78.5 Hyperlipidemia, unspecified; I34.0 Nonrheumatic mitral (valve) insufficiency; I25.5 Ischemic cardiomyopathy; I11.0 Hypertensive heart disease with heart failure; I50.20 Unspecified systolic (congestive) heart failure; I25.118 Atherosclerotic heart disease of native coronary artery with other forms of angina pectoris
CPT/HCPCS: 36415; 70450; 80048; 80061; 82962; 85014; 85018; 85025; 85347; 86850; 92928; 92929; 92978; 93308; 93454; 94640; 94761; 99152; 99153; C1725; C1760; C1769; C1874; C1876; C1894; C9600; C9601; G0378; J1644; P9016; Q9967

== ENCOUNTER 2023-11-30 11:31 | Outpatient (CLI) | payer MEDICAID, SELFPAY ==
[2023-11-30 11:52] LABS: Basophils # 0.1 K/mm3 (0-0.2); Eosinophils # 0.3 K/mm3 (0.0-0.4); Eosinophils % 3.6 % (0.1-12.0); Hematocrit 38.3 % (37.0-47.0); Hemoglobin 11.5 g/dL (12.2-16.2); Lymphocytes # 1.5 K/mm3 (0.7-4.5); Lymphocytes % 19.6 % (10-50); Mean Corpuscular Hemoglobin 24.8 pg (27.0-31.2); Mean Corpuscular Volume 82.7 fl (81-99); Mean Platelet Volume 7.5 fl (7.4-10.4); Monocytes # 0.5 K/mm3 (0.1-1.0); Monocytes % 5.9 % (1.7-9.3); Neutrophils # 5.4 K/mm3 (1.8-7.8); Neutrophils % 69.8 % (37.0-80.0); Platelet Count 584 K/mm3 (142-424); Red Blood Count 4.62 M/mm3 (4.20-5.40); Red Cell Distribution Width 18.5 % (11.5-17.5); White Blood Count 7.8 K/mm3 (4.8-10.8)
[2023-11-30 12:45] LABS: Iron 98 ug/dL (37-170)
[2023-11-30 12:54] LABS: Total Iron Binding Capacity 393 ug/dL (265-497)
[2023-11-30 13:21] LABS: Ferritin 20.7 ng/ml (11.1-264)
== END 2023-11-30 23:59 ==
LOC: LAB 11:32
PROVIDERS: PCP Nurse Practitioner Family; Visit Provider Internal Medicine Medical Oncology
DX: D64.9 Anemia, unspecified (principal)
CPT/HCPCS: 36415; 82728; 83540; 83550; 85025

== ENCOUNTER 2023-12-04 13:21 | Outpatient (CLI) | payer MEDICAID, SELFPAY ==
[2023-12-04 14:03] LABS: Basophils # 0.1 K/mm3 (0-0.2); Basophils % 1.4 % (0.1-2.0); Eosinophils # 0.2 K/mm3 (0.0-0.4); Eosinophils % 3.9 % (0.1-12.0); Hematocrit 36.8 % (37.0-47.0); Lymphocytes % 33.6 % (10-50); Mean Corpuscular HGB Conc 29.8 g/dL (31.8-35.4); Mean Corpuscular Hemoglobin 24.2 pg (27.0-31.2); Mean Corpuscular Volume 81.3 fl (81-99); Mean Platelet Volume 7.3 fl (7.4-10.4); Monocytes # 0.4 K/mm3 (0.1-1.0); Neutrophils # 3.3 K/mm3 (1.8-7.8); Neutrophils % 55.2 % (37.0-80.0); Platelet Count 535 K/mm3 (142-424); Red Blood Count 4.53 M/mm3 (4.20-5.40); Red Cell Distribution Width 18.4 % (11.5-17.5); White Blood Count 5.9 K/mm3 (4.8-10.8)
[2023-12-04 14:51] LABS: Anion Gap 11.9 mEq/L (5-15); Blood Urea Nitrogen 11 mg/dl (7-17); Calcium 8.9 mg/dl (8.4-10.2); Carbon Dioxide 27 mmol/L (22.0-30.0); Chloride 103 mmol/L (98-107); Estimated Glomerular Filt Rate 64 ml/min (>60); GFR (African American) 77 ML/MIN (>60); Glucose 91 mg/dl (74-100); Potassium 4.9 mmoL/L (3.5-5.1); Sodium 137 mmol/L (136-145)
== END 2023-12-04 23:59 ==
LOC: LAB 13:21
PROVIDERS: PCP Nurse Practitioner Family; Visit Provider Internal Medicine
DX: I25.118 Atherosclerotic heart disease of native coronary artery with other forms of angina pectoris (principal); I50.9 Heart failure, unspecified; T82.867A Thrombosis due to cardiac prosthetic devices, implants and grafts, initial encounter; K21.9 Gastro-esophageal reflux disease without esophagitis
CPT/HCPCS: 36415; 80048; 85025

== ENCOUNTER 2024-01-08 13:45 | Outpatient (CLI) | payer MEDICAID, SELFPAY ==
[2024-01-08 13:51] LABS: MANUAL DIFFERENTIAL MANUAL DIFFERENTIAL (MANUAL DIFF)
[2024-01-08 15:08] LABS: Basophils # 0.1 K/mm3 (0-0.2); Eosinophils # 0.1 K/mm3 (0.0-0.4); Eosinophils % 1.5 % (0.1-12.0); Hematocrit 37.8 % (37.0-47.0); Hemoglobin 11.3 g/dL (12.2-16.2); Lymphocytes # 1.9 K/mm3 (0.7-4.5); Lymphocytes % 22.9 % (10-50); Mean Corpuscular HGB Conc 29.9 g/dL (31.8-35.4); Mean Corpuscular Hemoglobin 25.8 pg (27.0-31.2); Mean Corpuscular Volume 86.4 fl (81-99); Mean Platelet Volume 7.5 fl (7.4-10.4); Monocytes # 0.5 K/mm3 (0.1-1.0); Monocytes % 5.4 % (1.7-9.3); Neutrophils # 5.8 K/mm3 (1.8-7.8); Neutrophils % 69.2 % (37.0-80.0); Platelet Count 313 K/mm3 (142-424); Red Blood Count 4.37 M/mm3 (4.20-5.40); Red Cell Distribution Width 20.1 % (11.5-17.5); White Blood Count 8.4 K/mm3 (4.8-10.8)
[2024-01-08 15:17] LABS: Chloride 103 mmol/L (98-107); Potassium 4.5 mmoL/L (3.5-5.1); Sodium 140 mmol/L (136-145)
[2024-01-08 15:20] LABS: Blood Urea Nitrogen 12 mg/dl (7-17); Estimated Glomerular Filt Rate 85 ml/min (>60); GFR (African American) 103 ML/MIN (>60)
[2024-01-08 15:21] LABS: Anion Gap 7.5 mEq/L (5-15); Calcium 9.5 mg/dl (8.4-10.2); Carbon Dioxide 34 mmol/L (22.0-30.0); Glucose 106 mg/dl (74-100)
[2024-01-08 19:32] LABS: Hypochromasia 1+; Lymphocytes % 39 % (10-50); Monocytes % 2 % (2-9); Neutrophils % 59 % (42-76); Platelet Estimate Normal; Total Cells Counted 100
== END 2024-01-08 23:59 | disposition home or self-care (01) ==
PROVIDERS: PCP Nurse Practitioner Family; Visit Provider Internal Medicine
DX: I25.118 Atherosclerotic heart disease of native coronary artery with other forms of angina pectoris (principal); R42 Dizziness and giddiness; R53.83 Other fatigue; Z87.891 Personal history of nicotine dependence
CPT/HCPCS: 36415; 80048; 85007; 85014; 85018; 85048; 85049; 93225

== ENCOUNTER 2024-01-10 16:48 | Outpatient (CLI) | payer MEDICAID, SELFPAY | END 2024-01-10 23:59 | disposition home or self-care (01) | LOC: RT 16:48 | PROVIDERS: PCP Nurse Practitioner Family; Visit Provider Nurse Practitioner | DX: R42 Dizziness and giddiness (principal); R53.83 Other fatigue | CPT/HCPCS: 93270 ==

== ENCOUNTER 2024-01-22 15:01 | Outpatient (CLI) | payer MEDICAID, SELFPAY ==
[2024-01-22 15:20] LABS: Basophils # 0.1 K/mm3 (0-0.2); Basophils % 0.8 % (0.1-2.0); Eosinophils # 0.2 K/mm3 (0.0-0.4); Eosinophils % 2.8 % (0.1-12.0); Hematocrit 42.8 % (37.0-47.0); Hemoglobin 13.5 g/dL (12.2-16.2); Lymphocytes # 1.8 K/mm3 (0.7-4.5); Lymphocytes % 24.1 % (10-50); Mean Corpuscular HGB Conc 31.6 g/dL (31.8-35.4); Mean Corpuscular Hemoglobin 27.7 pg (27.0-31.2); Mean Corpuscular Volume 87.5 fl (81-99); Mean Platelet Volume 7.6 fl (7.4-10.4); Monocytes # 0.4 K/mm3 (0.1-1.0); Neutrophils # 5.2 K/mm3 (1.8-7.8); Neutrophils % 67.3 % (37.0-80.0); Platelet Count 381 K/mm3 (142-424); Red Blood Count 4.89 M/mm3 (4.20-5.40); Red Cell Distribution Width 19.9 % (11.5-17.5); White Blood Count 7.7 K/mm3 (4.8-10.8)
[2024-01-22 17:55] LABS: Iron 278 ug/dL (37-170)
[2024-01-22 18:10] LABS: Total Iron Binding Capacity 361 ug/dL (265-497)
[2024-01-22 18:35] LABS: Ferritin 14.2 ng/ml (11.1-264)
== END 2024-01-22 23:59 | disposition home or self-care (01) ==
LOC: LAB 15:03
PROVIDERS: PCP Nurse Practitioner Family; Visit Provider Internal Medicine Medical Oncology
DX: D64.9 Anemia, unspecified (principal); Z79.899 Other long term (current) drug therapy
CPT/HCPCS: 36415; 82728; 83540; 83550; 85025

== ENCOUNTER 2024-02-21 13:17 | Outpatient (CLI) | payer MEDICAID, SELFPAY ==
[2024-02-21 13:56] LABS: Basophils # 0.1 K/mm3 (0-0.2); Basophils % 0.8 % (0.1-2.0); Eosinophils # 0.2 K/mm3 (0.0-0.4); Hematocrit 37.8 % (37.0-47.0); Hemoglobin 11.9 g/dL (12.2-16.2); Lymphocytes # 1.9 K/mm3 (0.7-4.5); Lymphocytes % 22.9 % (10-50); Mean Corpuscular HGB Conc 31.6 g/dL (31.8-35.4); Mean Corpuscular Hemoglobin 27.6 pg (27.0-31.2); Mean Corpuscular Volume 87.4 fl (81-99); Mean Platelet Volume 7.5 fl (7.4-10.4); Monocytes # 0.4 K/mm3 (0.1-1.0); Monocytes % 4.8 % (1.7-9.3); Neutrophils # 5.9 K/mm3 (1.8-7.8); Neutrophils % 69.5 % (37.0-80.0); Platelet Count 350 K/mm3 (142-424); Red Blood Count 4.32 M/mm3 (4.20-5.40); Red Cell Distribution Width 17.3 % (11.5-17.5); White Blood Count 8.4 K/mm3 (4.8-10.8)
[2024-02-21 14:24] LABS: Total Iron Binding Capacity 343 ug/dL (265-497)
[2024-02-21 17:00] LABS: Ferritin 10.1 ng/ml (11.1-264)
[2024-02-21 17:33] LABS: Iron 43 ug/dL (37-170)
== END 2024-02-21 23:59 | disposition home or self-care (01) ==
PROVIDERS: PCP Nurse Practitioner Family; Visit Provider Internal Medicine Medical Oncology
DX: I25.118 Atherosclerotic heart disease of native coronary artery with other forms of angina pectoris (principal); I10 Essential (primary) hypertension; E61.1 Iron deficiency
CPT/HCPCS: 36415; 82728; 83540; 83550; 85025

== ENCOUNTER 2024-03-24 14:53 | Outpatient (CLI) | payer MEDICAID, SELFPAY ==
[2024-03-24 15:18] LABS: Basophils # 0.1 K/mm3 (0-0.2); Basophils % 0.9 % (0.1-2.0); Eosinophils # 0.2 K/mm3 (0.0-0.4); Eosinophils % 2.1 % (0.1-12.0); Hematocrit 36.7 % (37.0-47.0); Hemoglobin 11.4 g/dL (12.2-16.2); Lymphocytes # 1.9 K/mm3 (0.7-4.5); Lymphocytes % 21.7 % (10-50); Mean Corpuscular HGB Conc 31.1 g/dL (31.8-35.4); Mean Corpuscular Hemoglobin 25.4 pg (27.0-31.2); Mean Corpuscular Volume 81.6 fl (81-99); Mean Platelet Volume 7.5 fl (7.4-10.4); Monocytes # 0.4 K/mm3 (0.1-1.0); Monocytes % 4.5 % (1.7-9.3); Neutrophils % 70.7 % (37.0-80.0); Platelet Count 377 K/mm3 (142-424); Red Blood Count 4.49 M/mm3 (4.20-5.40); Red Cell Distribution Width 16.6 % (11.5-17.5); White Blood Count 8.6 K/mm3 (4.8-10.8)
[2024-03-24 15:49] LABS: Anion Gap 14.3 mEq/L (5-15); Blood Urea Nitrogen 16 mg/dl (7-17); Calcium 8.8 mg/dl (8.4-10.2); Carbon Dioxide 31 mmol/L (22.0-30.0); Chloride 98 mmol/L (98-107); Estimated Glomerular Filt Rate 64 ml/min (>60); GFR (African American) 77 ML/MIN (>60); Glucose 107 mg/dl (74-100); Potassium 4.3 mmoL/L (3.5-5.1); Sodium 139 mmol/L (136-145)
[2024-03-24 15:49] LABS: Iron 42 ug/dL (37-170)
[2024-03-24 15:58] LABS: Total Iron Binding Capacity 364 ug/dL (265-497)
[2024-03-24 16:25] LABS: Ferritin 7.59 ng/ml (11.1-264)
== END 2024-03-24 23:59 | disposition home or self-care (01) ==
LOC: LAB 14:56
PROVIDERS: PCP Nurse Practitioner Family; Visit Provider Nurse Practitioner
DX: I25.118 Atherosclerotic heart disease of native coronary artery with other forms of angina pectoris (principal); D64.9 Anemia, unspecified; I11.0 Hypertensive heart disease with heart failure
CPT/HCPCS: 36415; 80048; 82728; 83540; 83550; 85025

== ENCOUNTER 2024-03-27 06:27 | Day surgery (SDC) | payer MEDICAID, SELFPAY ==
[2024-03-27] VITALS (7 sets, daily range): BP systolic 86–139; BP diastolic 56–87; PULSE 71–84; RESP 16–18; TEMP 36.4–36.6; O2SAT 88–96; BMI 48.0
--- NOTE | 2024-03-27 06:12 | EXP.GEN.HP ---
HPI HPI HPI: Patient presents for colonoscopy. She is a 63-year-old female from [place], [place] with history of obesity (BMI 45) congestive heart failure, sleep apnea, coronary artery disease with multiple previous coronary stents, COPD, hypertension, GERD (on omeprazole), hyperlipidemia. She was admitted in November of this year after she had developed chest pain and presented to [facility]. When she was evaluated at [facility] she was placed on heparin and nitroglycerin drips due to potential cardiac ischemia. She was transferred to [facility] for possible cardiac etiology. At that time she was noted to have a hemoglobin of 10 (baseline hemoglobin 13). Cardiology performed left heart catheterization on 11/16/2023 which revealed occluded right coronary artery of unknown duration with moderate to severe left ventricular dysfunction. She had stenting with a drug-eluting stent. She did develop thrombotic embolization and was placed on Integrilin drip after bolus. She was noted to have a subsequent hemoglobin of 6.9. Patient was transfused with marginal response. She did have a CT scan during that admission without contrast which revealed 5.6 x 2 cm collection of air adjacent to the proximal duodenum which may represent large duodenal ulcer . At that time surgical consultation was requested. She underwent in the patient EGD on 11/19/2023 which revealed gastroesophageal junction at 38 cm, mild diffuse nonerosive gastropathy, no evidence of any definite duodenal ulcer, no evidence of any recent or active upper GI bleeding proximal to the ligament of Treitz. Patient did have a follow-up hospitalization for chest pain and underwent a repeat cardiac catheterization on 11/26/2023 which revealed thrombosis of recently deployed stents with additional stents subsequently placed. At that time she had a hemoglobin of 7.7 and was given additional blood transfusion. Patient does state that she had a colonoscopy at [facility] 3 years ago. She has seen Dr. Hickey as an outpatient with hematology. It was felt that given the patient's iron deficiency anemia that follow-up surveillance colonoscopy would be warranted. . [facility] Disclaimer: The information contained in this section may have been updated after the patient was seen, as this information can be updated by other users. Medical History Dizziness SUSANA (acute kidney injury) Anemia Left arm numbness GI (gastrointestinal hemorrhage) Hypertension affecting , delivered, current hospitalization Sleep apnea CHF (congestive heart failure) Angina pectoris Hypotension Crescendo angina RLS (restless legs syndrome) Elevated left ventricular end-diastolic pressure (LVEDP) Encounter for screening for malignant neoplasm of lung COPD mixed type Smoking greater than 30 pack years Dyspnea on exertion LV dysfunction Former smoker Atypical chest pain Recent myocardial infarction Atypical angina Abnormal echocardiogram Mitral valve regurgitation Abnormal stress test Typical angina Tobacco abuse counseling Tobacco abuse GERD (gastroesophageal reflux disease) Hyperlipidemia Abnormal ECG HTN (hypertension) CAD (coronary artery disease) Surgical History History of carpal tunnel surgery History of heart artery stent History of hysterectomy Family History Other Emphysema of lung Social History Smoking Status: Former smoker smoking status stop date: 05/01/23 alcohol intake: never substance use type: denies use current occupational status: employed and retired Travel in the last 8 weeks: None household members: none housing: house caffeine: No Review of Systems Review of Systems Review of systems:: pertinent systems reviewed and negative unless documented below Meds Home Medications and Allergies Home Medications Medication Instructions Recorded Confirmed Type buspirone 7.5 mg tablet 7.5 mg PO BIDP PRN Anxiety 03/14/19 03/27/24 History aspirin 81 mg tablet,delayed 81 mg PO DAILY Heart disease #90 01/07/20 03/27/24 Rx release (Adult Low Dose Aspirin) tabs cetirizine 10 mg tablet 10 mg PO DAILY PRN allergies 11/24/22 03/27/24 History ipratropium 0.5 mg-albuterol 3 mg 3 ml inhalation QID PRN shortness 01/24/23 03/27/24 Rx (2.5 mg base)/3 mL nebulization of breath or wheezing 90 days #270 soln mL evolocumab 140 mg/mL subcutaneous 140 mg SQ Q2W #2 mL 02/15/23 03/27/24 Rx pen injector (Repatha SureGabrielick) albuterol sulfate 90 mcg/actuation 2 inh inhalation Q6H PRN shortness 03/21/23 03/27/24 Rx aerosol inhaler of breath or wheezing 90 days #8.5 grams azelastine 137 mcg (0.1 %) nasal 2 spray intranasal HS 90 days #30 03/21/23 03/27/24 Rx spray aerosol mL fluticasone propionate 50 2 spray intranasal DAILY 90 days 03/21/23 03/27/24 Rx mcg/actuation nasal #16 grams spray,suspension (Flonase Allergy Relief) metformin 500 mg tablet 1,000 mg PO DAILY 04/11/23 03/27/24 History ropinirole 1 mg tablet 2 mg (2 x 1 mg) PO HS #180 tabs 09/18/23 03/27/24 Rx semaglutide 2 mg/dose (8 mg/3 mL) 0.25 mg SQ WEEKLY 11/12/23 03/27/24 History subcutaneous pen injector (Ozempic) fluticasone fur. 100 mcg-umeclid 1 inh inhalation DAILY 11/16/23 03/27/24 History 62.5 mcg-vilant 25 mcg inhalat.powder (Trelegy Ellipta) nitroglycerin 0.4 mg sublingual 0.4 mg sublingual Q5-15M PRN chest 11/20/23 03/27/24 Rx tablet pain #25 tabs prasugrel 10 mg tablet (Effient) 10 mg PO DAILY #30 tabs 11/26/23 03/27/24 Rx lorazepam 1 mg tablet 1 mg PO BIDP PRN Anxiety 11/27/23 03/27/24 History escitalopram oxalate 20 mg tablet 20 mg PO DAILY 12/04/23 03/27/24 History metoprolol succinate 25 mg 25 mg PO DAILY 30 days #90 tabs 01/08/24 03/27/24 Rx tablet,extended release 24 hr pantoprazole 40 mg tablet,delayed 40 mg PO BID 30 days #180 tabs 01/08/24 03/27/24 Rx release ranolazine 500 mg tablet,extended 500 mg PO BID 30 days #90 tabs 01/08/24 03/27/24 Rx release,12 hr bumetanide 1 mg tablet 1 mg PO DAILY #90 tabs 02/21/24 03/27/24 Rx empagliflozin 10 mg tablet 10 mg PO DAILY #90 tabs 02/21/24 03/27/24 Rx (Jardiance) sacubitril 49 mg-valsartan 51 mg 1 tab PO BID #180 tabs 02/21/24 03/27/24 Rx tablet (Entresto) spironolactone 25 mg tablet 25 mg PO DAILY #90 tabs 02/21/24 03/27/24 Rx (Aldactone) New Prescriptions to Start Prescriptions: Allergies Allergy/AdvReac Type Severity Reaction Status Date / Time morphine AdvReac Intermediate Vomiting Verified 03/27/24 06:40 diphenhydramine AdvReac Mild Confusion Verified 03/27/24 06:40 [From Benadryl] Exam Constitutional Constitutional: no acute distress *Routine HEENT Exam Head: Present normocephalic Eye: Present EOMI and PERRL ENT: Present mucous membranes moist *Routine Neck Exam Neck: Present supple; Absent lymphadenopathy *Routine Respiratory Exam Respiratory: Present CTA bilaterally *Routine Cardiovascular Exam Cardiovascular: Present RRR *Routine Abdominal Exam Abdominal: Present soft and normoactive bowel sounds; Absent tenderness *Routine Rectal Exam Rectal:: deferred *Routine Genitalia Exam Genitalia:: deferred *Routine Extremities Exam Extremities: Absent cyanosis, clubbing or edema *Routine Skin Exam Skin: Present warm; Absent rash *Routine Neurological Exam Neurological: Present alert and oriented X3 Assessment and Plan *Assessment and plan (1) Anemia: Status: Acute Qualifiers: Anemia type: unspecified type Qualified Code(s): D64.9 - Anemia, unspecified Category: Medical Code(s): D64.9 - Anemia, unspecified Plan Plan to proceed with colonoscopy.
[2024-03-27] MEDS: LACTATED RINGERS 1000ML 1,000 ML 25 ML IV ×2 (06:33→08:47)
[2024-03-27 07:05] LABS: POC Glucose,Bedside 108 (70-110)
--- NOTE | 2024-03-27 07:22 | P.PNANES_ITS ---
[facility] Disclaimer: The information contained in this section may have been updated after the patient was seen, as this information can be updated by other users. Medical History Dizziness SUSANA (acute kidney injury) Anemia Left arm numbness GI (gastrointestinal hemorrhage) Hypertension affecting , delivered, current hospitalization Sleep apnea CHF (congestive heart failure) Angina pectoris Hypotension Crescendo angina RLS (restless legs syndrome) Elevated left ventricular end-diastolic pressure (LVEDP) Encounter for screening for malignant neoplasm of lung COPD mixed type Smoking greater than 30 pack years Dyspnea on exertion LV dysfunction Former smoker Atypical chest pain Recent myocardial infarction Atypical angina Abnormal echocardiogram Mitral valve regurgitation Abnormal stress test Typical angina Tobacco abuse counseling Tobacco abuse GERD (gastroesophageal reflux disease) Hyperlipidemia Abnormal ECG HTN (hypertension) CAD (coronary artery disease) Surgical History History of carpal tunnel surgery History of heart artery stent History of hysterectomy Family History Other Emphysema of lung Social History Smoking Status: Former smoker smoking status stop date: 05/01/23 alcohol intake: never substance use type: denies use current occupational status: employed and retired Travel in the last 8 weeks: None household members: none housing: house caffeine: No [facility] Anesthesia Checklist Patient Identification Patient Identification: Arm Band, Verbal (Name & ) and Other: (Friend) Structural Data Admitted From: Home Planned Operative Procedure/s: Colonoscopy Consent for Planned Operative Procedure(s) Verified: Yes Verified Documents: Surgical Consent and History and Physical NPO Status Verified Time NPO: 05:30 (Water) Chart Verification Results Verified: CBC, BMP, ECG and Chest Xray Additional verifications Fingerstick Blood Glucose: 108 Patient : No Anesthesia Reactions: No Cardiovascular Assessment Heart Sounds: S1 & S2 Pulse Rhythm: Irregular Peripheral Edema: Yes (3+ CHARLES LE) Airway Assessment Mallampati Score:: Class II C-Spine Mobility Assessed: Yes (FROM) TMJ Mobility Assessed: Yes Dentition: Poor Dentition (Nothing loose per pt.) Neurological Assessment Level of Consciousness: Awake, Alert, Appropriate and Follows Commands Hx Seizures: No Numbness or tingling in extremities: Yes (Lt. arm) Anesthesia Plan Anesthesia Risk discussed: Yes Anesthesia Plan: Verified ASA Class: III Anesthesia Type: MAC
--- NOTE | 2024-03-27 08:46 | HMH.SCOPE ---
Procedure: Date: 03/27/24 Patient Date of :: 1960 Procedure Performed:: Total colonoscopy to terminal ileum with multiple biopsies of ascending colon mass using hot snare, multiple polypectomy . Indications:: Patient presents for colonoscopy. She is a 63-year-old female from [place], [place] with history of obesity (BMI 48) congestive heart failure, sleep apnea, coronary artery disease with multiple previous coronary stents, COPD, hypertension, GERD (on omeprazole), hyperlipidemia. She was admitted in November of this year after she had developed chest pain and presented to [facility]. When she was evaluated at [facility] she was placed on heparin and nitroglycerin drips due to potential cardiac ischemia. She was transferred to [facility] for possible cardiac etiology. At that time she was noted to have a hemoglobin of 10 (baseline hemoglobin 13). Cardiology performed left heart catheterization on 11/16/2023 which revealed occluded right coronary artery of unknown duration with moderate to severe left ventricular dysfunction. She had stenting with a drug-eluting stent. She did develop thrombotic embolization and was placed on Integrilin drip after bolus. She was noted to have a subsequent hemoglobin of 6.9. Patient was transfused with marginal response. She did have a CT scan during that admission without contrast which revealed 5.6 x 2 cm collection of air adjacent to the proximal duodenum which may represent large duodenal ulcer . At that time surgical consultation was requested. She underwent in the patient EGD on 11/19/2023 which revealed gastroesophageal junction at 38 cm, mild diffuse nonerosive gastropathy, no evidence of any definite duodenal ulcer, no evidence of any recent or active upper GI bleeding proximal to the ligament of Treitz. Patient did have a follow-up hospitalization for chest pain and underwent a repeat cardiac catheterization on 11/26/2023 which revealed thrombosis of recently deployed stents with additional stents subsequently placed. At that time she had a hemoglobin of 7.7 and was given additional blood transfusion. Patient does stated that she had a colonoscopy at [facility] 3 years ago. I have obtained the records however. She had colonoscopy on 04/05/2016 at which time she had a 5 mm sessile serrated adenoma in the sigmoid colon. Recommendations were for repeat colonoscopy 5 years. She has seen Dr. Hickey as an outpatient with hematology. It was felt that given the patient's iron deficiency anemia that follow-up surveillance colonoscopy would be warranted. . Performing Provider:: Bandar Wilson MD Referring Provider:: Josee Hickey . Sedation:: MAC sedation . Procedure:: Patient history was obtained and appropriate physical examination was performed. Patient's medications and allergies were reviewed. Informed consent was obtained after explaining the benefits, alternatives, and risks of the procedure including, but not limited to, bleeding, perforation, missed lesions, and adverse reaction to anesthesia medications. Patient was transported to endoscopy procedure room. Patient was connected to monitoring devices. Throughout the procedure the patient's blood pressure, pulse, and oxygen saturations were monitored continuously. Patient identification and planned procedure were verified by the staff. Patient was positioned in lateral decubitus position. Digital anorectal exam was performed. Variable stiffness Olympus colonoscope was inserted and advanced under direct visualization to the cecum. Adequacy of the colonic preparation was noted. The colonoscope was advanced a short distance into the terminal ileum. The colonoscope was then slowly withdrawn while carefully examining the color, texture, anatomy, and integrity of the mucosoa circumferentially. Within the rectum retroflexion was performed. Colonoscope was then withdrawn. Impression: Colonoscope was advanced to the cecum with some minor difficulty due to redundancy of the sigmoid colon. There was an appreciable amount of liquid stool which was suctioned free but there was also undigested vegetable matter which somewhat precluded visualization. In the ascending colon just distal to the ileocecal valve there was what appeared to initially be a large complex ridge polyp. However, with additional endoscopic assessment of this this appeared to be essentially consistent with Ta circumferential mass. Attempt was made for removal using hot snare with initially using the 13 mm snare and then attempted using the 30 mm snare. Shreya view was injected around the lesion submucosally to help raise the lesion. Multiple portions of this were removed using 13 mm hot snare. However, it was unable to be removed in its entirety given its size and nature. For retrieval of some of the portions of specimen the Faith net was inserted and the specimen was macerated for retrieval. Colonoscope was then slowly withdrawn. At the hepatic flexure there were a couple of irregular adenomatous appearing polyps. 1 of these larger was removed with hot snare. Smaller was removed with cold snare. Diminutive polyp was removed with biopsy forceps. In the sigmoid colon there was noted to be a tiny polyp removed with cold snare. The rectosigmoid region there were multiple hyperplastic appearing polyps. More prominent polyps were removed with cold cutting snare. . Findings:: Ascending colon mass as noted above just distal to the ileocecal valve unable to be removed endoscopically with multiple specimens retrieved with hot snare Adenomatous appearing polyp x 3 at the hepatic flexure Diminutive sigmoid polyp Multiple diminutive rectosigmoid hyperplastic appearing polyps larger removed with cold snare . Recommendations:: Patient likely will need resection of this lesion right colon. As this could potentially be benign may be best served with referral for laparoscopic resection given her comorbidities. Complications:: None immediately apparent Estimated blood obtained (mL): 3 Colonoscopy Component Colonoscopy Component Was a colonoscopy performed during today's procedure?: Yes Recommended follow up colonoscopy of at least 10 years?: No If no, follow up colonoscopy recommended in ___ years?: See above Reason for not recommending >/= 10 yr follow-up interval?: See above
== END 2024-03-27 09:35 | disposition home or self-care (01) ==
PROVIDERS: PCP Nurse Practitioner Family; Visit Provider Surgery
PROC: 0DJD8ZZ Inspection of Lower Intestinal Tract, Via Natural or Artificial Opening Endoscopic (ICD-10-PCS; CPT 45385; principal; 2024-03-27 07:30)
DX: D12.7 Benign neoplasm of rectosigmoid junction (principal); D12.3 Benign neoplasm of transverse colon; D12.5 Benign neoplasm of sigmoid colon; Z86.010 Personal history of colon polyps; D12.2 Benign neoplasm of ascending colon; D50.9 Iron deficiency anemia, unspecified; Z09 Encounter for follow-up examination after completed treatment for conditions other than malignant neoplasm
CPT/HCPCS: 45385; 45380; 82962; J2704; J7120

== ENCOUNTER 2024-04-14 09:37 | Outpatient (CLI) | payer MEDICAID, SELFPAY ==
--- NOTE | 2024-04-14 09:43 | CA_ITS ---
APPROVED REPORT EXAM: Limited 2D Echocardiogram Access Assoc: Kim Bob RT(R) Ht: 5 ft 4 in Wt: 277lbs BSA: 2.25 BP: 108/51 mmHg Indications: limited echo to assess EF, ischemic CM, abn EKG, anemia, hyperlipidemia, ex smoker, AGUIRRE, obesity. 2D Dimensions IVSd 1.07 cm F: 0.6-1.0 EF AP4 45.30 % PWd 1.03 cm F: 0.6 - 1.0 GL Strain -16.0 % LVDd 4.40 cm F: 3.9 - 5.3 M-Mode Dimensions RVDd 2.86 cm (0.9-2.6) LVDd 4.34 cm (3.5-5.7) LVDs 3.76 cm (3.5-5.7) IVSd 1.02 cm (0.6-1.1) PWd 1.00 cm (0.6-1.1) EF (Teich) 28.90% FS 13.40% EDV (Teich) 84.90 mL ESV (Teich) 60.40 mL LV Diastology E Decel Time 170 (160-240 msec) E/A Ratio 0.6 Mitral Valve MV E Max Billy. 59.0 (40-130 cm/s) MV A Velocity 95.0 (40-130 cm/s) E/A Ratio 0.63 MV PHT 50.0 ms Other Information Study Quality: Technically Difficult Conclusion This is a limited TTE to evaluate for LVEF. Limited windows were obtained. Technically difficult study. The left ventricle is normal in size. There is increased LV wall thickness. There is mild reduction global LV systolic function. There is moderate hypokinesis of the inferior, septal, and inferoseptal LV johnson. LVEF is 40-45%. Compared to prior study from 11/2023, the LVEF is overall unchanged. Electronically signed by : Olive Ortiz MD 04/16/2024 02:20:27
== END 2024-04-14 23:59 | disposition home or self-care (01) ==
LOC: RT 09:38
PROVIDERS: PCP Nurse Practitioner Family; Visit Provider Nurse Practitioner
DX: I25.5 Ischemic cardiomyopathy (principal); I50.20 Unspecified systolic (congestive) heart failure; Z87.891 Personal history of nicotine dependence
CPT/HCPCS: 93308

== ENCOUNTER 2024-05-02 11:58 | Outpatient (CLI) | payer MEDICAID, SELFPAY ==
[2024-05-02 12:26] LABS: Basophils # 0.1 K/mm3 (0-0.2); Basophils % 0.9 % (0.1-2.0); Eosinophils # 0.1 K/mm3 (0.0-0.4); Eosinophils % 1.5 % (0.1-12.0); Hematocrit 38.5 % (37.0-47.0); Hemoglobin 11.8 g/dL (12.2-16.2); Mean Corpuscular HGB Conc 30.6 g/dL (31.8-35.4); Mean Corpuscular Hemoglobin 25.1 pg (27.0-31.2); Mean Corpuscular Volume 82.2 fl (81-99); Mean Platelet Volume 7.3 fl (7.4-10.4); Monocytes # 0.5 K/mm3 (0.1-1.0); Monocytes % 5.2 % (1.7-9.3); Neutrophils # 5.9 K/mm3 (1.8-7.8); Neutrophils % 69.3 % (37.0-80.0); Platelet Count 390 K/mm3 (142-424); Red Blood Count 4.69 M/mm3 (4.20-5.40); Red Cell Distribution Width 17.7 % (11.5-17.5); White Blood Count 8.6 K/mm3 (4.8-10.8)
[2024-05-02 12:53] LABS: Iron 49 ug/dL (37-170)
[2024-05-02 13:02] LABS: Total Iron Binding Capacity 354 ug/dL (265-497)
[2024-05-02 13:29] LABS: Ferritin 11.3 ng/ml (11.1-264)
== END 2024-05-02 23:59 | disposition home or self-care (01) ==
LOC: LAB 11:59
PROVIDERS: PCP Nurse Practitioner Family; Visit Provider Internal Medicine Medical Oncology
DX: D50.9 Iron deficiency anemia, unspecified (principal)
CPT/HCPCS: 36415; 82728; 83540; 83550; 85025

== ENCOUNTER 2024-08-12 14:18 | Outpatient (CLI) | payer MEDICAID, SELFPAY ==
--- NOTE | 2024-08-12 14:23 | MM_ITS ---
PROCEDURE INFORMATION: Exam: MG Bilateral Screening 3D Mammography Exam date and time: 08/12/2024 2:16 PM Age: 63 years old Clinical indication: Screening examination TECHNIQUE: Imaging protocol: Bilateral Screening tomosynthesis and 2D mammography including computer-aided detection (CAD) when performed. COMPARISON: MG MM MAMMO DIGITAL EULALIA SCREEN BILAT 03/23/2023 11:08 AM FINDINGS: MAMMOGRAPHY: Breast composition: The breasts are almost entirely fatty. Mass: None. Architectural distortion: None. Calcifications: No suspicious calcifications. Asymmetric density: None. Skin thickening: None. Axillary adenopathy: None. IMPRESSION: No mammographic evidence of malignancy. Annual screening is recommended unless otherwise clinically indicated. ASSESSMENT: BI-RADS Category 1: Negative.
== END 2024-08-12 23:59 | disposition home or self-care (01) ==
LOC: RAD 14:18
PROVIDERS: PCP Nurse Practitioner Family; Visit Provider Nurse Practitioner Family
DX: Z12.31 Encounter for screening mammogram for malignant neoplasm of breast (principal)
CPT/HCPCS: 77063; 77067

== ENCOUNTER 2025-01-28 13:41 | Outpatient (CLI) | payer MEDICARE, SELFPAY ==
--- OUTSIDE RECORDS SUMMARY | 2025-01-28 13:44 | XMS_ITS ---
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
--- OUTSIDE RECORDS SUMMARY | 2025-01-28 13:44 | XMS_ITS | Clinical Summary ---
Author Organization [facility] , [facility] Address [address] [place] [address] Phone Care Team Providers Care Block Breaker Operator Name Role Phone Josee Morfin APRN Primary Care Provider [phone] Camila VALDEZ, Alfonso Florian Unavailable [phone] Reason for Visit and Chief Complaint The Chief Complaint is: RLF pain Problems Includes: Problems addressed during this encounter and other active Problems All Visits Onset Date Resolved Date Provider Condition S tatus Joint Pain Right Middle Finger 08/16/2022 Alfonso Jensen MD Active Last Documented On 2 1:58PM ; [facility] Plan of Treatment Patient is doing well. We will have her continue treatment with ID. We will continue work restrictions. We will see her back in 3 weeks for recheck. - Last Documented On 09/19/2022 3:43PM ; [facility] Pending Tests Order Diagnosis Results Due Ordering [facility] - MRI MRI Finger 08/30/22 Alfonso Jensen MD Last Documented On 2 3:50PM ; [facility] Instructions to patient Intervention and counseling on cessation of tobacco use Last Documented On 2 2:26PM ; [facility] Lose weight Last Documented On 2 2:26PM ; [facility] Assessments Includes: Assessments from this encounter No Assessments Recorded Instructions Includes: Instructions from this encounter Instructions to patient Intervention and counseling on cessation of tobacco use Last Documented On 2 2:26PM ; [facility] Lose weight Last Documented On 2 2:26PM ; [facility] Medical Equipment - Implanted Devices Includes: Current Devices No Medical Equipment Recorded Medications Includes: Medications discussed during this encounter and other current Medications Current Medications (continue as prescribed) Mupirocin 2% External Ointment 07/29/2022 Provider: Josee Morfin APRN Diagnosis: Last Documented On 2 1:58PM By Mckenna Menendez ; [facility], [facility] Cetirizine HCl 10 MG Oral Tablet 06/02/2022 Provider : Josee Morfin APRN Diagnosis: Last Documented On 2 1:58PM By Mckenna Menendez ; [facility], [facility] Clopidogrel Bisulfate 75 MG Oral Tablet 05/16/2022 Randee moser: Josee Morfin APRN Diagnosis: Last Documented On 2 1:58PM By Mckenna Menendez ; [facility], [facility] Escitalopram Oxalate 20 MG Oral Tablet 05/16/2022 Pr ovider: Josee Morfin APRN Diagnosis: Last Documented On 2 1:58PM By Mckenna Menendez ; [facility], [facility] Losartan Potassium-HCTZ 50-12.5 MG Oral Tablet 022 Provider: Josee Morfin APRN Diagnosis: Last Documented On 2 1:58PM By Mckenna Menendez ; [facility], [facility] Metoprolol Succinate ER 25 M G Oral Tablet Extended Release 24 Hour 05/16/2022 Provider: Josee MALHOTRA RN Diagnosis: Last Documented On 2 1:58PM By Mckenna Menendez ; [facility], [facility] Omeprazole 40 MG Oral Capsule Delayed Release 05/16/20 22 Provider: Josee Morfin APRN Diagnosis: Last Documented On 2 1:58PM By Mckenna Menendez ; [facility], [facility] Rosuvastatin Calcium 40 MG Oral Tablet 05/16/2022 Pr ovider: Josee Morfin APRN Diagnosis: Last Documented On 2 1:58PM By Mckenna Menendez ; [facility], [facility] Anoro Ellipta 62.5-25 MCG/AC T Inhalation Aerosol Powder Breath Activated 05/16/2022 Provider: Josee narajno APRN Diagnosis: Last Documented On 2 1:58PM By Mckenna Menendez ; [facility] busPIRone HCl 7.5 MG Oral Tablet 05/16/2022 Provider : Josee Morfin APRN Diagnosis: Last Documented On 2 1:58PM By Mckenna Menendez ; [facility] Medications Administered Includes: Administered Medications from this encounter No Administered Medications Recorded Vital Signs Includes: Vital Signs from this encounter Vital Name 09/18/2022 02:26P Blood Pressure Sitting (mmHg) 93/67 Pulse Rate-Sitting (bpm) 79 Height (in) 64 Weight (lb) 259 Body Mass Index 44.5 Body Surface Area (m2) 2.2 Note: dp Last Documented: On 09/18/2022 2:32PM ; [facility] Results Includes: Results discussed during this encounter [...] History Description Last Updated Caffeine use 08/16/2022 Last Documented On 2 2:26PM ; [facility] No recent change in diet 08/16/2022 Last Documented On 2 2:26PM ; [facility] Not exercising regularly 08/16/2022 Last Documented On 2 2:26PM ; [facility] Not using alcohol 08/16/2022 Last Documented On 2 2:26PM ; [facility] Not using drugs 08/16/2022 Last Documented On 2 2:26PM ; [facility] Yes, current smoker. 08/16/2022 Last Documented On 2 2:26PM ; [facility] Tobacco use 08/16/2022 Last Documented On 2 2:26PM ; [facility] Smoking Status Unknown Procedures and Surgical History Includes: Procedures from this encounter Procedures Code Diagnosis Performing Provider Service L ocation Service Date intervention and counseling on cessation of tobacco use 4000F Last Documented On 2 2:26PM ; [facility] use of tobacco assessment performed 1000F Last Documented On 2 2:26PM ; [facility] no influenza immunization patient refuse d Last Documented On 2 2:26PM ; [facility], [facility] follow-up visit in one month Last Documented On 2 2:26PM ; [facility] an X-ray was performed [id number] Last Documented On 2 2:26PM ; [facility] Surgical History Last Updated History of heart surgery 08/16/2022 Last Documented On 2 2:26PM ; [facility], [facility] History of hysterectomy 08/16/2022 Last Documented On 2 2:26PM ; [facility] Medical History Includes: Medical History addressed during this encounter Description Last Updated History of arthritis 08/16/2022 Last Documented On 2 2:26PM ; [facility], [facility] History of depression 08/16/2022 Last Documented On 2 2:26PM ; [facility] History of heart disease 08/16/2022 Last Documented On 2 2:26PM ; [facility], [facility] History of Heartburn / Acid Reflux 08/16 Last Documented On 2 2:26PM ; [facility], [facility] History of History of Heart Attack / Str omkar 08/16/2022 Last Documented On 2 2:26PM ; [facility] History of Sleep Apnea 08/16/2022 Last Documented On 2 2:26PM ; [facility] Past Surgical History: [facility] Last Documented On 2 2:26PM ; [facility], [facility] Recent immunization for pneumococcal pne umonia 08/16/2022 Last Documented On 2 2:26PM ; [facility], [facility] No recent immunization for flu 2 Last Documented On 2 2:26PM ; [facility] Family History Includes: Family History addressed during this encounter Description Last Updated Family history of cancer 08/16/2022 Last Documented On 2 2:26PM ; [facility] Family history of heart disease 08/16/20 22 Last Documented On 2 2:26PM ; [facility] Family history of systemic hypertension 08/16/2022 Last Documented On 2 2:26PM ; [facility] Review of Systems Includes: Review of Systems [...] leighton Phelpsl Allergy extreme drowsiness 08/16/2022 Active Last Documented On 3 2:52PM ; [facility], [facility] Encounters Encounter Provider Location Date Check-In Time Check-Out Time Diagnosis FOLLOW UP/EST Alfonso Jensen MD [facility] 09/18/20 2:11PM 3:06PM Insurance Includes: Active Insurance Policies Plan Name Member ID Group # Subscriber Relationship Effect melinda Dates 1 - TRAVELERS [id number] Ruthy Huntley Self 1 - Unknown Clinical Notes Includes: Clinical Notes from this encounter * Progress note Date Encounter Last Documented by 09/18/2022 FOLLOW UP/EST Last documented on 09/19/2022; 3:43 PM, Alfonso Jensen MD; [facility], [facility] Active Problems & Conditions - Joint Pain [...]
--- OUTSIDE RECORDS SUMMARY | 2025-01-28 13:44 | XMS_ITS | Clinical Summary ---
Author Organization [facility] , [facility] Address [address] [place] [address] Phone Care Team Providers Care Extension Edger Name Role Phone Josee Morfin APRN Primary Care Provider [phone] Camila VALDEZ, Alfonso Florian Unavailable [phone] Reason for Visit and Chief Complaint The Chief Complaint is: RLF pain Problems Includes: Problems addressed during this encounter and other active Problems All Visits Onset Date Resolved Date Provider Condition S tatus Joint Pain Right Middle Finger 08/16/2022 Alfonso Jensen MD Active Last Documented On 2 1:58PM ; [facility] Plan of Treatment We will have the patient continue WR. We will see her back in 3 weeks for xray and recheck. - Last Documented On 10/31/2022 2:34PM ; [facility] Pending Tests Order Diagnosis Results Due Ordering Randee moser Radiology - MRI MRI Finger 08/30/22 Alfonso Jensen MD Last Documented On 2 3:50PM ; [facility], [facility] Instructions to patient Intervention and counseling on cessation of tobacco use Last Documented On 3 3:20PM ; [facility] Lose weight Last Documented On 3 2:23PM ; [facility] Assessments Includes: Assessments from this encounter No Assessments Recorded Instructions Includes: Instructions from this encounter Instructions to patient Intervention and counseling on cessation of tobacco use Last Documented On 3 3:20PM ; [facility] Lose weight Last Documented On 3 2:23PM ; [facility] Medical Equipment - Implanted Devices Includes: Current Devices No Medical Equipment Recorded Medications Includes: Medications discussed during this encounter and other current Medications Current Medications (continue as prescribed) Mupirocin 2% External Ointment 07/29/2022 Provider: Josee Morfin APRN Diagnosis: Last Documented On 2 1:58PM By Mckenna Menendez ; [facility] Cetirizine HCl 10 MG Oral Tablet 06/02/2022 Provider : Josee Morfin APRN Diagnosis: Last Documented On 2 1:58PM By Mckenna Menendez ; [facility], [facility] Clopidogrel Bisulfate 75 MG Oral Tablet 05/16/2022 P rovider: Josee Morfin APRN Diagnosis: Last Documented On 2 1:58PM By Mckenna Menendez ; [facility] Escitalopram Oxalate 20 MG Oral Tablet 05/16/2022 Pr ovider: Josee Morfin APRN Diagnosis: Last Documented On 2 1:58PM By Mckenna Menendez ; [facility] Losartan Potassium-HCTZ 50-12.5 MG Oral Tablet 022 Provider: Josee Morfin APRN Diagnosis: Last Documented On 2 1:58PM By Mckenna Menendez ; [facility] Metoprolol Succinate ER 25 M G Oral Tablet Extended Release 24 Hour 05/16/2022 Provider: Josee MALHOTRA RN Diagnosis: Last Documented On 2 1:58PM By Mckenna Menendez ; [facility] Omeprazole 40 MG Oral Capsule Delayed Release 05/16/20 22 Provider: Josee Morfin APRN Diagnosis: Last Documented On 2 1:58PM By Mckenna Menendez ; [facility], [facility] Rosuvastatin Calcium 40 MG Oral Tablet 05/16/2022 Pr ovider: Josee Morfin APRN Diagnosis: Last Documented On 2 1:58PM By Mckenna Menendez ; [facility], [facility] Anoro Ellipta 62.5-25 MCG/AC T Inhalation Aerosol Powder Breath Activated 05/16/2022 Provider: Josee naranjo APRN Diagnosis: Last Documented On 2 1:58PM [...] REP Last Documented: On 10/25/2022 2:45PM ; [facility] Results Includes: Results discussed [...] Updated Caffeine use 08/16/2022 Last Documented On 3 2:23PM ; [facility], [facility] No recent change in diet 08/16/2022 Last Documented On 3 2:23PM ; [facility], [facility] Not exercising regularly 08/16/2022 Last Documented On 3 2:23PM ; [facility] Not using alcohol 08/16/2022 Last Documented On 3 2:23PM ; [facility] Not using drugs 08/16/2022 Last Documented On 3 2:23PM ; [facility] Yes, current smoker. 08/16/2022 Last Documented On 3 2:23PM ; [facility], [facility] Tobacco use 08/16/2022 Last Documented On 3 2:23PM ; [facility], [facility] Smoking Status Unknown Procedures and Surgical History Includes: Procedures from this encounter Procedures Code Diagnosis Performing Provider Service L ocation Service Date intervention and counseling on cessation of tobacco use 4000F Last Documented On 3 3:20PM ; [facility] use of tobacco assessment performed 1000F Last Documented On 3 2:23PM ; [facility], [facility] an X-ray was performed [id number] Last Documented On 3 2:23PM ; [facility], [facility] Surgical History Last Updated History of heart surgery 08/16/2022 Last Documented On 3 2:23PM ; [facility] History of hysterectomy 08/16/2022 Last Documented On 3 2:23PM ; [facility], [facility] Medical History Includes: Medical History addressed during this encounter Description Last Updated History of arthritis 08/16/2022 Last Documented On 3 2:23PM ; [facility], [facility] History of depression 08/16/2022 Last Documented On 3 2:23PM ; [facility] History of heart disease 08/16/2022 Last Documented On 3 2:23PM ; [facility] History of Heartburn / Acid Reflux 08/16 Last Documented On 3 2:23PM ; [facility], [facility] History of History of Heart Attack / Str omkar 08/16/2022 Last Documented On 3 2:23PM ; [facility] History of Sleep Apnea 08/16/2022 Last Documented On 3 2:23PM ; [facility], [facility] Past Surgical History: [facility] Last Documented On 3 2:23PM ; [facility], [facility] Recent immunization for pneumococcal pne umonia 08/16/2022 Last Documented On 3 2:23PM ; [facility], [facility] No recent immunization for flu 2 Last Documented On 3 2:23PM ; [facility], [facility] Family History Includes: Family History addressed during this encounter Description Last Updated Family history of cancer 08/16/2022 Last Documented On 3 2:23PM ; [facility] Family history of heart disease 08/16/20 22 Last Documented On 3 2:23PM ; [facility] Family history of systemic hypertension 08/16/2022 Last Documented On 3 2:23PM ; [facility] Review of [...] s Benadryl Allergy extreme drowsiness 08/16/2022 Active Last Documented On 3 2:52PM ; [facility], [facility] Encounters Encounter Provider Location Date Check-In Time Check-Out Time Diagnosis FOLLOW UP/EST Alfonso Jensen MD [facility] 10/25/19 23 1:57PM 3:18PM Insurance Includes: Active Insurance Policies Plan Name Member ID Group # Subscriber Relationship Effect melinda Dates 1 - TRAVELERS [id number] Ruthy Huntley Self 1 - Unknown Clinical Notes Includes: Clinical Notes from this encounter * Progress note Date Encounter Last Documented by 10/25/2022 FOLLOW UP/EST Last documented on 10/31/2022; 2:34 PM, Alfonso Jensen MD; [facility], [facility] Active Problems & Conditions - Joint [...]
--- OUTSIDE RECORDS SUMMARY | 2025-01-28 13:44 | XMS_ITS | Clinical Summary ---
Author Organization [facility] , [facility] Address [address] [place] [address] Phone Care Team Providers Care Commercial Housekeeper Name Role Phone Josee Morfin APRN Primary Care Provider [phone] Camila VALDEZ, Alfonso Florian Unavailable [phone] Reason for Visit and Chief Complaint The Chief Complaint is: RLF pain Problems Includes: Problems addressed during this encounter and other active Problems All Visits Onset Date Resolved Date Provider Condition S tatus Joint Pain Right Middle Finger 08/16/2022 Alfonso Jensen MD Active Last Documented On 2 1:58PM ; [facility], [facility] Plan of Treatment Patient states the finger [...] - Last Documented On 11/27/2022 4:43PM ; [facility], [facility] Pending Tests Order Diagnosis Results Due Ordering P rovider Radiology - MRI MRI Finger 08/30/22 Alfonso Jensen MD Last Documented On 2 3:50PM ; [facility], [facility] Instructions to patient Intervention and counseling on cessation of tobacco use Last Documented On 3 2:52PM ; [facility], [facility] Lose weight Last Documented On 3 2:52PM ; [facility], [facility] Assessments Includes: Assessments from this encounter No Assessments Recorded Instructions Includes: Instructions from this encounter Instructions to patient Intervention and counseling on cessation of tobacco use Last Documented On 3 2:52PM ; [facility] Lose weight Last Documented On 3 2:52PM ; [facility] Medical Equipment - Implanted Devices Includes: Current Devices No Medical Equipment Recorded Medications Includes: Medications discussed during this encounter and other current Medications Current Medications (continue as prescribed) Mupirocin 2% External Ointment 07/29/2022 Provider: Josee Morfin APRN Diagnosis: Last Documented On 2 1:58PM By Mckenna Menendez ; [facility], [facility] Cetirizine HCl 10 MG Oral Tablet 06/02/2022 Provider : Josee Morfin APRN Diagnosis: Last Documented On 2 1:58PM By Mckenna Menendez ; [facility], [facility] Clopidogrel Bisulfate 75 MG Oral Tablet 05/16/2022 P ghazalader: Josee Morfin APRN Diagnosis: Last Documented On 2 1:58PM By Mckenna Menendez ; [facility], [facility] Escitalopram Oxalate 20 MG Oral Tablet 05/16/2022 Pr ovider: Josee Morfin APRN Diagnosis: Last Documented On 2 1:58PM By Mckenna Menendez ; [facility], [facility] Losartan Potassium-HCTZ 50-12.5 MG Oral Tablet 022 Provider: Josee Morfin APRN Diagnosis: Last Documented On 2 1:58PM By Mckenna Menendez ; [facility], [facility] Metoprolol Succinate ER 25 M G Oral Tablet Extended Release 24 Hour 05/16/2022 Provider: Josee MALHOTRA RN Diagnosis: Last Documented On 2 1:58PM By Mckenna Menendez ; [facility], [facility] Omeprazole 40 MG Oral Capsule Delayed Release 05/16/20 22 Provider: Josee Morfin APRN Diagnosis: Last Documented On 2 1:58PM By Mckenna Menendez ; [facility], [facility] Rosuvastatin Calcium 40 MG Oral Tablet 05/16/2022 Pr ovider: Josee Morfin APRN Diagnosis: Last Documented On 2 1:58PM By Mckenna Menendez ; [facility] Anoro Ellipta 62.5-25 MCG/AC T Inhalation Aerosol [...] Index 44.4 Body Surface Area 2.2 Note: [facility] Last Documented: On 11/27/2022 2:54PM ; [facility] Results Includes: Results discussed [...] Caffeine use 08/16/2022 Last Documented On 3 2:52PM ; [facility] No recent change in diet 08/16/2022 Last Documented On 3 2:52PM ; [facility] Not exercising regularly 08/16/2022 Last Documented On 3 2:52PM ; [facility] Not using alcohol 08/16/2022 Last Documented On 3 2:52PM ; [facility] Not using drugs 08/16/2022 Last Documented On 3 2:52PM ; [facility] Yes, current smoker. 08/16/2022 Last Documented On 3 2:52PM ; [facility] Tobacco use 08/16/2022 Last Documented On 3 2:52PM ; [facility], [facility] Smoking Status Unknown Procedures and Surgical History Includes: Procedures from this encounter Procedures Code Diagnosis Performing Provider Service L ocation Service Date intervention and counseling on cessation of tobacco use 4000F Last Documented On 3 2:52PM ; [facility], [facility] use of tobacco assessment performed 1000F Last Documented On 3 2:52PM ; [facility], [facility] an X-ray was performed [id number] Last Documented On 3 2:52PM ; [facility], [facility] Surgical History Last Updated History of heart surgery 08/16/2022 Last Documented On 3 2:52PM ; [facility], [facility] History of hysterectomy 08/16/2022 Last Documented On 3 2:52PM ; [facility], [facility] Medical History Includes: Medical History addressed during this encounter Description Last Updated History of arthritis 08/16/2022 Last Documented On 3 2:52PM ; [facility] History of depression 08/16/2022 Last Documented On 3 2:52PM ; [facility], [facility] History of heart disease 08/16/2022 Last Documented On 3 2:52PM ; [facility], [facility] History of Heartburn / Acid Reflux 08/16 Last Documented On 3 2:52PM ; [facility], [facility] History of History of Heart Attack / Str omkar 08/16/2022 Last Documented On 3 2:52PM ; [facility], [facility] History of Sleep Apnea 08/16/2022 Last Documented On 3 2:52PM ; [facility], [facility] Past Surgical History: [facility] Last Documented On 3 2:52PM ; [facility], [facility] Recent immunization for pneumococcal pne umonia 08/16/2022 Last Documented On 3 2:52PM ; [facility], [facility] No recent immunization for flu 2 Last Documented On 3 2:52PM ; [facility], [facility] Family History Includes: Family History addressed during this encounter Description Last Updated Family history of cancer 08/16/2022 Last Documented On 3 2:52PM ; [facility] Family history of heart disease 08/16/20 22 Last Documented On 3 2:52PM ; [facility] Family history of systemic hypertension 08/16/2022 Last Documented On 3 2:52PM ; [facility] Review of Systems Includes: Review of Systems [...] Active Last Documented On 3 2:52PM ; [facility] Encounters Encounter Provider Location Date Check-In Time Check-Out Time Diagnosis FOLLOW UP/EST Alfonso Jensen MD [facility] 11/27/19 23 2:50PM 3:04PM Insurance Includes: Active Insurance Policies Plan Name Member ID Group # Subscriber Relationship Effect melinda Dates 1 - TRAVELERS [id number] Ruthy Huntley Self 1 - Unknown Clinical Notes Includes: Clinical Notes from this encounter * Progress note Date Encounter Last Documented by 11/27/2022 FOLLOW UP/EST Last documented on 11/27/2022; 4:43 PM, Alfonso Jensen MD; [facility], [facility] Active Problems & Conditions - Joint [...] Findings - Vitals taken 11/27/2022 02:53 pm [facility] Height 64 in 48 - 78 Weight [...]
--- OUTSIDE RECORDS SUMMARY | 2025-01-28 13:44 | XMS_ITS | Clinical Summary ---
Author Organization [facility] Address [address] [place] [address] Phone Care Team Providers Care Field Artillery Cannoneer Name Role Phone Josee Morfin APRN Primary Care Provider [phone] Camila VALDEZ, Alfonso Cabral [phone] Reason for Visit and Chief Complaint The Chief Complaint is: RLF pain Problems Includes: Problems addressed during this encounter and other active Problems Current Visit Onset Date Resolved Date Provider Cristal jane Status Joint Pain Right Middle Finger 08/16/2022 Alfonso Jensen MD Active Last Documented On 2 1:58PM ; [facility] Plan of Treatment I explained to the [...] - Last Documented On 08/21/2022 3:50PM ; [facility] Pending Tests Order Diagnosis Results Due Ordering P rovider Radiology - MRI MRI Finger 08/30/22 Alfonso Jensen MD Last Documented On 2 3:50PM ; [facility] Instructions to patient Intervention and counseling on cessation of tobacco use Last Documented On 2 2:10PM ; [facility] Lose weight Last Documented On 2 2:10PM ; [facility] Assessments Includes: Assessments from this encounter Findings Infected cat bite right long finger - Last Documented On 08/21/2022 3:50PM ; [facility] Instructions Includes: Instructions from this encounter Instructions to patient Intervention and counseling on cessation of tobacco use Last Documented On 2 2:10PM ; [facility] Lose weight Last Documented On 2 2:10PM ; [facility] Medical Equipment - Implanted Devices Includes: Current Devices No Medical Equipment Recorded Medications Includes: Medications discussed during this encounter and other current Medications Discontinued / Stopped on this date Josee Morfin APRN on 08/02/2022 Fluconazole 150 MG Oral Tablet Provider: Josee Morfin APRN Diagnosis: Last Documented On 2 1:58PM By Mckenna Menendez ; [facility] Promethazine HCl 12.5 MG Oral Tablet Prov ider: Josee Morfin APRN Diagnosis: Last Documented On 2 1:58PM By Mckenna Menendez ; [facility] Diclofenac Sodium 1% External Gel Provide r: Josee Morfin APRN Diagnosis: Last Documented On 2 1:59PM By Mckenna Menendez ; [facility] Current Medications (continue as prescribed) Mupirocin 2% External Ointment 07/29/2022 Provider: Josee Morfin APRN Diagnosis: Last Documented On 2 1:58PM By Mckenna Menendez ; [facility] Cetirizine HCl 10 MG Oral Tablet 06/02/2022 Provider : Josee Morfin APRN Diagnosis: Last Documented On 2 1:58PM By Mckenna Menendez ; [facility] Clopidogrel Bisulfate 75 MG Oral Tablet 05/16/2022 P rovider: Josee Morfin APRN Diagnosis: Last Documented On 2 1:58PM By Mckenna Menendez ; [facility] Escitalopram Oxalate 20 MG Oral Tablet 05/16/2022 Pr ovider: Josee Morfin APRN Diagnosis: Last Documented On 2 1:58PM By Mckenna Menendez ; [facility] Losartan Potassium-HCTZ 50-12.5 MG Oral Tablet 022 Provider: Josee Morfin APRN Diagnosis: Last Documented On 2 1:58PM By Mckenna Shon ; [facility], [facility] Metoprolol Succinate ER 25 M G Oral Tablet Extended Release 24 Hour 05/16/2022 Provider: Josee MALHOTRA RN Diagnosis: Last Documented On 2 1:58PM By Mckenna Menendez ; [facility], [facility] Omeprazole 40 MG Oral Capsule Delayed Release 05/16/20 Provider: Josee Morfin APRN Diagnosis: Last Documented On 2 1:58PM By Mckenna Menendez ; [facility], [facility] Rosuvastatin Calcium 40 MG Oral Tablet 05/16/2022 Pr ovider: Josee Morfin APRN Diagnosis: Last Documented On 2 1:58PM By Mckenna Menendez ; [facility], [facility] Anoro Ellipta 62.5-25 MCG/AC T Inhalation Aerosol Powder Breath Activated 05/16/2022 Provider: Josee naranjo APRN Diagnosis: Last Documented On 2 1:58PM By Mckenna Menendez ; [facility], [facility] busPIRone HCl 7.5 MG Oral Tablet 05/16/2022 Provider : Josee Morfin APRN Diagnosis: Last Documented On 2 1:58PM By Mckenna Menendez ; [facility], [facility] Medications Administered Includes: Administered Medications from this encounter No Administered Medications Recorded Vital Signs Includes: Vital Signs from this encounter Vital Name 08/16/2022 02:06P Blood Pressure Sitting (mmHg) 86/63 Pulse Rate-Sitting (bpm) 75 Height (in) 64 Weight (lb) 230 Body Mass Index (kg/m2) 39.5 Body Surface Area (m2) 2.1 Note: formerly [facility] Last Documented: On 08/16/2022 2:09PM ; [facility], [facility] Results Includes: Results discussed during this encounter [...] Caffeine use 08/16/2022 Last Documented On 2 3:50PM ; [facility] No recent change in diet 08/16/2022 Last Documented On 2 3:50PM ; [facility] Not exercising regularly 08/16/2022 Last Documented On 2 3:50PM ; [facility] Not using alcohol 08/16/2022 Last Documented On 2 3:50PM ; [facility] Not using drugs 08/16/2022 Last Documented On 2 3:50PM ; [facility] Yes, current smoker. 08/16/2022 Last Documented On 2 3:50PM ; [facility], [facility] Tobacco use 08/16/2022 Last Documented On 2 3:50PM ; [facility] Smoking Status Unknown Procedures and Surgical History Includes: Procedures from this encounter Procedures Code Diagnosis Performing Provider Service L ocation Service Date intervention and counseling on cessation of tobacco use 4000F Last Documented On 2 2:10PM ; [facility] use of tobacco assessment performed 1000F Last Documented On 2 2:10PM ; [facility], [facility] no influenza immunization patient refuse d Last Documented On 2 2:10PM ; [facility], [facility] an X-ray was performed 27664 Last Documented On 2 2:44PM ; [facility] Surgical History Last Updated History of heart surgery 08/16/2022 Last Documented On 2 3:50PM ; [facility] History of hysterectomy 08/16/2022 Last Documented On 2 3:50PM ; [facility], [facility] Medical History Includes: Medical History addressed during this encounter Description Last Updated History of arthritis 08/16/2022 Last Documented On 2 3:50PM ; [facility], [facility] History of depression 08/16/2022 Last Documented On 2 3:50PM ; [facility], [facility] History of heart disease 08/16/2022 Last Documented On 2 3:50PM ; [facility], [facility] History of Heartburn / Acid Reflux 08/16 Last Documented On 2 3:50PM ; [facility] History of History of Heart Attack / Str omkar 08/16/2022 Last Documented On 2 3:50PM ; [facility] History of History of Heart Attack / Str omkar 08/16/2022 Last Documented On 2 3:50PM ; [facility], [facility] History of Sleep Apnea 08/16/2022 Last Documented On 2 3:50PM ; [facility], [facility] Past Surgical History: [facility] Last Documented On 2 3:50PM ; [facility], [facility] Recent immunization for pneumococcal pne umonia 08/16/2022 Last Documented On 2 3:50PM ; [facility], [facility] No recent immunization for flu 2 Last Documented On 2 3:50PM ; [facility], [facility] Family History Includes: Family History addressed during this encounter Description Last Updated Family history of cancer 08/16/2022 Last Documented On 2 3:50PM ; [facility], [facility] Family history of heart disease 08/16/20 22 Last Documented On 2 3:50PM ; [facility], [facility] Family history of systemic hypertension 08/16/2022 Last Documented On 2 3:50PM ; [facility], [facility] Review of Systems Includes: Review of Systems [...] 1 08/16/2022 Complete (Refused - Patient objection) [facility] Last Documented On 2 2:10PM ; [facility] Allergies Includes: Active Allergies Substance Type Reaction Onset Date Resolved Date Statu s Benadryl Allergy extreme drowsiness 08/16/2022 Active Last Documented On 3 2:52PM ; [facility] Encounters Encounter Provider Location Date Check-In Time Check-Out Time Diagnosis WC NEW PATIENT Alfonso Jensen MD [facility] 08/16/20 22 1:30PM 2:53PM Insurance Includes: Active Insurance Policies Plan Name Member ID Group # Subscriber Relationship Effect melinda Dates 1 - TRA[employer]EL[employer] [id number] Ruthy Huntley Self 1 - Unknown Clinical Notes Includes: Clinical Notes from this encounter No Clinical Notes Recorded
--- OUTSIDE RECORDS SUMMARY | 2025-01-28 13:44 | XMS_ITS ---
Author Organization [facility] Address [address] [place] [address] Phone Care Team Providers Care Director [place] Name Role Phone Josee Morfin APRN Primary Care Provider [phone] Camila VALDEZ, Alfonso Florian Unavailable [phone] Problems Includes: Active, inactive, and resolved Problems All Visits Onset Date Resolved Date Provider Condition S tatus Joint Pain Right Middle Finger 08/16/2022 Alfonso Jensen MD Active Last Documented On 2 1:58PM ; [facility] Plan of Treatment Pending Tests Order Diagnosis Results Due Ordering P rovider Radiology - MRI MRI Finger 08/30/22 Alfonso Jensen MD Last Documented On 2 3:50PM ; [facility] Instructions to patient Intervention and counseling on cessation of tobacco use Last Documented On 3 2:52PM ; [facility] Lose weight Last Documented On 3 2:52PM ; [facility] Intervention and counseling on cessation of tobacco use Last Documented On 3 3:20PM ; [facility] Lose weight Last Documented On 3 2:23PM ; [facility] Intervention and counseling on cessation of tobacco use Last Documented On 2 2:26PM ; [facility] Lose weight Last Documented On 2 2:26PM ; [facility] Intervention and counseling on cessation [...] On 2 1:58PM By Mckenna Menendez ; [facility] Cetirizine HCl 10 MG Oral Tablet 06/02/2022 Provider : Josee Morfin APRN Diagnosis: Last Documented On 2 1:58PM By Mckenna Menendez ; [facility], [facility] Clopidogrel Bisulfate 75 MG Oral Tablet 05/16/2022 Randee moser: Josee Morfin INTERMEDIATE FRAME TENDER Diagnosis: Last Documented On 2 1:58PM By Mckenna Menendez ; [facility], [facility] Escitalopram Oxalate 20 MG Oral Tablet 05/16/2022 Pr ovider: Josee Morfin INTERMEDIATE FRAME TENDER Diagnosis: Last Documented On 2 1:58PM By Mckenna Menendez ; [facility], [facility] Losartan Potassium-HCTZ 50-12.5 MG Oral Tablet 022 Provider: Josee Morfin INTERMEDIATE FRAME TENDER Diagnosis: Last Documented On 2 1:58PM By Mckenna Menendez ; [facility], [facility] Metoprolol Succinate ER 25 M G Oral Tablet Extended Release 24 Hour 05/16/2022 Provider: Josee MALHOTRA RN Diagnosis: Last Documented On 2 1:58PM By Mckenna Menendez ; [facility], [facility] Omeprazole 40 MG Oral Capsule Delayed Release 05/16/20 22 Provider: Josee Morfin APRN Diagnosis: Last Documented On 2 1:58PM By Mckenna Menendez ; [facility], [facility] Rosuvastatin Calcium 40 MG Oral Tablet 05/16/2022 Pr ovider: Josee Morfin INTERMEDIATE FRAME TENDER Diagnosis: Last Documented On 2 1:58PM By Mckenna Menendez ; [facility], [facility] Anoro Ellipta 62.5-25 MCG/AC T Inhalation Aerosol Powder Breath Activated 05/16/2022 Provider: Josee naranjo INTERMEDIATE FRAME TENDER Diagnosis: Last Documented On 2 1:58PM By Mckenna Menendez ; [facility], [facility] busPIRone HCl 7.5 MG Oral Tablet 05/16/2022 Provider : Josee Morfin INTERMEDIATE FRAME TENDER Diagnosis: Last Documented On 2 1:58PM By Mckenna Menendez ; [facility], [facility] Past Medications on file Fluconazole 150 MG Oral Tablet 08/02/2022 - 08/16/2022 Provider: Josee Morfin APRN Diagnosis: Last Documented On 2 1:58PM By Mckenna Menendez ; [facility], [facility] Promethazine HCl 12.5 MG Ora l Tablet 08/02/2022 - 08/16/2022 Provider: Josee Morfin APR N Diagnosis: Last Documented On 2 1:58PM By Mckenna Menendez ; [facility] Diclofenac Sodium 1% External Gel 06/02/2022 - 022 Provider: Josee Morfin APRN Diagnosis: Last Documented On 2 1:59PM By Mckenna Menendez ; [facility] Medications Administered Includes: Administered Medications in patient's chart No Administered Medications Recorded Results Includes: Results from 01/29/2024 through 01/28/2025 No Results Recorded For Specified Dates History of Present Illness History of Present Illness not supported for this document type No History of Present Illness Recorded Social History Description Last Updated Caffeine use 08/16/2022 Last Documented On 2 3:50PM ; [facility] No recent change in diet 08/16/2022 Last Documented On 2 3:50PM ; [facility] Not exercising regularly 08/16/2022 Last Documented On 2 3:50PM ; [facility] Not using alcohol 08/16/2022 Last Documented On 2 3:50PM ; [facility] Not using drugs 08/16/2022 Last Documented On 2 3:50PM ; [facility] Yes, current smoker. 08/16/2022 Last Documented On 2 3:50PM ; [facility] Tobacco use 08/16/2022 Last Documented On 2 3:50PM ; [facility] Smoking Status Unknown Procedures and Surgical History Surgical History Last Updated History of heart surgery 08/16/2022 Last Documented On 2 3:50PM ; [facility] History of hysterectomy 08/16/2022 Last Documented On 2 3:50PM ; [facility] Medical History Includes: Medical History in patient's chart Description Last Updated History of arthritis 08/16/2022 Last Documented On 2 3:50PM ; [facility] History of depression 08/16/2022 Last Documented On 2 3:50PM ; [facility] History of heart disease 08/16/2022 Last Documented On 2 3:50PM ; [facility] History of Heartburn / Acid Reflux 08/16 Last Documented On 2 3:50PM ; [facility] History of History of Heart Attack / Str omkar 08/16/2022 Last Documented On 2 3:50PM ; [facility], [facility] History of Sleep Apnea 08/16/2022 Last Documented On 2 3:50PM ; [facility] Past Surgical History: [facility] Last Documented On 2 3:50PM ; [facility] Recent immunization for pneumococcal pne umonia 08/16/2022 Last Documented On 2 3:50PM ; [facility] No recent immunization for flu 2 Last Documented On 2 3:50PM ; [facility], [facility] Family History Includes: Family History in patient's chart Description Last Updated Family history of cancer 08/16/2022 Last Documented On 2 3:50PM ; [facility] Family history of heart disease 08/16/20 22 Last Documented On 2 3:50PM ; [facility] Family history of systemic hypertension 08/16/2022 Last Documented On 2 3:50PM ; [facility] Review of Systems Review of Systems not [...] 08/16/2022 Complete (Refused - Patient objection) [facility] Last Documented On 2 2:10PM ; [facility], [facility] Allergies Includes: Active, inactive, and resolved Allergies Substance Type Reaction Onset Date Resolved Date Statu s Benadryl Allergy extreme drowsiness 08/16/2022 Active Last Documented On 3 2:52PM ; [facility], [facility] Insurance Includes: Active Insurance Policies Plan Name Member ID Group # Subscriber Relationship Effect melinda Dates 1 - TRAVELERS [id number] Ruthy Huntley Self 1 - Unknown Clinical Notes Includes: Signed Clinical Notes starting from 09/14/2022 No Clinical Notes Recorded
--- OUTSIDE RECORDS SUMMARY | 2025-01-28 13:45 | XMS_ITS | Clinical Summary ---
Author Organization [facility] Address [address] [place] [address] Phone Care Team Providers Care Income Tax Administrator Name Role Phone Josee Morfin APRN Primary Care Provider [phone] Camila VALDEZ, Alfonso Florian Unavailable [phone] Reason for Visit and Chief Complaint The Chief Complaint is: RLF pain Problems Includes: Problems addressed during this encounter and other active Problems All Visits Onset Date Resolved Date Provider Condition S tatus Joint Pain Right Middle Finger 08/16/2022 Alfonso Jensen MD Active Last Documented On 2 1:58PM ; [facility] Plan of Treatment We will continue her seeing infectious disease and following the antibiotic regimen. We will continue her work restrictions and see her back in 2 weeks for recheck. - Last Documented On 09/08/2022 1:59PM ; [facility] Pending Tests Order Diagnosis Results Due Ordering Randee moser Radiology - MRI MRI Finger 08/30/22 Alfonso Jensen MD Last Documented On 2 3:50PM ; [facility] Instructions to patient Intervention and counseling on cessation of tobacco use Last Documented On 2 2:30PM ; [facility] Lose weight Last Documented On 2 2:32PM ; [facility] Assessments Includes: Assessments from this encounter No Assessments Recorded Instructions Includes: Instructions from this encounter Instructions to patient Intervention and counseling on cessation of tobacco use Last Documented On 2 2:30PM ; [facility] Lose weight Last Documented On 2 2:32PM ; [facility] Medical Equipment - Implanted Devices Includes: Current Devices No Medical Equipment Recorded Medications Includes: Medications discussed during this encounter and other current Medications Current Medications (continue as prescribed) Mupirocin 2% External Ointment 07/29/2022 Provider: Josee Morfin APRN Diagnosis: Last Documented On 2 1:58PM By Mckenna Menendez ; [facility], [facility] Cetirizine HCl 10 MG Oral Tablet 06/02/2022 Provider : Josee Morfin APRN Diagnosis: Last Documented On 2 1:58PM By Mckenna Menendez ; [facility] Clopidogrel Bisulfate 75 MG Oral Tablet 05/16/2022 Randee moser: Josee Morfin APRN Diagnosis: Last Documented On 2 1:58PM By Mckenna Menendez ; [facility] Escitalopram Oxalate 20 MG Oral Tablet 05/16/2022 Pr ovider: Josee Morfin APRN Diagnosis: Last Documented On 2 1:58PM By Mckenna Menendez ; [facility] Losartan Potassium-HCTZ 50-12.5 MG Oral Tablet 022 Provider: Josee Morfin APRN Diagnosis: Last Documented On 2 1:58PM By Mckenna Menendez ; [facility] Metoprolol Succinate ER 25 M G Oral Tablet Extended Release 24 Hour 05/16/2022 Provider: Josee MALHOTRA RN Diagnosis: Last Documented On 2 1:58PM By Mckenna Menendez ; [facility] Omeprazole 40 MG Oral Capsule Delayed Release 05/16/20 22 Provider: Josee Morfin APRN Diagnosis: Last Documented On 2 1:58PM By Mckenna Menendez ; [facility] Rosuvastatin Calcium 40 MG Oral Tablet 05/16/2022 Pr ovider: Josee Morfin APRN Diagnosis: Last Documented On 2 1:58PM By Mckenna Menendez ; [facility] Anoro Ellipta 62.5-25 MCG/AC T Inhalation [...] REP Last Documented: On 09/04/2022 2:32PM ; [facility] Results Includes: Results [...] Caffeine use 08/16/2022 Last Documented On 2 2:30PM ; [facility] No recent change in diet 08/16/2022 Last Documented On 2 2:30PM ; [facility] Not exercising regularly 08/16/2022 Last Documented On 2 2:30PM ; [facility] Not using alcohol 08/16/2022 Last Documented On 2 2:30PM ; [facility] Not using drugs 08/16/2022 Last Documented On 2 2:30PM ; [facility] Yes, current smoker. 08/16/2022 Last Documented On 2 2:30PM ; [facility] Tobacco use 08/16/2022 Last Documented On 2 2:30PM ; [facility] Smoking Status Unknown Procedures and Surgical History Includes: Procedures from this encounter Procedures Code Diagnosis Performing Provider Service L ocation Service Date intervention and counseling on cessation of tobacco use 4000F Last Documented On 2 2:30PM ; [facility] use of tobacco assessment performed 1000F Last Documented On 2 2:30PM ; [facility] no influenza immunization patient refuse d Last Documented On 2 2:30PM ; [facility] follow-up visit in one month Last Documented On 2 2:32PM ; [facility] an X-ray was performed 30622 Last Documented On 2 2:30PM ; [facility] Surgical History Last Updated History of heart surgery 08/16/2022 Last Documented On 2 2:30PM ; [facility] History of hysterectomy 08/16/2022 Last Documented On 2 2:30PM ; [facility] Medical History Includes: Medical History addressed during this encounter Description Last Updated History of arthritis 08/16/2022 Last Documented On 2 2:30PM ; [facility] History of depression 08/16/2022 Last Documented On 2 2:30PM ; [facility] History of heart disease 08/16/2022 Last Documented On 2 2:30PM ; [facility] History of Heartburn / Acid Reflux 08/16 Last Documented On 2 2:30PM ; [facility] History of History of Heart Attack / Str omkar 08/16/2022 Last Documented On 2 2:30PM ; [facility] History of Sleep Apnea 08/16/2022 Last Documented On 2 2:30PM ; [facility] Past Surgical History: [facility] Last Documented On 2 2:30PM ; [facility] Recent immunization for pneumococcal pne umonia 08/16/2022 Last Documented On 2 2:30PM ; [facility] No recent immunization for flu 2 Last Documented On 2 2:30PM ; [facility] Family History Includes: Family History addressed during this encounter Description Last Updated Family history of cancer 08/16/2022 Last Documented On 2 2:30PM ; [facility] Family history of heart disease 08/16/20 22 Last Documented On 2 2:30PM ; [facility] Family history of systemic hypertension 08/16/2022 Last Documented On 2 2:30PM ; [facility] Review of Systems Includes: Review of [...] Active Last Documented On 3 2:52PM ; [facility] Encounters Encounter Provider Location Date Check-In Time Check-Out Time Diagnosis WC FOLLOW UP/EST Alfonso Jensen MD [facility] 09/04/20 22 2:01PM 2:47PM Insurance Includes: Active Insurance Policies Plan Name Member ID Group # Subscriber Relationship Effect melinda Dates 1 - TRAVELERS [id number] Ruthy Huntley Self 1 - Unknown Clinical Notes Includes: Clinical Notes from this encounter No Clinical Notes Recorded
[2025-01-28 14:49] LABS: Basophils # 0.1 K/mm3 (0-0.2); Basophils % 0.6 % (0.1-2.0); Eosinophils # 0.1 Kmm3 (0.0-0.4); Eosinophils % 1.2 % (0.1-12.0); Hematocrit 39.5 % (37.0-47.0); Hemoglobin 11.4 g/dL (12.2-16.2); Lymphocytes # 1.9 K/mm3 (0.7-4.5); Lymphocytes % 19.2 % (10-50); Mean Corpuscular HGB Conc 28.9 g/dL (31.8-35.4); Mean Corpuscular Hemoglobin 21.2 pg (27.0-31.2); Mean Corpuscular Volume 73.3 fl (81-99); Mean Platelet Volume 9.4 fl (7.4-10.4); Monocytes # 0.5 K/mm3 (0.1-1.0); Monocytes % 4.6 % (1.7-9.3); Neutrophils # 7.3 K/mm3 (1.8-7.8); Neutrophils % 73.9 % (37.0-80.0); Nucleated Red Blood Cells # 0 10^3/uL; Nucleated Red Blood Cells % 0 %; Platelet Count 474 K/mm3 (142-424); Red Blood Count 5.39 M/mm3 (4.20-5.40); Red Cell Distribution Width 18.6 % (11.5-17.5); Red Cell Distribution Width-SD 46.9 fL; White Blood Count 9.8 K/mm3 (4.8-10.8)
[2025-01-28 15:05] LABS: Iron 41 ug/dL (37-170)
[2025-01-28 15:14] LABS: Total Iron Binding Capacity 420 ug/dL (265-497)
[2025-01-28 15:42] LABS: Ferritin 8.43 ng/ml (11.1-264)
== END 2025-01-28 23:59 | disposition home or self-care (01) ==
LOC: LAB 13:43
PROVIDERS: PCP Nurse Practitioner Family; Visit Provider Internal Medicine Medical Oncology
DX: D64.9 Anemia, unspecified (principal)
CPT/HCPCS: 36415; 82728; 83540; 83550; 85025

== ENCOUNTER 2025-02-09 14:12 | Outpatient (CLI) | payer MEDICARE, SELFPAY ==
--- NOTE | 2025-02-09 14:30 | CA_ITS ---
APPROVED REPORT EXAM: Comprehensive 2D, Doppler, and color-flow Echocardiogram Malt Specifications Control Assistant: Kim Bob RT(R) Ht: 5 ft 4 in Wt: 279lbs BSA: 2.25 BP: 121/64 mmHg Indications: HFrEF, COPD, CAD, ex smoker, HTN, HLD, CHF, hx CM. EF 40-45% on last echo done 04/14/24. TDE due to body habitus Echo Enhancing Agent Indication: Endocardial border delineation Agent(s) / Amount(s) Used: Definity 2 cc 2D Dimensions LA Volume 42.50 mL LA Volume Index 18.81 mL/m2 (M/F) 16-34 EF AP4 45.60 % GL Strain -14.6 % M-Mode Dimensions RVDd 3.39 cm (0.9-2.6) LA Diam 4.33 cm (1.9-4.0) LVDd 5.08 cm (3.5-5.7) LVDs 4.00 cm (3.5-5.7) IVSd 0.97 cm (0.6-1.1) PWd 0.97 cm (0.6-1.1) EF (Teich) 43.00% FS 21.30% EDV (Teich) 122.70 mL ESV (Teich) 70.00 mL LV Diastology E Decel Time 150 (160-240 msec) E/A Ratio 0.5 Mitral Valve MV E Max Billy. 53.0 (40-130 cm/s) MV A Velocity 102.0 (40-130 cm/s) E/A Ratio 0.52 MV PHT 44.0 ms Left Ventricle The left ventricle is normal size. The left ventricular systolic function is mildly reduced. There is increased overall thickness. There is mild global hypokinesis present. There is moderate hypokinesis of the inferior and inferoseptal LV johnson. Grade 1 diastolic dysfunction is present. No left ventricle thrombus noted on this study. LVEF is 40-45%. Right Ventricle The right ventricle is normal size. The right ventricular systolic function is normal. Atria The left atrium size is normal. The right atrium size is normal. There is no Doppler evidence of interatrial shunt. Aortic Valve The aortic valve is mildly thickened. There is no aortic valvular stenosis. Trace aortic regurgitation. Mitral Valve The mitral valve is normal in structure. No evidence of mitral valve stenosis. There is no mitral valve regurgitation noted. Tricuspid Valve Tricuspid valve is grossly normal in structure and function. Trace tricuspid regurgitation. There is insufficient TR jet to estimate RVSP. Pulmonic Valve The pulmonary valve is normal in structure. Trace pulmonic regurgitation. Great Vessels The aortic root is normal in size. IVC is normal in size and collapses >50% with inspiration. Pericardium There is no pericardial effusion. Other Information Study Quality: Technically Difficult Conclusion Technically difficult study due to poor acoustic windows. Mildly reduced LV systolic function (LVEF 40-45%). Moderate hypokinesis of the inferior and inferoseptal LV johnson. No significant valvular stenosis or regurgitation. Electronically signed by : Olive Ortiz MD 02/15/2025 23:09:50
[2025-02-09] MEDS: DEFINITY US ECHO CONTRAST 2ML INJ 2 MG IV (15:21)
== END 2025-02-09 23:59 | disposition home or self-care (01) ==
LOC: RT 14:13
PROVIDERS: PCP Nurse Practitioner Family; Visit Provider Nurse Practitioner
DX: I11.0 Hypertensive heart disease with heart failure (principal); I50.20 Unspecified systolic (congestive) heart failure; E78.5 Hyperlipidemia, unspecified; I25.119 Atherosclerotic heart disease of native coronary artery with unspecified angina pectoris; J44.9 Chronic obstructive pulmonary disease, unspecified; R93.1 Abnormal findings on diagnostic imaging of heart and coronary circulation; R42 Dizziness and giddiness; Z87.891 Personal history of nicotine dependence
CPT/HCPCS: 93306; Q9957

== ENCOUNTER 2025-02-24 15:42 | Outpatient (CLI) | payer MEDICARE, SELFPAY ==
--- NOTE | 2025-02-24 15:45 | XR_ITS ---
FINAL REPORT TECHNIQUE: Chest PA & Lateral CLINICAL HISTORY: Possible aspiration pneumonia/dyspnea/low O2 sat COMPARISON: 11/18/2023 FINDINGS: 2 views of the chest were performed. The heart size is normal. The mediastinum is within normal limits. The lungs are underinflated. There is bibasilar atelectasis. There are no pleural effusions. There is no pneumothorax. The bony thorax appears intact. IMPRESSION: Underinflation with bibasilar atelectasis. Reviewed, Interpreted and Dictated by Jonathon Calzada MD Transcribed by Birdie Barnett Authenticated and [facility]
== END 2025-02-24 23:59 | disposition home or self-care (01) ==
LOC: RAD 15:43
PROVIDERS: PCP Nurse Practitioner Family; Visit Provider Nurse Practitioner
DX: J98.11 Atelectasis (principal); I25.5 Ischemic cardiomyopathy; I25.10 Atherosclerotic heart disease of native coronary artery without angina pectoris; I10 Essential (primary) hypertension; R42 Dizziness and giddiness
CPT/HCPCS: 71046

== ENCOUNTER 2025-03-02 07:05 | Outpatient (CLI) | payer MEDICARE, SELFPAY ==
--- NOTE | 2025-03-02 07:30 | CT_ITS ---
FINAL REPORT TECHNIQUE: Thin section axial images were obtained through the lungs using a low-dose technique per lung cancer screening protocol. Reconstruction images were obtained using the axial data. Exam was performed using dose reduction technique. This study was performed with techniques to keep radiation doses as low as reasonably achievable (ALARA). Individualized dose reduction techniques using automated exposure control or adjustment of mA and/or kV according to the patient's size were employed. CLINICAL HISTORY: lung cancer screening FORMER SMOKER QUIT 3 YEARS AGO 1PPD X 43 YEARS COMPARISON: 03/13/2023 FINDINGS: CTDLvol: 2.90 DLP: 96.38 Former smoker, quit 3 years ago 43 pack year history Lungs: No acute pulmonary abnormality. The 2 left lower lobe nodules noted on the prior LDCT exam of 2022 are again seen, measuring 3 mm in size, stable. These are best seen on images #45 and 46 of series 4. There is evidence of prior granulomatous disease. No new nodules are identified. Lymph nodes: No thoracic lymphadenopathy. Mediastinum: Heart size is normal. Prominent coronary artery calcifications are present. Pleura/pericardium: No pleural or pericardial effusion. Other: No acute abnormality in the upper abdomen. IMPRESSION: Stable left lower lobe pulmonary nodules when compared to the prior LDCT of 03/13/2023. Prominent coronary artery calcifications, responsible for the S designation. Lung RADS: 2S Recommendation: 12-month follow-up LDCT Reviewed, Interpreted and Dictated by Teresa Mahan MD Transcribed by Brandee Lee Authenticated and [facility]
[2025-03-02] MEDS: ALBUTEROL 0.083% 2.5 MG/3 ML NEB IH (09:01)
== END 2025-03-02 23:59 | disposition home or self-care (01) ==
LOC: RAD 07:06
PROVIDERS: PCP Nurse Practitioner Family; Visit Provider Internal Medicine Pulmonary Disease
DX: I25.10 Atherosclerotic heart disease of native coronary artery without angina pectoris (principal); R91.8 Other nonspecific abnormal finding of lung field; R06.09 Other forms of dyspnea; F17.200 Nicotine dependence, unspecified, uncomplicated; Z12.2 Encounter for screening for malignant neoplasm of respiratory organs
CPT/HCPCS: 71271; 94060; 94618; 94726; 94729

== ENCOUNTER 2025-03-13 08:00 | Day surgery (SDC) | payer MEDICARE, SELFPAY ==
[2025-03-13] VITALS (16 sets, daily range): BP systolic 64–119; BP diastolic 30–69; PULSE 61–73; RESP 15–20; TEMP 36.6; O2SAT 94–100; BMI 47.7
--- NOTE | 2025-03-13 07:08 | IR_ITS ---
APPROVED REPORT Patient Location: Outpatient Laboratory Animal Facility Supervisor: SUDEEP Boss RT (R) PROCEDURES Left heart catheterization Left ventriculogram Selective coronary angiogram Drug-eluting stent deployment to the distal abdominal right coronary artery extending into the posterior lateral ventricular branch Informed consent was obtained prior to the procedure. COMPLICATIONS NONE Estimated Blood Loss: LESS THAN 10 ML TECHNIQUE One percent lidocaine was used to anesthetize the right groin. The right femoral artery was accessed via the Seldinger technique. A 4-Beninese sheath was placed in the right femoral artery. The JL-4 and JR-4 catheter was also used to perform left heart catheterization left ventriculogram and selective coronary angiogram. At the end the diagnostic angiogram therapeutic Was administered giving a therapeutic ACT and the 4 Beninese sheath was exchanged for a 6 Beninese sheath. A JR4 guide catheter was placed in the right coronary artery followed by Choice PT extra-support wire placed distally. A 3.5 x 38 mm Francesco frontier stent was placed on the distal dominant right coronary and extending into the posterior lateral branch. This was deployed at 20 alicia reducing the severe and moderate stenosis to 0%. MAHAD-3 flow was present before and after the procedure. At the end the procedure the apparatus was removed the groin is reprepped closure change sheath was removed hemostasis was achieved and patient was transferred to the postop holding area in stable condition ANGIOGRAPHIC RESULTS The left main artery Normal The left anterior descending artery Has a stent in the proximal segment which is widely patent with mild diffuse concentric in-stent restenosis. The remaining vessel is widely patent The circumflex artery Nondominant normal The right coronary artery Large and dominant with a stent in the proximal mid and distal segment which extends into a large posterolateral branch. Proximally there is mild to moderate concentric in-stent restenosis with distal moderate 40% in-stent restenosis. The ostium of the posterior lateral branch is large and has a concentric 80 to 90% stenosis. There is a hazy 80% distal concentric stenosis within the stent. The posterior descending artery is large but widely patent with MAHAD-3 flow The VASQUEZ ventriculogram reveals Reduced at 40% The left ventricular end-diastolic pressure 25 mmHg IMPRESSION Coronary artery disease as described above Successful stenting of the distal dominant right coronary extending into a large posterolateral branch severe disease reduced to 0% with 1 drug-eluting stent Reduced ejection fraction Elevated LVEDP PLAN 1. Dual antiplatelet therapy 2. Cardiac rehabilitation 3. Avoidance of tobacco products 4. LDL less than 55 achieved with high intensity statin Electronically signed by : Yonas Cisneros MD 03/23/2025 13:42:58
[2025-03-13 08:30] LABS: Basophils # 0.1 K/mm3 (0-0.2); Basophils % 0.6 % (0.1-2.0); Eosinophils # 0.2 Kmm3 (0.0-0.4); Eosinophils % 1.7 % (0.1-12.0); Hemoglobin 12.3 g/dL (12.2-16.2); Immature Granulocytes # 0.02 10^3uL; Immature Granulocytes % 0.2 %; Lymphocytes # 1.7 K/mm3 (0.7-4.5); Mean Corpuscular HGB Conc 29.3 g/dL (31.8-35.4); Mean Corpuscular Hemoglobin 22.4 pg (27.0-31.2); Mean Corpuscular Volume 76.6 fl (81-99); Mean Platelet Volume 9.4 fl (7.4-10.4); Monocytes # 0.5 K/mm3 (0.1-1.0); Monocytes % 5.9 % (1.7-9.3); Neutrophils # 6.4 K/mm3 (1.8-7.8); Neutrophils % 72.6 % (37.0-80.0); Nucleated Red Blood Cells # 0 10^3/uL; Nucleated Red Blood Cells % 0 %; Platelet Count 398 K/mm3 (142-424); Red Blood Count 5.48 M/mm3 (4.20-5.40); Red Cell Distribution Width 21.3 % (11.5-17.5); Red Cell Distribution Width-SD 57.9 fL; White Blood Count 8.8 K/mm3 (4.8-10.8)
[2025-03-13 08:38] LABS: Chloride 103 mmol/L (98-107); Sodium 140 mmol/L (136-145)
[2025-03-13 08:39] LABS: Potassium 4.4 mmoL/L (3.5-5.1)
[2025-03-13 08:41] LABS: Blood Urea Nitrogen 15 mg/dl (7-17); Creatinine Clearance Estimated 46 mL/min (50-200); Estimated Glomerular Filt Rate 50 ml/min (>60); GFR (African American) 61 ML/MIN (>60)
[2025-03-13 08:42] LABS: Anion Gap 11.4 mEq/L (5-15); Calcium 9.7 mg/dl (8.4-10.2); Carbon Dioxide 30 mmol/L (22.0-30.0); Glucose 123 mg/dl (74-100)
[2025-03-13] MEDS: 0.9 % SODIUM CHLORIDE 500 ML 25 ML IV (09:31)
[2025-03-13] MEDS: LIDOCAINE 1% 10ML MDV 10 ML IJ (09:31)
[2025-03-13] MEDS: HEPARIN 1,000 UNITS/500ML NS (CATH LAB) 3000 UNIT IV (09:31)
[2025-03-13] MEDS: MIDAZOLAM HCL 1MG/ML 5ML VIAL 1 MG IV ×2 (09:58→10:15)
[2025-03-13] MEDS: FENTANYL 100MCG/2ML VIAL 50 MCG IV (09:58)
[2025-03-13] MEDS: HEPARIN 1,000 UNITS/ML 10ML VIAL (CATH LAB) 5000 UNIT IV (10:12)
[2025-03-13] MEDS: FENTANYL 100MCG/2ML VIAL 25 MCG IV (10:14)
[2025-03-13] MEDS: IOPAMIDOL-370 (76%);100ML BOTTLE 50 ML IV (10:47)
[2025-03-13 10:49] LABS: CATHL Activated Clotting Time 275 SEC (74-125)
--- NOTE | 2025-03-13 11:00 | SUR.PHASEII ---
report gave to Laura CHOWDHURY in ICU to take over pt care.
== END 2025-03-13 14:30 | disposition home or self-care (01) ==
PROVIDERS: PCP Nurse Practitioner Family; Visit Provider Internal Medicine
PROC: 4A023N7 Measurement of Cardiac Sampling and Pressure, Left Heart, Percutaneous Approach (ICD-10-PCS; CPT 93452; principal; 2025-03-13 07:00)
DX: I25.118 Atherosclerotic heart disease of native coronary artery with other forms of angina pectoris (principal); T82.855A Stenosis of coronary artery stent, initial encounter; R06.09 Other forms of dyspnea; Z95.5 Presence of coronary angioplasty implant and graft; I11.0 Hypertensive heart disease with heart failure; I50.9 Heart failure, unspecified; R94.39 Abnormal result of other cardiovascular function study; J44.9 Chronic obstructive pulmonary disease, unspecified; E11.9 Type 2 diabetes mellitus without complications; E78.5 Hyperlipidemia, unspecified; K21.9 Gastro-esophageal reflux disease without esophagitis; I34.0 Nonrheumatic mitral (valve) insufficiency; D64.9 Anemia, unspecified; I25.2 Old myocardial infarction; Z87.891 Personal history of nicotine dependence; Z79.84 Long term (current) use of oral hypoglycemic drugs; Z79.82 Long term (current) use of aspirin; Z79.899 Other long term (current) drug therapy; Z79.85 Long-term (current) use of injectable non-insulin antidiabetic drugs; Z88.5 Allergy status to narcotic agent; Z88.8 Allergy status to other drugs, medicaments and biological substances; Y84.8 Other medical procedures as the cause of abnormal reaction of the patient, or of later complication, without mention of misadventure at the time of the procedure
CPT/HCPCS: 93458; C9600; 80048; 85025; 85347; 92928; 99152; C1725; C1760; C1769; C1874; C1894; J1644; J2003; J3010; J7040; Q9967

== ENCOUNTER 2025-04-14 10:43 | Outpatient (CLI) | payer MEDICARE, SELFPAY ==
--- OUTSIDE RECORDS SUMMARY | 2025-04-14 10:57 | XMS_ITS | Referral Summary ---
Author Organization [employer] ([place], [place], [place], [place]) Address [address] [place] [address] Care Team Providers Care Director Of Contracts Name Role Phone Josee Morfin APRN Primary Care Provider + [phone] Allergies Active Allergy Reactions Criticality Noted Date Comments Adhesive Tape Rash Low 06/03/2024 Diphenhydramine Hcl 06/03/2024 Causes extreme sedation Codeine Nausea Only 06/03/2024 Medications albuterol (VENTOLIN HFA) 90 mcg/actuation inhaler Inhale 1-2 puffs by mouth via inhaler every 6 (six) hours as needed for wheezing. Active albuterol sulfate 90 mcg/actuation aepb Inhale 90 mcg by mouth via inhaler every 4 (four) hours as needed. Active aspirin 81 MG EC tablet Take 1 tablet (81 mg total) by mouth daily. Active azelastine (ASTELIN) 137 mcg (0.1 %) nasal spray 2 sprays by each nostril route nightly Use in each nostril as directed. Active bumetanide (BUMEX) 1 MG tablet Take 1 tablet (1 mg total) by mouth daily. Active busPIRone (BUSPAR) 7.5 MG tablet Take 1 tablet (7.5 mg total) by mouth 2 (two) times daily as needed. Active cetirizine (ZyrTEC) 10 MG tablet Take 1 tablet (10 mg total) by mouth daily. Active empagliflozin (Jardiance) 10 mg tablet Take 1 tablet (10 mg total) by mouth daily. Active escitalopram oxalate (LEXAPRO) 10 MG tablet Take 1 tablet (10 mg total) by mouth daily. Active evolocumab (Repatha Syringe) 140 mg/mL syringe Inject 140 mg subcutaneously every 14 (fourteen) days. Active fluticasone propionate (FLONASE) 50 mcg/actuation nasal spray 2 sprays by each nostril route daily. Active ipratropium-al buteroL (DUO-NEB) 0.5 mg-3 mg(2.5 mg base)/3 mL nebulizer solution Take 3 mLs by nebulization every 6 (six) hours as needed for wheezing. Active metFORMIN (GLUCOPHAGE) 1000 MG tablet Take 1 tablet (1,000 mg total) by mouth daily with breakfast Look-alike/Sound -alike medication. Active metoprolol tartrate (LOPRESSOR) 25 MG tablet Take 1 tablet (25 mg total) by mouth nightly. Active nitroglycerin (NITROSTAT) 0.[address] 1 tablet (0.4 mg total) under the tongue every 5 (five) minutes as needed for chest pain Put 1 pill under tongue every 5min as needed for chest pain.No more than 3 doses in 15min.Call 911 if pain unrelieved 5min after 1st dose. Active pantoprazole (PROTONIX) 40 MG tablet Take 1 tablet (40 mg total) by mouth 2 (two) times daily. Active ranolazine (RANEXA) 500 MG 12 hr tablet Take 1 tablet (500 mg total) by mouth 2 (two) times daily. Active rOPINIRole (REQUIP) 2 MG tablet Take 1 tablet (2 mg total) by mouth nightly. Active sacubitriL-valeriano sartan (Entresto) 49-51 mg tablet Take 1 tablet by mouth 2 (two) times daily. Active spironolactone (ALDACTONE) 25 MG tablet Take 1 tablet (25 mg total) by mouth daily. Active semaglutide 1 mg/dose (4 mg/3 mL) pnij Inject 1 mg subcutaneously every 7 days Sunday. Active FERROUS SULFATE ORAL Take by mouth daily. Active ascorbic acid (VITAMIN C ORAL) Take by mouth daily. Active prasugreL (EFFIENT) 10 mg tab tablet Take 1 tablet (10 mg total) by mouth daily. 0 Active Active Problems Problem Noted Date Diagnosed Date Colon polyp 06/11/2024 Anxiety and depression 06/04/2024 Asthma 06/04/2024 CHF (congestive heart failure) 06/04/2024 COPD (chronic obstructive pulmonary disease) 12/2023 Arteriosclerosis of coronary artery in patient with history of myocardial infarction 06/04/2024 Diabetes mellitus 06/04/2024 GERD (gastroesophageal reflux disease) TREVA on CPAP 06/04/2024 Restless leg 06/04/2024 Supplemental oxygen dependent 06/04/2024 Overview (06/04/2024): 2L as needed Mass of colon 06/04/2024 Morbid obesity 06/04/2024 History of coronary artery stent placement 06/04 Ischemic cardiomyopathy 06/04/2024 Former smoker 06/04/2024 Social History Tobacco Use Types Packs/Day Years Used Date Smoking Tobacco: Former Cigarettes Q uit: 2022 Smokeless Tobacco: Never Tobacco Cessation:Counseling Given: Not Answered Alcohol Use Standard Drinks/Week Comments Not Currently 0 (1 standard drink = 0.6 oz pur e alcohol) [facility] - Mental Health Answer Date Recorde d Little interest or pleasure in doing things Not at all 06/03/2024 Feeling down, depressed, or hopeless Not at all 06/03/2024 Feeling of Stress Not on file 06/03/2024 [facility] Intimate Partner Violence Answer Da te Recorded Within the last year, have y ou been afraid of your partner or ex-partner? No 06/03/2024 Within the last year, have y ou been humiliated or emotionally abused in other ways by your partner or ex-partner? No Within the last year, have y ou been kicked, hit, slapped, or otherwise physically hurt by your partner or ex-partner? No 06/03/2024 Within the last year, have y ou been raped or forced to have any kind of sexual activity by your partner or ex-partner? No 06/03/2024 Utilities Answer Date Recorded In the past 12 months, has t he electric, gas, oil, or water company threatened to shut off services in your home? No 06/11/2024 Interpersonal Safety Answer Date Record ed How often does anyone, inclu ding family and friends, physically hurt you? Never 06/11/2024 How often does anyone, inclu ding family and friends, insult or talk down to you? Never 06/11/2024 How often does anyone, lorna mccarthy family and friends, threaten you with harm? Never 06/11/2024 How often does anyone, lorna mccarthy family and friends, scream or curse at you? Never 06/11/2024 Housing Stability Answer Date Recorded What is your living situation today? I have a [facility] [place] place to live 06/11/[address] you li ve. Do you have problems with any of the following? None of the above 06/11/2024 Food Insecurity Answer Date Recorded Within the past 12 months, y ou worried that your food would run out before you got money to buy more. Never true 06/11/2024 Within the past 12 months, t he food you bought just didn't last and you didn't have money to get more. Never true 06/11/2024 Transportation Needs Answer Date Record ed In the past 12 months, has l ack of reliable transportation kept you from medical appointments, meetings, work or from getting things needed for daily living? No 06/11/2024 Financial Resource Strain Answer Date R ecorded How hard is it for you to pa y for the very basics like food, housing, medical care, and heating? Would you say it is: Not hard at all 06/11/2024 Employment Answer Date Recorded Do you want help finding or keeping work or a job? I do not need or want help 06/11/2024 Family and Community Support Answer Luis e Recorded If for any reason you need h elp with day-to-day activities such as bathing, preparing meals, shopping, managing finances, etc., do you get the help you need? I get all the help I need 06/11/2024 Feeling Lonely or Isolated 0 06/11 Educational Attainment Answer Date Cruz rded Do you speak a language other than Armenian at [facility]? No 06/11/2024 Do you want help with school or training? For example, starting or completing job training or getting a high school diploma, GED or equivalent. No 06/11/2024 Physical Activity Answer Date Recorded Number of minutes of exercise per week 0 06/11/2024 Self Management Answer Date Recorded Because of a physical, menta l, or emotional condition, do you have serious difficulty concentrating, remembering, or making decisions? (5 years or older) No 06/11/2024 Because of a physical, menta l, or emotional condition, do you have difficulty doing errands alone such as visiting a doctor's office or shopping? (15 years or older) No 06/11/2024 Substance Use Answer Date Recorded How many times in the past y ear have you used prescription drugs for non-medical reasons? Never 06/11/2024 How many times in the past year have you used il legal drugs? Never 06/11/2024 Mental Health Answer Date Recorded Calculation of above two rows 0 Comments No Sex and Gender Information Value Date Recorded Sex Assigned at Not on file Legal Sex Female 4:23 PM CDT Gender Identity Not on file Sexual Orientation Not on file Last Filed Vital Signs Vital Sign Reading Time Taken Comments Blood Pressure 92/48 06/12/2024 8:00 AM EDT Pulse 72 06/12/2024 8:00 AM EDT Temperature 36.2 C (97.2 F) 06/12/2024 8:00 AM EDT Respiratory Rate 18 06/12/2024 8:00 AM EDT Oxygen Saturation 97% 06/12/2024 11:21 AM EDT Inhaled Oxygen Concentration 50% 06/11/2024 1 0:58 AM EDT Weight 124.7 kg (275 lb) 06/11/2024 1:28 PM EDT Height 160 cm (5' 2.99 ) 06/11/2024 1:28 PM EDT Body Mass Index 48.73 06/11/2024 1:28 PM EDT Plan of Treatment Not on file Procedures Procedure Name Priority Date/Time Associated Diagnosis Comments HEMOGLOBIN A1C STAT 06/04/2024 12:05 PM EDT Preop testing from Last 3 Months or Most Recently Relevant to Health Maintenance Results * Hemoglobin A1c (06/04/2024 12:05 PM EDT) Hemoglobin A1C 5.9 % 06/04/2024 5:[address] [facility] Comment: Hemoglobin A1C levels are related to mean glucose during the preceding 2-3 months. Less than 7% demonstrates glycemic control in diabetic patients. Hemoglobin AlC % Suggested Diagnosis > or = 6.5 Diabetic 5.7 - 6.4 Prediabetic <5.7 Non-diabetic eAVG Glucose 122.63 mg/dL 06/04/2024 5:[address] [facility] Blood Venipuncture / Unknown 06/04/2024 12:05 PM EDT 06/04/2024 12:20 PM EDT us Ralf Ordonez MD LAB BLOOD ORDERABLES Final Resul t [facility] [address] [phone] from Last 3 Months or Most Recently Relevant to Health Maintenance Insurance MEDICAID Advance Directives For more information, please contact: [phone] Documents on File Type Date Recorded Patient Academic Affairs Manager Expl anation Advance Directives and Livin g Will 06/11/2024 5:42 AM * Full Code (Latest Code Status on File) Date Activated Date Inactivated Comments 06/11/2024 12:17 PM 06/12/2024 2:08 PM Care Teams Director Of Contracts Relationship Specialty Start Date End Date Josee Morfin, SUPERVISING EDITOR TRAILER [address] [place] [address] PCP - General Family Medicine 06/11/24
--- OUTSIDE RECORDS SUMMARY | 2025-04-14 10:57 | XMS_ITS | Clinical Summary ---
Author Organization [employer] ([place], [place], [place], [place]) Address [address] [place] [address] Care Team Providers Care Log Cooker Name Role Phone Josee Morfin APRN Primary Care Provider + [phone] Allergies Active Allergy Reactions Criticality Noted Date [...] drink = 0.6 oz pur e alcohol) [facility] - Mental Health Answer Date Recorde d [...] Do you speak a language other than [place]ian at [facility]? No 06/11/2024 Do you want help [...] 06/11/2024 1:28 PM EDT Plan of Treatment Health Maintenance Due Date Last Done Comments CT Colonography 1962 Colonoscopy 1962 Colorectal Cancer Screening 1962 Diabetic Kidney Health Evaluation (KED) 1962 FOBT/FIT 1962 Fit-DNA (Cologuard) 1962 Sigmoidoscopy 1962 Diabetic Eye Exam 1972 HIV Screening 1977 Hepatitis C Screening 1980 DTAP/TDAP/TD VACCINES (1 - Tdap) 1981 Pap Smear 12/22/1983 Lipid Panel 12/22/2007 Shingles Vaccine (Zoster) (1 of 2) 2012 Respiratory Syncytial Virus (RSV) Adult or (1 - Risk 60-74 years 1-dose series) 2022 Pneumococcal 50+ years (2 of 2 - PCV) 06/02/202311/2021 COVID-19 VACCINE (3 - season) 06/01/202408/2021, 02/18/2021 Hemoglobin A1C 12/02/2024 06/04/2024 Breast Cancer Screening 03/23/2025 03/23/2023, 03/23 Influenza Vaccine (#1) 2025 Tobacco Cessation Counseling and Screening (12+) 06/11/2025 06/11/2024 Procedures Procedure Name Priority Date/Time Associated Diagnosis Comments HEMOGLOBIN A1C STAT 06/04/2024 12:05 PM EDT Preop testing from Last 3 Months or Most Recently Relevant to Health Maintenance Results * Hemoglobin A1c (06/04/2024 12:05 PM EDT) Hemoglobin A1C 5.9 % 06/04/2024 5:37 PM EDT [facility] Comment: Hemoglobin A1C levels are related to mean glucose during the preceding 2-3 months. Less than 7% demonstrates glycemic control in diabetic patients. Hemoglobin AlC % Suggested Diagnosis > or = 6.5 Diabetic 5.7 - 6.4 Prediabetic <5.7 Non-diabetic eAVG Glucose 122.63 mg/dL 06/04/2024 5:37 PM EDT [facility] Blood Venipuncture / Unknown 06/04/2024 12:05 PM EDT 06/04/2024 12:20 PM EDT us Ralf Ordonez MD LAB BLOOD ORDERABLES Final Resul t [facility] [address] [phone] from Last 3 Months or Most Recently Relevant to Health Maintenance Insurance [facility] MEDICAID Advance Directives For more information, please contact: [phone] Documents on File Type Date Recorded Patient Pinmaker Expl anation Advance Directives and Livin g Will 06/11/2024 5:42 AM * Full Code (Latest Code Status on File) Date Activated Date Inactivated Comments 06/11/2024 12:17 PM 06/12/2024 2:08 PM Care Teams Log Cooker Relationship Specialty Start Date End Date Josee Morfin, GLOBAL PROCESS OWNER [address] [place] [address] PCP - General Family Medicine 06/11/24
--- OUTSIDE RECORDS SUMMARY | 2025-04-14 10:57 | XMS_ITS | Clinical Summary ---
Author Organization [facility] Address [address] [place] [address] Care Team Providers Care Marketing Analytics Specialist Name Role Phone Josee Morfin APRN Primary Care Provider + [phone] Immunizations Immunization Administration Dates Next Due Rabies, intramuscular 12/22/2009 Social History Tobacco Use Types Packs/Day Years Used Date Smoking Tobacco: Never Assessed Comments Unknown Sex and Gender Information Value Date Recorded Sex Assigned at Not on file Legal Sex Female 8:19 PM EDT Gender Identity Not on file Sexual Orientation Not on file Plan of Treatment Health Maintenance Due Date Last Done Comments [facility]-Depression Screening 1962 [facility]-/Child/Adol SDOH Screenings 1962 [facility]- SDOH Screenings 1980 [facility]-Adult SDOH Screenings 1980 [facility]-DTaP,Tdap,and Td Vaccine s (1 - Tdap) 1981 [facility]-Pap Smear 12/22/1983 [facility]-Cervical Cancer Screening 1992 [facility]-HPV/Cotest 1992 CT Colonography 12/22/2007 Colonoscopy 12/22/2007 FIT-DNA 12/22/2007 FIT 12/22/2007 FOBT 12/22/2007 Sigmoidoscopy 12/22/2007 [facility]-Colorectal Cancer Screening 12/22/2007 [facility]-Zoster Vaccines (1 of 2) 2012 [facility]-Pneumococcal Vaccine: 50 + Years (2 of 2 - PCV) 06/02/2023 06/02/2022 [id number] Vaccine ( - 2024-25 season) 2024 03/11/2021, 02/18/2021 [facility]-Influenza Vaccine (#1) 2025 08/22/2019 [facility]-RSV Vaccine: 60+ Years o r (1 - 1-dose 75+ series) 2037 HPV Vaccines Aged Out No longer eligi ble based on patient's age to complete this topic [facility]-HIB Vaccines Aged Out No longer e ligible based on patient's age to complete this topic [facility]-Hepatitis A Vaccines Aged Out No longer eligible based on patient's age to complete this topic [facility]-IPV Vaccines Aged Out No longer e ligible based on patient's age to complete this topic [facility]-Rotavirus Vaccines Aged Out No lo nger eligible based on patient's age to complete this topic Insurance [facility] MEDICAID Care Teams Marketing Analytics Specialist Relationship Specialty Start Date End Date Josee Morfin APRN [address] [place] [address] PCP - General 01/17/23
--- OUTSIDE RECORDS SUMMARY | 2025-04-14 10:57 | XMS_ITS | Clinical Summary ---
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 Name Role Phone Bandar Cohen MD [ ] Conditions or Problems Problem Name Problem Code Onset Date Status Entry Date Provider Comment Standard Description Annotate Dental abscess 972595920 (SNOMED CT) Active Bandar Cohen MD Dental abscess Nicotine dependence 97219588 (SNOMED CT) Active Jena Minor Nicotine dependence Other obesity due to excess calories 981323120 (SNOMED CT) Active Jena Minor Simple obesity Infective (teno)synovit is, right hand/finger (document bacterial agent) M65.141 (ICD-10-CM) Active Blanca Diane Other infective (teno)synovit is, right hand Cellulitis, hand, right 47412271 (SNOMED CT) Active Blanca Benedicto Cellulitis of hand Cellulitis, long finger, right 99224986 (SNOMED CT) Active Blanca Benedicto Cellulitis of finger Open bite of right middle finger without damage to nail, initial encounter(s) S61.252A (ICD-10-CM) Active Blanca Benedicto Open bite of right middle finger without damage to nail, initial encounter Cat bite, initial encounter(s) W55.01xA (ICD-10-CM) Active Blanca Diane Bitten by cat, initial encounter Medications Medication Instructions Start Date Stop Date Generic Name [facility] Provider LASIX 80 MG TABS by mouth once a day furosemide 38734166462 Jena Minor SPIRONOLACTONE 50 MG TABS by mouth once a day spironolactone 36639462853 Jena Jean AMOXICILLIN-POT CLAVULANATE 875-125 MG TABS Take 1 tablet by mouth twice a day 12/12 amoxicillin-pot clavulanate 80036004229 Bandar Cohen MD ERTAPENEM SODIUM 1 GM SOLR 1 gm IV Q 2 4hrs/OPAT 10/09 ertapenem 79427600634 Gerda Hernandez RN Cubicin 500 mg recon soln 500mg IV Q 2 4hrs/OPAT 10/09 daptomycin Gerda Hernandez RN DOXYCYCLINE MONOHYDRATE 100 MG TABS twice a day take one capsule oral twice daily for 10 days 10/09 doxycycline monohydrate 34482730360 Bandar Cohen MD DOXYCYCLINE MONOHYDRATE 100 MG CAPS Take 1 capsule by mouth twice a day 10/23 doxycycline monohydrate 14277030341 Bandar Cohen MD DOXYCYCLINE MONOHYDRATE 100 MG TABS twice a day take one capsule oral twice daily for 10 days 10/09 doxycycline monohydrate 28833494959 Jarret Waldrop OMEPRAZOLE 40 MG CPDR take one cap oral daily prn for GERD omeprazole 45382745434 Jarret Waldrop ProAir HFA 90 mcg/actuation HFA aerosol inhaler every four hours as needed inhale 1-2 puffs (90-180 mcg) by inhalation route every 4 hours as needed albuterol sulfate 14152489217 Jarret Waldrop CETIRIZINE HCL 10 MG TABS take 1 tablet by oral route once daily as needed for allergies cetirizine 29642149428 Jarret Waldrop FLUCONAZOLE 150 MG TABS once a day 1 tab oral daily for 3 days fluconazole 02340917752 Jarret Waldrop BUSPIRONE HCL 7.5 MG TABS take one tablet by mouth twice daily buspirone 38839259644 Jarret Waldrop ESCITALOPRAM OXALATE 20 MG TABS 1 tab oral daily escitalopram oxalate 90369307144 Jarret Waldrop LOSARTAN POTASSIUM-HCTZ 50-12.5 MG TABS once a day take one half tablet by mouth every day losartan-hydroch lorothiazide 20578598260 Jarret Waldrop MUPIROCIN 2 % OINT apply a thin layer to the affected area(s) by topical route 2 times per day mupirocin 46957274686 Jarret Waldrop DICLOFENAC SODIUM 1 % GEL four times a day as needed apply 2 grams to the affected area(s) by topical route 4 times per day as need for arthritis pain diclofenac sodium 67198481135 Jarret Waldrop ANORO ELLIPTA 62.5-25 MCG/ACT AEPB inhale 1 puff by inhalation route once daily at the same time each day umeclidinium-mj anterol 78905890766 Jarret Waldrop CLOPIDOGREL BISULFATE 75 MG TABS 1 tab oral daily clopidogrel 76590932341 Jarret Waldrop ROSUVASTATIN CALCIUM 40 MG TABS one tablet oral daily rosuvastatin 15760203138 Jarret Waldrop METOPROLOL SUCCINATE ER 25 MG [id number]-GNJ take 1 tab by oral route once daily metoprolol succinate 62710979791 Jarret Waldrop Cubicin 500 mg recon soln 500mg IV Q 2 4hrs/OPAT 10/09 daptomycin 95194142466 Maggie Morataya RN ERTAPENEM SODIUM 1 GM SOLR 1 gm IV Q 2 4hrs/OPAT 10/09 ertapenem 94910570386 Maggie Morataya RN DICLOFENAC SODIUM 1 % GEL four times a day as needed 10/30 diclofenac sodium 24817404627 Lucrecia Sohan DOXYCYCLINE MONOHYDRATE 100 MG TABS twice a day 10/30 doxycycline monohydrate 99933854609 Lucrecia Sohan FLUCONAZOLE 150 MG TABS once a day 03/31 fluconazole 78178831926 Lucrecia Sohan LOSARTAN POTASSIUM-HCTZ 50-12.5 MG TABS once a day 10/30 losartan-hydroch lorothiazide 40971347697 Lucrecia Sohan ProAir HFA 90 mcg/actuation HFA aerosol inhaler every four hours as needed 10/30 albuterol sulfate 78887337869 Lucrecia Sohan PROMETHAZINE HCL 12.5 MG TABS every eight hours as needed promethazine 52723928273 Lucrecia Sohan ranolazine 500 mg extend release granules,packet twice a day ranolazine Lucrecia Sohan TRIAMCINOLONE ACETONIDE 0.1 % CREA twice a day triamcinolone acetonide 33573645778 Lucrecia Sohan ANORO ELLIPTA 62.5-25 MCG/ACT AEPB 03/31 umeclidinium-mj anterol 63441676452 Jarret Waldrop BUSPIRONE HCL 7.5 MG TABS 10/30 buspirone 44123604778 Jarret Waldrop CETIRIZINE HCL 10 MG TABS 10/30 cetirizine 61782922215 Jarret Waldrop CLOPIDOGREL BISULFATE 75 MG TABS 10/30 clopidogrel 97072214335 Jarret Waldrop ESCITALOPRAM OXALATE 20 MG TABS 10/30 escitalopram oxalate 57640533080 Jarret Waldrop HYZAAR 50-12.5 MG TABS losartan-hydroch lorothiazide 74500603993 Jarret Waldrop METOPROLOL SUCCINATE ER 25 MG PP46O-LDA 10/30 metoprolol succinate 13978130171 Jarret Waldrop MUPIROCIN 2 % OINT 10/30 mupirocin 20905765715 Jarret Waldrop OMEPRAZOLE 40 MG CPDR 10/30 omeprazole 53354723579 Jarret Waldrop ROSUVASTATIN CALCIUM 40 MG TABS 03/31 rosuvastatin 96722602521 Jarret Waldrop Medications Administered No information available. Allergies, [...] H Glucose [Mass/volume] in Serum or Plasma Office Visit: rm 6 VAPE_USE Never Tobacco smok ing status Lab Report: SEDIMENTATION RA TE ESR 51 mm/h 0-30 H Erythrocyte sedimentation rate by Westergren method Lab Report: C-REACTIVE PROTE IN CRP 0.31 mg/dL 0.00-0.50 C reactive protein [Mass/volume] in Serum or Plasma Office Visit: Office Visit:r rafael 6 MEDS REVIEW Done Documenta tion of [...] Procedures Code Procedure Name Date Entry Date CPT-38846 C- reactive protein CPT-79384 Sedimentation Rate (ESR) 202 11/29/08 CPT-ca Continue IV antibiotics 2022 CPT-wpc Weekly PICC Line Care 10/03 CPT-cwl Weekly Labs (Continue) 10/03 CPT-81139 CMP CPT-18865 CBC w/o Differential [id number], [id number] CPK CPT-28117 Sedimentation Rate (ESR) 202 11/29/02 CPT-ca Continue IV antibiotics 2021 CPT-wpc Weekly PICC Line Care 11/27 CPT-cwl Weekly Labs (Continue) 09/26 CPT-76565 CMP CPT-32261 CBC w/o Differential CPT-00447 Sedimentation Rate (ESR) 202 11/12/26 [id number], [id number] CPK CPT-ca Continue IV antibiotics 2021 CPT-wpc Weekly PICC Line Care 11/19 CPT-cwl Weekly Labs (Continue) 09/18 CPT-ca Continue IV antibiotics 2021 CPT-84292 CMP CPT-77210 CBC w/o Differential CPT-08647 C- reactive protein [id number], [id number] CPK CPT-39516 Sedimentation Rate (ESR) 202 11/12/11 CPT-ca Continue IV antibiotics 2021 CPT-wpc Weekly PICC Line Care 11/06 CPT-cwl Weekly Labs (Continue) 09/05 CPT-79980 CMP CPT-88799 CBC w/o Differential [id number], [id number] CPK CPT-15123 Sedimentation Rate (ESR) 202 11/12/05 CPT- stat weekly Stat Weekly Labs CPT-ca Continue IV antibiotics 2021 CPT-wpc Weekly PICC Line Care 10/29 CPT-cwl Weekly Labs (Continue) 08/29 [id number], [id number] CPK CPT-04545 CMP CPT-77996 CBC w/o Differential CPT-90489 X-Ray, Chest (PICC Placement only) 10/28 CPT-juliana New IV antibiotic CPT-00849 PIV/Butterfly CPT-12695 PICC Line Insertion CPT-14118 CMP CPT-48988 CBC w/o Differential [id number], [id number] CPK CPT-51165 Sedimentation Rate (ESR) 202 11/11/24 CPT-05284 Wound Culture and Sensitivity w/Gram Stai n [...] Weight Measured 238.6 [lb_av] weight E& M Weight Measured 238.6 [lb_av] weight E& M Immunizations No information available. Advance Directives Directive Description Start Date HAS A LIVING WILL
--- OUTSIDE RECORDS SUMMARY | 2025-04-14 10:58 | XMS_ITS | Data Portability ---
Author Organization [employer] [place] [facility] [place] Address [address] [place] [address] Assessment Encounter Date Assessment Date Assessment LastModified by Organization Details LastModified Time 07/22/2024 07/22/2024 Declines flu vaccination today. Not available 07/22/2024 11:15:00 01/26/2025 01/26/2025 She has an outstanding referral for LDCT and says she will reschedule it. Not available 01/26/2025 14:36:58 Plan of Treatment Reminders Order Date Submit Date Provider Last Modified By Organization Details Last Modified Time Details Appointments FOLLOW UP 15 2024 01:30P Gillian Morfin APRN Not available Not available Not available Lab cobalamin and folate panel, serum 2024 025 [facility] [address] [place], [address], 01/27/2025 13:12:07 iron + TIBC + ferritin, serum 2024 025 [facility] [address] [place], [address], 01/27/2025 13:12:05 magnesium , serum or plasma 2024 025 [facility] [address] [place], [address], 01/27/2025 13:12:09 TSH, ultra-sen sitive, serum 2024 025 [facility] [place], [address], 01/27/2025 13:12:08 CBC w/ auto diff 2024 025 [facility] ([place]), [address] [place] [address], [id number], 01/27/2025 13:12:06 vitamin D, 25-hydrox y, total, serum 2024 025 [facility] ([place]), [address] [place] [address], [id number], 01/27/2025 13:12:08 HbA1c (hemoglob in A1c), blood [address], [address], 01/26/2025 14:22:58 CMP, serum or plasma 2024 025 [facility] ([place]), [address] [place] [address], [id number], 01/27/2025 13:12:06 albumin/c reatinine , mass ratio, urine 2024 025 [facility] ([place]), [address] [place] [address], [id number], 01/27/2025 13:12:07 HbA1c (hemoglob in A1c), blood [address], [address], 10/28/2024 16:56:32 TSH, ultra-sen sitive, serum 2023 024 [facility] ([place]), [address] [place] [address], [address], 07/23/2024 06:10:48 HbA1c (hemoglob in A1c), blood [address], [address] [place] [address], [id number], 07/22/2024 11:06:05 CMP, serum or plasma 2023 024 [facility] ([place]), [address] [place] [address], [id number], 07/23/2024 06:10:46 albumin/c reatinine , mass ratio, urine 2023 024 [facility] ([place]), [address] [place] [address], [id number], 07/23/2024 06:10:47 lipid panel, serum 2023 024 [facility] ([place]), [address] [place] [address], [id number], 07/23/2024 06:10:47 HbA1c (hemoglob in A1c), blood [address], [address] [place] [address], [phone], 04/21/2024 17:14:28 HbA1c (hemoglob in A1c), blood [address], [address] [place] [address], [phone], 01/09/2024 11:52:26 Referral None recorded. Procedures None recorded. Surgeries None recorded. Imaging LDCT, chest, for lung cancer screening - due after 11/19/24[address] ([facility]), [address], [place], [address], 12/12/2024 13:57:12 MAMMO, screening , digital, bilateral - first available appt 2023 024 [facility] ([facility]), [address], [place], [place], [address], 08/15/2024 07:54:30 Medication Orders Mounjaro 2.5 mg/0.5 mL subcutane ous pen injector [address] [facility], [address] [place] [address], [id number], 03/31/2025 10:18:25 Mounjaro 2.5 mg/0.5 mL subcutane ous pen injector [address] [facility], [address] [place] [address], [id number], 01/26/2025 15:11:02 Jardiance 10 mg tablet [address] [facility], [address] [place] [address], [id number], 02/05/2025 12:49:11 Entresto 49 mg-51 mg tablet [address] [facility], [address] [place] [address], [id number], 02/05/2025 12:49:12 levocetir izine 5 mg tablet [address] [facility], [address] [place] [address], [id number], 10/18/2024 12:39:28 Ozempic 2 mg/dose (8 mg/3 mL) subcutane ous pen injector [address] [facility], [address] [place] [address], [id number], 10/28/2024 17:08:31 Altabax 1 % topical ointment 2023 [facility], [address] [place] [address], [id number], 04/22/2024 13:35:30 doxycycli ne hyclate 100 mg capsule 2023 [facility], [address] [place] [address], [id number], 07/22/2024 10:41:52 Ozempic 1 mg/dose (4 mg/3 mL) subcutane ous pen injector [email or web address] [place] [address], [address] [place] [address], [address], 07/22/2024 11:08:36 metformin ER 500 mg tablet,ex tended release 24 hr 2023 024 [facility], [address] [place] [address], [address], 03/18/2024 17:13:13 Ozempic 0.25 mg or 0.5 mg (2 mg/1.5 mL) subcutane ous pen injector 2023 024 [facility], [address] [place] [address], [address], 04/21/2024 17:57:53 Patient TargetsNo targets recorded. Patient InstructionsNo instructions recorded. Reason for Referral None Reported. Results Created Date Observation Date Name Description Value Unit Range Abnormal Flag Note LastModifiedBy Organization Detail LastModifiedTime 01/09/2001/09/2024 HbA1c (hemo globi n A1c), blood HbA1c 5.8 Not Available [address], [address], 01/09/2024 08:07:33 04/21/2004/21/2024 HbA1c (hemo globi n A1c), blood HbA1c 6.7 Not Available [address], [place], [address], 04/21/2024 16:51:32 07/22/20 24 07/23/2024 COMP. METAB OLIC PANEL (14) glucose 116 mg/dL 70-99 above high normal Not Available [facility] ([facility]) [address] [place], [address], 07/23/2024 06:10:46 07/22/20 24 07/23/2024 COMP. METAB OLIC PANEL (14) BUN 14 mg/dL 8-27 normal Not Available [facility] ([facility]) [address] [place], [address], 07/23/2024 06:10:46 07/22/20 24 07/23/2024 COMP. METAB OLIC PANEL (14) creatinine 0.97 mg/dL 0.57-1 .00 normal Not Available [facility] ([facility]) [address] [place], [address], 07/23/2024 06:10:46 07/22/20 24 07/23/2024 COMP. METAB OLIC PANEL (14) eGFR 66 mL/mi n/1.7 3 >59 normal Not Available [facility] ([facility]) [address] [place], [address], 07/23/2024 06:10:46 07/22/20 24 07/23/2024 COMP. METAB OLIC PANEL (14) BUN/creatini ne ratio 14 12-28 normal Not Available [facility] ([facility]) [address] [place], [address], 07/23/2024 06:10:46 07/22/20 24 07/23/2024 COMP. METAB OLIC PANEL (14) sodium 141 mmol/ L 134-14 4 normal Not Available [facility] ([facility]) [address] [place], [address], 07/23/2024 06:10:46 07/22/20 24 07/23/2024 COMP. METAB OLIC PANEL (14) potassium 4.6 mmol/ L 3.5-5. 2 normal Not Available [facility] ([facility]) [address] [place], [address], 07/23/2024 06:10:46 07/22/2007/23/2024 COMP. METAB OLIC PANEL (14) chloride 99 mmol/ L 96-106 normal Not Available [facility] ([facility]) [address] [place], [address], 07/23/2024 06:10:46 07/22/20 24 07/23/2024 COMP. METAB OLIC PANEL (14) carbon dioxide, total 29 mmol/ L 20-29 normal Not Available [facility] ([facility]) [address] [place], [address], 07/23/2024 06:10:46 07/22/2007/23/2024 COMP. METAB OLIC PANEL (14) calcium 9.0 mg/dL 8.7-10 .3 normal Not Available [facility] ([facility]) [address] [place], [address], 07/23/2024 06:10:46 07/22/2007/23/2024 COMP. METAB OLIC PANEL (14) protein, total 6.7 g/dL 6.0-8. 5 normal Not Available [facility] ([facility] [address] [facility] [place], [address], 07/23/2024 06:10:46 07/22/20 24 07/23/2024 COMP. METAB OLIC PANEL (14) albumin 4.0 g/dL 3.9-4. 9 normal Not Available [facility] ([facility]) [address] [facility] [place], [address], 07/23/2024 06:10:46 07/22/20 24 07/23/2024 COMP. METAB OLIC PANEL (14) globulin, total 2.7 g/dL 1.5-4. 5 Not Available [facility] ([facility]) [address] [facility] [place], [address], 07/23/2024 06:10:46 07/22/2007/23/2024 COMP. METAB OLIC PANEL (14) bilirubin, total <0.2 mg/dL 0.0-1. 2 Not Available [facility] ([facility]) [address] [facility] [place], [address], 07/23/2024 06:10:46 07/22/2007/23/2024 COMP. METAB OLIC PANEL (14) alkaline phosphatase 116 IU/L 44-121 normal Not Available [facility] ([facility]) [address] [facility], [place], [address], 07/23/2024 06:10:46 07/22/20 24 07/23/2024 COMP. METAB OLIC PANEL (14) AST (SGOT) 17 IU/L 0-40 normal Not Available [facility] ([facility]) [address] [facility] [place], [address], 07/23/2024 06:10:46 07/22/20 24 07/23/2024 COMP. METAB OLIC PANEL (14) ALT (SGPT) 18 IU/L 0-32 normal Not Available [facility] ([facility]) [address] [facility] [place], [address], 07/23/2024 06:10:46 07/22/2007/23/2024 LIPID PANEL cholesterol, total 260 mg/dL 100-19 9 above high normal Not Available [facility] ([facility]) [address] [facility] [place], [address], 07/23/2024 06:10:47 07/22/20 07/23/2024 LIPID PANEL triglyceride s 193 mg/dL 0-149 above high normal Not Available [facility] ([facility]) [address] [place], [address], 07/23/2024 06:10:47 07/22/20 24 07/23/2024 LIPID PANEL HDL cholesterol 57 mg/dL >39 normal Not Available [facility] ([facility]) [address] [place], [address], 07/23/2024 06:10:47 07/22/2007/23/2024 LIPID PANEL VLDL cholesterol yifan 35 mg/dL 5-40 Not Available [facility] ([facility]) [address] [place], [address], 07/23/2024 06:10:47 07/22/2007/23/2024 LIPID PANEL LDL chol calc ([facility]) 168 mg/dL 0-99 above high normal Not Available [facility] ([facility]) [address] [place], [address], 07/23/2024 06:10:47 07/22/2007/23/2024 LIPID PANEL LDL calc comment: CAREER PROFESSIONAL Not Available [facility] ([facility]) [address] [place], [address], 07/23/2024 06:10:47 07/22/2007/23/2024 ALBUM IN/CR EATIN INE RATIO ,URIN E creatinine, urine 24.7 mg/dL not estab. normal Not Available [facility] ([facility]) [address] [place], [address], 07/23/2024 06:10:47 07/22/2007/23/2024 ALBUM IN/CR EATIN INE RATIO ,URIN E albumin, urine <3.0 ug/mL not estab. Not Available [facility] ([facility]) [address] [place], [address], 07/23/2024 06:10:47 07/22/20 24 07/23/2024 ALBUM IN/CR EATIN INE RATIO ,URIN E alb/creat ratio <12 mg/g_ creat 0-29 Nissa l: 0 - 29 Moder ately incre ased: 30 - 300 Sever karuna incre ased: >300 Not Available [facility] ([facility]) [address] [facility], [place], [address], 07/23/2024 06:10:47 07/22/20 24 07/23/2024 TSH RFX ON ABNOR MAL TO FREE T4 TSH 1.660 uIU/m L 0.450- 4.500 normal Not Available [facility] ([facility]) [address] [facility], [place], [address], 07/23/2024 06:10:48 07/22/20 24 07/22/2024 HbA1c (hemo globi n A1c), blood HbA1c 6.9 Not Available [address], [address], 07/22/2024 10:54:21 10/28/19 25 10/28/2024 HbA1c (hemo globi n A1c), blood HbA1c 6.2 Not Available [address], [address], 10/28/2024 16:29:54 01/27/20 25 01/27/2025 FE+TI BC+FE R iron bind.cap.(TI BC) 419 ug/dL 250-45 0 normal Not Available [facility] ([facility]) [address] [facility], [place], [address], 01/27/2025 13:12:05 01/27/20 25 01/27/2025 FE+TI BC+FE R UIBC 392 ug/dL 118-36 9 above high normal Not Available [facility] ([facility]) [address] [place], [address], 01/27/2025 13:12:05 01/27/20 25 01/27/2025 FE+TI BC+FE R iron 27 ug/dL 27-139 normal Not Available [facility] ([facility]) [address] [place], [address], 01/27/2025 13:12:05 01/27/20 25 01/27/2025 FE+TI BC+FE R iron saturation 6 % 15-55 alert low Not Available [facility] ([facility]) [address] [place], [address], 01/27/2025 13:12:05 01/27/20 25 01/27/2025 FE+TI BC+FE R ferritin 15 NG/mL 15-150 normal Not Available [facility] ([facility]) [address] [place], [address], 01/27/2025 13:12:05 01/27/20 25 01/27/2025 CBC WITH DIFFE RENTI AL/PL ATELE T WBC 10.1 x10e3 /uL 3.4-10 .8 normal Not Available [facility] ([facility]) [address] [place], [address], 01/27/2025 13:12:06 01/27/20 25 01/27/2025 CBC WITH DIFFE RENTI AL/PL ATELE T RBC 5.41 x10e6 /uL 3.77-5 .28 above high normal Not Available [facility] ([facility]) [address] [place], [address], 01/27/2025 13:12:06 01/27/20 25 01/27/2025 CBC WITH DIFFE RENTI AL/PL ATELE T hemoglobin 11.6 g/dL 11.1-1 5.9 normal Not Available [facility] ([facility]) [address] [place], [address], 01/27/2025 13:12:06 01/27/20 25 01/27/2025 CBC WITH DIFFE RENTI AL/PL ATELE T hematocrit 38.8 % 34.0-4 6.6 normal Not Available [facility] ([facility]) [address] [place], [address], 01/27/2025 13:12:06 01/27/20 25 01/27/2025 CBC WITH DIFFE RENTI AL/PL ATELE T MCV 72 fL 79-97 below low normal Not Available [facility] ([facility]) [address] [place], [address], 01/27/2025 13:12:06 01/27/20 25 01/27/2025 CBC WITH DIFFE RENTI AL/PL ATELE T MCH 21.4 pg 26.6-3 3.0 below low normal Not Available [facility] ([facility]) [address] [place], [address], 01/27/2025 13:12:06 01/27/20 25 01/27/2025 CBC WITH DIFFE RENTI AL/PL ATELE T MCHC 29.9 g/dL 31.5-3 5.7 below low normal Not Available [facility] ([facility]) [address] [place], [address], 01/27/2025 13:12:06 01/27/20 25 01/27/2025 CBC WITH DIFFE RENTI AL/PL ATELE T RDW 17.0 % 11.7-1 5.4 above high normal Not Available [facility] ([facility]) [address] [place], [address], 01/27/2025 13:12:06 01/27/20 25 01/27/2025 CBC WITH DIFFE RENTI AL/PL ATELE T platelets 482 x10e3 /uL 150-45 0 above high normal Not Available [facility] ([facility]) [address] [place], [address], 01/27/2025 13:12:06 01/27/20 25 01/27/2025 CBC WITH DIFFE RENTI AL/PL ATELE T neutrophils 68 % not estab. normal Not Available [facility] ([facility]) [address] [facility], [place], [address], 01/27/2025 13:12:06 01/27/20 25 01/27/2025 CBC WITH DIFFE RENTI AL/PL ATELE T lymphs 24 % not estab. normal Not Available [facility] ([facility]) [address] [facility], [place], [address], 01/27/2025 13:12:06 01/27/20 25 01/27/2025 CBC WITH DIFFE RENTI AL/PL ATELE T monocytes 6 % not estab. normal Not Available [facility] ([facility]) [address] [facility], [place], [address], 01/27/2025 13:12:06 01/27/20 25 01/27/2025 CBC WITH DIFFE RENTI AL/PL ATELE T eos 1 % not estab. normal Not Available [facility] ([facility]) [address] [facility], [place], [address], 01/27/2025 13:12:06 01/27/20 25 01/27/2025 CBC WITH DIFFE RENTI AL/PL ATELE T basos 1 % not estab. normal Not Available [facility] ([facility]) [address] [facility], [place], [address], 01/27/2025 13:12:06 01/27/20 25 01/27/2025 CBC WITH DIFFE RENTI AL/PL ATELE T immature cells CAREER PROFESSIONAL Not Available [facility] ([facility]) [address] [facility], [place], [address], 01/27/2025 13:12:06 01/27/20 25 01/27/2025 CBC WITH DIFFE RENTI AL/PL ATELE T neutrophils (absolute) 6.9 x10e3 /uL 1.4-7. 0 normal Not Available [facility] ([facility]) [address] [place], [address], 01/27/2025 13:12:06 01/27/20 25 01/27/2025 CBC WITH DIFFE RENTI AL/PL ATELE T lymphs (absolute) 2.4 x10e3 /uL 0.7-3. 1 normal Not Available [facility] ([facility]) [address] [place], [address], 01/27/2025 13:12:06 01/27/20 25 01/27/2025 CBC WITH DIFFE RENTI AL/PL ATELE T monocytes(ab solute) 0.6 x10e3 /uL 0.1-0. 9 normal Not Available [facility] ([facility]) [address] [place], [address], 01/27/2025 13:12:06 01/27/20 25 01/27/2025 CBC WITH DIFFE RENTI AL/PL ATELE T eos (absolute) 0.1 x10e3 /uL 0.0-0. 4 normal Not Available [facility] ([facility]) [address] [place], [address], 01/27/2025 13:12:06 01/27/20 25 01/27/2025 CBC WITH DIFFE RENTI AL/PL ATELE T baso (absolute) 0.1 x10e3 /uL 0.0-0. 2 normal Not Available [facility] ([facility]) [address] [place], [address], 01/27/2025 13:12:06 01/27/20 25 01/27/2025 CBC WITH DIFFE RENTI AL/PL ATELE T immature granulocytes 0 % not estab. Not Available [facility] ([facility]) [address] [place], [address], 01/27/2025 13:12:06 01/27/20 25 01/27/2025 CBC WITH DIFFE RENTI AL/PL ATELE T immature grans (abs) 0.0 x10e3 /uL 0.0-0. 1 Not Available [facility] ([facility]) [address] [facility], [place], [address], 01/27/2025 13:12:06 01/27/20 25 01/27/2025 CBC WITH DIFFE RENTI AL/PL ATELE T NRBC CAREER PROFESSIONAL Not Available [facility] ([facility]) [address] [facility], [place], [address], 01/27/2025 13:12:06 01/27/20 25 01/27/2025 CBC WITH DIFFE RENTI AL/PL ATELE T hematology comments: CAREER PROFESSIONAL Not Available [facility] ([facility]) [address] [facility], [place], [address], 01/27/2025 13:12:06 01/27/20 25 01/27/2025 COMP. METAB OLIC PANEL (14) glucose 111 mg/dL 70-99 above high normal Not Available [facility] ([facility]) [address] [facility], [place], [address], 01/27/2025 13:12:06 01/27/20 25 01/27/2025 COMP. METAB OLIC PANEL (14) BUN 10 mg/dL 8-27 normal Not Available [facility] ([facility]) [address] [facility], [place], [address], 01/27/2025 13:12:06 01/27/20 25 01/27/2025 COMP. METAB OLIC PANEL (14) creatinine 1.05 mg/dL 0.57-1 .00 above high normal Not Available [facility] ([facility]) [address] [facility], [place], [address], 01/27/2025 13:12:06 01/27/20 25 01/27/2025 COMP. METAB OLIC PANEL (14) eGFR 60 mL/mi n/1.7 3 >59 normal Not Available [facility] ([facility]) [address] [place], [address], 01/27/2025 13:12:06 01/27/20 25 01/27/2025 COMP. METAB OLIC PANEL (14) BUN/creatini ne ratio 10 12-28 below low normal Not Available [facility] ([facility]) [address] [place], [address], 01/27/2025 13:12:06 01/27/20 25 01/27/2025 COMP. METAB OLIC PANEL (14) sodium 138 mmol/ L 134-14 4 normal Not Available [facility] ([facility]) [address] [place], [address], 01/27/2025 13:12:06 01/27/20 25 01/27/2025 COMP. METAB OLIC PANEL (14) potassium 4.9 mmol/ L 3.5-5. 2 normal Not Available [facility] ([facility]) [address] [place], [address], 01/27/2025 13:12:06 01/27/20 25 01/27/2025 COMP. METAB OLIC PANEL (14) chloride 96 mmol/ L 96-106 normal Not Available [facility] ([facility]) [address] [place], [address], 01/27/2025 13:12:06 01/27/20 25 01/27/2025 COMP. METAB OLIC PANEL (14) carbon dioxide, total 24 mmol/ L 20-29 normal Not Available [facility] ([facility]) [address] [place], [address], 01/27/2025 13:12:06 01/27/20 25 01/27/2025 COMP. METAB OLIC PANEL (14) calcium 9.3 mg/dL 8.7-10 .3 normal Not Available [facility] ([facility]) [address] [facility] [place], [address], 01/27/2025 13:12:06 01/27/20 25 01/27/2025 COMP. METAB OLIC PANEL (14) protein, total 7.4 g/dL 6.0-8. 5 normal Not Available [facility] ([facility]) [address] [facility] [place], [address], 01/27/2025 13:12:06 01/27/20 25 01/27/2025 COMP. METAB OLIC PANEL (14) albumin 4.5 g/dL 3.9-4. 9 normal Not Available [facility] ([facility]) [address] [facility] [place], [address], 01/27/2025 13:12:06 01/27/20 25 01/27/2025 COMP. METAB OLIC PANEL (14) globulin, total 2.9 g/dL 1.5-4. 5 Not Available [facility] ([facility]) [address] [facility] [place], [address], 01/27/2025 13:12:06 01/27/20 25 01/27/2025 COMP. METAB OLIC PANEL (14) bilirubin, total 0.2 mg/dL 0.0-1. 2 normal Not Available [facility] ([facility]) [address] [facility] [place], [address], 01/27/2025 13:12:06 01/27/20 25 01/27/2025 COMP. METAB OLIC PANEL (14) alkaline phosphatase 124 IU/L 44-121 above high normal Not Available [facility] ([facility]) [address] [facility] [place], [address], 01/27/2025 13:12:06 01/27/20 25 01/27/2025 COMP. METAB OLIC PANEL (14) AST (SGOT) 15 IU/L 0-40 normal Not Available [facility] ([facility]) [address] [facility], [place], [address], 01/27/2025 13:12:06 01/27/20 25 01/27/2025 COMP. METAB OLIC PANEL (14) ALT (SGPT) 15 IU/L 0-32 normal Not Available [facility] ([facility]) [address] [facility], [place], [address], 01/27/2025 13:12:06 01/27/20 25 01/27/2025 ALBUM IN/CR EATIN INE RATIO ,URIN E creatinine, urine 36.6 mg/dL not estab. normal Not Available [facility] ([facility]) [address] [facility], [place], [address], 01/27/2025 13:12:07 01/27/20 25 01/27/2025 ALBUM IN/CR EATIN INE RATIO ,URIN E albumin, urine 13.3 ug/mL not estab. Not Available [facility] ([facility]) [address] [place], [address], 01/27/2025 13:12:07 01/27/20 25 01/27/2025 ALBUM IN/CR EATIN INE RATIO ,URIN E alb/creat ratio 36 mg/g_ creat 0-29 above high normal Nissa l: 0 - 29 Moder ately incre ased: 30 - 300 Sever karuna incre ased: >300 Not Available [facility] ([facility]) [address] [facility], [place], [address], 01/27/2025 13:12:07 01/27/20 25 01/27/2025 VITAM IN B12 AND FOLAT E vitamin B12 346 pg/mL 232-12 45 normal Not Available [facility] ([facility]) [address] [facility], [place], [address], 01/27/2025 13:12:07 01/27/20 25 01/27/2025 VITAM IN B12 AND FOLAT E folate (folic acid), serum 2.5 NG/mL >3.0 below low normal A serum folat e sobeida ntrat ion of less than 3.1 ng/mL is consi dered to repre sent clini yifan defic iency . Not Available [facility] ([facility]) [address] [facility], [place], [address], 01/27/2025 13:12:07 01/27/20 25 01/27/2025 VITAM IN D, 25-HY DROXY vitamin D, 25-hydroxy 4.6 NG/mL 30.0-1 00.0 below low normal Vitam in D defic iency has been defin ed by the Insti tute of Medic ine and an Endoc rine Socie ty pract ice guide line as a level of serum 25-OH vitam in D less than 20 ng/mL (1,2) . The Endoc rine Socie ty went on to furth er defin e vitam in D insuf ficie ncy as a level betwe en 21 and 29 ng/mL (2). 1. IOM (Inst itute of Medic ine). 2010. Dieta ry refer ence intak es for calci um and D. Ashwin banuelos [place]: [facility] . 2. Anabel howell MF, Ana Lilia ratliff [place], Chuck off-F rosendo i DAILY, et al. Evalu ation , treat ment, and preve ntion of vitam in D defic iency : an Endoc rine Socie ty clini yifan pract ice guide line. JCEM. 2010; 96(7) :1911 -30. Not Available [facility] ([facility]) [address] [facility] [address], [place], [address], 01/27/2025 13:12:08 01/27/2001/27/2025 TSH RFX ON ABNOR MAL TO FREE T4 TSH 2.580 uIU/m L 0.450- 4.500 normal Not Available [facility] ([facility]) [address] [facility], [place] [place], [address], 01/27/2025 13:12:08 01/27/20 25 01/27/2025 MAGNE SIUM magnesium 1.7 mg/dL 1.6-2. 3 normal Not Available [facility] ([facility]) [address] [facility], [place], [address], 01/27/2025 13:12:09 01/27/20 25 01/26/2025 HbA1c (hemo globi n A1c), blood HbA1c 7.0 Not Available [address], [place], [address], 01/26/2025 08:30:07 04/16/20 24 04/14/2024 trans -thor acic echoc ardio gram (TTE) (PROC ) No observ ation record ed. [address], [place], [address], 04/16/2024 08:35:42 08/15/20 24 08/12/2024 MAMMO , scree lashonda, digit al, bilat eral No observ ation record ed. [email or web address] [address], [place], [place], [address], 08/19/2024 17:54:56 02/16/20 25 02/09/2025 US, doppl er echoc ardio gram No observ ation record ed. [address], [place], [place], [address], 02/17/2025 08:14:51 02/25/20 25 02/24/2025 XR, chest No observ ation record ed. [address], [place], [address], 03/02/2025 11:15:25 03/02/20 25 03/02/2025 LDCT, chest , for lung cance r scree lashonda No observ ation record ed. [address], [place], [address], 03/02/2025 10:34:48 Result Notes None recorded. Problems Name Problem SNOMED Code Status Onset Date Resolution Date Notes Provider Name and Address Organization Details Recorded Time Seasonal allergy 809271219 Active 2022 [employer] [address] [place] [address], [phone] , [employer] 3 12:24:47 Neuropat hy due to type 2 diabetes mellitus 31966822403 9106 Active 2023 Josee Morfin, JAMILA [address] [place] [address], [phone] , [employer] 4 10:55:37 Iron deficien cy anemia 82934976 Active 2024 Josee Morfin, JAMILA [address] [place] [address], [phone] , [employer]. 5 13:32:42 Folic acid deficien cy 608257285 Active 2024 Josee Morfin APRN [address] [place] [address], [address] , [employer]. 5 13:32:43 Vitamin D deficien cy 12902517 Active 2024 Josee Morfin, JAMILA [address] [place] [address], [phone] , [employer]. 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 22:40:16 Restless legs 43810369 Active 2018 Problem Code: G25.81; Problem Code Type: ICD-10; Not Available [facility] 22:40:17 Hyperten sive disorder 55585042 Active 2020 Problem Code: I10; Problem Code Type: ICD-10; Not Available [facility] 22:40:17 Atherosc lerosis of coronary artery without angina pectoris 44519633323 4103 Active [address] [facility] 22:40:17 Acute respirat ory infectio ns 677685854 Completed 201801/30/2021 Problem Code: J22; Problem Code Type: ICD-10; Not Available [facility] 22:40:17 Chronic obstruct melinda pulmonar y disease 31284618 Active 2018 Problem Code: J44.9; Problem Code Type: ICD-10; Not Available [facility] 22:40:17 Undiffer entiated inflamma tory polyarth ritis 080471521 Active 2020 Problem Code: M13.0; Problem Code Type: ICD-10; Not Available [facility] 22:40:17 Abnormal weight gain 231066641 Completed 201801/30/2021 Problem Code: R63.5; Problem Code Type: ICD-10;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 L03.011 [id number] Deepti Bowman [place] [address] 0 08/04/2022 11:30:57 08/04/2022 12:00:27 Injection given 062629205 Z98.890 [id number] Josee Morfin [place] [address] 0 08/05/2022 09:36:26 08/05/2022 09:42:53 Cellulitis of finger of right hand 9045692936 [id number] L03.011 [id number] Josee Morfin [place] [address] 0 08/08/2022 10:20:36 08/08/2022 11:07:58 Cellulitis of finger of right hand 4298844941 6509946 L03.011 Continue oral antibiotic s as prescribed . Continue warm Epson soaks twice daily. Continue to cleanse and dress the wound with antibacter ial soap and water twice daily. Continue to elevate the hand. We will work to further expedite her orthopedic appointmen t. We will also give her Rocephin IM daily in clinic for the next 3 days and then reassess. Cat bite 553456497 W55.0 1XS [id number] [place] [address] 08/14/2022 10:18:26 08/14/2022 11:02:41 Cellulitis of finger of right hand [id number] 8740912 L03.011 Continue home wound care, bilateral warm Epson soaks, and dressings with hand elevation as previously noted. Instructed her she must keep orthopedic appointmen t for consult. She is to remain off work until evaluated by orthopedic s and they will be responsibl e for releasing her back to work based upon their evaluation . [id number] Josee Morfin [address] [address] 08/22/2022 16:26:08 08/22/2022 18:06:11 Cellulitis of finger of right hand 7858109531 5096358 L03.011 Right 3rd finger. I have called [facility] orthopedic s myself this afternoon, to try to expedite patient's further treatment that was ordered by Dr. Jensen. I have explained to them that her finger is not improving, and asked them to expedite scheduling the infectious disease consult and the MRI of her finger. We will prescribe her Diflucan today as she understand ably has yeast vaginitis due to the multiple antibiotic therapy she is recently received since the injury. She is also to continue the once daily oral over-the-c ounter probiotic. Cat bite 393671969 W55.0 1XS Candidiasis of vagina 72 179349 B37.31 [id number] Josee Morfin [place] [id number] 12/04/2022 13:38:08 12/04/2022 15:15:21 Chronic obstructive pulmonary disease 59866024 J44.9 Change Anoro to Trelegy and obtain home oxygen at 2 l/m per [place] and refer to Pulmonary. Has appt for Nuclear stress an echo on 12/19/22 at [facility]. Stop smoking!! I suspect this is cardio and pulmonary in nature. She does not appear to be in exacerbati on or have a pulmonary infection a this time. [id number] Josee Morfin [address] [address] 01/03/2023 13:44:17 01/03/2023 14:34:45 Type 2 diabetes mellitus without complication 827230461 E11.9 New onset type 2 diabetes. DM education provided, start metformin. Obtain DM eye exam. Chronic ob structive pulmonary disease 29402698 J44.9 Continue Triple therapy inhaler, nebs prn and use home oxygen as directed. Keep Pulmonary appt. She is doing well with smoking cessation. [id number] Josee Morfin [place] [address] 0 04/04/2023 15:28:57 04/04/2023 16:37:30 Type 2 diabetes mellitus without complication 919381336 E11.9 Increase metformin to 1000 mg ER tablet, low carb DM diet explained and handout given. Tobacco de pendence caused by cigarettes 5584405111 4909702 F1.210 Trial chantix. Smoking cessation education provided. [id number] Josee Morfin [place] [address] 0 05/04/2023 11:23:37 05/04/2023 12:52:13 Angina co-occurrent and due to coronary arteriosclerosis 7562639295 7927250 I25.119 Transfer care from [facility] for a second opinion with Dr Garcia [facility]. She has underwent numerous cardiac caths, has decreased EF 35%, COPD. Has persistent angina and hypotensio n despite a buffet of various cardiac medication trials per [facility]. Congestive heart failure 46509914 I50.9 DASH DM diet and daily AM post void weights explained. Chronic ob structive pulmonary disease 29795592 J44.9 Continue Triple therapy inhaler, nebs prn and use home oxygen and CPAP as directed. Keep Pulmonary appt. She is doing well with smoking cessation. Tobacco de pendence caused by cigarettes 1595388446 3936553 F1.210 Trial chantix. Smoking cessation education provided. [id number] Josee Morfin [place] [address] 0 06/05/2023 17:24:34 06/05/2023 17:51:44 Dry skin dermatitis 439789026 L85.3 Mix steroid cream with emollient lotion and apply BID. [id number] Josee Morfin [place] [address] 0 07/10/2023 11:24:51 07/10/2023 12:35:58 Type 2 diabetes mellitus without complication 188906427 E11.9 No med changes today. Diabetic diet and exercise emphasized . [id number] [place] [address] 10/10/2023 10:52:19 10/10/2023 13:02:14 Type 2 diabetes mellitus without complication 366906184 E11.9 No med changes today. Diabetic diet and exercise emphasized . Add Ozempic. Continue metformin and jardiance. Acute exac erbation of chronic obstructive pulmonary disease 449825660 J44.1 Continue nebs, oxygen, and inhaler regimen. Mucinex 600 mg BID to aid in expectorat ion. [id number] [place] [address] 11/23/2023 13:56:00 11/23/2023 15:33:00 Candidiasis of mouth 91509441 B37.0 Yogurt daily. Anxiety 75029077 F41.9 Short course of ativan until cardiac cath next week. FACUNDO reviewed. [id number] Josee Morfin [place] [address] 0 12/04/2023 16:51:40 12/04/2023 17:34:53 Atherosclerosis of coronary artery without angina pectoris 8872903704 71171 I25.10 SHe must complete Cardiac Rehab! She must take her medication s, wear oxygen and CPAP. She is to keep appts with Cardio, Pulmonary, and Hematology at [facility]. Chronic ob structive pulmonary disease 33466129 J44.9 Continue Triple therapy inhaler, nebs prn and use home oxygen 24/7 and CPAP as directed. Keep Pulmonary appt. She is doing well with smoking cessation. [id number] [place] [id number] 01/09/2024 11:22:38 01/09/2024 12:16:05 Type 2 diabetes mellitus without complication 440995629 E11.9 No med changes today. Diabetic diet and exercise emphasized . Continue Ozempic weekly. Continue metformin and jardiance. [id number] Josee Morfin [address] [address] 04/21/2024 16:34:30 04/21/2024 17:41:36 Type 2 diabetes mellitus without complication 142788864 E11.9 Increase Ozempic to 1 mg weekly. Diabetic diet and exercise emphasized . Continue Jardiance and metformin. Impetigo 44322783 L01.00 Left lower leg. Wound care explained. Body mass index 40+ - severely obese 908111036 Z68.42 [id number] Josee Morfin [address] [address] 07/22/2024 10:31:13 07/22/2024 11:37:00 Neuropathy due to type 2 diabetes mellitus 5434489751 25280 E11.40 Increase Ozempic to 2 mg weekly. Chronic ob structive pulmonary disease 38889651 J44.9 Continue Triple therapy inhaler, nebs prn and use home oxygen 24/7 and CPAP as directed. Keep Pulmonary appt. She is doing well with smoking cessation. Had CT chest earlier this year. Moderate r ecurrent major depression 05099762 F33.1 Screening mammography of bilateral breasts 7260572388 30546 Z12.31 Allergic rhinitis 214004 04 J30.9 Stop zyrtec-no longer effective, trial of Xyzal Active or passive immunization 992107017 Z23 Body mass index 40+ - severely obese 130661476 Z68.42 [id number] Josee Morfin [address] [address] 10/28/2024 16:23:58 10/28/2024 17:12:43 Neuropathy due to type 2 diabetes mellitus 1328727225 29253 E11.40 Has not lost weight with the Ozempic at 1 mg. Insurance had denied the Ozempic 2 mg. Her A1c is improved. BP is excellent. Will try to switch Ozempic to Mounjaro. Desperatel y needs to lose weight due to CHF, CAD, DM, TREVA on bipap. Congestive heart failure 75584239 I50.9 DASH DM diet and daily AM post void weights explained. Screening for malignant neoplasm of respiratory tract 646600218 Z12.2 Body mass index 40+ - severely obese 716725702 Z68.42 [id number] Josee Morfin APRN [address] [address] 01/26/2025 13:47:46 01/26/2025 14:57:47 Neuropathy due to type 2 diabetes mellitus 3789899941 97266 E11.40 Has failed Ozempic and Victoza. Insurance denied increasing Ozempic to 2 mg. She has absolutely no appetite suppressio n on the Ozempic. Desperatel y needs to lose weight due to TREVA, DM, CAD. Hypertensive disorder 38 675591 I10 Moderate r ecurrent major depression 65493955 F33.1 Deficiency of vitamin D2 903569117 E55.9 Restless legs 30330299 G 25.81 Atheroscle rosis of coronary artery without angina pectoris 7150775444 80233 I25.10 Continue ARNI, aldactone, Jardiance. Body mass index 40+ - severely obese 490428290 Z68.42 Health Concerns Section Related Observation LastModified by Organization Detai ls LastModified Time None Recorded Concern Status LastModified by Organization Details LastModified Time None Recorded Advance Directives Directive N: Payers Insurance Date Sequence Insurance Name Policy Number Policy Tinoco Covered Member ID Tinoco Member ID Guarantor Name 12/11/2022 TRAVELERS [id number] [facility] Ruthy Huntley 01/09/2025 1 [place] Ruthy Huntley [id number] Ruthy Huntley 01/23/2025 1 [facility] COMMUNITY PLAN - DUAL ELIGIBLE (MEDICARE REPLACEMENT/A DVANTAGE - HMO) KYDSNP Ruthy Huntley [id number] Ruthy Huntley 01/23/2025 [place] - [facility] WRAP BILLING (MEDICAID) Ruthy Huntley [id number] Ruthy Huntley 01/23/2025 2 [facility] (MEDICAID REPLACEMENT - HMO) Ruthy Huntley [id number] Ruthy Huntley 04/21/2024 SLIDING FEE SCHEDULE - DISCOUNT Ruthy Huntley 12/11/2022 TRAVELERS [id number] [facility] [facility] Ruthy Huntley 08/23/2022 1 UNSPECIFIED REMIT PAYOR Ruthy Huntley Notes Date Note Type Note Provider Name and Address Organization Details Recorded Time 01/09/2024 text/html Diabetes F/URepo rted bypatient.Review finger sticks:fastin; post dinner: 180 Labs:last A1C result: 6.8 Context:seeing eye doctor regularly; checking feet regularly; taking aspirin daily; not missing doses of medications; no side effects from medications Associated Symptoms:no weight loss; no dizziness; no sweats; no headaches; no confusion; no increased thirst; no increased appetite; no increased urination; no blurred vision; no numbness of feet; no calluses on feet;weight gain ( lbs) Josee Morfin APRN [address] [place] [address], [phone], [facility] [employer]. 01/20/2024 19:59:22 04/21/2024 text/html Diabetes F/URepo rted bypatient.Review finger sticks:fastin; post dinner: 180 Labs:last A1C result: 6.8 Context:normal range of home blood sugars (in the low 100s); seeing eye doctor regularly; checking feet regularly; taking aspirin daily; not missing doses of medications; no side effects from medications Associated Symptoms:no weight gain; no dizziness; no sweats; no headaches; no confusion; no increased thirst; no increased appetite; no increased urination; no blurred vision; no numbness of feet; no calluses on feet;weight loss (12 lbs)Notes:Is tolerating ozempic well and has lost 12 pounds. D/w her will likely have to hold med a period of time before colon surgery.Rash/Skin LesionReported bypatient.Location:leg s (left lower) Quality:weeping;red;sw ollen;non-healing Severity:moderate; worsening Duration:has noted for 2-3 weeks Onset/Timing:gradual onset Context:no new detergents or skin products;others with similar symptoms(her neice slept with her and was then dx with impetigo) Alleviating Factors:nothing gives relief Aggravating Factors:nothing makes it worse Associated Symptoms:no fever; no cold symptoms; no nausea; no vomiting; no diarrhea; no urinary symptoms; no chills; no fatigue Treatment History:OTC treatment GERARDO with no improvement Ruthy recently had a colonoscopy that revealed a colon mass. She is being referred by GI to colorectal surgery for bowel resection. She remains oxygen dependent on bipap at night, followed by Cardio and Pulmonary. Josee Morfin APRN [address] [place], [address], [facility] [employer] 04/27/2024 16:48:32 07/22/2024 text/html Anxiety/Depressi onRepo rted bypatient.Severity:den ies suicidal ideations; able to maintain relationships; does not interfere with activities of daily living; symptoms improved Duration:chronic Onset/Timing:frequent Context:chronic pain;recent medical event;cardiac disease;major life stressors;family problems Modifying Factors:selective serotonin reuptake inhibitor (SSRI) Associated Symptoms:denies homicidal ideations; no significant weight gain; no significant weight loss; no visual/auditory hallucinations; no delusions; mood goodCOPDReported bypatient.Onset/Timing :intermittent Duration:chronic; has noted for years Severity:moderate Context:cigarette smoking Alleviating factors:relieved with oxygen; relieved with bronchodilator; relieved with CPAP/BIPAP Aggravating factors:worse with exertion Associated Symptoms:dyspnea during exertion;decrease in exercise capacity;obesityDiabet es F/UReported bypatient.Review finger sticks:fastin; post dinner: 180 Labs:last A1C result: 6.7 Context:normal range of home blood sugars (in the low 100s); seeing eye doctor regularly; checking feet regularly; taking aspirin daily; not missing doses of medications; no side effects from medications Associated Symptoms:no dizziness; no sweats; no headaches; no confusion; no increased thirst; no increased appetite; no increased urination; no blurred vision; no numbness of feet; no calluses on feet;weight gain (8 lbs)Notes:Has now restarted Ozempic after post op period. Recently underwent colon resection for large benign mass and has recovered well. Reports she feels better now than she has in years. Does not feel her antihistamine tablet is effective for fall allergy sx. Josee Morfin APRN [address] [place], [address], [employer]. 07/27/2024 19:13:25 10/28/2024 text/html Anxiety/Depressi onRepo rted bypatient.Severity:den ies suicidal ideations; able to maintain relationships; does not interfere with activities of daily living; symptoms improved Duration:chronic Onset/Timing:frequent Context:chronic pain;recent medical event;cardiac disease;major life stressors;family problems Modifying Factors:selective serotonin reuptake inhibitor (SSRI) Associated Symptoms:denies homicidal ideations; no significant weight gain; no significant weight loss; no visual/auditory hallucinations; no delusions; mood goodCOPDReported bypatient.Onset/Timing :intermittent Duration:chronic; has noted for years Severity:moderate Context:cigarette smoking Alleviating factors:relieved with oxygen; relieved with bronchodilator; relieved with CPAP/BIPAP Aggravating factors:worse with exertion Associated Symptoms:dyspnea during exertion;decrease in exercise capacity;obesityCare Management - Congestive Heart Failure (CHF)Reported bypatient.Prognosis:ex pected outcome: improve; prognosis: moderate Self Care:no recent hospitalization;under emotional stress Severity:symptoms are improving;interferes with daily activities Associated Symptoms:no chest pain; normal heartbeat; no chest tightness; no constant coughing; no blood from coughs; no fatigue; no limb swelling; no abdominal swelling; no appetite loss;shortness of breathDiabetes F/UReported bypatient.Review finger sticks:fastin; post dinner: 180 Labs:last A1C result: 6.7 Context:normal range of home blood sugars (in the low 100s); seeing eye doctor regularly; checking feet regularly; taking aspirin daily; not missing doses of medications; no side effects from medications Associated Symptoms:no dizziness; no sweats; no headaches; no confusion; no increased thirst; no increased appetite; no increased urination; no blurred vision; no numbness of feet; no calluses on feet;weight gain (8 lbs)Notes:Is tolerating ozempic well but not losing weight or curbing her hunger. Ruthy states she feels well today. She states she feels better than she has in several months. Josee Morfin APRN [address] [facility], [place], [address], [employer]. 10/30/2024 15:45:41 01/26/2025 text/html Anxiety/Depressi onRepo rted bypatient.Severity:den ies suicidal ideations; able to maintain relationships; does not interfere with activities of daily living; symptoms improved Duration:chronic Onset/Timing:frequent Context:chronic pain;recent medical event;cardiac disease;major life stressors;family problems Modifying Factors:selective serotonin reuptake inhibitor (SSRI) Associated Symptoms:denies homicidal ideations; no significant weight gain; no significant weight loss; no visual/auditory hallucinations; no delusions; mood goodCOPDReported bypatient.Onset/Timing :intermittent Duration:chronic; has noted for years Severity:moderate Context:cigarette smoking Alleviating factors:relieved with oxygen; relieved with bronchodilator; relieved with CPAP/BIPAP Aggravating factors:worse with exertion Associated Symptoms:dyspnea during exertion;decrease in exercise capacity;obesityDiabet es F/UReported bypatient.Review finger sticks:fastin; post dinner: 180 Labs:last A1C result: 6.4 Context:normal range of home blood sugars (in the low 100s); seeing eye doctor regularly; checking feet regularly; taking aspirin daily; not missing doses of medications; no side effects from medications Associated Symptoms:no weight gain; no dizziness; no sweats; no headaches; no confusion; no increased thirst; no increased appetite; no increased urination; no blurred vision; no numbness of feet; no calluses on feetNotes:Is tolerating ozempic well but not losing weight or curbing her hunger. Complains of fatigue. Has an echo scheduled per Cardiology in 2 weeks. Continues on requip for RLS. Uses oxygen at night for TREVA and COPD. Continues to abstain from smoking. Has Vit D def and ADAN hx that need f/up labs today. Josee Morfin APRN [address] [facility], [place], [address], [facility] [employer]. 01/26/2025 16:07:39 OBGyn Episode No OBEpisode recorded.
--- OUTSIDE RECORDS SUMMARY | 2025-04-14 10:58 | XMS_ITS | Clinical Summary ---
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 Name Role Phone Unavailable Primary Care Provider Unavailabl e Social History Tobacco Use Types Packs/Day Years Used Date Smoking Tobacco: Never Assessed Comments Unknown Sex and Gender Information Value Date Recorded Sex Assigned at Not on file Legal Sex Female 2:02 PM EDT Gender Identity Not on file Sexual Orientation Not on file Plan of Treatment Health Maintenance Due Date Last Done Comments Annual Wellness Exam 1965 Hepatitis C Screening 1980 DTaP/TDaP/Td (1 - Tdap) 1981 Cervical Cancer Screening 12/22/1983 Pap Smear 12/22/1983 HPV/Pap Cotest 1992 Cologuard 12/22/2007 Colon Cancer Screening 12/22/2007 Colonoscopy 12/22/2007 FIT 12/22/2007 Sigmoidoscopy 12/22/2007 Virtual Colonography 12/22/2007 Zoster (1 of 2) 2012 Pneumococcal Vaccine 50+ (2 of 2 - PCV) 06/02/2023 06/02/2022 COVID-19 Vaccine (3 - 2023-2 5 season) 2024 03/11/2021, 02/18/2021 Breast Cancer Screening 03/23/2025 03/23/2023 Influenza Vaccine (#1) 2025 08/22/2019 Hepatitis B Vaccine Aged Out No longe r eligible based on patient's age to complete this topic Meningococcal B Vaccine Aged Out No l onger eligible based on patient's age to complete this topic Procedures Procedure Name Priority Date/Time Associated Diagnosis Comments MM MAMMO DIGITAL EULALIA SCREEN BILAT Routine 03/23/2023 11:26 AM EDT Encounter for screening mammogram for malignant neoplasm of breast from Last 3 Months or Most Recently Relevant to Health Maintenance Results * MM MAMMO DIGITAL EULALIA SCREEN BILAT (03/23/2023 11:26 AM EDT) Anatomical Region Laterality Modality Breast Bilateral Mammography 04/02/2023 2:16 PM EDT Impressions 04/02/2023 2:16 PM EDT Negative ([id number]-[id number]-1) ~ RECOMMENDATION: Routine screening mammogram in 1 year. ~ DISCLAIMER * Any patient with a palpable abnormality, unexplained by breast imaging, should be managed on clinical basis by the attending physician. * Breast imaging has a false negative rate of 15%. * The patient was notified by mail of the results of this examination. *The patient's information was entered into a reminder system with a target due date for the next mammogram, in accordance with the [employer] and the Society of Breast Imaging recommendations. Narrative 04/02/2023 2:16 PM EDT Procedure:MM MAMMO DIGITAL EULALIA SCREEN BILAT ~ Reason for exam: screening, asymptomatic. Z12.31-Encounter for screening mammogram for malignant neoplasm of [id number]-[id number]-37-CM ~ MM MAMMO DIGITAL EULALIA SCREEN BILAT Bilateral CC and MLO view(s) were taken. There are scattered fibroglandular densities. Prior study comparison: Compared with prior studies the most recent being 2015 No mammographic evidence of malignancy. ~ Procedure Note Norah Kennedy MD - 04/02/2023 Procedure:MM MAMMO DIGITAL EULALIA SCREEN BILAT ~ Reason for exam: screening, asymptomatic. Z12.31-Encounter for screening mammogram for malignant neoplasm of [id number]-EOR-29-CM ~ MM MAMMO DIGITAL EULALIA SCREEN BILAT Bilateral CC and MLO view(s) were taken. There are scattered fibroglandular densities. Prior study comparison: Compared with prior studies the most recentbeing 2015 No mammographic evidence of malignancy. ~ IMPRESSION: Negative (UUF-Wiclkvwq-0) ~ RECOMMENDATION: Routine screening mammogram in 1 year. ~ DISCLAIMER * Any patient with a palpable abnormality, unexplained by breast imaging, should be managed on clinical basis by the attending physician. * Breast imaging has a false negative rate of 15%. * The patient was notified by mail of the results of this examination. *The patient's information was entered into a reminder system with atarget due date for the next mammogram, in accordance with the [employer] and the Society of Breast Imaging recommendations. Josee Morfin JAMILA IMG MAMMOGRAPHY ORDERABLES Fin al Result from Last 3 Months or Most Recently Relevant to Health Maintenance Insurance
[2025-04-14 11:16] LABS: Hematocrit 40.4 % (37.0-47.0); Hemoglobin 11.8 g/dL (12.2-16.2); Immature Granulocytes % 0.3 %; Mean Corpuscular HGB Conc 29.2 g/dL (31.8-35.4); Mean Corpuscular Hemoglobin 22.3 pg (27.0-31.2); Mean Corpuscular Volume 76.5 fl (81-99); Nucleated Red Blood Cells % 0 %; Platelet Count 365 K/mm3 (142-424); Red Blood Count 5.28 M/mm3 (4.20-5.40); Red Cell Distribution Width-SD 52.5 fL; White Blood Count 9.1 K/mm3 (4.8-10.8)
[2025-04-14 11:37] LABS: Iron 36 ug/dL (37-170)
[2025-04-14 11:47] LABS: Total Iron Binding Capacity 346 ug/dL (265-497)
[2025-04-14 12:13] LABS: Ferritin 10.6 ng/ml (11.1-264)
== END 2025-04-14 23:59 | disposition home or self-care (01) ==
LOC: LAB 10:44
PROVIDERS: PCP Nurse Practitioner Family; Visit Provider Internal Medicine Medical Oncology
DX: D64.9 Anemia, unspecified (principal)
CPT/HCPCS: 36415; 82728; 83540; 83550; 85025

== ENCOUNTER 2025-06-23 10:52 | Outpatient (CLI) | payer MEDICARE, SELFPAY ==
--- OUTSIDE RECORDS SUMMARY | 2025-06-23 10:55 | XMS_ITS | Referral Summary ---
Author Organization [employer] ([place], [place], [place], [place]) Address [address] [place] [address] Care Team Providers Care Medical Surgical Tech Name Role Phone Josee Morfin APRN Primary Care Provider + [phone] Allergies Active Allergy Reactions Criticality Noted Date [...] drink = 0.6 oz pur e alcohol) [facility] - Mental Health Answer Date Recorde d [...] Do you [facility] a [facility] other [facility] [place] [facility] 06/11/2024 Do you want help [...] A1C 5.9 % 06/04/2024 5:37 PM EDT [facility] Comment: Hemoglobin A1C levels are related to mean glucose during the preceding 2-3 months. Less than 7% demonstrates glycemic control in diabetic patients. Hemoglobin AlC % Suggested Diagnosis > or = 6.5 Diabetic 5.7 - 6.4 Prediabetic <5.7 Non-diabetic eAVG Glucose 122.63 mg/dL 06/04/2024 5:37 PM EDT [facility] Blood Venipuncture / Unknown 06/04/2024 12:05 PM EDT 06/04/2024 12:20 PM EDT us Ralf Ordonez MD LAB BLOOD ORDERABLES Final Resul t [facility] [address] [phone] from Last 3 Months or Most Recently Relevant to Health Maintenance Insurance MEDICAID Advance Directives For more information, please contact: [phone] Documents on File Type Date Recorded Patient Change Control Manager Expl anation Advance Directives and Livin g Will 06/11/2024 5:42 AM * Full Code (Latest Code Status on File) Date Activated Date Inactivated Comments 06/11/2024 12:17 PM 06/12/2024 2:08 PM Care Teams Medical Surgical Tech Relationship Specialty Start Date End Date Josee Morfin, BROADCAST SYSTEMS ENGINEER [address] [place] [address] PCP - General Family Medicine 06/11/24
--- OUTSIDE RECORDS SUMMARY | 2025-06-23 10:55 | XMS_ITS | Clinical Summary ---
Author Organization [employer] ([place], [place], [place], [place]) Address [address] [place] [address] Care Team Providers Care Block Chopper Hand Name Role Phone Josee Morfin APRN Primary Care Provider + [phone] Allergies Active Allergy Reactions Criticality Noted Date [...] drink = 0.6 oz pur e alcohol) [facility] - Mental Health Answer Date Recorde [...] Do you speak a language other than Persian at [facility]? No 06/11/2024 Do you want help with [...] years (2 of 2 - PCV) 06/02/202311/2021 Hemoglobin A1C 12/02/2024 06/04/2024 Breast Cancer Screening 03/23/2025 03/23/2023, 03/23 COVID-19 VACCINE (3 - season) 06/01/202508/2021, 02/18/2021 Influenza Vaccine (#1) 2025 Tobacco Cessation Counseling and Screening (12+) 06/11/2025 06/11/2024 Procedures Procedure Name Priority Date/Time Associated Diagnosis Comments HEMOGLOBIN A1C STAT 06/04/2024 12:05 PM EDT Preop testing from Last 3 Months or Most Recently Relevant to Health Maintenance Results * Hemoglobin A1c (06/04/2024 12:05 PM EDT) Hemoglobin A1C 5.9 % 06/04/2024 5:37 PM EDT [facility] Comment: Hemoglobin A1C levels are related to mean glucose during the preceding 2-3 months. Less than 7% demonstrates glycemic control in diabetic patients. Hemoglobin AlC % Suggested Diagnosis > or = 6.5 Diabetic 5.7 - 6.4 Prediabetic <5.7 Non-diabetic eAVG Glucose 122.63 mg/dL 06/04/2024 5:37 PM EDT [facility] Blood Venipuncture / Unknown 06/04/2024 12:05 PM EDT 06/04/2024 12:20 PM EDT us Ralf Ordonez MD LAB BLOOD ORDERABLES Final Resul t [facility] [address] [phone] from Last 3 Months or Most Recently Relevant to Health Maintenance Insurance [address] [place] [address] MEDICAID Advance Directives For more information, please contact: [phone] Documents on File Type Date Recorded Patient Process Operator Expl anation Advance Directives and Livin g Will 06/11/2024 5:42 AM * Full Code (Latest Code Status on File) Date Activated Date Inactivated Comments 06/11/2024 12:17 PM 06/12/2024 2:08 PM Care Teams Block Chopper Hand Relationship Specialty Start Date End Date Josee Morfin, REGIONAL ENGINEER [address] [phone] PCP - General Family Medicine 06/11/24
--- OUTSIDE RECORDS SUMMARY | 2025-06-23 10:55 | XMS_ITS | Clinical Summary ---
Author Organization [facility] Address [address] [place] [address] Care Team Providers Care Blister Pack Operator Name Role Phone Josee Morfin APRN Primary Care Provider + [phone] Immunizations Immunization Administration Dates Next Due Rabies, [...] Date Last Done Comments [facility]-Depression Screening 1962 [facility]-Infant/Child/Adol SDOH Screenings 1962 [facility]- SDOH Screenings 1980 [facility]-Adult SDOH Screenings 1980 [facility]-DTaP,Tdap,and Td Vaccine s (1 - Tdap) 1981 [facility]-Pap Smear 12/22/1983 [facility]-Cervical Cancer Screening 1992 [facility]-HPV/Cotest 1992 CT Colonography 12/22/2007 Colonoscopy 12/22/2007 FIT-DNA 12/22/2007 FIT 12/22/2007 FOBT 12/22/2007 Sigmoidoscopy 12/22/2007 [facility]-Colorectal Cancer Screening 12/22/2007 [facility]-Zoster Vaccines (1 of 2) 2012 [facility]-Pneumococcal Vaccine: 50 + Years (2 of 2 - PCV) 06/02/2023 06/02/2022 [id number] Vaccine (3 - 2025-26 season) 2025 03/11/2021, 02/18/2021 [facility]-Influenza Vaccine (#1) 2025 08/22/2019 [...] patient's age to complete this topic Insurance [facility] MEDICAID Care Teams Blister Pack Operator Relationship Specialty Start Date End Date Josee Morfin APRN [address] [place] [address] PCP - General 01/17/23
--- OUTSIDE RECORDS SUMMARY | 2025-06-23 10:55 | XMS_ITS | Clinical Summary ---
Author Organization [facility] Address [address] [facility] [place] [address] Phone Care Team Providers Care Rotary Peel Oven Tender Name Role Phone Unavailable Primary Care Provider [...] (2 of 2 - PCV) 06/02/2023 06/02/2022 Breast Cancer Screening 03/23/2025 03/23/2023 COVID-19 Vaccine (3 - 2024-2 6 season) 2025 03/11/2021, 02/18/2021 Influenza Vaccine (#1) 2025 08/22/2019 Hepatitis B [...] EDT Impressions 04/02/2023 2:16 PM EDT Negative ([id number]-Rfjttvuh-9) ~ RECOMMENDATION: Routine screening mammogram in 1 [...] the next mammogram, in accordance with the [employer] and the Society of Breast Imaging recommendations. Narrative 04/02/2023 2:16 PM EDT Procedure:MM MAMMO DIGITAL EULALIA SCREEN BILAT ~ Reason for exam: screening, asymptomatic. Z12.31-Encounter for screening mammogram for malignant neoplasm of tiffat-DPC-24-CM ~ MM MAMMO DIGITAL EULALIA SCREEN BILAT [...] for screening mammogram for malignant neoplasm of [id number]-GEK-43-CM ~ MM MAMMO DIGITAL EULALIA SCREEN BILAT Bilateral CC and MLO view(s) were taken. There are scattered fibroglandular densities. Prior study comparison: Compared with prior studies the most recentbeing 2015 No mammographic evidence of malignancy. ~ IMPRESSION: Negative (BTA-Gtogtnmh-3) ~ RECOMMENDATION: Routine screening mammogram in 1 [...] the next mammogram, in accordance with the [employer] and the Society of Breast Imaging recommendations. Josee Morfin JAMILA IMG MAMMOGRAPHY ORDERABLES Fin al Result from Last 3 Months or Most Recently Relevant to [place] [address]
--- OUTSIDE RECORDS SUMMARY | 2025-06-23 10:55 | XMS_ITS | Clinical Summary ---
Author Organization [facility] Address [address] [place] [address] Care Team Providers Care Assembly Leader Name Role Phone Josee Morfin APRN Primary Care Provider [phone] Allergies Active Allergy Reactions Criticality Noted Date Comments Diphenhydramine Other (See Comments) Medium 05/22/2023 Causes drowsiness Medications Azelastine HCl 137 MCG/SPRAY solution Daily. 3 Active bumetanide (BUMEX) 1 MG tablet Take 1 tablet by mouth Daily. Active busPIRone (BUSPAR) 7.5 MG tablet Take 1 tablet by mouth 2 (Two) Times a Day. Active cetirizine (zyrTEC) 10 MG tablet Take 1 tablet by mouth Daily. Active clopidogrel (PLAVIX) 75 MG tablet Take 1 tablet by mouth Daily. Active Diclofenac Sodium (VOLTAREN) 1 % gel gel 4 (Four) Times a Day As Needed. Active Jardiance 10 MG tablet tablet Take 1 tablet by mouth Daily. Active escitalopram (LEXAPRO) 20 MG tablet Take 1 tablet by mouth Daily. Active fluticasone (FLONASE) 50 MCG/ACT nasal spray 2 sprays into the nostril(s) as directed by provider Daily. Active metFORMIN ER (GLUCOPHAGE-XR) 500 MG 24 hr tablet Take 1 tablet by mouth 2 (Two) Times a Day. 3 Active metoprolol succinate XL (TOPROL-XL) 25 MG 24 hr tablet Take 0.5 tablets by mouth Daily. 2 Active omeprazole (priLOSEC) 40 MG capsule Take 1 capsule by mouth Daily. 2 Active ranolazine (RANEXA) 1000 MG 12 hr tablet Take 1 tablet by mouth 2 (Two) Times a Day. Active rOPINIRole (REQUIP) 1 MG tablet Take 2 tablets by mouth Every Night. Active Trelegy Ellipta 100-62.5-25 MCG/ACT inhaler Inhale 1 puff Daily. 3 Active triamcinolone (KENALOG) 0.1 % cream Apply 1 application topically to the appropriate area as directed As Needed. 3 Active varenicline (CHANTIX) 1 MG tablet Take 1 tablet by mouth 2 (Two) Times a Day. Active Entresto 24-26 MG tablet Take 1 tablet by mouth 2 (Two) Times a Day. Active aspirin 81 MG EC tablet Take 1 tablet by mouth Daily. Active amLODIPine (NORVASC) 2.5 MG tablet Take 1 tablet by mouth every night at bedtime. 30 tablet 11 3 Active spironolactone (Aldactone) 50 MG tablet Take 1 tablet by mouth Daily. 90 tablet 1 3 Active Additional Information Patient taking differently: 25 mgOral Daily, Reported on 08/28/2023 ipratropium-alb uterol (DUO-NEB) 0.5-2.5 mg/3 ml nebulizer 3 mL As Needed. 3 Active albuterol sulfate HFA 108 (90 Base) MCG/ACT inhaler Q6H 3 Active Evolocumab (Repatha SureClick) solution auto-injector SureClick injection Inject 1 mL under the skin into the appropriate area as directed Every 14 Days. 1 mL 5 Active Active Problems Problem Noted Date Diagnosed Date Coronary artery disease invo lving coronary bypass graft of minto heart without angina pectoris 05/22/2023 Chronic HFrEF (heart failure with reduced ejection fraction) 05/22/2023 Hyperlipidemia LDL goal <70 05/22/2023 Immunizations Immunization Administration Dates Next Due 31-influenza Vac Quardvalent Preservativ 08/22/2019 Pneumococcal Polysaccharide (PPSV23) 06/02/2022 Rabies IM 2 01/31/2010, 0,01/10/2010,01/06,12/22/2009 Family History Medical History Relation Name Comments Heart attack Brother 2 Relation Name Status Comments Brother 1 Alive Brother 2 Social History Tobacco Use Types Packs/Day Years Used Date Smoking Tobacco: Former Cigarettes Q uit: 07/01/2023 Smokeless Tobacco: Never Alcohol Use Standard Drinks/Week Comments Never 0 (1 standard drink = 0.6 oz pur e alcohol) Abuse Screen Answer Date Recorded Unsafe at Home or Work/School Not on file Feels Threatened by Someone? Not on file 06/2023 Does Anyone Keep You from Co ntacting Others or Doint Things Outside the Home? Not on file 07/09/2023 Physical Sign of Abuse Present Not on file 1 Housing Stability Answer Date Recorded Current Living Arrangements Not on file 06/2023 Potentially Unsafe Housing Conditions Not on mode e 07/09/2023 Family and Community Support Answer Luis e Recorded Help with Day-to-Day Activities Not on file 07/09/2023 Lonely or Isolated Not on file 07/09/2023 Employment Answer Date Recorded Do you want help finding or keeping work or a gavino b? Not on file 07/09/2023 Disabilities Answer Date Recorded Concentrating, Remembering, or Making Decisions Difficulty Not on file 07/09/2023 Doing Errands Independently Difficulty Not on fi le 07/09/2023 Education Answer Date Recorded Help with school or training? Not on file Preferred Language Not on file 07/09/2023 Comments Unknown Sex and Gender Information Value Date Recorded Sex Assigned at Not on file Legal Sex Female 12:55 PM EDT Gender Identity Not on file Sexual Orientation Not on file Last Filed Vital Signs Vital Sign Reading Time Taken Comments Blood Pressure 136/80 08/28/2023 2:00 PM EST Pulse 78 08/28/2023 2:00 PM EST Temperature - - Respiratory Rate - - Oxygen Saturation 96% 08/28/2023 2:00 PM EST Inhaled Oxygen Concentration - - Weight 109 kg (240 lb) 08/28/2023 2:00 PM EST Height 162.6 cm (5' 4 ) 08/28/2023 2:00 PM EST Body Mass Index 41.2 08/28/2023 2:00 PM EST Plan of Treatment Health Maintenance Due Date Last Done Comments Annual Gynecologic Pelvic and Breast Exam 1962 LIPID PANEL 1962 DIABETIC EYE EXAM 1972 DIABETIC FOOT EXAM 1972 URINE MICROALBUMIN-CREATININE RATIO (uACR) 1972 TDAP/TD VACCINES (1 - Tdap) 1981 COLOGUARD 12/22/2007 COLON CANCER SCREENING 5 YEA R SIGMOIDOSCOPY 12/22/2007 COLONOSCOPY 12/22/2007 COLORECTAL CANCER SCREENING 12/22/2007 CT COLONOGRAPHY 12/22/2007 FECAL OCCULT BLOOD TEST 12/22/2007 FIT Testing (1 year) 12/22/2007 ZOSTER VACCINE (1 of 2) 2012 ANNUAL PHYSICAL 05/22/2023 HEMOGLOBIN A1C 05/22/2023 HEPATITIS C SCREENING 05/22/2023 Pneumococcal Vaccine 50+ (2 of 2 - PCV) 06/02/2023 0 06/02/2022 MAMMOGRAM 03/23/2025 03/23/2023, 03/23/2023 INFLUENZA VACCINE 05/01/2025 08/22/2019 Insurance [employer] MEDICAID [place] [employer] Care Teams Assembly Leader Relationship Specialty Start Date End Date Josee Morfin APRN [address] [place] [address] PCP - General Nurse Practitioner 08/28/22
--- OUTSIDE RECORDS SUMMARY | 2025-06-23 10:55 | XMS_ITS | Clinical Summary ---
Author Organization [facility] Address [address] [place] [address] Phone Care Team Providers Care Heating Element Builder Name Role Phone Bandar Cohen MD [ ] Conditions or Problems Problem Name Problem Code Onset Date Status Entry Date Provider Comment Standard Description Annotate Dental abscess 054372678 (SNOMED CT) Active Bandar Cohen MD Dental abscess Nicotine dependence 80876316 (SNOMED CT) Active Jena Minor Nicotine dependence Other obesity due to excess calories 020944688 (SNOMED CT) Active Jena Minor Simple obesity Infective (teno)synovit is, right hand/finger (document bacterial agent) M65.141 (ICD-10-CM) Active Blanca Diane Other infective (teno)synovit is, right hand Cellulitis, hand, right 69942751 (SNOMED CT) Active Blanca Benedicto Cellulitis of hand Cellulitis, long finger, right 51019639 (SNOMED CT) Active Blanca Benedicto Cellulitis of finger Open bite of right middle finger without damage to nail, initial encounter(s) S61.252A (ICD-10-CM) Active Blanca Benedicto Open bite of right middle finger without damage to nail, initial encounter Cat bite, initial encounter(s) W55.01xA (ICD-10-CM) Active Blanca Diane Bitten by cat, initial encounter Medications Medication Instructions Start Date Stop Date Generic Name [facility] Provider LASIX 80 MG TABS by mouth once a day furosemide 14678560653 Jena Minor SPIRONOLACTONE 50 MG TABS by mouth once a day spironolactone 14562691710 Jena Jean AMOXICILLIN-POT CLAVULANATE 875-125 MG TABS Take 1 tablet by mouth twice a day 12/12 amoxicillin-pot clavulanate 27465458717 Bandar Cohen MD ERTAPENEM SODIUM 1 GM SOLR 1 gm IV Q 2 4hrs/OPAT 10/09 ertapenem 39823305993 Gerda Hernandez RN Cubicin 500 mg recon soln 500mg IV Q 2 4hrs/OPAT 10/09 daptomycin Gerda Hernandez RN DOXYCYCLINE MONOHYDRATE 100 MG TABS twice a day take one capsule oral twice daily for 10 days 10/09 doxycycline monohydrate 77410242233 Bandar Cohen MD DOXYCYCLINE MONOHYDRATE 100 MG CAPS Take 1 capsule by mouth twice a day 10/23 doxycycline monohydrate 15053619118 Bandar Cohen MD DOXYCYCLINE MONOHYDRATE 100 MG TABS twice a day take one capsule oral twice daily for 10 days 10/09 doxycycline monohydrate 58887768269 Jarret Waldrop OMEPRAZOLE 40 MG CPDR take one cap oral daily prn for GERD omeprazole 78119822828 Jarret Waldrop ProAir HFA 90 mcg/actuation HFA aerosol inhaler every four hours as needed inhale 1-2 puffs (90-180 mcg) by inhalation route every 4 hours as needed albuterol sulfate 03160931233 Jarret Waldrop CETIRIZINE HCL 10 MG TABS take 1 tablet by oral route once daily as needed for allergies cetirizine 58449836680 Jarret Waldrop FLUCONAZOLE 150 MG TABS once a day 1 tab oral daily for 3 days fluconazole 98998615230 Jarret Waldrop BUSPIRONE HCL 7.5 MG TABS take one tablet by mouth twice daily buspirone 74483113341 Jarret Waldrop ESCITALOPRAM OXALATE 20 MG TABS 1 tab oral daily escitalopram oxalate 62723279724 Jarret Waldrop LOSARTAN POTASSIUM-HCTZ 50-12.5 MG TABS once a day take one half tablet by mouth every day losartan-hydroch lorothiazide 14950310825 Jarret Waldrop MUPIROCIN 2 % OINT apply a thin layer to the affected area(s) by topical route 2 times per day mupirocin 82393876151 Jarret Waldrop DICLOFENAC SODIUM 1 % GEL four times a day as needed apply 2 grams to the affected area(s) by topical route 4 times per day as need for arthritis pain diclofenac sodium 70545342990 Jarret Waldrop ANORO ELLIPTA 62.5-25 MCG/ACT AEPB inhale 1 puff by inhalation route once daily at the same time each day umeclidinium-mj anterol 31536265625 Jarret Waldrop CLOPIDOGREL BISULFATE 75 MG TABS 1 tab oral daily clopidogrel 74679762571 Jarret Waldrop ROSUVASTATIN CALCIUM 40 MG TABS one tablet oral daily rosuvastatin 49821458334 Jarret Waldrop METOPROLOL SUCCINATE ER 25 MG UL65G-USE take 1 tab by oral route once daily metoprolol succinate 89277353797 Jarret Waldrop Cubicin 500 mg recon soln 500mg IV Q 2 4hrs/OPAT 10/09 daptomycin 18552575924 Maggie Morataya RN ERTAPENEM SODIUM 1 GM SOLR 1 gm IV Q 2 4hrs/OPAT 10/09 ertapenem 46824524639 Maggie Morataya RN DICLOFENAC SODIUM 1 % GEL four times a day as needed 10/30 diclofenac sodium 37661902797 Lucrecia Sohan DOXYCYCLINE MONOHYDRATE 100 MG TABS twice a day 10/30 doxycycline monohydrate 21095538136 Lucrecia Sohan FLUCONAZOLE 150 MG TABS once a day 03/31 fluconazole 38162276836 Lucrecia Sohan LOSARTAN POTASSIUM-HCTZ 50-12.5 MG TABS once a day 10/30 losartan-hydroch lorothiazide 05121604204 Lucrecia Sohan ProAir HFA 90 mcg/actuation HFA aerosol inhaler every four hours as needed 10/30 albuterol sulfate 30364234635 Lucrecia Sohan PROMETHAZINE HCL 12.5 MG TABS every eight hours as needed promethazine 81179261210 Lucrecia Sohan ranolazine 500 mg extend release granules,packet twice a day ranolazine Lucrecia Sohan TRIAMCINOLONE ACETONIDE 0.1 % CREA twice a day triamcinolone acetonide 09002789416 Lucrecia Sohan ANORO ELLIPTA 62.5-25 MCG/ACT AEPB 03/31 umeclidinium-mj anterol 21078778666 Jarret Waldrop BUSPIRONE HCL 7.5 MG TABS 10/30 buspirone 33727885596 Jarret Waldrop CETIRIZINE HCL 10 MG TABS 10/30 cetirizine 90578268422 Jarret Waldrop CLOPIDOGREL BISULFATE 75 MG TABS 10/30 clopidogrel 99734305155 Jarret Waldrop ESCITALOPRAM OXALATE 20 MG TABS 10/30 escitalopram oxalate 35687540698 Jarret Waldrop HYZAAR 50-12.5 MG TABS losartan-hydroch lorothiazide 18750583248 Jarret Waldrop METOPROLOL SUCCINATE ER 25 MG [id number] 10/30 metoprolol succinate 44175555977 Jarret Waldrop MUPIROCIN 2 % OINT 10/30 mupirocin 34545132482 Jarret Waldrop OMEPRAZOLE 40 MG CPDR 10/30 omeprazole 95476592990 Jarret Waldrop ROSUVASTATIN CALCIUM 40 MG TABS 03/31 rosuvastatin 39850781211 Jarret Waldrop Medications Administered No information available. [...] Procedures Code Procedure Name Date Entry Date CPT-48294 C- reactive protein CPT-18901 Sedimentation Rate (ESR) 202 11/29/08 CPT-ca Continue IV antibiotics 2022 CPT-wpc Weekly PICC Line Care 10/03 CPT-cwl Weekly Labs (Continue) 10/03 CPT-14629 CMP CPT-00987 CBC w/o Differential [id number], [id number] CPK CPT-63264 Sedimentation Rate (ESR) 202 11/29/02 CPT-ca Continue IV antibiotics 2021 CPT-wpc Weekly PICC Line Care 11/27 CPT-cwl Weekly Labs (Continue) 09/26 CPT-54799 CMP CPT-10326 CBC w/o Differential CPT-80825 Sedimentation Rate (ESR) 202 11/12/26 [id number], [id number] CPK CPT-ca Continue IV antibiotics 2021 CPT-wpc Weekly PICC Line Care 11/19 CPT-cwl Weekly Labs (Continue) 09/18 CPT-ca Continue IV antibiotics 2021 CPT-30513 CMP CPT-65538 CBC w/o Differential CPT-79564 C- reactive protein [id number], [id number] CPK CPT-70719 Sedimentation Rate (ESR) 202 11/12/11 CPT-ca Continue IV antibiotics 2021 CPT-wpc Weekly PICC Line Care 11/06 CPT-cwl Weekly Labs (Continue) 09/05 CPT-58817 CMP CPT-70269 CBC w/o Differential [id number], [id number] CPK CPT-81704 Sedimentation Rate (ESR) 202 11/12/05 CPT- stat weekly Stat Weekly Labs CPT-ca Continue IV antibiotics 2021 CPT-wpc Weekly PICC Line Care 10/29 CPT-cwl Weekly Labs (Continue) 08/29 [id number], [id number] CPK CPT-40878 CMP CPT-22068 CBC w/o Differential CPT-31005 X-Ray, Chest (PICC Placement only) 10/28 CPT-juliana New IV antibiotic CPT-98999 PIV/Butterfly CPT-52160 PICC Line Insertion CPT-42476 CMP CPT-37590 CBC w/o Differential [id number], [id number] CPK CPT-85129 Sedimentation Rate (ESR) 202 11/11/24 CPT-62477 Wound Culture and Sensitivity w/Gram Stai n [...]
[2025-06-23 11:04] LABS: Hematocrit 43.1 % (37.0-47.0); Hemoglobin 13.2 g/dL (12.2-16.2); Immature Granulocytes % 0.3 %; Mean Corpuscular HGB Conc 30.6 g/dL (31.8-35.4); Mean Corpuscular Hemoglobin 24.0 pg (27.0-31.2); Mean Corpuscular Volume 78.2 fl (81-99); Nucleated Red Blood Cells % 0 %; Platelet Count 319 K/mm3 (142-424); Red Blood Count 5.51 M/mm3 (4.20-5.40); Red Cell Distribution Width-SD 51.5 fL; White Blood Count 9.8 K/mm3 (4.8-10.8)
[2025-06-23 11:41] LABS: Iron 48 ug/dL (37-170)
[2025-06-23 11:51] LABS: Total Iron Binding Capacity 338 ug/dL (265-497)
[2025-06-23 12:16] LABS: Ferritin 13.1 ng/ml (11.1-264)
== END 2025-06-23 23:59 | disposition home or self-care (01) ==
LOC: LAB 10:52
PROVIDERS: PCP Nurse Practitioner Family; Visit Provider Internal Medicine Medical Oncology
DX: D64.9 Anemia, unspecified (principal)
CPT/HCPCS: 36415; 82728; 83540; 83550; 85025